=== PATIENT | male | born 1965 | race Caucasian/White ===

== ENCOUNTER → 2017-12-14 12:39 | Outpatient (CLI) | payer OTHER, SELFPAY ==
--- NOTE | 2017-12-14 12:43 | VDLE_ITS ---
Reason For Study: pain/swelling RIGHT LEFT CFV is compressible, spontaneous, phasic, CFV is compressible, spontaneous, phasic, competent and demonstrates normal competent, and demonstrates normal augmentation. augmentation. FV is compressible, spontaneous, phasic, FV is compressible, spontaneous, phasic, competent and demonstrates normal competent and demonstrates normal augmentation. augmentation. POP V is compressible, spontaneous, phasic, POP V is compressible, spontaneous, phasic, competent and demonstrates normal competent and demonstrates normal augmentation. augmentation. T/P Trunk is compressible. T/P Trunk is compressible. PTV is compressible. PTV is compressible. RT PerV is compressible. LT PerV is compressible. SFJ is competent. SFJ is incompetent. GSV above knee is competent. GSV above knee is competent. GSV below knee is incompetent > .5 seconds; GSV below knee is competent. measures 0.301 x 0.332 cm. SSV is competent. SSV is competent. Procedure Exam performed in department. The exam was diagnostic. Interpretation Summary 1. Bilateral no DVT or SVT. 2. Right below knee GSV reflux. Ordering Physician: Roberto Harley Referring Physician: Balbir Campos Performed By: Daija Griffith, LISA, RVT
== END ==
PROVIDERS: Family Provider Physician Assistant; PCP Physician Assistant; Visit Provider Surgery Vascular Surgery
DX: M79.89 Other specified soft tissue disorders (principal); M79.604 Pain in right leg; M79.605 Pain in left leg
CPT/HCPCS: 93970

== ENCOUNTER 2019-05-30 21:05 | Inpatient (IN) | payer OTHER, SELFPAY ==
[2019-05-30 21:07] VITALS: BP 82/56; PULSE 120; RESP 22; TEMP 36.6; O2SAT 98; BMI 37.2
--- NOTE | 2019-05-30 21:39 | ED.RN ---
2129 82/56,pt asymptomatic,iv started in lac,ns wide open.
[2019-05-30 21:40] VITALS: BP 81/53; PULSE 112; RESP 19; O2SAT 99
--- NOTE | 2019-05-30 21:46 | EKG12_ITS ---
Test Reason : HYPOTENSION Blood Pressure : / mmHG Vent. Rate : 121 BPM Atrial Rate : 121 BPM P-R Int : 128 ms QRS Dur : 144 ms QT Int : 342 ms P-R-T Axes : 022 -73 006 degrees QTc Int : 485 ms Sinus tachycardia Left axis deviation Right bundle branch block Inferior infarct , age undetermined , cannot be excluded Abnormal ECG Confirmed by KELLY OWENS, SAWYER ([id number]), editor producer MICHELLE BROWNING ([id number]) on 06/01/2019 10:50:28 AM Referred By: DR ROWELL Confirmed By:SAWYER MENDOZA MD
--- NOTE | 2019-05-30 21:49 | ED.VIS.GEN ---
History of Present Illness Chief Complaint: Hypotension Informant: Patient Onset: Days - 4 Context: Gradual Onset Timing: Continuous Narrative: Patient has had fatigue, malaise, chills, occasional shortness of breath, occasional near syncope since having redness, pain, swelling in his right lower extremity for the past 4 days or so. He initially was seen at an urgent care and received a prescription for doxycycline which he has been taking it consistently, because subsequently he had a day or so with nausea and vomiting and was unable to keep pills down, but he has been taking it consistently for the past 2.5 days with some mild improvement in the degree of erythema but no improvement in anything else. He states he can work for 5 or 10 minutes and he is extremely fatigued and feels like he is going to pass out when this happens. Blurry vision when he feels near syncopal. No chest pain or cough. He has not lost consciousness. Denies any focal neurologic symptoms. Is clearly not confused. Is a type II diabetic, compliant with his medication, and has had a nonhealing ulcer on the bottom of his right great toe for the last year or 2. He has had symptoms like this in his right lower extremity in the past, the last time it happened was 2.5 years ago, he thinks it is infectious but was told in the past that it was not. He had superficial thrombus phlebitis at one point there, but did not require any specific management of it other than compression stockings. No history of DVT or PE. - Past Medical History (1) Type 2 diabetes mellitus with diabetic neuropathy Status: Chronic Past Medical History - Allergies and Home Meds Allergies/Adverse Reactions: Allergies No Known Allergies Allergy (Verified 05/30/19 21:07) Smoking Status: Never smoker Alcohol: None Drugs: None - Family History Maternal Family History: Reports: No pertinent history Review of Systems General: Reports: Chills, Malaise, Sweats. Denies: Fever Eyes: Denies: Visual changes - bilaterally, Diplopia ENT: Denies: Rhinorrhea, Sore throat Cardiovascular: Denies: Chest pain, Palpitations Respiratory: Reports: Dyspnea. Denies: Cough, Sputum, Dyspnea on exertion Gastrointestinal: Reports: - - Early satiety for the past month or so; scheduled for gastric emptying study. Denies: Abdominal pain, Nausea, Vomiting, Diarrhea, Melena, Hematochezia Genitourinary: Denies: Dysuria, Hematuria, Frequency Musculoskeletal: Reports: Swelling - RLE, Extremity Pain - RLE. Denies: Neck pain, Back pain Skin: Reports: Rash - RLE, Wounds - chronic right great toe Neurological: Reports: Numbness - both feet, chronic, unchanged. Denies: Headache, Weakness Physical Exam Vital Signs/Narrative: Vital Signs Temp Pulse Resp BP Pulse Ox 05/30/19 21:40 112 H 19 H 81/53 L 99 05/30/19 21:07 97.8 F 120 H 22 H 82/56 L 98 Inital Vital Signs reviewed: Yes General: Well nourished, Well developed, Obese, No Acute Distress - well-appearing Head: Normocephalic, Atraumatic Eyes: Perrl, EOMI ENT: Moist mucous membranes, No rhinorrhea Neck: Supple, Nontender Cardiovascular: Regular rate, Regular rhythm, No murmurs, Tachycardia Respiratory: No distress, CTA bilaterally, Chest nontender Abdomen: Soft, Nontender, Nondistended, Normal bowel sounds Back: Nontender, Normal Inspection. Negative for: CVA tenderness Extremities: Tenderness - Right lower leg blanching erythema., Edema - Throughout right lower leg to the knee including the calf without any calf tenderness. Skin: Normal color, No Trauma, Rash - Blanching erythema from the right proximal foot all the way up to the proximal-mid thigh, where it feathers out and is less prominent. No palpable cords., - - Ulceration plantar aspect of right great toe, with no discharge or obvious sign of infection. Neurological: Alert, Oriented x3, Cranial nerves II-XII grossly intact, Normal Strength. Negative for: Normal Sensation - Decreased sensation both feet Psychological: Normal affect, Normal Mood Diagnostic/Tx/Re-eval Impressions Venous Duplex 05/30/19 21:56 IMPRESSION: There is no evidence of deep venous thrombosis of the visualized right lower extremity venous structures. Electronically Signed: Joce Ferguson MD at 23:10 EDT , Service support , Chest X-Ray 05/30/19 22:00 IMPRESSION: Degenerative changes, as described above. No demonstrated acute cardiopulmonary process. Electronically Signed: Joce Ferguson MD at 22:36 EDT , Service support , 05/30/19 22:00 Chest 1 View (Portable) [RAD] Stat Laboratory Results 05/30/19 05/30/19 05/30/19 21:30 21:30 21:30 WBC 17.8 H RBC 4.49 L Hgb 12.6 L Hct 38.5 L MCV 85.7 MCH 28.1 MCHC 32.7 RDW Std Deviation 46.1 H RDW Coeff of Yary 14.6 Plt Count 251 MPV 10.6 Immature Gran % (Auto) 1.600 H Neut % (Auto) 82.1 H Lymph % (Auto) 9.4 L [place] % (Auto) 6.2 Eos % (Auto) 0.4 Baso % (Auto) 0.3 Absolute Neuts (auto) 14.6 H Absolute Lymphs (auto) 1.68 Nucleated RBC % 0 PT 13.6 INR 1.1 APTT 34.4 Sodium 134 L Potassium 3.8 Chloride 99 Carbon Dioxide 20.0 L Anion Gap 15 BUN 49 H Creatinine 3.61 H Estim Creat Clear Calc 24.34 Est GFR (MDRD) Af Amer 23 L Est GFR (MDRD) Non-Af 19 L BUN/Creatinine Ratio 13.6 Glucose 184 H Lactic Acid Calcium 9.4 Total Bilirubin 0.50 AST 38 H ALT 34 Alkaline Phosphatase 109 Total Protein 8.2 Albumin 3.0 L Globulin 5.2 H Albumin/Globulin Ratio 0.6 L 05/30/19 21:30 WBC RBC Hgb Hct MCV MCH MCHC RDW Std Deviation RDW Coeff of Yary Plt Count MPV Immature Gran % (Auto) Neut % (Auto) Lymph % (Auto) [place] % (Auto) Eos % (Auto) Baso % (Auto) Absolute Neuts (auto) Absolute Lymphs (auto) Nucleated RBC % PT INR APTT Sodium Potassium Chloride Carbon Dioxide Anion Gap BUN Creatinine Estim Creat Clear Calc Est GFR (MDRD) Af Amer Est GFR (MDRD) Non-Af BUN/Creatinine Ratio Glucose Lactic Acid 3.1 H Calcium Total Bilirubin AST ALT Alkaline Phosphatase Total Protein Albumin Globulin Albumin/Globulin Ratio - Rhythm Strip Rhythm Strip: Sinus Tach Rate: 120 Ectopy: None - EKG Initial EKG Interpretation: No Acute Injury Pattern, Sinus Tachycardia, RBBB - Medical Decision Making Hypotension slowly improving with IV fluid bolusing, he meets criteria for severe sepsis and I suspect the source is his right lower extremity cellulitis which presumably came from the wound on his toe that is chronic and nonhealing although it does not appear to be grossly infected or abscessed. Venous eval negative for DVT. Vancomycin is going after blood cultures obtained, his chest x-ray is unremarkable and EKG is showing a right bundle branch block but otherwise no acute injury. Will admit to ICU. Systolic blood pressure 100 prior to transfer up to the unit. - Critical Care Time Critical care time (excluding procedures): 30-74 minutes, Including time spent:, Discussing w/Patient &/or Family/Canvas Cutter, Discussing w/Consultants, Arranging Admission or Transfer, Performing Direct Patient Care at Bedside ED Disposition - Plan for ED Patient: Disposition: Acute Care Hospital [facility] Diagnosis: Severe sepsis, Cellulitis of left lower extremity, Type 2 diabetes mellitus with diabetic neuropathy
[2019-05-30 21:53] VITALS: BP 91/54; PULSE 107; RESP 19; O2SAT 99
[2019-05-30] MEDS: 0.9% Normal Saline 1,000 ML 999 ML IV ×3 (21:55→23:14)
--- NOTE | 2019-05-30 21:56 | US_ITS ---
STUDY: VENOUS DOPPLER ULTRASOUND - RIGHT LOWER EXTREMITY REASON FOR EXAM: Male, 54 years old. Right leg swelling and redness x4 days TECHNIQUE: Ultrasound evaluation of the deep vein system to include christianson-scale imaging and compression was performed. Christianson-scale imaging and Doppler sonographic evaluation, including duplex spectral analysis and qualitative color flow sonography, was performed. COMPARISON: None. FINDINGS: Common Femoral Vein: Normal compression, spontaneity and augmentation. Normal color Doppler. Common Femoral Vein/Greater Saphenous Junction: Normal compression. No internal echoes. Deep Femoral Vein: Not imaged Femoral Proximal: Normal compression. No internal echoes. Femoral Middle: Normal compression, spontaneity and augmentation. Normal color Doppler. Femoral Distal: Normal compression. No internal echoes. Popliteal Vein: Normal compression, spontaneity and augmentation. Normal color Doppler. Posterior Tibial Vein: Normal compression. No internal echoes. Peroneal Vein: Normal compression. No internal echoes. US/Venous Duplex Imag/Limited/Uni IMPRESSION: There is no evidence of deep venous thrombosis of the visualized right lower extremity venous structures. Electronically Signed: Joce Ferguson MD at 23:10 EDT , Service support ,
--- NOTE | 2019-05-30 22:00 | RAD_ITS ---
STUDY: X-RAY CHEST REASON FOR EXAM: Male, 54 years old. Hypotensive, shortness of breath, dizziness, vision changes TECHNIQUE: Single AP portable view of the chest. COMPARISON: None. FINDINGS: infrastructure design engineer leads are present. The lungs are clear and expanded. There is no demonstrated pleural abnormality. Normal size heart. Normal mediastinum and gaurang. Normal visualized pulmonary arteries. Normal visualized aortic arch and descending thoracic aorta. There are diffuse degenerative changes of the visualized thoracic spine. Normal visualized ribs, clavicles, and shoulders. There is no demonstrated abnormality of the visualized soft tissue structures of the upper abdomen. RAD/Chest 1 View (Portable) IMPRESSION: Degenerative changes, as described above. No demonstrated acute cardiopulmonary process. Electronically Signed: Joce Ferguson MD at 22:36 EDT , Service support ,
--- NOTE | 2019-05-30 22:19 | ED.RN ---
pt unable tovoid at this time, inquired if the md wants to delay vancomycin for urine,he stated not to run atb.
[2019-05-30 22:20] LABS: Absolute Lymphocyte Count 1.68 X10^3/uL (0.83-4.51); Absolute Neutrophil Count 14.6 X10^3/uL (2.0-7.7); Basophil# 0.06 X10^3/uL; Basophil% 0.3 % (0-1); Eosinophil# 0.07 X10^3/uL; Eosinophils% 0.4 % (0-5); Hematocrit 38.5 % (40-54); Hemoglobin 12.6 g/dL (13.0-16.5); Lymphocyte # 1.68 X10^3/ul (4.0); Lymphocyte % 9.4 % (19-41); Mean Corp Hgb Conc 32.7 g/dL (32-36); Mean Corpuscular Hgb 28.1 pg (27.0-32.0); Mean Corpuscular Volume 85.7 fL (80-94); Mean Platelet Vol. 10.6 fl (6.2-12.0); Monocyte% 6.2 % (0-10); NRBC Flagged by Analyzer 0 % (0-5); Neutrophil # 14.62 X10^3/uL (2.7-7.7); Neutrophil % 82.1 % (47-70); Platelet Count 251 K/mm3 (150-450); RBC Distribution Width CV 14.6 % (11.6-14.6); RBC Distribution Width SD 46.1 fl (35.1-43.9); Red Blood Count 4.49 M/mm3 (4.6-6.2); White Blood Count 17.8 K/mm3 (4.4-11.0)
[2019-05-30 22:22] VITALS: TEMP 37.4
[2019-05-30 22:23] LABS: International Normalized Ratio 1.1; Prothrombin Time (Protime)PT. 13.6 SECONDS (11.7-14.9)
[2019-05-30 22:24] LABS: Partial Thromboplast Time 34.4 Seconds (24.1-36.2)
[2019-05-30 22:32] LABS: ALB/GLOB Ratio 0.6 RATIO (0.9-2.4); AST(SGOT) 38 U/L (15-37); Alanine Aminotransfer ALT/SGPT 34 U/L (16-61); Alkaline Phosphatase 109 U/L (45-117); Anion Gap 15 (5-15); BUN 49 mg/dL (7-18); BUN/Creat Ratio 13.6 RATIO (10-20); Calcium,Total 9.4 mg/dL (8.5-10.1); Chloride 99 mmol/L (98-107); Creatinine, Serum 3.61 mg/dL (0.70-1.30); EST Glomerular Filtration Rate 19 mL/min (>60); Est Glom Filt Rate - Afr Amer 23 mL/min (>60); Estimated Creatinine Clearance 24.34 ml/min; Globulin 5.2 g/dL (2.2-4.2); Glucose 184 mg/dL (74-106); Potassium 3.8 mmol/L (3.5-5.1); Protein, Total 8.2 g/dL (6.4-8.2); Sodium Level 134 mmol/L (136-145)
[2019-05-30 22:36] LABS: Lactic Acid 3.1 mmol/L (0.4-2.0)
[2019-05-30 23:10] VITALS: BP 101/57; PULSE 106; RESP 20; O2SAT 98
--- NOTE | 2019-05-30 23:11 | PCM.HP.STD ---
Problem List (1) Type 2 diabetes mellitus with diabetic neuropathy Status: Chronic (2) Severe sepsis Status: Acute (3) Cellulitis of left lower extremity Status: Acute History of Present Illness Date of Admission: 05/30/19 Chief Complaint: severe sepsis The patient is a 54 year old M [male patient with a significant past medical history of diabetes who has had chronic ulcer of the right foot over the past year nonhealing. Over the past several days the right leg has become more red and warm from the foot all the way to the groin. He sought medical attention at the urgent care who started him on doxycycline and subsequently the erythema has become more diffuse and less warm. This evening he found himself very tired and he presented to the emergency room with hypotension, tachycardic and a low-grade fever. CBC shows a white count of 17,000 with a left shift. Lactate is above 3. He has received 3 L of normal saline in the emergency room and states he is feeling better than when he arrived. The patient will be admitted to the medical intensive care unit for sepsis and sepsis protocol will be followed. The source of infection appears to be an open ulcer on the right plantar surface of the foot for which IV vancomycin has been started.] Past Medical History Past Medical History (Chronic Problems): Chronic Problems Type 2 diabetes mellitus with diabetic neuropathy (Chronic) Allergies No Known Allergies Allergy (Verified 05/30/19 21:07) Home Medications: Ambulatory Orders Medication Instructions Recorded Allopurinol 300 mg PO DAILY 05/30/19 Cyanocobalamin (Vitamin B-12) 1,000 mcg PO DAILY 05/30/19 [Vitamin B-12] Insulin Glargine/Lixisenatide 70 ml SQ DAILY 05/30/19 [Soliqua 100 Unit-33 Mcg/ml Pen] Insulin Lispro [Humalog Kwikpen] 28 unit SQ BID 05/30/19 Lisinopril [Prinivil] 10 mg PO DAILY 05/30/19 Metformin HCl 850 mg PO BID 05/30/19 Metoprolol Tartrate 25 mg PO DAILY 05/30/19 Omeprazole 40 mg PO DAILY 05/30/19 Pioglitazone [Actos] 30 mg PO DAILY 05/30/19 Pravastatin [Pravachol] 40 mg PO QHS 05/30/19 Smoking Status: Never smoker Alcohol: None Drugs: None - *Family History Maternal History Items: No pertinent history Review of Systems Constitutional: Reports: Fever, Weakness, Fatigue. Denies: Chills, Weight Change HEENT: Denies: Head Aches, Sinus Congestion, Sinus Drainage Cardiovascular: Denies: Chest Pain, Palpitations Respiratory: Denies: Cough, Shortness of breath at rest, Sputum production Gastrointestinal: Denies: Abdominal Pain, Nausea, Vomiting Genitourinary: Denies: Dysuria Musculoskeletal: Denies: Joint Pain, Joint Tenderness Skin: Reports: Skin Changes, Wounds. Denies: Rash Neurological: Denies: Numbness, Tingling, Focal weakness Psychiatric: Denies: Anxiety, Depression, Homicidal Ideations, Suicidal Ideations Hematologic/ Lymphatic: Denies: Easy Bruising, Easy Bleeding VTE Information - Inpt Only VTE Present on Admission: No VTE Mechan Device Prophylaxis: None VTE Pharm Prophylaxis ordered?: Yes Patient Problems: Active and Suspected Problems Severe sepsis (Acute) Cellulitis of left lower extremity (Acute) - Physical Exam General: Alert, Oriented x3, Cooperative HEENT: Atraumatic, Normocephalic Neck: Supple Lungs: Clear to auscultation, Normal air movement Cardiovascular: Regular rate, Normal S1, Normal S2, No murmurs, Tachycardic Abdomen: Bowel Sounds Present, Soft, Non Tender Extremities: Edema, Tenderness Skin: Ulcer/ Wound - right foot plantar surface, erythema in entire right lower extremity Musculoskeletal: No Tenderness to Palpation of Joints or Extremities Neurological: Neuro grossly intact Psych/Mental Status: Normal Affect, Appropriate Vital Signs Temp Pulse Resp BP Pulse Ox 99.4 F H 106 H 20 H 101/57 L 98 05/30/19 22:22 05/30/19 23:10 05/30/19 23:10 05/30/19 23:10 05/30/19 23:10 Oxygen Flow Rate (L/min) 2 Oxygen Delivery Method Nasal Cannula Weight: 266 lb 15.677 oz Body Mass Index (BMI) 37.2 Laboratory Tests Past 24 Hrs 05/30/19 05/30/19 05/30/19 21:30 21:30 21:30 WBC 17.8 H RBC 4.49 L Hgb 12.6 L Hct 38.5 L MCV 85.7 MCH 28.1 MCHC 32.7 RDW Std Deviation 46.1 H RDW Coeff of Yary 14.6 Plt Count 251 MPV 10.6 Immature Gran % (Auto) 1.600 H Neut % (Auto) 82.1 H Lymph % (Auto) 9.4 L [place] % (Auto) 6.2 Eos % (Auto) 0.4 Baso % (Auto) 0.3 Absolute Neuts (auto) 14.6 H Absolute Lymphs (auto) 1.68 Nucleated RBC % 0 PT 13.6 INR 1.1 APTT 34.4 Sodium 134 L Potassium 3.8 Chloride 99 Carbon Dioxide 20.0 L Anion Gap 15 BUN 49 H Creatinine 3.61 H Estim Creat Clear Calc 24.34 Est GFR (MDRD) Af Amer 23 L Est GFR (MDRD) Non-Af 19 L BUN/Creatinine Ratio 13.6 Glucose 184 H Lactic Acid Calcium 9.4 Total Bilirubin 0.50 AST 38 H ALT 34 Alkaline Phosphatase 109 Total Protein 8.2 Albumin 3.0 L Globulin 5.2 H Albumin/Globulin Ratio 0.6 L 05/30/19 21:30 WBC RBC Hgb Hct MCV MCH MCHC RDW Std Deviation RDW Coeff of Yary Plt Count MPV Immature Gran % (Auto) Neut % (Auto) Lymph % (Auto) [place] % (Auto) Eos % (Auto) Baso % (Auto) Absolute Neuts (auto) Absolute Lymphs (auto) Nucleated RBC % PT INR APTT Sodium Potassium Chloride Carbon Dioxide Anion Gap BUN Creatinine Estim Creat Clear Calc Est GFR (MDRD) Af Amer Est GFR (MDRD) Non-Af BUN/Creatinine Ratio Glucose Lactic Acid 3.1 H Calcium Total Bilirubin AST ALT Alkaline Phosphatase Total Protein Albumin Globulin Albumin/Globulin Ratio Assessment/Plan All Active Problems Severe sepsis (Acute) Cellulitis of left lower extremity (Acute) Chronic Problems Type 2 diabetes mellitus with diabetic neuropathy (Chronic) Plan 1. Severe sepsis?source foot ulcer with a right leg cellulitis?admit to ICU, continue sepsis protocol with hydration therapy, repeat lactate per protocol, repeat CBC BMP in the morning, vancomycin IV for infection, consult studio operations engineer in charge 2. Diabetes?continue routine diabetes control add sliding scale insulin 3. DVT prophylaxis?low molecular weight heparin Code Visit Inpatient E&M: 78442 Init Hosp L3
[2019-05-30 23:42] VITALS: BP 88/57; PULSE 101; RESP 24; TEMP 37.2; O2SAT 98
[2019-05-31] VITALS (24 sets, daily range): BP systolic 90–143; BP diastolic 48–91; PULSE 95–110; RESP 16–28; TEMP 36.6–37.6; O2SAT 93–100; BMI 37.3; BMI 37.4
[2019-05-31 00:41] LABS: Bedside Glucose 75 mg/dL (70-110)
[2019-05-31 02:15] LABS: Reflex Lactate? Y
[2019-05-31 02:19] LABS: Lactic Acid 1.5 mmol/L (0.4-2.0)
--- NOTE | 2019-05-31 02:27 | PCM.RX.CS ---
Consult Pharmacy has been consulted to manage selected antiobiotic: Vancomycin Type of Consult: New start Suspected Infection: Sepsis, Skin/Soft tissue Prior Doses of Antibiotics Received/Current Regimen: Medications Vancomycin HCl 1,250 mg/ (Sodium Chloride) 275 mls @ 167 mls/hr IV Q24H [place] Discontinued Medications Vancomycin HCl 1,750 mg/ (Sodium Chloride) 535 mls @ 250 mls/hr IV X1 ONE Stop: 05/31/19 00:03 Last Admin: 05/30/19: Dose: 250 mls/hr Labs: Sodium 134 mmol/L (136-145) L 05/30/19 21:30 Potassium 3.8 mmol/L (3.5-5.1) 05/30/19 21:30 Chloride 99 mmol/L (98-107) 05/30/19 21:30 Carbon Dioxide 20.0 mmol/L (21.0-32.0) L 05/30/19 21:30 15 (5-15) 05/30/19 21:30 BUN 49 mg/dL (7-18) H 05/30/19 21:30 3.61 mg/dL (0.70-1.30) H 05/30/19 21:30 Est GFR (MDRD) Af Amer 23 mL/min (>60) L 05/30/19 21:30 Est GFR (MDRD) Non-Af 19 mL/min (>60) L 05/30/19 21:30 13.6 RATIO (10-20) 05/30/19 21:30 Glucose 184 mg/dL (74-106) H 05/30/19 21:30 Weight used for dosin.5 kg Estimated Creatinine Clearance: 24.3 Goal Trough: 15-20 mcg/mL Pharmacy Plan for Drug Dosing: Pharmacy Service will continue to monitor and adjust dosing as required. Follow-Up Labs: Trough Vancomycin Labs to be done on [date and time ordered]: 06/01/19 @2200
[2019-05-31 04:10] LABS: Absolute Lymphocyte Count 1.94 X10^3/uL (0.83-4.51); Absolute Neutrophil Count 11.4 X10^3/uL (2.0-7.7); Basophil# 0.04 X10^3/uL; Basophil% 0.3 % (0-1); Eosinophil# 0.12 X10^3/uL; Eosinophils% 0.8 % (0-5); Hematocrit 31.9 % (40-54); Hemoglobin 10.5 g/dL (13.0-16.5); Lymphocyte # 1.94 X10^3/ul (4.0); Lymphocyte % 12.6 % (19-41); Mean Corp Hgb Conc 32.9 g/dL (32-36); Mean Corpuscular Hgb 28.5 pg (27.0-32.0); Mean Corpuscular Volume 86.7 fL (80-94); Mean Platelet Vol. 10.3 fl (6.2-12.0); Monocyte# 1.56 X10^3/uL; Monocyte% 10.2 % (0-10); NRBC Flagged by Analyzer 0 % (0-5); Neutrophil # 11.38 X10^3/uL (2.7-7.7); Neutrophil % 74.1 % (47-70); POSITIVE DIFFERENTIAL YES; Platelet Count 209 K/mm3 (150-450); RBC Distribution Width CV 14.6 % (11.6-14.6); RBC Distribution Width SD 46.4 fl (35.1-43.9); Red Blood Count 3.68 M/mm3 (4.6-6.2); White Blood Count 15.4 K/mm3 (4.4-11.0)
[2019-05-31 04:17] LABS: Differential Indicated SCAN CRITERIA MET
[2019-05-31 04:24] LABS: Anion Gap 11 (5-15); BUN 49 mg/dL (7-18); BUN/Creat Ratio 18.2 RATIO (10-20); Calcium,Total 8.3 mg/dL (8.5-10.1); Chloride 105 mmol/L (98-107); Creatinine, Serum 2.69 mg/dL (0.70-1.30); EST Glomerular Filtration Rate 26 mL/min (>60); Est Glom Filt Rate - Afr Amer 32 mL/min (>60); Estimated Creatinine Clearance 32.66 ml/min; Glucose 87 mg/dL (74-106); Potassium 3.8 mmol/L (3.5-5.1); Sodium Level 137 mmol/L (136-145)
[2019-05-31 05:32] LABS: Differential Comment SCANNED
[2019-05-31 07:05] LABS: Bedside Glucose 141 mg/dL (70-110)
--- NOTE | 2019-05-31 07:09 | PCM.CON.CC ---
Reason for Consult Date of Consultation: 05/31/19 Reason for Consultation: Severe sepsis History of Present Illness: The patient is a 54-year-old male, with a history as outlined below, who presented to the emergency department on May 30 with complaints of right lower extremity erythema. The patient reports that he is currently being followed by an outside anvil seating press operator and wound care due to a right great toe nonhealing ulcer. The patient previously underwent amputation of his left great toe due to underlying osteomyelitis. It is unknown what type of work-up has been completed previously by his outside anvil seating press operator. The patient did report decreased p.o. intake over the days leading up to his hospitalization. On presentation to the emergency department, the patient was noted to be afebrile with a blood pressure of 82/56 mmHg. The patient was maintaining appropriate oxygen saturations on room air. Laboratory evaluation revealed an elevated white blood cell count to 18,000. Chemistry profile was notable for acute kidney injury with a creatinine of 3.61. Lactate was mildly elevated to 3.1. Right lower extremity venous duplex revealed no evidence for DVT. Plain film chest x-ray revealed no acute cardiopulmonary process. The patient's blood pressures were noted to improve with IV fluid resuscitation. The patient was subsequently started on antibiotics and admitted to the medical intensive care unit for further management. Past Medical History Past Medical History (Chronic Problems): Chronic Problems Type 2 diabetes mellitus with diabetic neuropathy (Chronic) Allergies No Known Allergies Allergy (Verified 05/30/19 21:07) Home Medications: Ambulatory Orders Medication Instructions Recorded Allopurinol 300 mg PO DAILY 05/30/19 Cyanocobalamin (Vitamin B-12) 1,000 mcg PO DAILY 05/30/19 [Vitamin B-12] Insulin Glargine/Lixisenatide 70 units SQ DAILY 05/30/19 [Soliqua 100 Unit-33 Mcg/ml Pen] Insulin Lispro [Humalog Kwikpen] 28 unit SQ BID 05/30/19 Lisinopril [Prinivil] 10 mg PO DAILY 05/30/19 Metformin HCl 850 mg PO BID 05/30/19 Metoprolol Tartrate 25 mg PO DAILY 05/30/19 Omeprazole 40 mg PO DAILY 05/30/19 Pioglitazone [Actos] 30 mg PO DAILY 05/30/19 Pravastatin [Pravachol] 40 mg PO QHS 05/30/19 Smoking Status: Never smoker Alcohol: None Drugs: None - *Family History Maternal History Items: No pertinent history Review of Systems Constitutional: Denies: Chills, Fever Eyes: Denies: Blurred vision, Double vision HEENT: Denies: Head Aches, Sinus Congestion, Sinus Drainage Cardiovascular: Denies: Chest Pain, Palpitations Respiratory: Denies: Cough, Shortness of breath at rest, Sputum production Gastrointestinal: Denies: Abdominal Pain, Nausea, Vomiting Genitourinary: Denies: Dysuria Musculoskeletal: Denies: Joint Pain, Joint Tenderness Skin: Reports: Rash, Wounds Neurological: Denies: Numbness, Tingling, Focal weakness Psychiatric: Denies: Anxiety, Depression, Homicidal Ideations, Suicidal Ideations Hematologic/ Lymphatic: Denies: Easy Bruising, Easy Bleeding Patient Problems: Active and Suspected Problems Acute kidney injury (Acute) Severe sepsis (Acute) Cellulitis of left lower extremity (Acute) Objective: The patient's most recent lab work, culture data and imaging studies have all been personally reviewed. Blood cultures are currently pending. - Physical Exam General: Alert, Cooperative, No apparent distress, - - Sitting in bedside recliner. HEENT: Atraumatic, PERRLA, Normocephalic Oral: No Gingival or Mucosal Lesions/ Ulcerations Neck: Supple, No Nodes, Trachea Midline Lungs: Normal air movement, No rhonchi, No wheeze, No rales Cardiovascular: Regular rate, Regular Rhythm, Normal S1, Normal S2, No murmurs Abdomen: Bowel Sounds Present, Soft, Non Tender, Obese Extremities: No clubbing, No cyanosis Skin: - - Right lower extremity erythema and swelling. Right great toe ulceration with dressing in place. Musculoskeletal: No Tenderness to Palpation of Joints or Extremities Lymphatic: No Cervical, Supraclavicular, or Inguinal Adenopathy Neurological: Cranial nerves II-XII grossly intact, Neuro grossly intact Psych/Mental Status: Normal Affect, Appropriate Vital Signs Temp Pulse Resp BP Pulse Ox 98.3 F 101 H 28 H 97/48 L 96 05/31/19 04:00 05/31/19 07:00 05/31/19 07:00 05/31/19 07:00 05/31/19 07:00 Oxygen Flow Rate (L/min) 1 Oxygen Delivery Method Room Air Weight: 272 lb 14.916 oz Body Mass Index (BMI) 37.3 Intake and Output for Last 24 Hours 05/29/19 05/30/19 05/31/19 23:59 23:59 23:59 Intake Total 2973 / 2973 Output Total 0 / 0 Balance 2973 / 2973 Laboratory Tests Past 24 Hrs 05/30/19 05/30/19 05/30/19 21:30 21:30 21:30 WBC 17.8 H RBC 4.49 L Hgb 12.6 L Hct 38.5 L MCV 85.7 MCH 28.1 MCHC 32.7 RDW Std Deviation 46.1 H RDW Coeff of Yary 14.6 Plt Count 251 MPV 10.6 Immature Gran % (Auto) 1.600 H Neut % (Auto) 82.1 H Lymph % (Auto) 9.4 L [place] % (Auto) 6.2 Eos % (Auto) 0.4 Baso % (Auto) 0.3 Absolute Neuts (auto) 14.6 H Absolute Lymphs (auto) 1.68 Nucleated RBC % 0 Differential Comment Diff Path Review PT 13.6 INR 1.1 APTT 34.4 Sodium 134 L Potassium 3.8 Chloride 99 Carbon Dioxide 20.0 L Anion Gap 15 BUN 49 H Creatinine 3.61 H Estim Creat Clear Calc 24.34 Est GFR (MDRD) Af Amer 23 L Est GFR (MDRD) Non-Af 19 L BUN/Creatinine Ratio 13.6 Glucose 184 H Lactic Acid Calcium 9.4 Total Bilirubin 0.50 AST 38 H ALT 34 Alkaline Phosphatase 109 Total Protein 8.2 Albumin 3.0 L Globulin 5.2 H Albumin/Globulin Ratio 0.6 L 05/30/19 05/31/19 05/31/19 21:30 01:20 03:55 WBC 15.4 H RBC 3.68 L Hgb 10.5 L Hct 31.9 L MCV 86.7 MCH 28.5 MCHC 32.9 RDW Std Deviation 46.4 H RDW Coeff of Yary 14.6 Plt Count 209 MPV 10.3 Immature Gran % (Auto) 2.000 H Neut % (Auto) 74.1 H Lymph % (Auto) 12.6 L [place] % (Auto) 10.2 H Eos % (Auto) 0.8 Baso % (Auto) 0.3 Absolute Neuts (auto) 11.4 H Absolute Lymphs (auto) 1.94 Nucleated RBC % 0 Differential Comment SCANNED Diff Path Review May foll PT INR APTT Sodium Potassium Chloride Carbon Dioxide Anion Gap BUN Creatinine Estim Creat Clear Calc Est GFR (MDRD) Af Amer Est GFR (MDRD) Non-Af BUN/Creatinine Ratio Glucose Lactic Acid 3.1 H 1.5 Calcium Total Bilirubin AST ALT Alkaline Phosphatase Total Protein Albumin Globulin Albumin/Globulin Ratio 05/31/19 03:55 WBC RBC Hgb Hct MCV MCH MCHC RDW Std Deviation RDW Coeff of Yary Plt Count MPV Immature Gran % (Auto) Neut % (Auto) Lymph % (Auto) [place] % (Auto) Eos % (Auto) Baso % (Auto) Absolute Neuts (auto) Absolute Lymphs (auto) Nucleated RBC % Differential Comment Diff Path Review PT INR APTT Sodium 137 Potassium 3.8 Chloride 105 Carbon Dioxide 21.0 Anion Gap 11 BUN 49 H Creatinine 2.69 H Estim Creat Clear Calc 32.66 Est GFR (MDRD) Af Amer 32 L Est GFR (MDRD) Non-Af 26 L BUN/Creatinine Ratio 18.2 Glucose 87 Lactic Acid Calcium 8.3 L Total Bilirubin AST ALT Alkaline Phosphatase Total Protein Albumin Globulin Albumin/Globulin Ratio POC Glucose 05/31/19 05/31/19 06:59 00:37 POC Glucose 141 H 75 Clinical Impression(s) from Imaging Studies Venous Duplex 05/30/19 21:56 IMPRESSION: There is no evidence of deep venous thrombosis of the visualized right lower extremity venous structures. Electronically Signed: Joce Ferguson MD at 23:10 EDT , Service support , Chest X-Ray 05/30/19 22:00 IMPRESSION: Degenerative changes, as described above. No demonstrated acute cardiopulmonary process. Electronically Signed: Joce Ferguson MD at 22:36 EDT , Service support , Assessment/Plan Active and Suspected Problems Acute kidney injury (Acute) Severe sepsis (Acute) Cellulitis of left lower extremity (Acute) RECOMMENDATIONS: 1. Continue broad-spectrum antimicrobials for now. 2. Continue supplemental IV fluid hydration and encourage p.o. intake. 3. Continue to monitor urine output and renal function. 4. Continue to hold home antihypertensives. 5. Wound care consultation. 6. Attempt to obtain outside podiatry records. If the patient has not had imaging of his right lower extremity, consider MRI. IMPRESSIONS: 1. Severe sepsis Likely secondary to right lower extremity cellulitis. The patient is currently hemodynamically stable on broad-spectrum antibiotics. We will plan to continue local wound care. Wound care consultation is currently pending. Cultures can be obtained at that time. If imaging of the patient's right lower extremity has not been completed previously by his anvil seating press operator, can consider MR to evaluate for the presence of osteomyelitis. 2. Acute kidney injury Likely prerenal in etiology and related to #1. Unclear what the patient's baseline creatinine truly is. However, he does appear to be responding to IV fluid resuscitation. We will continue to monitor urine output accordingly. There is no indication for renal replacement therapy at this time. 3. Hypertension/hyperlipidemia/GERD/diabetes mellitus/obesity Complicates care, management, recovery and prognosis. Continue to hold home antihypertensives. Hold metformin as well due to renal insufficiency. This note was generated with [email or web address] dictation software. It may contain incorrect words, spelling, and punctuation that were not noted in checking the note before signing. Code Visit Inpatient E&M: 32109 Init Hosp L3
[2019-05-31] MEDS: 0.9% Normal Saline 1,000 ML 150 ML IV (08:49)
--- NOTE | 2019-05-31 08:59 | NURSING ---
wound photo: right great toe
[2019-05-31 09:01] LABS: Bacteria 0 SEEN /hpf (None Seen); Color, Urine Yellow (Yellow); Glucose, Dipstick Normal (Normal); Ketone-Dipstick Negative (Negative); Leukocyte Esterase-Dipstick Negative /ul (Negative); Mucous, Urine 0 SEEN /hpf (<or=2+); Nitrite-Dipstick Negative (Negative); Occult Blood-Urine Negative /ul (Negative); Protein-Dipstick 30 mg/dl (Negative); Red Blood Cells-Urine 0 SEEN /hpf (0-5); Squamous Epithelial Cells - UA 0 SEEN /hpf (0-5); Urine Bilirubin Dipstick Negative (Negative); Urine Clarity Clear (Clear); Urine Urobilinogen Normal (Normal); White Blood Cells 0 SEEN /hpf (0-5)
--- NOTE | 2019-05-31 09:07 | PN_ITS ---
Patient Problems: Active and Suspected Problems Acute kidney injury (Acute) Severe sepsis (Acute) Cellulitis of left lower extremity (Acute) Subjective: Chief complaint: Follow-up after admission for severe sepsis, acute right lower extremity cellulitis, acute kidney injury. Patient seen and examined. No acute events overnight. He still having mild pain in his right leg as well as swelling. He denied fever overnight. He denies dizziness or lightheadedness. He has been treated for right big toe chronic nonhealing ulcer with podiatry as outpatient for the last couple of years. He had amputation of his left big toe for left big toe osteomyelitis and that was done November,. He complains of epigastric fullness that has been going on for 4 weeks, was started on omeprazole around 1 week ago without significant improvement. He reported episodes when he is getting dizzy and lightheaded while working. This morning, is afebrile, heart rate has been around 100, blood pressure improved, pulse ox is maintained on room air. - Physical Exam General: Alert, Oriented x3, Cooperative, No apparent distress HEENT: Atraumatic, PERRLA, EOMI, Normocephalic Oral: Moist Mucosa, No Gingival or Mucosal Lesions/ Ulcerations Neck: Supple, No JVD, Negative Carotid Bruits, Trachea Midline, Thyroid Normal Size and Texture Lungs: Clear to auscultation, Normal air movement, No rhonchi, No wheeze, No rales Cardiovascular: Regular rate, Regular Rhythm, Normal S1, Normal S2, No murmurs, PMI Normal Abdomen: Bowel Sounds Present, Soft, Non Tender, Non-Distended, No Hepato- splenomegaly, Obese Extremities: No clubbing, No cyanosis, No edema, - - Right leg: Erythema and swelling extending from the just above right ankle up to the just below right knee. There is chronic ulcer on the plantar aspect of the right big toe about 2 x 2 cm, minimal drainage. Skin: No rashes, Ulcer/ Wound, - Lymphatic: No Cervical, Supraclavicular, or Inguinal Adenopathy Neurological: Cranial nerves II-XII grossly intact, Motor Exam 5/5 strength throughout Psych/Mental Status: Normal Affect, Appropriate, Alert and oriented to time, place, person, mood and affect Vital Signs Temp Pulse Resp BP Pulse Ox 98.3 F 100 18 114/74 97 05/31/19 04:00 05/31/19 08:00 05/31/19 08:00 05/31/19 08:00 05/31/19 08:00 Oxygen Flow Rate (L/min) 1 Oxygen Delivery Method Room Air Weight: 272 lb 14.916 oz Body Mass Index (BMI) 37.3 Intake and Output for Last 24 Hours 05/29/19 05/30/19 05/31/19 23:59 23:59 23:59 Intake Total 2973 / 2973 Output Total 0 / 0 Balance 2973 / 2973 Laboratory Tests Past 24 Hrs 05/30/19 05/30/19 05/30/19 21:30 21:30 21:30 WBC 17.8 H RBC 4.49 L Hgb 12.6 L Hct 38.5 L MCV 85.7 MCH 28.1 MCHC 32.7 RDW Std Deviation 46.1 H RDW Coeff of Yary 14.6 Plt Count 251 MPV 10.6 Immature Gran % (Auto) 1.600 H Neut % (Auto) 82.1 H Lymph % (Auto) 9.4 L [place] % (Auto) 6.2 Eos % (Auto) 0.4 Baso % (Auto) 0.3 Absolute Neuts (auto) 14.6 H Absolute Lymphs (auto) 1.68 Nucleated RBC % 0 Differential Comment Diff Path Review PT 13.6 INR 1.1 APTT 34.4 Sodium 134 L Potassium 3.8 Chloride 99 Carbon Dioxide 20.0 L Anion Gap 15 BUN 49 H Creatinine 3.61 H Estim Creat Clear Calc 24.34 Est GFR (MDRD) Af Amer 23 L Est GFR (MDRD) Non-Af 19 L BUN/Creatinine Ratio 13.6 Glucose 184 H Lactic Acid Calcium 9.4 Total Bilirubin 0.50 AST 38 H ALT 34 Alkaline Phosphatase 109 Total Protein 8.2 Albumin 3.0 L Globulin 5.2 H Albumin/Globulin Ratio 0.6 L Urine Color Urine Clarity Urine pH Ur Specific [place] U Specif Grav (Refrac) Urine Protein Urine Glucose (UA) Urine Ketones Urine Occult Blood Urine Nitrite Urine Bilirubin Urine Urobilinogen Ur Leukocyte Esterase Urine RBC Urine WBC Ur Squamous Epith Cells Ur Transition Epith Cell Ur Renal Epithelial Cell Calcium Oxalate Crystal Uric Acid Crystals Triple Phos Crystals Other Crystals Amorphous Sediment Urine Bacteria Hyaline Casts Fine Granular Casts Coarse Granular Casts Waxy Casts RBC Casts WBC Casts Urine Mucus Urine Trichomonas Urine Yeast S.aureus Protein A PCR MRSA (PCR) 05/30/19 05/31/19 05/31/19 21:30 01:20 03:55 WBC 15.4 H RBC 3.68 L Hgb 10.5 L Hct 31.9 L MCV 86.7 MCH 28.5 MCHC 32.9 RDW Std Deviation 46.4 H RDW Coeff of Yary 14.6 Plt Count 209 MPV 10.3 Immature Gran % (Auto) 2.000 H Neut % (Auto) 74.1 H Lymph % (Auto) 12.6 L [place] % (Auto) 10.2 H Eos % (Auto) 0.8 Baso % (Auto) 0.3 Absolute Neuts (auto) 11.4 H Absolute Lymphs (auto) 1.94 Nucleated RBC % 0 Differential Comment SCANNED Diff Path Review May foll PT INR APTT Sodium Potassium Chloride Carbon Dioxide Anion Gap BUN Creatinine Estim Creat Clear Calc Est GFR (MDRD) Af Amer Est GFR (MDRD) Non-Af BUN/Creatinine Ratio Glucose Lactic Acid 3.1 H 1.5 Calcium Total Bilirubin AST ALT Alkaline Phosphatase Total Protein Albumin Globulin Albumin/Globulin Ratio Urine Color Urine Clarity Urine pH Ur Specific [place] U Specif Grav (Refrac) Urine Protein Urine Glucose (UA) Urine Ketones Urine Occult Blood Urine Nitrite Urine Bilirubin Urine Urobilinogen Ur Leukocyte Esterase Urine RBC Urine WBC Ur Squamous Epith Cells Ur Transition Epith Cell Ur Renal Epithelial Cell Calcium Oxalate Crystal Uric Acid Crystals Triple Phos Crystals Other Crystals Amorphous Sediment Urine Bacteria Hyaline Casts Fine Granular Casts Coarse Granular Casts Waxy Casts RBC Casts WBC Casts Urine Mucus Urine Trichomonas Urine Yeast S.aureus Protein A PCR MRSA (PCR) 05/31/19 05/31/19 05/31/19 03:55 08:00 08:00 WBC RBC Hgb Hct MCV MCH MCHC RDW Std Deviation RDW Coeff of Yary Plt Count MPV Immature Gran % (Auto) Neut % (Auto) Lymph % (Auto) [place] % (Auto) Eos % (Auto) Baso % (Auto) Absolute Neuts (auto) Absolute Lymphs (auto) Nucleated RBC % Differential Comment Diff Path Review PT INR APTT Sodium 137 Potassium 3.8 Chloride 105 Carbon Dioxide 21.0 Anion Gap 11 BUN 49 H Creatinine 2.69 H Estim Creat Clear Calc 32.66 Est GFR (MDRD) Af Amer 32 L Est GFR (MDRD) Non-Af 26 L BUN/Creatinine Ratio 18.2 Glucose 87 Lactic Acid Calcium 8.3 L Total Bilirubin AST ALT Alkaline Phosphatase Total Protein Albumin Globulin Albumin/Globulin Ratio Urine Color Cancelled Yellow Urine Clarity Cancelled Clear Urine pH Cancelled 6.0 Ur Specific [place] Cancelled 1.010 U Specif Grav (Refrac) Cancelled Urine Protein Cancelled 30 H Urine Glucose (UA) Cancelled Normal Urine Ketones Cancelled Negative Urine Occult Blood Cancelled Negative Urine Nitrite Cancelled Negative Urine Bilirubin Cancelled Negative Urine Urobilinogen Cancelled Normal Ur Leukocyte Esterase Cancelled Negative Urine RBC Cancelled 0 SEEN Urine WBC Cancelled 0 SEEN Ur Squamous Epith Cells Cancelled 0 SEEN Ur Transition Epith Cell Cancelled Ur Renal Epithelial Cell Cancelled Calcium Oxalate Crystal Cancelled Uric Acid Crystals Cancelled Triple Phos Crystals Cancelled Other Crystals Cancelled Amorphous Sediment Cancelled Urine Bacteria Cancelled 0 SEEN Hyaline Casts Cancelled Fine Granular Casts Cancelled Coarse Granular Casts Cancelled Waxy Casts Cancelled RBC Casts Cancelled WBC Casts Cancelled Urine Mucus Cancelled 0 SEEN Urine Trichomonas Cancelled Urine Yeast Cancelled S.aureus Protein A PCR MRSA (PCR) 05/31/19 08:25 WBC RBC Hgb Hct MCV MCH MCHC RDW Std Deviation RDW Coeff of Yary Plt Count MPV Immature Gran % (Auto) Neut % (Auto) Lymph % (Auto) [place] % (Auto) Eos % (Auto) Baso % (Auto) Absolute Neuts (auto) Absolute Lymphs (auto) Nucleated RBC % Differential Comment Diff Path Review PT INR APTT Sodium Potassium Chloride Carbon Dioxide Anion Gap BUN Creatinine Estim Creat Clear Calc Est GFR (MDRD) Af Amer Est GFR (MDRD) Non-Af BUN/Creatinine Ratio Glucose Lactic Acid Calcium Total Bilirubin AST ALT Alkaline Phosphatase Total Protein Albumin Globulin Albumin/Globulin Ratio Urine Color Urine Clarity Urine pH Ur Specific [place] U Specif Grav (Refrac) Urine Protein Urine Glucose (UA) Urine Ketones Urine Occult Blood Urine Nitrite Urine Bilirubin Urine Urobilinogen Ur Leukocyte Esterase Urine RBC Urine WBC Ur Squamous Epith Cells Ur Transition Epith Cell Ur Renal Epithelial Cell Calcium Oxalate Crystal Uric Acid Crystals Triple Phos Crystals Other Crystals Amorphous Sediment Urine Bacteria Hyaline Casts Fine Granular Casts Coarse Granular Casts Waxy Casts RBC Casts WBC Casts Urine Mucus Urine Trichomonas Urine Yeast S.aureus Protein A PCR Pending MRSA (PCR) Pending POC Glucose 05/31/19 05/31/19 06:59 00:37 POC Glucose 141 H 75 Clinical Impression(s) from Imaging Studies Venous Duplex 05/30/19 21:56 IMPRESSION: There is no evidence of deep venous thrombosis of the visualized right lower extremity venous structures. Electronically Signed: Joce Ferguson MD at 23:10 EDT , Service support , Chest X-Ray 05/30/19 22:00 IMPRESSION: Degenerative changes, as described above. No demonstrated acute cardiopulmonary process. Electronically Signed: Joce Ferguson MD at 22:36 EDT , Service support , Medical Necessity - Tobacco Use Smoking Status: Never smoker Assessment/Plan All Active Problems Acute kidney injury (Acute) Severe sepsis (Acute) Cellulitis of left lower extremity (Acute) This is a 54 years old male patient presented to the emergency room because of chills, malaise, weakness, right leg pain and swelling and he was found to have severe sepsis secondary to acute right lower extremity cellulitis and he had chronic right big toe nonhealing diabetic ulcer that has been under treatment with podiatry as outpatient for the last couple of years and also has a history of amputation of the left big toe due to osteomyelitis according to the patient. #1 acute right lower extremity cellulitis/severe sepsis: He is on IV vancomycin. He has been afebrile, slightly tachycardic, blood pressure started to improve, pulse ox is maintained on room air. White blood cell count is trending down. Lactic acid is down to normal. Venous Doppler of the right leg revealed no evidence of acute DVT. Blood, wound and urine cultures are pending. MRSA wound screen sent. Plan: Continue same treatment, transfer to PCU. #2 acute kidney injury: Secondary to severe sepsis and poor oral intake. Patient mentioned that he did not eat for 4 days, poor appetite. According to the patient, he denies history of chronic kidney disease. He has been on IV fluids. Admission creatinine was 3.61, came down to 2.69 this morning. He has a good urine output. Plan to continue IV fluids, repeat BMP tomorrow morning. #3 chronic nonhealing diabetic ulcer of the right big toe: This is could be the entry site of the bacteria causing right leg cellulitis. He has been treated with podiatry for the last couple of years for this. He had a history of amputation of the left big toe on November,. Wound culture taken. There was no evidence that there is acute infection of this ulcer. Plan: ESR, CRP, continue IV antibiotics, get records from podiatry office. May need to do MRI to rule out osteomyelitis. #4 type 2 diabetes mellitus: He is only on sliding scale and Actos. Metformin and soliqua held. Blood sugar has been stable. Plan to do hemoglobin A1c, continue Accu-Cheks. #5 hypertension: Blood pressure is borderline slightly improved, lisinopril and metoprolol on hold. #6 hyperlipidemia: Continue statins. #7 suspected GERD: Continue PPI. #8 DVT prophylaxis: DC subcu Lovenox. Start subcu heparin. This note was generated with [employer] dictation software. It may contain incorrect words, spelling, and punctuation that were not noted in checking the note before signing. Code Visit Inpatient E&M: 19611 Subs Hosp L2
[2019-05-31 10:21] LABS: Erythrocyte Sedimentation Rate 82 mm/hr (0-20)
[2019-05-31] MEDS: Pantoprazole Sodium 40 MG Tablet PO (10:21)
[2019-05-31] MEDS: Pioglitazone Hydrochloride 30 MG Tablet PO (10:21)
[2019-05-31] MEDS: Cyanocobalamin 500 MCG Tablet 1000 MCG PO (10:22)
[2019-05-31] MEDS: Allopurinol 300 MG Tablet PO (10:22)
[2019-05-31] MEDS: Heparin Injection (Vial) 5,000 UNIT/ML VIAL 5000 UNIT SC ×2 (10:26→21:53)
--- NOTE | 2019-05-31 12:00 | RAD_ITS ---
STUDY: X-RAY - RIGHT FOOT CLINICAL: Sore on right great toe, rule out osteomyelitis. TECHNIQUE: 3 view(s) of the foot. COMPARISON: None. FINDINGS: Normal talus, calcaneus, and tarsal bones. There is an os trigonum. Normal visualized subtalar, talonavicular, calcaneocuboid, tarsal and tarsometatarsal articulations. Normal metatarsi. Normal metatarsophalangeal joint of the great toe. Normal tibial and fibular sesamoid bones. Normal interphalangeal joint of the great toe. Normal phalanges of the great toe. Normal second through fifth metatarsophalangeal joints. Normal interphalangeal joints and phalanges of the lesser toes. The soft tissue structures are unremarkable. RAD/Foot min 3 Views IMPRESSION: No demonstrated active bone destruction of the great toe. Electronically Signed: Yaya Stanford MD at 12:46 EDT Tel , Service support ,
[2019-05-31 12:09] LABS: M R Staph aureus DNA By PCR Negative (Negative); Staph aureus DNA By PCR NEGATIVE (Negative)
[2019-05-31 12:10] LABS: Probe Check PASS; Specimen Processing Control PASS
--- NOTE | 2019-05-31 12:46 | CASEMGMT ---
RN CM Assessment Presentation: Sepsis Intro role of CM and purpose of RN CM assessment to patient in room. Pt is awake, alert and able to participate in assessment. Demographics, no PCP and Pharmacy verified. Pt states he has been doing own dressing changes at home. PCP: No PCP. Discussed benefits of having PCP. List of [employer] PCP's for [facility] and [facility] given to pt. Explained procedure for calling for new pt appt, needing to complete paperwork and establishing with practice by going to first appointment. Pt understands and states he will do this on dc. Specialists: Endocrinology, Dr. Ledezma Preferred Pharmacy: [facility] Insurance: MMO Prescription Benefit: yes LNOK: Gt Mason, brother Living Arrangements: lives in mobile home with ramp. States he works, is independent in ADL and does not require assistance at this time. Transportation: drives DME: Blood glucose monitoring machine and supplies. Pt states uses regularly. HHC: no preference if needed, however pt states he has been doing own dressing changes at home and plans to continue. Pt does not have PCP. Patient DC goals: Home DC PLAN: Home on discharge. Marco BEATTY RN ACM
[2019-05-31] MEDS: Insulin Lispro 100 UNIT/ML INSULN.PEN SC ×3 (14:32→21:49)
[2019-05-31 14:36] LABS: Bedside Glucose 207 mg/dL (70-110)
[2019-05-31] MEDS: Ondansetron 4 MG/2 ML Vial IV (15:54)
[2019-05-31] MEDS: 0.9% NaCl Peripheral Flush Adult/Peds IV (15:55)
[2019-05-31] MEDS: 0.9% Normal Saline 1,000 ML 100 ML IV (15:55)
[2019-05-31] MEDS: Acetaminophen 325 MG Tablet 650 MG PO ×2 (16:48→23:45)
[2019-05-31 18:01] LABS: Bedside Glucose 237 mg/dL (70-110)
[2019-05-31] MEDS: Pravastatin 40 MG Tablet PO (21:49)
[2019-05-31 21:56] LABS: Bedside Glucose 231 mg/dL (70-110)
[2019-06-01] VITALS (10 sets, daily range): BP systolic 132–148; BP diastolic 71–90; PULSE 90–108; RESP 12–18; TEMP 36.4–37.4; O2SAT 96–99
[2019-06-01] MEDS: oxyCODONE 5 MG Tablet PO ×4 (01:36→22:48)
[2019-06-01] MEDS: 0.9% Normal Saline 1,000 ML 100 ML IV (04:08)
[2019-06-01 06:26] LABS: Hematocrit 31.9 % (40-54); Hemoglobin 10.5 g/dL (13.0-16.5); Mean Corp Hgb Conc 32.9 g/dL (32-36); Mean Corpuscular Hgb 28.5 pg (27.0-32.0); Mean Corpuscular Volume 86.4 fL (80-94); Mean Platelet Vol. 10.1 fl (6.2-12.0); POSITIVE COUNT YES; POSITIVE MORPHOLOGY YES; Platelet Count 269 K/mm3 (150-450); RBC Distribution Width CV 14.8 % (11.6-14.6); RBC Distribution Width SD 47.6 fl (35.1-43.9); Red Blood Count 3.69 M/mm3 (4.6-6.2); White Blood Count 13.2 K/mm3 (4.4-11.0)
[2019-06-01 06:29] LABS: Differential Indicated MANUAL DIFF
[2019-06-01 06:31] LABS: Bedside Glucose 182 mg/dL (70-110)
[2019-06-01] MEDS: Acetaminophen 325 MG Tablet 650 MG PO ×3 (06:33→20:53)
[2019-06-01] MEDS: Insulin Lispro 100 UNIT/ML INSULN.PEN SC ×3 (06:33→16:15)
[2019-06-01 07:01] LABS: Anion Gap 6 (5-15); BUN 26 mg/dL (7-18); BUN/Creat Ratio 19.8 RATIO (10-20); Calcium,Total 8.7 mg/dL (8.5-10.1); Chloride 107 mmol/L (98-107); Creatinine, Serum 1.31 mg/dL (0.70-1.30); EST Glomerular Filtration Rate 60 mL/min (>60); Est Glom Filt Rate - Afr Amer 73 mL/min (>60); Estimated Creatinine Clearance 67.06 ml/min; Glucose 188 mg/dL (74-106); Potassium 4.2 mmol/L (3.5-5.1); Sodium Level 136 mmol/L (136-145)
[2019-06-01 07:02] LABS: Anisocytosis 1+; Eosinophil 4 % (0-5); Hypochromasia 1+; Lymphocyte 11 % (19-41); Monocyte 7 % (0-10); Neutrophil-Segmented 78 % (47-70); Platelet Estimate ADEQUATE (ADEQ); Total Cells Counted 100 (MANUAL DIFF)
[2019-06-01 07:03] LABS: Microcytosis 1+
[2019-06-01 07:04] LABS: Absolute Lymphocyte Count 1.45 X10^3/uL (0.83-4.51); Absolute Neutrophil Count 10.3 X10^3/uL (2.0-7.7)
--- NOTE | 2019-06-01 08:51 | MRI_ITS ---
STUDY: MRI RIGHT FOREFOOT WITH AND WITHOUT CONTRAST REASON FOR EXAM: Male, 54 years old. Wound of the right great toe. TECHNIQUE: Standardized fat and water weighted pulse sequences were obtained in all 3 orthogonal planes, post contrast administration. 25 IV Dotarem was administered for the contrast portion of the examination. COMPARISON: X-ray May 31, 2019. FINDINGS: There is soft tissue swelling and focal irregularity of the plantar skin consistent with wound on the medial aspect of the great toe. There is diminished signal region with focal air versus calcification, series 7 image 03/01 There is degenerative arthrosis of the metatarsophalangeal joint of the hallux. Normal tibial and fibular sesamoids, with normal sesamoids-first metatarsal articulations. Normal interphalangeal joint of the hallux. Normal proximal and distal phalanges of the great toe. Normal medial and lateral heads of the flexor hallucis brevis tendons. Normal flexor and extensor hallucis longus tendons. Normal second through fifth metatarsophalangeal (MTP) joints. Fusion of the distal interphalangeal joints of the third through fifth toes. Normal flexor and extensor tendons of the second through fifth toes. Normal first through fourth intermetatarsal spaces. Normal visualized metatarsi. Normal intrinsic muscles of the forefoot. There is swelling of the dorsum of the foot. MRI/Lower Ext No Joint W/WO Cont IMPRESSION: Soft tissue swelling with focal wound. Diminished signal with focal air or calcification in the soft tissues. No MRI evidence of osteomyelitis. Electronically Signed: Naseem Romero MD at 17:50 EDT , Service support ,
--- NOTE | 2019-06-01 08:54 | PCM.PROGNOTE ---
Patient Problems: Active and Suspected Problems Acute kidney injury (Acute) Severe sepsis (Acute) Cellulitis of left lower extremity (Acute) Subjective: Chief complaint: Follow-up after admission for severe sepsis, acute right lower extremity cellulitis, acute kidney injury. Patient seen and examined. No acute events overnight. Right leg swelling and erythema minimally improved. He has been afebrile overnight. Still complaining of belching no nausea vomiting. Denies chest pain or shortness of breath. EKG showed no acute ischemic findings. Troponin was negative x1. His vital signs are stable. - Physical Exam General: Alert, Oriented x3, Cooperative, No apparent distress HEENT: Atraumatic, PERRLA, EOMI, Normocephalic Oral: Moist Mucosa, No Gingival or Mucosal Lesions/ Ulcerations Neck: Supple, No JVD, Negative Carotid Bruits, Trachea Midline, Thyroid Normal Size and Texture Lungs: Clear to auscultation, Normal air movement, No rhonchi, No wheeze, No rales Cardiovascular: Regular rate, Regular Rhythm, Normal S1, Normal S2, No murmurs, PMI Normal Abdomen: Bowel Sounds Present, Soft, Non Tender, Non-Distended, No Hepato-splenomegaly, Obese Extremities: No clubbing, No cyanosis, No edema, - - Right leg: Swelling and erythema involving the right leg and dorsal aspect of the right foot extending to just below right knee. There is nonhealing ulcer on the plantar aspect of the right big toe measuring about 2 x 2 cm, dry, no drainage. Skin: No rashes, Ulcer/ Wound Lymphatic: No Cervical, Supraclavicular, or Inguinal Adenopathy Neurological: Cranial nerves II-XII grossly intact, Neuro grossly intact Psych/Mental Status: Normal Affect, Appropriate, Alert and oriented to time, place, person, mood and affect Vital Signs Temp Pulse Resp BP Pulse Ox 98.3 F 108 H 14 132/71 H 99 06/01/19 04:10 06/01/19 07:15 06/01/19 04:10 06/01/19 04:10 06/01/19 04:10 Oxygen Flow Rate (L/min) 1 Oxygen Delivery Method Room Air Weight: 271 lb 6.224 oz Body Mass Index (BMI) 37.3 Intake and Output for Last 24 Hours 05/30/19 05/31/19 06/01/19 23:59 23:59 23:59 Intake Total 8783 / 8783 2004 Output Total 6775 / 6775 700 / 700 Balance 2007 1305 / 1305 Microbiology Past 72 Hours 05/31/19 08:25 Gram Stain - Final Wound - Toe Laboratory Tests Past 24 Hrs 05/31/19 05/31/19 05/31/19 03:55 03:55 03:55 WBC RBC Hgb Hct MCV MCH MCHC RDW Std Deviation RDW Coeff of Yary Plt Count MPV Neut % (Auto) Absolute Neuts (auto) Absolute Lymphs (auto) Total Counted Neutrophils % (Manual) Lymphocytes % (Manual) Monocytes % (Manual) Eosinophils % (Manual) Diff Path Review Platelet Estimate Hypochromasia Anisocytosis Microcytosis ESR 82 H Sodium Potassium Chloride Carbon Dioxide Anion Gap BUN Creatinine Estim Creat Clear Calc Est GFR (MDRD) Af Amer Est GFR (MDRD) Non-Af BUN/Creatinine Ratio Glucose Hemoglobin A1c Calcium Troponin I < 0.015 C-React Prot Ext Range 140.00 H Urine Color Urine Clarity Urine pH Ur Specific [place] U Specif Grav (Refrac) Urine Protein Urine Glucose (UA) Urine Ketones Urine Occult Blood Urine Nitrite Urine Bilirubin Urine Urobilinogen Ur Leukocyte Esterase Urine RBC Urine WBC Ur Squamous Epith Cells Ur Transition Epith Cell Ur Renal Epithelial Cell Calcium Oxalate Crystal Uric Acid Crystals Triple Phos Crystals Other Crystals Amorphous Sediment Urine Bacteria Hyaline Casts Fine Granular Casts Coarse Granular Casts Waxy Casts RBC Casts WBC Casts Urine Mucus Urine Trichomonas Urine Yeast S.aureus Protein A PCR MRSA (PCR) 05/31/19 05/31/19 05/31/19 03:55 08:00 08:00 WBC RBC Hgb Hct MCV MCH MCHC RDW Std Deviation RDW Coeff of Yary Plt Count MPV Neut % (Auto) Absolute Neuts (auto) Absolute Lymphs (auto) Total Counted Neutrophils % (Manual) Lymphocytes % (Manual) Monocytes % (Manual) Eosinophils % (Manual) Diff Path Review Platelet Estimate Hypochromasia Anisocytosis Microcytosis ESR Sodium Potassium Chloride Carbon Dioxide Anion Gap BUN Creatinine Estim Creat Clear Calc Est GFR (MDRD) Af Amer Est GFR (MDRD) Non-Af BUN/Creatinine Ratio Glucose Hemoglobin A1c 9.0 H Calcium Troponin I C-React Prot Ext Range Urine Color Cancelled Yellow Urine Clarity Cancelled Clear Urine pH Cancelled 6.0 Ur Specific [place] Cancelled 1.010 U Specif Grav (Refrac) Cancelled Urine Protein Cancelled 30 H Urine Glucose (UA) Cancelled Normal Urine Ketones Cancelled Negative Urine Occult Blood Cancelled Negative Urine Nitrite Cancelled Negative Urine Bilirubin Cancelled Negative Urine Urobilinogen Cancelled Normal Ur Leukocyte Esterase Cancelled Negative Urine RBC Cancelled 0 SEEN Urine WBC Cancelled 0 SEEN Ur Squamous Epith Cells Cancelled 0 SEEN Ur Transition Epith Cell Cancelled Ur Renal Epithelial Cell Cancelled Calcium Oxalate Crystal Cancelled Uric Acid Crystals Cancelled Triple Phos Crystals Cancelled Other Crystals Cancelled Amorphous Sediment Cancelled Urine Bacteria Cancelled 0 SEEN Hyaline Casts Cancelled Fine Granular Casts Cancelled Coarse Granular Casts Cancelled Waxy Casts Cancelled RBC Casts Cancelled WBC Casts Cancelled Urine Mucus Cancelled 0 SEEN Urine Trichomonas Cancelled Urine Yeast Cancelled S.aureus Protein A PCR MRSA (PCR) 05/31/19 06/01/19 06/01/19 08:25 06:05 06:05 WBC 13.2 H RBC 3.69 L Hgb 10.5 L Hct 31.9 L MCV 86.4 MCH 28.5 MCHC 32.9 RDW Std Deviation 47.6 H RDW Coeff of Yary 14.8 H Plt Count 269 MPV 10.1 Neut % (Auto) Not Reportable Absolute Neuts (auto) 10.3 H Absolute Lymphs (auto) 1.45 Total Counted 100 Neutrophils % (Manual) 78 H Lymphocytes % (Manual) 11 L Monocytes % (Manual) 7 Eosinophils % (Manual) 4 Diff Path Review May foll Platelet Estimate ADEQUATE Hypochromasia 1+ Anisocytosis 1+ Microcytosis 1+ ESR Sodium 136 Potassium 4.2 Chloride 107 Carbon Dioxide 23.0 Anion Gap 6 BUN 26 H Creatinine 1.31 H Estim Creat Clear Calc 67.06 Est GFR (MDRD) Af Amer 73 Est GFR (MDRD) Non-Af 60 BUN/Creatinine Ratio 19.8 Glucose 188 H Hemoglobin A1c Calcium 8.7 Troponin I C-React Prot Ext Range Urine Color Urine Clarity Urine pH Ur Specific [place] U Specif Grav (Refrac) Urine Protein Urine Glucose (UA) Urine Ketones Urine Occult Blood Urine Nitrite Urine Bilirubin Urine Urobilinogen Ur Leukocyte Esterase Urine RBC Urine WBC Ur Squamous Epith Cells Ur Transition Epith Cell Ur Renal Epithelial Cell Calcium Oxalate Crystal Uric Acid Crystals Triple Phos Crystals Other Crystals Amorphous Sediment Urine Bacteria Hyaline Casts Fine Granular Casts Coarse Granular Casts Waxy Casts RBC Casts WBC Casts Urine Mucus Urine Trichomonas Urine Yeast S.aureus Protein A PCR NEGATIVE MRSA (PCR) Negative POC Glucose 06/01/19 05/31/19 05/31/19 06:28 21:47 17:48 POC Glucose 182 H 231 H 237 H 05/31/19 14:27 POC Glucose 207 H Medical Necessity - Tobacco Use Smoking Status: Never smoker Assessment/Plan All Active Problems Acute kidney injury (Acute) Severe sepsis (Acute) Cellulitis of left lower extremity (Acute) This is a 54 years old male patient presented to the emergency room because of chills, malaise, weakness, right leg pain and swelling and he was found to have severe sepsis secondary to acute right lower extremity cellulitis and he had chronic right big toe nonhealing diabetic ulcer that has been under treatment with podiatry as outpatient for the last couple of years and also has a history of amputation of the left big toe due to osteomyelitis according to the patient. #1 acute right lower extremity cellulitis/severe sepsis: Remained on IV vancomycin. He has been afebrile, white blood cell count is trending down. Other vital signs are stable. Lactic acid is down to normal. Venous Doppler of the right leg revealed no evidence of acute DVT. Blood, wound and urine cultures are pending. MRSA wound screen was negative. Plan: Continue same treatment. #2 acute kidney injury: On IV fluids, kidney function is improving. Creatinine is down to 1.31, improving. It is secondary to severe sepsis and poor oral intake. Patient mentioned that he did not eat for 4 days, poor appetite. Plan to continue gentle IV fluids for hydration, repeat BMP tomorrow morning. #3 chronic nonhealing diabetic ulcer of the right big toe: This is could be the entry site of the bacteria causing right leg cellulitis. He has been treated with podiatry for the last couple of years for this. He had a history of amputation of the left big toe on November,. Wound culture taken. There was no evidence that there is acute infection of this ulcer. ESR and C-reactive protein was highly elevated. X-ray of the right foot showed no signs of osteomyelitis of the right big toe. Because ESR and CRP are very elevated, I will do MRI right foot to rule out osteomyelitis. #4 type 2 diabetes mellitus: Uncontrolled. He is only on sliding scale and Actos. Hemoglobin A1c is 9%. Metformin and soliqua held. Blood sugar has been stable. Continue same treatment. #5 hypertension: Blood pressure normalized, plan to resume metoprolol, keep holding lisinopril. #6 hyperlipidemia: Continue statins. #7 suspected GERD: Continue PPI, will start Mylanta as needed. #8 DVT prophylaxis: Subcu heparin. This note was generated with [employer] dictation software. It may contain incorrect words, spelling, and punctuation that were not noted in checking the note before signing. Code Visit Inpatient E&M: 01869 Subs Hosp L2
[2019-06-01] MEDS: Pioglitazone Hydrochloride 30 MG Tablet PO (10:04)
[2019-06-01] MEDS: Pantoprazole Sodium 40 MG Tablet PO (10:04)
[2019-06-01] MEDS: Allopurinol 300 MG Tablet PO (10:05)
[2019-06-01] MEDS: Cyanocobalamin 500 MCG Tablet 1000 MCG PO (10:05)
[2019-06-01] MEDS: Heparin Injection (Vial) 5,000 UNIT/ML VIAL 5000 UNIT SC ×2 (10:06→22:48)
[2019-06-01] MEDS: Senna Tablet 2 TABLET PO (10:11)
[2019-06-01] MEDS: Metoprolol Tartrate 25 MG Tablet PO (10:12)
[2019-06-01] MEDS: Mag Hydrox/Al Hydrox/Simeth 30 ML UDC PO ×2 (10:13→16:57)
--- NOTE | 2019-06-01 12:34 | PN_ITS ---
Patient Problems: Active and Suspected Problems Acute kidney injury (Acute) Severe sepsis (Acute) Cellulitis of left lower extremity (Acute) Subjective: The patient was seen and examined at the bedside this morning. Events from the last 24 hours have been reviewed. The patient is currently afebrile, hemodynamically stable and maintaining appropriate oxygen saturations on room air. The patient reports no shortness of breath. Objective: The patient's most recent lab work, culture data and imaging studies have all been personally reviewed. Blood and urine cultures are pending. Wound culture is also pending. Plain film right foot x-ray revealed no demonstrated active bone destruction. - Physical Exam General: Alert, Cooperative, No apparent distress HEENT: Atraumatic, PERRLA, Normocephalic Oral: Moist Mucosa, No Gingival or Mucosal Lesions/ Ulcerations Neck: Supple, No Nodes, Trachea Midline Lungs: Normal air movement, No rhonchi, No wheeze, No rales Cardiovascular: Regular rate, Regular Rhythm, Normal S1, Normal S2 Abdomen: Bowel Sounds Present, Soft, Non Tender, Obese Extremities: No clubbing, No cyanosis Skin: - - No significant change from previous. Musculoskeletal: No Muscle Wasting Lymphatic: No Cervical, Supraclavicular, or Inguinal Adenopathy Neurological: Cranial nerves II-XII grossly intact, Neuro grossly intact Psych/Mental Status: Normal Affect, Appropriate Vital Signs Temp Pulse Resp BP Pulse Ox 97.6 F L 95 16 135/75 H 98 06/01/19 10:00 06/01/19 10:12 06/01/19 10:00 06/01/19 10:12 06/01/19 10:00 Oxygen Flow Rate (L/min) 1 Oxygen Delivery Method Room Air Weight: 271 lb 6.224 oz Body Mass Index (BMI) 37.3 Intake and Output for Last 24 Hours 05/30/19 05/31/19 06/01/19 23:59 23:59 23:59 Intake Total 8783 / 8783 2004 Output Total 6775 / 6775 700 / 700 Balance 2007 1305 / 1305 Microbiology Past 72 Hours 05/31/19 08:25 Gram Stain - Final Wound - Toe Wound Culture - Preliminary Staphylococcus aureus Gram positive organism Gram positive organism#2 Laboratory Tests Past 24 Hrs 05/31/19 06/01/19 06/01/19 03:55 06:05 06:05 WBC 13.2 H RBC 3.69 L Hgb 10.5 L Hct 31.9 L MCV 86.4 MCH 28.5 MCHC 32.9 RDW Std Deviation 47.6 H RDW Coeff of Yary 14.8 H Plt Count 269 MPV 10.1 Neut % (Auto) Not Reportable Absolute Neuts (auto) 10.3 H Absolute Lymphs (auto) 1.45 Total Counted 100 Neutrophils % (Manual) 78 H Lymphocytes % (Manual) 11 L Monocytes % (Manual) 7 Eosinophils % (Manual) 4 Diff Path Review May foll Platelet Estimate ADEQUATE Hypochromasia 1+ Anisocytosis 1+ Microcytosis 1+ Sodium 136 Potassium 4.2 Chloride 107 Carbon Dioxide 23.0 Anion Gap 6 BUN 26 H Creatinine 1.31 H Estim Creat Clear Calc 67.06 Est GFR (MDRD) Af Amer 73 Est GFR (MDRD) Non-Af 60 BUN/Creatinine Ratio 19.8 Glucose 188 H Hemoglobin A1c 9.0 H Calcium 8.7 POC Glucose 06/01/19 05/31/19 05/31/19 06:28 21:47 17:48 POC Glucose 182 H 231 H 237 H 05/31/19 14:27 POC Glucose 207 H Clinical Impression(s) from Imaging Studies Venous Duplex 05/30/19 21:56 IMPRESSION: There is no evidence of deep venous thrombosis of the visualized right lower extremity venous structures. Electronically Signed: Joce Ferguson MD at 23:10 EDT , Service support , Chest X-Ray 05/30/19 22:00 IMPRESSION: Degenerative changes, as described above. No demonstrated acute cardiopulmonary process. Electronically Signed: Joce Ferguson MD at 22:36 EDT , Service support , Foot X-Ray 05/31/19 12:00 IMPRESSION: No demonstrated active bone destruction of the great toe. Electronically Signed: Yaya Stanford MD at 12:46 EDT Tel , Service support , Medical Necessity - Tobacco Use Smoking Status: Never smoker Assessment/Plan All Active Problems Acute kidney injury (Acute) Severe sepsis (Acute) Cellulitis of left lower extremity (Acute) RECOMMENDATIONS: 1. Continue broad-spectrum antimicrobials. 2. Continue supplemental IV fluid hydration and encourage p.o. intake. 3. Continue to monitor urine output and renal function. 4. Continue to hold home antihypertensives. 5. Wound care following. IMPRESSIONS: 1. Severe sepsis Improved. Likely secondary to right lower extremity cellulitis. The patient is currently hemodynamically stable on broad-spectrum antibiotics. We will plan to continue local wound care. Wound care is following. Cultures are pending. Given elevated acute phase reactants, consider obtaining MR to evaluate for the presence of osteomyelitis. 2. Acute kidney injury Improved. Likely prerenal in etiology and related to #1. Unclear what the patient's baseline creatinine truly is. However, he does appear to be responding to IV fluid resuscitation. We will continue to monitor urine output accordingly. There is no indication for renal replacement therapy at this time. 3. Hypertension/hyperlipidemia/GERD/diabetes mellitus/obesity Complicates care, management, recovery and prognosis. Continue to hold home antihypertensives. Hold metformin as well due to renal insufficiency. This note was generated with [employer] dictation software. It may contain incorrect words, spelling, and punctuation that were not noted in checking the note before signing. Code Visit Inpatient E&M: 06613 Subs Hosp L2
[2019-06-01 14:31] LABS: Bedside Glucose 270 mg/dL (70-110)
[2019-06-01 15:45] LABS: Pathologist Review Reviewed
[2019-06-01] MEDS: 0.9% Normal Saline 1,000 ML 75 ML IV (16:15)
[2019-06-01 16:25] LABS: Bedside Glucose 190 mg/dL (70-110)
[2019-06-01] MEDS: Ondansetron 4 MG/2 ML Vial IV (20:53)
[2019-06-01 21:46] LABS: Bedside Glucose 100 mg/dL (70-110)
[2019-06-01] MEDS: proMETHazine 25 MG/ML Syringe 12.5 MG IV (23:42)
[2019-06-01] MEDS: 0.9% NaCl Peripheral Flush Adult/Peds IV (23:43)
--- NOTE | 2019-06-01 23:52 | PCM.RX.CS ---
Consult Pharmacy has been consulted to manage selected antiobiotic: Vancomycin Type of Consult: Follow-up Suspected Infection: Sepsis Labs: Sodium 136 mmol/L (136-145) 06/01/19 06:05 Potassium 4.2 mmol/L (3.5-5.1) 06/01/19 06:05 Chloride 107 mmol/L (98-107) 06/01/19 06:05 Carbon Dioxide 23.0 mmol/L (21.0-32.0) 06/01/19 06:05 6 (5-15) 06/01/19 06:05 BUN 26 mg/dL (7-18) H 06/01/19 06:05 1.31 mg/dL (0.70-1.30) H 06/01/19 06:05 Est GFR (MDRD) Af Amer 73 mL/min (>60) 06/01/19 06:05 Est GFR (MDRD) Non-Af 60 mL/min (>60) 06/01/19 06:05 19.8 RATIO (10-20) 06/01/19 06:05 Glucose 188 mg/dL (74-106) H 06/01/19 06:05 Vancomycin Trough 5.0 ug/mL (5.0-15.0) 06/01/19 22:29 Microbiology: Microbiology 05/31/19 08:25 Wound - Toe Gram Stain - Final 05/31/19 08:25 Wound - Toe Wound Culture - Preliminary Staphylococcus aureus Gram positive organism Gram positive organism#2 Goal Trough: 15-20 mcg/mL Pharmacy Plan for Drug Dosing: Pharmacy Service will continue to monitor and adjust dosing as required. Medications Vancomycin HCl 1,500 mg/ (Sodium Chloride) 530 mls @ 250 mls/hr IV Q12H [place] TROUGH 5 SCr 1.31 NEW DOSE 1500MG Q12H NEXT TROUGH 06/03 @ 0 Follow-Up Labs: Trough Vancomycin Labs to be done on [date and time ordered]: 06/03 @ 1929
[2019-06-02] VITALS (12 sets, daily range): BP systolic 112–142; BP diastolic 57–77; PULSE 88–141; RESP 16–27; TEMP 37–37.7; O2SAT 91–97
[2019-06-02 06:03] LABS: Hemoglobin 10.1 g/dL (13.0-16.5); Mean Corp Hgb Conc 32.6 g/dL (32-36); Mean Corpuscular Hgb 27.8 pg (27.0-32.0); Mean Corpuscular Volume 85.4 fL (80-94); Mean Platelet Vol. 9.7 fl (6.2-12.0); POSITIVE COUNT YES; POSITIVE MORPHOLOGY YES; Platelet Count 321 K/mm3 (150-450); RBC Distribution Width SD 46.6 fl (35.1-43.9); Red Blood Count 3.63 M/mm3 (4.6-6.2); White Blood Count 14.5 K/mm3 (4.4-11.0)
[2019-06-02 06:26] LABS: Anion Gap 7 (5-15); BUN 14 mg/dL (7-18); BUN/Creat Ratio 14.8 RATIO (10-20); Calcium,Total 8.7 mg/dL (8.5-10.1); Chloride 108 mmol/L (98-107); Creatinine, Serum 0.95 mg/dL (0.70-1.30); Differential Indicated MANUAL DIFF; EST Glomerular Filtration Rate 87 mL/min (>60); Est Glom Filt Rate - Afr Amer 106 mL/min (>60); Estimated Creatinine Clearance 92.47 ml/min; Glucose 91 mg/dL (74-106); Potassium 4.2 mmol/L (3.5-5.1); Sodium Level 139 mmol/L (136-145)
[2019-06-02 07:02] LABS: Anisocytosis 1+; Eosinophil 3 % (0-5); Hypochromasia 1+; Lymphocyte 10 % (19-41); Metamyelocyte 2 % (0-1); Microcytosis 1+; Monocyte 5 % (0-10); Neutrophil-Band 2 % (0-5); Neutrophil-Segmented 78 % (47-70); Platelet Estimate ADEQUATE (ADEQ); Platelet Morphology LARGE; Polychromasia 1+; Total Cells Counted 100 (MANUAL DIFF)
[2019-06-02 07:03] LABS: Reactive Lymphocyte 1+
[2019-06-02 07:04] LABS: Absolute Lymphocyte Count 1.45 X10^3/uL (0.83-4.51); Absolute Neutrophil Count 11.6 X10^3/uL (2.0-7.7)
[2019-06-02 07:10] LABS: Bedside Glucose 94 mg/dL (70-110)
[2019-06-02] MEDS: Acetaminophen 325 MG Tablet 650 MG PO ×2 (08:32→19:15)
[2019-06-02] MEDS: proMETHazine 25 MG/ML Syringe 12.5 MG IV (08:34)
--- NOTE | 2019-06-02 09:02 | EKG12_ITS ---
Test Reason : PRE OP Blood Pressure : / mmHG Vent. Rate : 090 BPM Atrial Rate : 090 BPM P-R Int : 150 ms QRS Dur : 144 ms QT Int : 418 ms P-R-T Axes : 040 -41 003 degrees QTc Int : 511 ms Normal sinus rhythm Left axis deviation Right bundle branch block Abnormal ECG Confirmed by KELLY OWENS, SAWYER ([id number]), editor trade journal MICHELLE BROWNING ([id number]) on 06/08/2019 2:22:03 PM Referred By: GIOVANNI Confirmed By:SAWYER MENDOZA MD
[2019-06-02] MEDS: oxyCODONE 5 MG Tablet PO ×3 (09:43→19:15)
[2019-06-02] MEDS: Metoprolol Tartrate 25 MG Tablet PO (09:45)
[2019-06-02] MEDS: Cyanocobalamin 500 MCG Tablet 1000 MCG PO (09:45)
[2019-06-02] MEDS: Pioglitazone Hydrochloride 30 MG Tablet PO (09:46)
[2019-06-02] MEDS: Heparin Injection (Vial) 5,000 UNIT/ML VIAL 5000 UNIT SC ×2 (09:46→22:18)
[2019-06-02] MEDS: Allopurinol 300 MG Tablet PO (09:47)
[2019-06-02] MEDS: Pantoprazole Sodium 40 MG Tablet PO (09:47)
--- NOTE | 2019-06-02 10:30 | PCM.PN.HOSP ---
Patient Problems: Active and Suspected Problems Acute kidney injury (Acute) Severe sepsis (Acute) Cellulitis of left lower extremity (Acute) Subjective: Patient seen and examined. He was admitted with worsening redness, swelling and warmth of his right lower extremity. He failed outpatient therapy for cellulitis with doxycycline. Patient was subsequently admitted with hypotension and tachycardia as well as low-grade fever liquid cytosis as well as elevated lactic acid. He was admitted and managed for severe sepsis due to right lower extremity cellulitis and admitted to the ICU. He was started on IV vancomycin. He improved and was subsequently transferred to the progressive care unit. Patient complains of early satiety and feelings of bloating this morning. Patient has diabetes and says this has been going on for a bit and his sanitation lead wanted to schedule him for gastric emptying study to assess for gastroparesis. He does have persistent nausea. He denies any fever or chills, palpitations or dizziness, diarrhea or vomiting. Redness and swelling of right lower extremity has improved significantly. Labs and vitals reviewed. Vitals/I&O's: Vital Signs Temp Pulse Resp BP Pulse Ox 99.5 F H 109 H 18 142/70 H 93 06/02/19 07:00 06/02/19 09:45 06/02/19 07:00 06/02/19 07:00 06/02/19 07:00 Oxygen Flow Rate (L/min) 1 Oxygen Delivery Method Room Air Weight: 272 lb 0.807 oz Body Mass Index (BMI) 37.3 Intake and Output for Last 24 Hours 05/31/19 06/01/19 06/02/19 23:59 23:59 23:59 Intake Total 8783 / 8783 4829 / 4829 625 / 625 Output Total 6775 / 6775 2350 / 2350 Balance 2007 2479 / 2479 625 / 625 General: Alert, Oriented x3, Cooperative, No apparent distress HEENT: Atraumatic, PERRLA, EOMI, Normocephalic Oral: Moist Mucosa Neck: Supple, No JVD, Negative Carotid Bruits Lungs: Clear to auscultation, Normal air movement, No rhonchi, No wheeze, No rales Cardiovascular: Regular rate, Regular Rhythm, Normal S1, Normal S2, No murmurs Abdomen: Bowel Sounds Present, Soft, Non Tender, Non-Distended, No Hepato-splenomegaly, Obese Extremities: - - RLE in CHUY bandage. Minimal redness and swelling visualised. Skin: No rashes, No breakdown Musculoskeletal: No Tenderness to Palpation of Joints or Extremities Neurological: Cranial nerves II-XII grossly intact Psych/Mental Status: Normal Affect, Appropriate, Alert and oriented to time, place, person, mood and affect Microbiology Past 72 Hours 05/31/19 08:00 Urine, Clean Catch Urine Culture - Final GPC Poss Enterococcus sp Gram positive organism 05/31/19 08:25 Wound - Toe Gram Stain - Final 05/31/19 08:25 Wound - Toe Wound Culture - Preliminary Staphylococcus aureus Gram positive organism Gram positive organism#2 Laboratory Results 05/31/19 03:55: Diff Path Review Reviewed 06/01/19 13:56: POC Glucose 270 H 06/01/19 16:09: POC Glucose 190 H 06/01/19 20:57: POC Glucose 100 06/01/19 22:29: Vancomycin Trough 5.0 06/02/19 05:40: WBC 14.5 H, RBC 3.63 L, Hgb 10.1 L, Hct 31.0 L, MCV 85.4, MCH 27.8, MCHC 32.6, RDW Std Deviation 46.6 H, RDW Coeff of Yary 15.0 H, Plt Count 321, MPV 9.7, Neut % (Auto) Not Reportable, Absolute Neuts (auto) 11.6 H, Absolute Lymphs (auto) 1.45, Total Counted 100, Neutrophils % (Manual) 78 H, Band Neutrophils % 2, Lymphocytes % (Manual) 10 L, Monocytes % (Manual) 5, Eosinophils % (Manual) 3, Metamyelocytes % 2 H, Diff Path Review May foll, Reactive Lymphocytes 1+, Platelet Estimate ADEQUATE, Plt Morphology Comment LARGE, Polychromasia 1+, Hypochromasia 1+, Anisocytosis 1+, Microcytosis 1+ 06/02/19 05:40: Sodium 139, Potassium 4.2, Chloride 108 H, Carbon Dioxide 24.0, Anion Gap 7, BUN 14, Creatinine 0.95, Estim Creat Clear Calc 92.47, Est GFR (MDRD) Af Amer 106, Est GFR (MDRD) Non-Af 87, BUN/Creatinine Ratio 14.8, Glucose 91, Calcium 8.7 06/02/19 06:59: POC Glucose 94 Diagnostic Data Venous Duplex 05/30/19 21:56 IMPRESSION: There is no evidence of deep venous thrombosis of the visualized right lower extremity venous structures. Electronically Signed: Joce Ferguson MD at 23:10 EDT , Service support , Chest X-Ray 05/30/19 22:00 IMPRESSION: Degenerative changes, as described above. No demonstrated acute cardiopulmonary process. Electronically Signed: Joce Ferguson MD at 22:36 EDT , Service support , Foot X-Ray 05/31/19 12:00 IMPRESSION: No demonstrated active bone destruction of the great toe. Electronically Signed: Yaya Stanford MD at 12:46 EDT Tel , Service support , Lower Extremity MRI 06/01/19 08:51 IMPRESSION: Soft tissue swelling with focal wound. Diminished signal with focal air or calcification in the soft tissues. No MRI evidence of osteomyelitis. Electronically Signed: Naseem Romero MD at 17:50 EDT , Service support , Current Medications Acetaminophen (Tylenol) 650 mg PO Q6H PRN PRN PRN Reason: Fever, headache, pain. Last Admin: 06/02/19 08:32 Dose: 650 mg Documented by: Al Hydroxide/Mg Hydroxide (Mylanta Ii) 30 ml PO Q6H PRN PRN PRN Reason: Heartburn, indigestion. Last Admin: 06/01/19 16:57 Dose: 30 ml Documented by: Allopurinol (Zyloprim) 300 mg PO DAILY [facility] Last Admin: 06/02/19 09:47 Dose: 300 mg Documented by: Cyanocobalamin (Vitamin B12) 1,000 mcg PO DAILY [facility] Last Admin: 06/02/19 09:45 Dose: 1,000 mcg Documented by: Dextrose (D50w Syringe) 0 gm IV X1 PRN; Protocol PRN Reason: Hypoglycemia Glucagon () 1 mg IM .X1 PRN PRN Reason: Hypoglycemia Heparin Sodium (Porcine) (Heparin Na) 5,000 unit SC Q12 [facility] Last Admin: 06/02/19 09:46 Dose: 5,000 unit Documented by: Vancomycin IV Pharmacy to Dose (1 ea/ Sodium Chloride) 500 mls @ 250 mls/hr IV PRN PRN; Protocol PRN Reason: Rx to Dose Sodium Chloride () 250 mls @ 15 mls/hr IV .[id number] PRN PRN Reason: SALINE FLUSH Sodium Chloride () 1,000 mls @ 75 mls/hr IV .[id number] [facility] Last Admin: 06/01/19 16:15 Dose: 75 mls/hr Documented by: Vancomycin HCl 1,500 mg/ (Sodium Chloride) 530 mls @ 250 mls/hr IV Q12H [facility] Last Admin: 06/02/19 08:07 Dose: 250 mls/hr Documented by: Insulin Glargine (Lantus (Bkc)) 70 units SC DAILY [facility] Insulin Human Lispro (Humalog Kwikpen (Bkc)) 0 unit SC ACHS [facility]; Protocol Last Admin: 06/02/19 07:03 Dose: Not Given Documented by: Metoprolol Tartrate (Lopressor (Beta Екатерина)) 25 mg PO DAILY [facility] Last Admin: 06/02/19 09:45 Dose: 25 mg Documented by: Morphine Sulfate () 2 mg IV Q3H PRN PRN PRN Reason: SEVERE PAIN (6-10/10) Ondansetron HCl (Zofran) 4 mg IV Q8H PRN PRN PRN Reason: NAUSEA/VOMITING Last Admin: 06/01/19 20:53 Dose: 4 mg Documented by: Oxycodone HCl (Oxyir) 5 mg PO Q4H PRN PRN PRN Reason: SEVERE PAIN (6-10/10) Last Admin: 06/02/19 09:43 Dose: 5 mg Documented by: Pantoprazole Sodium (Protonix) 40 mg PO DAILY [facility] Last Admin: 06/02/19 09:47 Dose: 40 mg Documented by: Pioglitazone HCl (Actos) 30 mg PO DAILY [facility] Last Admin: 06/02/19 09:46 Dose: 30 mg Documented by: Pravastatin Sodium (Pravachol) 40 mg PO QHS [facility] Last Admin: 06/01/19 22:44 Dose: Not Given Documented by: Promethazine HCl (Phenergan) 12.5 mg IV Q6H PRN PRN PRN Reason: NAUSEA/VOMITING Last Admin: 06/02/19 08:34 Dose: 12.5 mg Documented by: Senna (Senokot) 2 tablet PO DAILY PRN PRN PRN Reason: CONSTIPATION Last Admin: 06/01/19 10:11 Dose: 2 tablet Documented by: Sodium Chloride () 10 - 40 ml IV UD PRN PRN Reason: SALINE FLUSH Last Admin: 06/01/19 23:43 Dose: 10 ml Documented by: Medical Necessity - Tobacco Use Smoking Status: Never smoker Assessment/Plan All Active Problems Acute kidney injury (Acute) Severe sepsis (Acute) Cellulitis of left lower extremity (Acute) 1. Severe sepsis due to RLE cellulitis still has an episodic low grade fever, with temperature of 99.5F this morning has a chronic right big toe nonhealing diabetic ulcer for years on IV vancomycin Duplex of RLE was negative wbc is 14.5 this morning. Still has SIRS 2/4 criteiria (leucocytosis and tachycardia) wound cultures Staph aureus and gram positive organisms. blood culture pending wound care and podiatry on board lower extremity MRI was negative for osteomyelitis 2. Type 2 diabetes mellitus: fairly controlled. A1C is 9. on Actos. ISS. Accuchecks ACHS. also on lantus 70IU daily complains of early satiety, likely due to gastroparesis. Says his sanitation lead had suggested gastric emptying study on outpatient basis. will esume metformin 48 hours after he received contrast. on Mylanta 3. YIMI: resolved. 4. Chronic nonhealing diabetic ulcer of the right big toe: ESR and CRP were significantly elevated. X-ray showed no evidence of osteomyelitis and MRI was also negative for osteomyelitis. To follow-up with podiatry and outpatient basis. 5. Hypertension: on metoprolol. Lisinopril on hold 6. Hyperlipidemia: on statin DVT prophylaxis:heparin Code Visit Inpatient E&M: [id number] [facility] Hosp L3
[2019-06-02] MEDS: Insulin Lispro 100 UNIT/ML INSULN.PEN SC ×3 (12:20→22:13)
[2019-06-02 12:41] LABS: Bedside Glucose 199 mg/dL (70-110)
--- NOTE | 2019-06-02 13:05 | PCM.PN.PUL ---
Patient Problems: Active and Suspected Problems Severe sepsis (Acute) Cellulitis of left lower extremity (Acute) Subjective: The patient was seen and examined at the bedside this morning. Events from the last 24 hours have been reviewed. The patient is currently afebrile, hemodynamically stable and maintaining appropriate oxygen saturations on room air. Objective: The patient's most recent lab work, culture data and imaging studies have all been personally reviewed. Blood and urine cultures are pending. Wound culture is also pending. Plain film right foot x-ray revealed no demonstrated active bone destruction. - Physical Exam General: Alert, Cooperative, No apparent distress HEENT: Atraumatic, Normocephalic Oral: Moist Mucosa Neck: Supple, No Nodes, Trachea Midline Lungs: No rhonchi, No wheeze, No rales Cardiovascular: Regular rate, Regular Rhythm, Normal S1, Normal S2, No murmurs Abdomen: Bowel Sounds Present, Soft, Non Tender, Obese Extremities: No clubbing, No cyanosis Skin: - - Improving lower extremity erythema Musculoskeletal: No Muscle Wasting Lymphatic: No Cervical, Supraclavicular, or Inguinal Adenopathy Neurological: Neuro grossly intact Psych/Mental Status: Normal Affect, Appropriate Vital Signs Temp Pulse Resp BP Pulse Ox 98.6 F 88 18 116/61 95 06/02/19 12:23 06/02/19 12:23 06/02/19 12:23 06/02/19 12:23 06/02/19 12:23 Oxygen Flow Rate (L/min) 1 Oxygen Delivery Method Room Air Weight: 272 lb 0.807 oz Body Mass Index (BMI) 37.3 Intake and Output for Last 24 Hours 05/31/19 06/01/19 06/02/19 23:59 23:59 23:59 Intake Total 8783 / 8783 4829 / 4829 1805 / 1805 Output Total 6775 / 6775 2350 / 2350 500 / 500 Balance 2007 2479 / 2479 1305 / 1305 Microbiology Past 72 Hours 05/31/19 08:25 Gram Stain - Final Wound - Toe Wound Culture - Preliminary Streptococcus group G GPC Poss Enterococcus sp Coag Negative Staph 05/31/19 08:00 Urine Culture - Final Urine, Clean Catch GPC Poss Enterococcus sp Gram positive organism Laboratory Tests Past 24 Hrs 05/31/19 06/01/19 06/02/19 03:55 22:29 05:40 WBC 14.5 H RBC 3.63 L Hgb 10.1 L Hct 31.0 L MCV 85.4 MCH 27.8 MCHC 32.6 RDW Std Deviation 46.6 H RDW Coeff of Yary 15.0 H Plt Count 321 MPV 9.7 Neut % (Auto) Not Reportable Absolute Neuts (auto) 11.6 H Absolute Lymphs (auto) 1.45 Total Counted 100 Neutrophils % (Manual) 78 H Band Neutrophils % 2 Lymphocytes % (Manual) 10 L Monocytes % (Manual) 5 Eosinophils % (Manual) 3 Metamyelocytes % 2 H Diff Path Review Reviewed May foll Reactive Lymphocytes 1+ Platelet Estimate ADEQUATE Plt Morphology Comment LARGE Polychromasia 1+ Hypochromasia 1+ Anisocytosis 1+ Microcytosis 1+ Sodium Potassium Chloride Carbon Dioxide Anion Gap BUN Creatinine Estim Creat Clear Calc Est GFR (MDRD) Af Amer Est GFR (MDRD) Non-Af BUN/Creatinine Ratio Glucose Calcium Vancomycin Trough 5.0 06/02/19 05:40 WBC RBC Hgb Hct MCV MCH MCHC RDW Std Deviation RDW Coeff of Yary Plt Count MPV Neut % (Auto) Absolute Neuts (auto) Absolute Lymphs (auto) Total Counted Neutrophils % (Manual) Band Neutrophils % Lymphocytes % (Manual) Monocytes % (Manual) Eosinophils % (Manual) Metamyelocytes % Diff Path Review Reactive Lymphocytes Platelet Estimate Plt Morphology Comment Polychromasia Hypochromasia Anisocytosis Microcytosis Sodium 139 Potassium 4.2 Chloride 108 H Carbon Dioxide 24.0 Anion Gap 7 BUN 14 Creatinine 0.95 Estim Creat Clear Calc 92.47 Est GFR (MDRD) Af Amer 106 Est GFR (MDRD) Non-Af 87 BUN/Creatinine Ratio 14.8 Glucose 91 Calcium 8.7 Vancomycin Trough POC Glucose 06/02/19 06/02/19 06/01/19 12:19 06:59 20:57 POC Glucose 199 H 94 100 06/01/19 06/01/19 16:09 13:56 POC Glucose 190 H 270 H Clinical Impression(s) from Imaging Studies Venous Duplex 05/30/19 21:56 IMPRESSION: There is no evidence of deep venous thrombosis of the visualized right lower extremity venous structures. Electronically Signed: Joce Ferguson MD at 23:10 EDT , Service support , Chest X-Ray 05/30/19 22:00 IMPRESSION: Degenerative changes, as described above. No demonstrated acute cardiopulmonary process. Electronically Signed: Joce Ferguson MD at 22:36 EDT , Service support , Foot X-Ray 05/31/19 12:00 IMPRESSION: No demonstrated active bone destruction of the great toe. Electronically Signed: Yaya Stanford MD at 12:46 EDT Tel , Service support , Lower Extremity MRI 06/01/19 08:51 IMPRESSION: Soft tissue swelling with focal wound. Diminished signal with focal air or calcification in the soft tissues. No MRI evidence of osteomyelitis. Electronically Signed: Naseem Romero MD at 17:50 EDT , Service support , Medical Necessity - Tobacco Use Smoking Status: Never smoker Assessment/Plan All Active Problems Acute kidney injury (Acute) Severe sepsis (Acute) Cellulitis of left lower extremity (Acute) RECOMMENDATIONS: 1. Continue broad-spectrum antimicrobials. 2. Continue supplemental IV fluid hydration and encourage p.o. intake. 3. Wound care following. IMPRESSIONS: 1. Severe sepsis Improved. Likely secondary to right lower extremity cellulitis. The patient is currently hemodynamically stable on broad-spectrum antibiotics. We will plan to continue local wound care. Cultures are pending. Given elevated acute phase reactants, MRI was completed which revealed no evidence for osteomyelitis of the patient's right great toe. 2. Acute kidney injury Improved. Likely prerenal in etiology and related to #1. Unclear what the patient's baseline creatinine truly is. However, the patient responded appropriately to IV fluid resuscitation. We will continue to monitor urine output accordingly. There is no indication for renal replacement therapy at this time. 3. Hypertension/hyperlipidemia/GERD/diabetes mellitus/obesity Complicates care, management, recovery and prognosis. Continue to hold home antihypertensives. This note was generated with Dragon dictation software. It may contain incorrect words, spelling, and punctuation that were not noted in checking the note before signing. DISPOSITION: Given the patient's lack of further ICU/pulmonary needs, will sign off. Please call with any additional questions. Code Visit Inpatient E&M: 60949 Subs Hosp L2
[2019-06-02 15:26] LABS: Pathologist Review Reviewed
[2019-06-02 17:40] LABS: Bedside Glucose 212 mg/dL (70-110)
[2019-06-02] MEDS: Pravastatin 40 MG Tablet PO (22:15)
[2019-06-02 22:41] LABS: Bedside Glucose 188 mg/dL (70-110)
[2019-06-03] VITALS (13 sets, daily range): BP systolic 117–145; BP diastolic 65–83; PULSE 85–113; RESP 16–26; TEMP 36.8–38.7; O2SAT 93–98
[2019-06-03] MEDS: 0.9% Normal Saline 1,000 ML 75 ML IV ×2 (00:55→17:54)
[2019-06-03] MEDS: Acetaminophen 325 MG Tablet 650 MG PO ×3 (04:07→21:25)
[2019-06-03 05:55] LABS: Hematocrit 29.8 % (40-54); Hemoglobin 9.6 g/dL (13.0-16.5); Mean Corp Hgb Conc 32.2 g/dL (32-36); Mean Corpuscular Hgb 28.2 pg (27.0-32.0); Mean Corpuscular Volume 87.6 fL (80-94); POSITIVE COUNT YES; POSITIVE MORPHOLOGY YES; Platelet Count 365 K/mm3 (150-450); RBC Distribution Width CV 14.8 % (11.6-14.6); White Blood Count 15.3 K/mm3 (4.4-11.0)
[2019-06-03 06:17] LABS: Anion Gap 8 (5-15); BUN 15 mg/dL (7-18); Calcium,Total 8.6 mg/dL (8.5-10.1); Chloride 110 mmol/L (98-107); Creatinine, Serum 1.15 mg/dL (0.70-1.30); EST Glomerular Filtration Rate 70 mL/min (>60); Est Glom Filt Rate - Afr Amer 85 mL/min (>60); Estimated Creatinine Clearance 76.39 ml/min; Glucose 94 mg/dL (74-106); Potassium 4.1 mmol/L (3.5-5.1); Sodium Level 141 mmol/L (136-145)
[2019-06-03 06:20] LABS: Differential Indicated MANUAL DIFF
[2019-06-03 07:00] LABS: Lymphocyte 10 % (19-41); Metamyelocyte 2 % (0-1); Monocyte 6 % (0-10); Neutrophil-Band 2 % (0-5); Neutrophil-Segmented 80 % (47-70); Total Cells Counted 100 (MANUAL DIFF)
[2019-06-03 07:01] LABS: Anisocytosis 1+; Hypochromasia 1+; Microcytosis 1+; Platelet Estimate ADEQUATE (ADEQ); Platelet Morphology LARGE; Polychromasia 1+
[2019-06-03 07:02] LABS: Reactive Lymphocyte 1+
[2019-06-03 07:03] LABS: Absolute Lymphocyte Count 1.53 X10^3/uL (0.83-4.51); Absolute Neutrophil Count 12.5 X10^3/uL (2.0-7.7)
[2019-06-03 08:06] LABS: Bedside Glucose 92 mg/dL (70-110)
[2019-06-03] MEDS: oxyCODONE 5 MG Tablet PO ×2 (08:53→18:48)
[2019-06-03] MEDS: Ondansetron 4 MG/2 ML Vial IV ×2 (09:01→18:48)
[2019-06-03] MEDS: 0.9% NaCl Peripheral Flush Adult/Peds IV ×3 (09:01→18:50)
[2019-06-03] MEDS: Senna Tablet 2 TABLET PO (09:06)
--- NOTE | 2019-06-03 09:40 | NURSING ---
Dr. Avila stated she notified ID of consult for this pt
[2019-06-03] MEDS: Heparin Injection (Vial) 5,000 UNIT/ML VIAL 5000 UNIT SC ×2 (10:03→21:22)
[2019-06-03] MEDS: Pioglitazone Hydrochloride 30 MG Tablet PO (10:03)
[2019-06-03] MEDS: Metoprolol Tartrate 25 MG Tablet PO (10:04)
[2019-06-03] MEDS: Pantoprazole Sodium 40 MG Tablet PO (10:05)
[2019-06-03] MEDS: Allopurinol 300 MG Tablet PO (10:05)
[2019-06-03] MEDS: Cyanocobalamin 500 MCG Tablet 1000 MCG PO (10:05)
--- NOTE | 2019-06-03 12:32 | PCM.PN.HOSP ---
Patient Problems: Active and Suspected Problems Severe sepsis (Acute) Cellulitis of left lower extremity (Acute) Subjective: Patient seen and examined. Still complains of some nausea. He denies any fever chills, chest pain, abdominal pain, diarrhea vomiting. Labs and vitals reviewed. Patient still has episodes of tachycardia and tachypnea. White cell count still is elevated at 15.3. Review of systems otherwise negative. Vitals/I&O's: Vital Signs Temp Pulse Resp BP Pulse Ox 98.3 F 101 H 23 H 133/74 H 94 06/03/19 06:46 06/03/19 10:04 06/03/19 06:46 06/03/19 06:46 06/03/19 06:46 Oxygen Flow Rate (L/min) 1 Oxygen Delivery Method Room Air Weight: 276 lb 14.409 oz Body Mass Index (BMI) 37.3 Intake and Output for Last 24 Hours 06/01/19 06/02/19 06/03/19 23:59 23:59 23:59 Intake Total 4829 / 4829 3700 / 3700 1273 / 1273 Output Total 2350 / 2350 1725 / 1725 1350 / 1350 Balance 2479 / 2479 1974 / 1974 - / -77 General: Alert, Oriented x3, Cooperative, No apparent distress HEENT: Atraumatic, PERRLA, EOMI, Normocephalic Oral: Moist Mucosa Neck: Supple, No JVD, Negative Carotid Bruits Lungs: Clear to auscultation, Normal air movement, No rhonchi, No wheeze, No rales Cardiovascular: Regular rate, Regular Rhythm, Normal S1, Normal S2, No murmurs Abdomen: Bowel Sounds Present, Soft, Non Tender, Non-Distended, No Hepato-splenomegaly, Obese Extremities: - - RLE in CHUY bandage. Minimal redness and swelling visualised. Skin: No rashes, No breakdown Musculoskeletal: No Tenderness to Palpation of Joints or Extremities Neurological: Cranial nerves II-XII grossly intact Psych/Mental Status: Normal Affect, Appropriate, Alert and oriented to time, place, person, mood and affect Microbiology Past 72 Hours 05/31/19 08:25 Wound - Toe Gram Stain - Final 05/31/19 08:25 Wound - Toe Wound Culture - Final Streptococcus group G Enterococcus faecalis Coag Negative Staph 05/30/19 22:10 Blood Culture (Wb) - Right Hand Blood Culture - Preliminary No growth in 48 hours. 05/30/19 21:30 Blood Culture (Wb) - Anticubital Left Blood Culture - Preliminary No growth in 48 hours. 05/31/19 08:00 Urine, Clean Catch Urine Culture - Final GPC Poss Enterococcus sp Gram positive organism Laboratory Results 06/01/19 06:05: Diff Path Review Reviewed 06/02/19 12:19: POC Glucose 199 H 06/02/19 17:25: POC Glucose 212 H 06/02/19 22:11: POC Glucose 188 H 06/03/19 05:20: WBC 15.3 H, RBC 3.40 L, Hgb 9.6 L, Hct 29.8 L, MCV 87.6, MCH 28.2, MCHC 32.2, RDW Std Deviation 48.0 H, RDW Coeff of Yary 14.8 H, Plt Count 365, MPV 10.0, Neut % (Auto) Not Reportable, Absolute Neuts (auto) 12.5 H, Absolute Lymphs (auto) 1.53, Total Counted 100, Neutrophils % (Manual) 80 H, Band Neutrophils % 2, Lymphocytes % (Manual) 10 L, Monocytes % (Manual) 6, Metamyelocytes % 2 H, Diff Path Review May foll, Reactive Lymphocytes 1+, Platelet Estimate ADEQUATE, Plt Morphology Comment LARGE, Polychromasia 1+, Hypochromasia 1+, Anisocytosis 1+, Microcytosis 1+ 06/03/19 05:20: Sodium 141, Potassium 4.1, Chloride 110 H, Carbon Dioxide 23.0, Anion Gap 8, BUN 15, Creatinine 1.15, Estim Creat Clear Calc 76.39, Est GFR (MDRD) Af Amer 85, Est GFR (MDRD) Non-Af 70, BUN/Creatinine Ratio 13.0, Glucose 94, Calcium 8.6 06/03/19 06:44: POC Glucose 92 Diagnostic Data Venous Duplex 05/30/19 21:56 IMPRESSION: There is no evidence of deep venous thrombosis of the visualized right lower extremity venous structures. Electronically Signed: Joce Ferguson MD at 23:10 EDT , Service support , Chest X-Ray 05/30/19 22:00 IMPRESSION: Degenerative changes, as described above. No demonstrated acute cardiopulmonary process. Electronically Signed: Joce Ferguson MD at 22:36 EDT , Service support , Foot X-Ray 05/31/19 12:00 IMPRESSION: No demonstrated active bone destruction of the great toe. Electronically Signed: Yaya Stanford MD at 12:46 EDT Tel , Service support , Lower Extremity MRI 06/01/19 08:51 IMPRESSION: Soft tissue swelling with focal wound. Diminished signal with focal air or calcification in the soft tissues. No MRI evidence of osteomyelitis. Electronically Signed: Naseem Romero MD at 17:50 EDT , Service support , Current Medications Acetaminophen (Tylenol) 650 mg PO Q6H PRN PRN PRN Reason: Fever, headache, pain. Last Admin: 06/03/19 04:07 Dose: 650 mg Documented by: Al Hydroxide/Mg Hydroxide (Mylanta Ii) 30 ml PO Q6H PRN PRN PRN Reason: Heartburn, indigestion. Last Admin: 06/01/19 16:57 Dose: 30 ml Documented by: Allopurinol (Zyloprim) 300 mg PO DAILY [facility] Last Admin: 06/03/19 10:05 Dose: 300 mg Documented by: Cyanocobalamin (Vitamin B12) 1,000 mcg PO DAILY [facility] Last Admin: 06/03/19 10:05 Dose: 1,000 mcg Documented by: Dextrose (D50w Syringe) 0 gm IV X1 PRN; Protocol PRN Reason: Hypoglycemia Glucagon () 1 mg IM .X1 PRN PRN Reason: Hypoglycemia Heparin Sodium (Porcine) (Heparin Na) 5,000 unit SC Q12 [facility] Last Admin: 06/03/19 10:03 Dose: 5,000 unit Documented by: Vancomycin IV Pharmacy to Dose (1 ea/ Sodium Chloride) 500 mls @ 250 mls/hr IV PRN PRN; Protocol PRN Reason: Rx to Dose Sodium Chloride () 250 mls @ 15 mls/hr IV .[id number] PRN PRN Reason: SALINE FLUSH Sodium Chloride () 1,000 mls @ 75 mls/hr IV .[id number] [facility] Last Admin: 06/03/19 00:57 Dose: Not Given Documented by: Vancomycin HCl 1,500 mg/ (Sodium Chloride) 530 mls @ 250 mls/hr IV Q12H [facility] Last Admin: 06/03/19 07:55 Dose: 250 mls/hr Documented by: Insulin Glargine (Lantus ([facility])) 70 units SC DAILY [facility] Last Admin: 06/03/19 10:03 Dose: 70 u Documented by: Insulin Human Lispro (Humalog Kwikpen ([facility])) 0 unit SC ACHS [facility]; Protocol Last Admin: 06/03/19 07:10 Dose: Not Given Documented by: Metoprolol Tartrate (Lopressor (Beta Екатерина)) 25 mg PO DAILY [facility] Last Admin: 06/03/19 10:04 Dose: 25 mg Documented by: Morphine Sulfate () 2 mg IV Q3H PRN PRN PRN Reason: SEVERE PAIN (6-10/10) Ondansetron HCl (Zofran) 4 mg IV Q8H PRN PRN PRN Reason: NAUSEA/VOMITING Last Admin: 06/03/19 09:01 Dose: 4 mg Documented by: Oxycodone HCl (Oxyir) 5 mg PO Q4H PRN PRN PRN Reason: SEVERE PAIN (6-10/10) Last Admin: 06/03/19 08:53 Dose: 5 mg Documented by: Pantoprazole Sodium (Protonix) 40 mg PO DAILY [facility] Last Admin: 06/03/19 10:05 Dose: 40 mg Documented by: Pioglitazone HCl (Actos) 30 mg PO DAILY [facility] Last Admin: 06/03/19 10:03 Dose: 30 mg Documented by: Pravastatin Sodium (Pravachol) 40 mg PO QHS [facility] Last Admin: 06/02/19 22:15 Dose: 40 mg Documented by: Promethazine HCl (Phenergan) 12.5 mg IV Q6H PRN PRN PRN Reason: NAUSEA/VOMITING Last Admin: 06/02/19 08:34 Dose: 12.5 mg Documented by: Senna (Senokot) 2 tablet PO DAILY PRN PRN PRN Reason: CONSTIPATION Last Admin: 06/03/19 09:06 Dose: 2 tablet Documented by: Sodium Chloride () 10 - 40 ml IV UD PRN PRN Reason: SALINE FLUSH Last Admin: 06/03/19 09:01 Dose: 10 ml Documented by: Medical Necessity - Tobacco Use Smoking Status: Never smoker Assessment/Plan All Active Problems Acute kidney injury (Acute) Severe sepsis (Acute) Cellulitis of left lower extremity (Acute) 1. Severe sepsis due to RLE cellulitis still has an episodic low grade fever, with temperature of 99.3F this morning has a chronic right big toe nonhealing diabetic ulcer for years on IV vancomycin Duplex of RLE was negative wbc is 15 this morning. Still tachypneic and occasionally tachycardic. wound cultures Staph aureus and Enteroccocus blood culture negative. lower extremity MRI was negative for osteomyelitis podiatry and ID consulted will add on IV zosyn for broader coverage, pending ID evaluation \ 2. 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 A1C is 9. on Actos. ISS. Accuchecks ACHS. also on lantus 70IU daily complains of early satiety, likely due to gastroparesis. 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 will resume metformin tomorrow will sgart on metoclorpromide on Mylanta 3. YIMI: resolved. 4. Chronic nonhealing diabetic ulcer of the right big toe: ESR and CRP were significantly elevated. X-ray showed no evidence of osteomyelitis and MRI was also negative for osteomyelitis. podiatry consulted 5. Hypertension: on metoprolol. Lisinopril on hold 6. Hyperlipidemia: on statin DVT prophylaxis:heparin Code Visit Inpatient E&M: [id number] Subs Hosp L3
[2019-06-03 13:21] LABS: Bedside Glucose 82 mg/dL (70-110)
[2019-06-03 13:52] LABS: Pathologist Review Reviewed
[2019-06-03 13:56] LABS: Pathologist Review Reviewed
--- NOTE | 2019-06-03 14:48 | PCM.HP.ID ---
Problem List (1) Severe sepsis Status: Acute Reason for Consult: sepsis Consulted by: Dr. Avila History of Present Illness: The patient is a 54 year old M with DM neuropathy and longstanding R 1st toe ulcer, follows with podiatry in [facility] [place], presented with several days of R foot/leg redness/pain/swelling, diffuse muscles aches, fever, chills, and n/v. No inciting events or contamination of his toe recently. Has had 4 episodes of RLE cellulitis in past 1-2 years. Went to urgent care, given doxy, sx worsened, came to ED, found to have severe sepsis and YIMI. Given vanc. Overall improving with resolution of fever, nausea, and leg is less red. Podiatry consulted and zosyn added today. Full ROS performed and neg except as noted above. - Medical History Past Medical History (Chronic Problems): Chronic Problems Type 2 diabetes mellitus with diabetic neuropathy (Chronic) Allergies/Adverse Reactions: Allergies No Known Allergies Allergy (Verified 05/30/19 21:07) Home Medications: Ambulatory Orders Medication Instructions Recorded Allopurinol 300 mg PO DAILY 05/30/19 Cyanocobalamin (Vitamin B-12) 1,000 mcg PO DAILY 05/30/19 [Vitamin B-12] Insulin Glargine/Lixisenatide 70 units SQ DAILY 05/30/19 [Soliqua 100 Unit-33 Mcg/ml Pen] Insulin Lispro [Humalog Kwikpen] 28 unit SQ BID 05/30/19 Lisinopril [Prinivil] 10 mg PO DAILY 05/30/19 Metformin HCl 850 mg PO BID 05/30/19 Metoprolol Tartrate 25 mg PO DAILY 05/30/19 Omeprazole 40 mg PO DAILY 05/30/19 Pioglitazone [Actos] 30 mg PO DAILY 05/30/19 Pravastatin [Pravachol] 40 mg PO QHS 05/30/19 - Social History SMOKING STATUS:: Never smoker Vital Signs Temp Pulse Resp BP Pulse Ox 100 F H 85 16 117/65 98 06/03/19 12:45 06/03/19 12:45 06/03/19 12:45 06/03/19 12:45 06/03/19 12:45 Oxygen Flow Rate (L/min) 1 Oxygen Delivery Method Room Air Weight: 125.6 kg Body Mass Index (BMI) 37.3 Microbiology Past 72 Hours 05/31/19 08:25 Gram Stain - Final Wound - Toe Wound Culture - Final Streptococcus group G Enterococcus faecalis Coag Negative Staph 05/30/19 22:10 Blood Culture - Preliminary Blood Culture (Wb) - Right Hand No growth in 48 hours. 05/30/19 21:30 Blood Culture - Preliminary Blood Culture (Wb) - Anticubital Left No growth in 48 hours. 05/31/19 08:00 Urine Culture - Final Urine, Clean Catch GPC Poss Enterococcus sp Gram positive organism Laboratory Tests Past 24 Hrs 06/01/19 06/02/19 06/03/19 06:05 05:40 05:20 WBC 15.3 H RBC 3.40 L Hgb 9.6 L Hct 29.8 L MCV 87.6 MCH 28.2 MCHC 32.2 RDW Std Deviation 48.0 H RDW Coeff of Yary 14.8 H Plt Count 365 MPV 10.0 Neut % (Auto) Not Reportable Absolute Neuts (auto) 12.5 H Absolute Lymphs (auto) 1.53 Total Counted 100 Neutrophils % (Manual) 80 H Band Neutrophils % 2 Lymphocytes % (Manual) 10 L Monocytes % (Manual) 6 Metamyelocytes % 2 H Diff Path Review Reviewed Reviewed Reviewed Reactive Lymphocytes 1+ Platelet Estimate ADEQUATE Plt Morphology Comment LARGE Polychromasia 1+ Hypochromasia 1+ Anisocytosis 1+ Microcytosis 1+ Sodium Potassium Chloride Carbon Dioxide Anion Gap BUN Creatinine Estim Creat Clear Calc Est GFR (MDRD) Af Amer Est GFR (MDRD) Non-Af BUN/Creatinine Ratio Glucose Calcium 06/03/19 05:20 WBC RBC Hgb Hct MCV MCH MCHC RDW Std Deviation RDW Coeff of Yary Plt Count MPV Neut % (Auto) Absolute Neuts (auto) Absolute Lymphs (auto) Total Counted Neutrophils % (Manual) Band Neutrophils % Lymphocytes % (Manual) Monocytes % (Manual) Metamyelocytes % Diff Path Review Reactive Lymphocytes Platelet Estimate Plt Morphology Comment Polychromasia Hypochromasia Anisocytosis Microcytosis Sodium 141 Potassium 4.1 Chloride 110 H Carbon Dioxide 23.0 Anion Gap 8 BUN 15 Creatinine 1.15 Estim Creat Clear Calc 76.39 Est GFR (MDRD) Af Amer 85 Est GFR (MDRD) Non-Af 70 BUN/Creatinine Ratio 13.0 Glucose 94 Calcium 8.6 - Other Studies Radiology: [] reviewed Other Studies: [] Route of nutrition/ use of supplements: [] Nutritional Intake: [] IV Site: [] Lugo Catheter: [] - Physical Exam General: Alert, Oriented x3, Cooperative, No apparent distress HEENT: Atraumatic, PERRLA, EOMI Neck: Supple, No Nodes Lungs: Clear to auscultation, Normal air movement Cardiovascular: No murmurs, Irregular Rate Abdomen: Soft, Non Tender, Non-Distended Extremities: Edema Skin: Ulcer/ Wound - R 1st toe, relatively dry. Improving surrounding redness IV Site: Peripheral, without redness Musculoskeletal: No Tenderness to Palpation of Joints or Extremities Neurological: Cranial nerves II-XII grossly intact - Assessment/Plan Antibiotics: [] Assessment/Plan: [] Active and Suspected Problems Severe sepsis (Acute) Cellulitis of left lower extremity (Acute) severe sepsis due to infected R toe DM ulcer - wound cx with strep, a faecalis, CoNS. Has been on vanc, will change zosyn to unasyn. Podiatry to see. MRI showed no osteo. Overall does seem improving, but I think adding a PCN will help. Will follow, thank you.
[2019-06-03 17:25] LABS: Bedside Glucose 113 mg/dL (70-110)
--- NOTE | 2019-06-03 20:48 | PCM.RX.CS ---
Consult Pharmacy has been consulted to manage selected antiobiotic: Vancomycin Type of Consult: Follow-up Suspected Infection: Sepsis, Skin/Soft tissue Prior Doses of Antibiotics Received/Current Regimen: Currently on 1500mg IV q12h Labs: Sodium 141 mmol/L (136-145) 06/03/19 05:20 Potassium 4.1 mmol/L (3.5-5.1) 06/03/19 05:20 Chloride 110 mmol/L (98-107) H 06/03/19 05:20 Carbon Dioxide 23.0 mmol/L (21.0-32.0) 06/03/19 05:20 8 (5-15) 06/03/19 05:20 BUN 15 mg/dL (7-18) 06/03/19 05:20 1.15 mg/dL (0.70-1.30) 06/03/19 05:20 Est GFR (MDRD) Af Amer 85 mL/min (>60) 06/03/19 05:20 Est GFR (MDRD) Non-Af 70 mL/min (>60) 06/03/19 05:20 13.0 RATIO (10-20) 06/03/19 05:20 Glucose 94 mg/dL (74-106) 06/03/19 05:20 Vancomycin Trough 14.0 ug/mL (5.0-15.0) 06/03/19 19:35 Microbiology: Microbiology 05/31/19 08:25 Wound - Toe Gram Stain - Final 05/31/19 08:25 Wound - Toe Wound Culture - Final Streptococcus group G Enterococcus faecalis Coag Negative Staph 05/30/19 22:10 Blood Culture (Wb) - Right Hand Blood Culture - Preliminary No growth in 48 hours. 05/30/19 21:30 Blood Culture (Wb) - Anticubital Left Blood Culture - Preliminary No growth in 48 hours. 05/31/19 08:00 Urine, Clean Catch Urine Culture - Final GPC Poss Enterococcus sp Gram positive organism Weight used for dosin.6 kg Goal Trough: 15-20 mcg/mL Pharmacy Plan for Drug Dosing: Trough drawn before tonight's dose came back as 14.0 mg/L (drawn about 11.5 hours after the previous dose). While this is slightly below the goal range of 15-20, it is recommended to keep the dosing the same for now as the trough level jumped up greatly from the previous time it was drawn due to the last dose increase. Another trough will be ordered to be drawn in a couple more days again so that we can be sure it gets into the goal range but does not go too high. We will also monitor the patient's renal function as the SCr went up a little again to 1.15 today from 0.95 yesterday. Pharmacy Service will continue to monitor and adjust dosing as required. Follow-Up Labs: Trough Vancomycin Labs to be done on [date and time ordered]: 06/05/19 07:30
[2019-06-03] MEDS: Pravastatin 40 MG Tablet PO (21:22)
--- NOTE | 2019-06-03 22:22 | CON.PCM_ITS ---
Problem List (1) Cellulitis of right lower extremity Status: Acute (2) Ulcer of right foot with fat layer exposed Status: Chronic (3) Malnutrition Status: Suspected (4) Hallux limitus of right foot Status: Chronic (5) Infection Status: Acute (6) Edema of right lower extremity Status: Chronic (7) Type 2 diabetes mellitus with diabetic neuropathy Status: Chronic Reason for Consult Date of Consultation: 06/03/19 Reason for Consultation: Infection right lower extremity. Right toe ulcer right History of Present Illness: The patient is a 54 year old M with multiple comorbidities was seen bedside this evening for persistent leukocytosis and ulcer of the right foot. He is Grady had x-rays and MRI which were negative for osteomyelitis. He has continued redness and tenderness to the right leg ankle and foot. His ulcer is been present for about 2 years. He noticed an infection on the right lower extremity this past which she presented to the hospital and was admitted to the intensive care unit. Since he has been transition out of the intensive care unit he reports less systemic illness. He still has moderate to severe pain to the right ankle and lower leg region. He denies a trauma that he is aware of. He denies claudication symptoms during ambulation. He does have resting paresthesias consistent with neuropathy. He is previously treated by Dr. Weiss with a wound care program. However, he admits he was unable to keep weight off the ulcer site as advised and continues to work at his [employer] job. 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 Past Medical History Past Medical History (Chronic Problems): Chronic Problems Ulcer of right foot with fat layer exposed (Chronic) Hallux limitus of right foot (Chronic) Edema of right lower extremity (Chronic) Type 2 diabetes mellitus with diabetic neuropathy (Chronic) Allergies No Known Allergies Allergy (Verified 05/30/19 21:07) Home Medications: Ambulatory Orders Medication Instructions Recorded Allopurinol 300 mg PO DAILY 05/30/19 Cyanocobalamin (Vitamin B-12) 1,000 mcg PO DAILY 05/30/19 [Vitamin B-12] Insulin Glargine/Lixisenatide 70 units SQ DAILY 05/30/19 [Soliqua 100 Unit-33 Mcg/ml Pen] Insulin Lispro [Humalog Kwikpen] 28 unit SQ BID 05/30/19 Lisinopril [Prinivil] 10 mg PO DAILY 05/30/19 Metformin HCl 850 mg PO BID 05/30/19 Metoprolol Tartrate 25 mg PO DAILY 05/30/19 Omeprazole 40 mg PO DAILY 05/30/19 Pioglitazone [Actos] 30 mg PO DAILY 05/30/19 Pravastatin [Pravachol] 40 mg PO QHS 05/30/19 Smoking Status: Never smoker Alcohol: None Drugs: None - *Family History Maternal History Items: No pertinent history Review of Systems Constitutional: Denies: Chills, Fever Cardiovascular: Denies: Chest Pain, Claudication Respiratory: Denies: Shortness of Breath Gastrointestinal: Denies: Nausea, Vomiting Musculoskeletal: Reports: Foot Pain, Leg Pain Skin: Reports: Skin Changes, Wounds Neurological: Reports: Numbness, Tingling Patient Problems: Active and Suspected Problems Cellulitis of right lower extremity (Acute) Malnutrition (Suspected) Infection (Acute) Severe sepsis (Acute) Cellulitis of left lower extremity (Acute) - Physical Exam General: Alert, Oriented x3, Cooperative HEENT: Atraumatic Extremities: No cyanosis, Capillary Refill Less than 3 Seconds - All digits right foot, No Calf Tenderness - Negative Vlad and Davalos sign left. Discomfort on palpation to the entire right lower extremity calf. Compartments are soft to palpate along the compartments of the right lower extremity. No distinct fluctuance or bogginess or palpable abscess in the right lower extremity however the skin and soft tissues very taut ranging from the hindfoot to the proximal one third of the leg. There is no skin tenting., Diminished Peripheral Pulses - Nonpalpable PT and DP pulse right lower extremity, Edema - Bilateral lower extremities more notable on the right, - - Healed left hallux amputation. There is no pain with passive manipulation of the digits metatarsophalangeal joints, midfoot, subtalar joint, ankle or knee of the right lower extremity. Skin: Ulcer/ Wound - Plantar hallux ulcer with granular base without adjacent erythema on the toe. This does not have purulence odor distinct streaking coming from the site. No interdigital maceration. No other ulcers are noted. The skin is very atrophic and hairless to bilateral lower extremities., - - The erythema is decreased subjectively in intensity and also objectively to more distal standpoint compared to his initial markings on his thigh. The erythema is now at the most proximal level to the proximal aspect of the leg and does not any longer extend beyond the knee Neurological: - - Lack of normal epicritic sensation consistent neuropathy Psych/Mental Status: Normal Affect, Appropriate Vital Signs Temp Pulse Resp BP Pulse Ox 101.7 F H 105 H 18 144/72 H 94 06/03/19 21:15 06/03/19 21:15 06/03/19 21:15 06/03/19 21:15 06/03/19 21:15 Oxygen Flow Rate (L/min) 1 Oxygen Delivery Method Room Air Weight: 125.6 kg Body Mass Index (BMI) 37.3 Intake and Output for Last 24 Hours 06/01/19 06/02/19 06/03/19 23:59 23:59 23:59 Intake Total 4829 / 4829 3700 / 3700 3769 / 3769 Output Total 2350 / 2350 1725 / 1725 1350 / 1350 Balance 2479 / 2479 1974 / 1974 2419 / 2419 Microbiology Past 72 Hours 05/31/19 08:25 Gram Stain - Final Wound - Toe Wound Culture - Final Streptococcus group G Enterococcus faecalis Coag Negative Staph 05/30/19 22:10 Blood Culture - Preliminary Blood Culture (Wb) - Right Hand No growth in 48 hours. 05/30/19 21:30 Blood Culture - Preliminary Blood Culture (Wb) - Anticubital Left No growth in 48 hours. 05/31/19 08:00 Urine Culture - Final Urine, Clean Catch GPC Poss Enterococcus sp Gram positive organism Laboratory Tests Past 24 Hrs 06/02/19 06/03/19 06/03/19 05:40 05:20 05:20 WBC 15.3 H RBC 3.40 L Hgb 9.6 L Hct 29.8 L MCV 87.6 MCH 28.2 MCHC 32.2 RDW Std Deviation 48.0 H RDW Coeff of Yary 14.8 H Plt Count 365 MPV 10.0 Neut % (Auto) Not Reportable Absolute Neuts (auto) 12.5 H Absolute Lymphs (auto) 1.53 Total Counted 100 Neutrophils % (Manual) 80 H Band Neutrophils % 2 Lymphocytes % (Manual) 10 L Monocytes % (Manual) 6 Metamyelocytes % 2 H Diff Path Review Reviewed Reviewed Reactive Lymphocytes 1+ Platelet Estimate ADEQUATE Plt Morphology Comment LARGE Polychromasia 1+ Hypochromasia 1+ Anisocytosis 1+ Microcytosis 1+ Sodium 141 Potassium 4.1 Chloride 110 H Carbon Dioxide 23.0 Anion Gap 8 BUN 15 Creatinine 1.15 Estim Creat Clear Calc 76.39 Est GFR (MDRD) Af Amer 85 Est GFR (MDRD) Non-Af 70 BUN/Creatinine Ratio 13.0 Glucose 94 Calcium 8.6 Vancomycin Trough 06/03/19 19:35 WBC RBC Hgb Hct MCV MCH MCHC RDW Std Deviation RDW Coeff of Yary Plt Count MPV Neut % (Auto) Absolute Neuts (auto) Absolute Lymphs (auto) Total Counted Neutrophils % (Manual) Band Neutrophils % Lymphocytes % (Manual) Monocytes % (Manual) Metamyelocytes % Diff Path Review Reactive Lymphocytes Platelet Estimate Plt Morphology Comment Polychromasia Hypochromasia Anisocytosis Microcytosis Sodium Potassium Chloride Carbon Dioxide Anion Gap BUN Creatinine Estim Creat Clear Calc Est GFR (MDRD) Af Amer Est GFR (MDRD) Non-Af BUN/Creatinine Ratio Glucose Calcium Vancomycin Trough 14.0 POC Glucose 06/03/19 06/03/19 06/03/19 17:23 12:35 06:44 POC Glucose 113 H 82 92 06/02/19 22:11 POC Glucose 188 H Assessment/Plan All Active Problems Cellulitis of right lower extremity (Acute) Infection (Acute) Acute kidney injury (Acute) Severe sepsis (Acute) Cellulitis of left lower extremity (Acute) Right lower extremity cellulitis Chronic right hallux ulcer Hallux limitus right Diabetes with neuropathy Recurrent ulcers and infections Resolved sepsis and acute kidney injury Malnutrition suspected I reviewed and discussed his case. His low-grade fever this evening is noted. He is tachycardic. He is alert and oriented. His elevated white blood cell c ount over 15 is noted. I reviewed his foot x-ray and MRI which were negative for osteomyelitis, soft tissue emphysema, or other acute injuries or foreign bodies. I do recommend obtaining x-rays of the ankle and the leg and these were ordered this evening. His cultures were reviewed with multi organism growth. Infectious disease recommendations were also reviewed. I do recommend proceeding with broad-spectrum antibiotic coverage with vancomycin and Zosyn. Pending continued improvement with broader spectrum antibiotics and additional x-ray imaging, MRI of the ankle or leg will be considered. His Renato wraps were reapplied after his dressing was reapplied. He was advised to elevate the right lower extremity above the level of his heart. To walk with pressure on his heel with the surgical shoe. To better control his diabetes and take nutrition supplementation optimize healing. As noted his hemoglobin A1c was 9%. Nutrition supplementation, Robin, was ordered. It also appears he had a previous vein work-up and was found to have some insufficiency in which intervention was not performed. His recent venous Doppler study was negative for deep venous thrombosis on 05/30/2019. I do recommend arterial evaluation with a noninvasive TANNER, segmental pressure, and systolic toe pressures. This will be ordered for next week if he is still in the inpatient setting versus outpatient setting if he is discharged. He is reassured it does not appear that he has a critical limb ischemia and there is no necrosis noted of the foot. Medical management DVT prophylaxis per primary team is appreciated. Thank you for the consultation. Please not hesitate to call if you have any questions. Vicki Lind DPM, [facility] [phone]
[2019-06-03 22:55] LABS: Bedside Glucose 145 mg/dL (70-110)
--- NOTE | 2019-06-03 23:10 | RAD_ITS ---
STUDY: X-RAY - RIGHT ANKLE REASON FOR EXAM: Male, 54 years old. Right ankle infection, redness and swelling TECHNIQUE: 3 view(s) of the ankle. COMPARISON: None. FINDINGS: Normal visualized distal tibia and fibula. Normal medial and lateral malleoli. Normal tibiotalar articulation and ankle mortise. There is a tiny enthesophyte in the region of the Achilles tendon insertion on the posterior calcaneal tuberosity. A tiny plantar aspect calcaneal spur is also noted. The visualized subtalar, talonavicular, calcaneocuboid and tarsal articulations are normal. The soft tissue structures are unremarkable. RAD/Ankle min 3 Views IMPRESSION: Calcaneal spurs. There is no evidence of fracture, dislocation, significant degenerative disease, or lytic or blastic osseous process. The soft tissues are unremarkable. Electronically Signed: Joce Ferguson MD at 23:34 EDT , Service support ,
--- NOTE | 2019-06-03 23:10 | RAD_ITS ---
STUDY: X-RAY - RIGHT TIBIA AND FIBULA REASON FOR EXAM: Male, 54 years old. Redness swelling right lower extremity infection. TECHNIQUE: 3 view(s) of the tibia and fibula were obtained. COMPARISON: None. FINDINGS: Normal visualized tibia. There is an age-indeterminate cortical irregularity within the proximal fibula suggesting age-indeterminate injury. There is mild soft tissues edema about the right lower extremity. This partially visualized degenerative changes in the medial compartment. There is soft tissue edema about the ankle. RAD/Tibia & Fibula 2 Views IMPRESSION: Question age indeterminant fracture injury of the fibular head. Recommend correlation with trauma history.. Could Consider dedicated knee x-ray if appropriate. Soft tissue edema about the ankle no visualized fracture. Electronically Signed: Niecy Shaw MD at 10:51 EDT Tel , Service support ,
[2019-06-04] VITALS (13 sets, daily range): BP systolic 124–146; BP diastolic 73–84; PULSE 86–114; RESP 16–18; TEMP 37.1–38.2; O2SAT 94–98
--- NOTE | 2019-06-04 00:01 | MRI_ITS ---
STUDY: MRI LEFT ANKLE WITH AND WITHOUT CONTRAST REASON FOR EXAM: Male, 54 years old. Diabetic abscess of the toe. TECHNIQUE: Standarized fat and water weighted pulse sequences were obtained in all 3 orthogonal plane pre and post intravenous administration of 25 IV Dotarem. COMPARISON: X-ray June 03, 2019. FINDINGS: There is skin thickening and diffuse subcutaneous edema of the lower leg and ankle and dorsum of the hindfoot. Normal posterior tibialis tendon. Normal flexor digitorum longus tendon. Normal flexor hallucis longus tendon. Normal peroneus longus and brevis tendons. There is tendinosis with tenosynovitis of the tibialis anterior tendon. Normal extensor hallucis longus tendon. Normal extensor digitorum longus tendons. Normal Achilles tendon and teno-osseous insertion. Normal plantar fascia. Normal plantar calcaneal tubercles. Normal intrinsic muscles of the rearfoot. Normal distal tibiofibular syndesmotic ligamentous complex. There is thickening of the anterior tibiotalar ligament with spurring and chronic sprain versus impingement. There is marrow edema and enhancement of the lateral talus, series 4 and 8 image 08/25. Normal subtalar ligaments and sinus tarsi. Normal deltoid ligamentous complexes. Normal plantar calcaneonavicular (spring) ligament. Normal tibiotalar articulation. Normal talar dome. Normal subtalar articulations. Normal talonavicular articulation. Normal calcaneocuboid articulation. Normal navicular-cuneiform articulations. MRI/Lower Ext Joint Only W/WO Cont IMPRESSION: Soft tissue swelling. No abscess. Tenosynovitis of the tibialis anterior. Chronic lateral sprain or impingement. Bone bruise or stress injury of the talus. Electronically Signed: Naseem Romero MD at 11:48 EDT , Service support ,
[2019-06-04 07:06] LABS: Bedside Glucose 90 mg/dL (70-110)
[2019-06-04] MEDS: 0.9% Normal Saline 1,000 ML 75 ML IV (08:00)
[2019-06-04 08:07] LABS: Hematocrit 29.5 % (40-54); Hemoglobin 9.3 g/dL (13.0-16.5); Mean Corp Hgb Conc 31.5 g/dL (32-36); Mean Corpuscular Hgb 27.5 pg (27.0-32.0); Mean Corpuscular Volume 87.3 fL (80-94); Mean Platelet Vol. 9.8 fl (6.2-12.0); POSITIVE COUNT YES; POSITIVE MORPHOLOGY YES; Platelet Count 458 K/mm3 (150-450); RBC Distribution Width SD 47.9 fl (35.1-43.9); Red Blood Count 3.38 M/mm3 (4.6-6.2); White Blood Count 17.9 K/mm3 (4.4-11.0)
[2019-06-04 08:23] LABS: Differential Indicated MANUAL DIFF
[2019-06-04] MEDS: Pioglitazone Hydrochloride 30 MG Tablet PO (08:26)
[2019-06-04] MEDS: Senna Tablet 2 TABLET PO (08:27)
[2019-06-04] MEDS: Cyanocobalamin 500 MCG Tablet 1000 MCG PO (08:27)
[2019-06-04] MEDS: oxyCODONE 5 MG Tablet PO ×4 (08:27→23:09)
[2019-06-04 08:28] LABS: Anion Gap 8 (5-15); BUN 12 mg/dL (7-18); BUN/Creat Ratio 10.6 RATIO (10-20); Calcium,Total 8.8 mg/dL (8.5-10.1); Chloride 110 mmol/L (98-107); Creatinine, Serum 1.13 mg/dL (0.70-1.30); EST Glomerular Filtration Rate 71 mL/min (>60); Est Glom Filt Rate - Afr Amer 86 mL/min (>60); Estimated Creatinine Clearance 77.74 ml/min; Glucose 97 mg/dL (74-106); Potassium 4.4 mmol/L (3.5-5.1); Sodium Level 141 mmol/L (136-145)
[2019-06-04] MEDS: Metoprolol Tartrate 25 MG Tablet PO (08:28)
[2019-06-04] MEDS: Pantoprazole Sodium 40 MG Tablet PO (08:28)
[2019-06-04] MEDS: Heparin Injection (Vial) 5,000 UNIT/ML VIAL 5000 UNIT SC ×2 (08:28→23:08)
[2019-06-04] MEDS: Allopurinol 300 MG Tablet PO (08:29)
[2019-06-04 08:59] LABS: Eosinophil 2 % (0-5); Hypochromasia 1+; Lymphocyte 8 % (19-41); Metamyelocyte 1 % (0-1); Monocyte 4 % (0-10); Neutrophil-Segmented 85 % (47-70); Platelet Estimate ADEQUATE (ADEQ); Polychromasia RARE; Red Cell Morphology N CYTIC NORMAL (NORM C&C); Total Cells Counted 100 (MANUAL DIFF)
[2019-06-04 09:00] LABS: Absolute Neutrophil Count 15.2 X10^3/uL (2.0-7.7)
[2019-06-04 09:01] LABS: Absolute Lymphocyte Count 1.43 X10^3/uL (0.83-4.51)
--- NOTE | 2019-06-04 09:19 | PCM.PROGNOTE ---
Patient Problems: Active and Suspected Problems Cellulitis of right lower extremity (Acute) Malnutrition (Suspected) Infection (Acute) Severe sepsis (Acute) Cellulitis of left lower extremity (Acute) Subjective: This 54-year-old male was seen bedside for right lower extremity cellulitis and hallux ulceration. She relates continued discomfort. He has been trying to elevate more overnight. He has been able to tolerate walking with a surgical shoe in place a little bit better. He denies current fever, chill, nausea, vomiting this morning. He is eating breakfast. - Physical Exam General: Alert, Oriented x3, Cooperative Extremities: No cyanosis, Capillary Refill Less than 3 Seconds, Diminished Peripheral Pulses, Edema - Continued right lower extremity, Tenderness - Pain on palpation to right ankle in a diffuse manner and also the lower right leg. The compartments are soft. There is no skin tenting. There is no distinct palpable bogginess, fluctuance, or abscess superficially. His pain on palpation has resided from the midfoot area and there is no toe pain on palpation. Skin: Ulcer/ Wound - Stable plantar hallux ulcer with granulation tissue. There is no purulence odor or deep probing. The erythema to his ankle and lower right leg have receded in location to more distal location and the intensity has also decreased compared to yesterday evening. However, it is still pretty intense to the ankle and hindfoot level and his skin is hairless and atrophic. Musculoskeletal: No Tenderness to Palpation of Joints or Extremities, Muscle Wasting Neurological: - - Lack of normal epicritic sensation light touch is consistent with neuropathy status Psych/Mental Status: Normal Affect, Appropriate Vital Signs Temp Pulse Resp BP Pulse Ox 98.7 F 95 16 140/80 H 94 06/04/19 03:15 06/04/19 08:28 06/04/19 03:15 06/04/19 08:28 06/04/19 03:15 Oxygen Flow Rate (L/min) 1 Oxygen Delivery Method Room Air Weight: 125.9 kg Body Mass Index (BMI) 37.3 Intake and Output for Last 24 Hours 06/02/19 06/03/19 06/04/19 23:59 23:59 23:59 Intake Total 3700 / 3700 5519 / 5519 820 / 820 Output Total 1725 / 1725 3025 / 3025 1375 / 1375 Balance 1974 / 1974 2494 / 2494 -555 / -555 Microbiology Past 72 Hours 05/31/19 08:25 Gram Stain - Final Wound - Toe Wound Culture - Final Streptococcus group G Enterococcus faecalis Coag Negative Staph 05/30/19 22:10 Blood Culture - Preliminary Blood Culture (Wb) - Right Hand No growth in 48 hours. 05/30/19 21:30 Blood Culture - Preliminary Blood Culture (Wb) - Anticubital Left No growth in 48 hours. 05/31/19 08:00 Urine Culture - Final Urine, Clean Catch GPC Poss Enterococcus sp Gram positive organism Laboratory Tests Past 24 Hrs 06/02/19 06/03/19 06/03/19 05:40 05:20 19:35 WBC RBC Hgb Hct MCV MCH MCHC RDW Std Deviation RDW Coeff of Yary Plt Count MPV Neut % (Auto) Absolute Neuts (auto) Absolute Lymphs (auto) Total Counted Neutrophils % (Manual) Lymphocytes % (Manual) Monocytes % (Manual) Eosinophils % (Manual) Metamyelocytes % Diff Path Review Reviewed Reviewed Platelet Estimate RBC Morphology Polychromasia Hypochromasia Sodium Potassium Chloride Carbon Dioxide Anion Gap BUN Creatinine Estim Creat Clear Calc Est GFR (MDRD) Af Amer Est GFR (MDRD) Non-Af BUN/Creatinine Ratio Glucose Calcium Vancomycin Trough 14.0 06/04/19 06/04/19 07:30 07:30 WBC 17.9 H RBC 3.38 L Hgb 9.3 L Hct 29.5 L MCV 87.3 MCH 27.5 MCHC 31.5 L RDW Std Deviation 47.9 H RDW Coeff of Yary 15.0 H Plt Count 458 H MPV 9.8 Neut % (Auto) Not Reportable Absolute Neuts (auto) 15.2 H Absolute Lymphs (auto) 1.43 Total Counted 100 Neutrophils % (Manual) 85 H Lymphocytes % (Manual) 8 L Monocytes % (Manual) 4 Eosinophils % (Manual) 2 Metamyelocytes % 1 Diff Path Review May foll Platelet Estimate ADEQUATE RBC Morphology N CYTIC Polychromasia RARE Hypochromasia 1+ Sodium 141 Potassium 4.4 Chloride 110 H Carbon Dioxide 23.0 Anion Gap 8 BUN 12 Creatinine 1.13 Estim Creat Clear Calc 77.74 Est GFR (MDRD) Af Amer 86 Est GFR (MDRD) Non-Af 71 BUN/Creatinine Ratio 10.6 Glucose 97 Calcium 8.8 Vancomycin Trough POC Glucose 06/04/19 06/03/19 06/03/19 06:26 21:18 17:23 POC Glucose 90 145 H 113 H 06/03/19 12:35 POC Glucose 82 Medical Necessity - Tobacco Use Smoking Status: Never smoker Assessment/Plan All Active Problems Cellulitis of right lower extremity (Acute) Infection (Acute) Acute kidney injury (Acute) Severe sepsis (Acute) Cellulitis of left lower extremity (Acute) Right lower extremity cellulitis Chronic right hallux ulcer Hallux limitus right Diabetes with neuropathy Recurrent ulcers and infections Resolved sepsis and acute kidney injury Malnutrition suspected I reviewed and discussed his case. He is afebrile overnight and his tachycardia is resolved. His vital signs otherwise were also stable. His elevated white blood cell count is elevated at 17.9. I recommend he continues with broad-spectrum antibiotic coverage with vancomycin and Zosyn. The x-rays of the ankle and leg were unremarkable. There is no fracture, dislocation, soft tissue emphysema, foreign body noted. I recommend MRI of the ankle level and this is pending. There is some clinical improvement noted with decreased erythema intensity and location however persistent localized pain is a concern. His Renato wraps were reapplied after his dressing was reapplied; [employer] Ag. He was advised to elevate the right lower extremity above the level of his heart. To walk with pressure on his heel with the surgical shoe. This is in place this morning. To better control his diabetes and take nutrition supplementation optimize healing. Noninvasive vascular studies were also ordered and these results are pending as well. Medical management DVT prophylaxis per primary team is appreciated. I will continue to follow close while in house. To follow up at the wound healing center at time of discharge if he is not able to follow up with his current engineer first assistant. Please not hesitate to call if you have any questions. Vicki Lind DPM, [facility] [phone]
--- NOTE | 2019-06-04 11:31 | PCM.PN.HOSP ---
Patient Problems: Active and Suspected Problems Cellulitis of right lower extremity (Acute) Malnutrition (Suspected) Infection (Acute) Severe sepsis (Acute) Cellulitis of left lower extremity (Acute) Subjective: Patient seen and examined. He has no complaints and feels well. Review of systems is otherwise negative. Labs and vitals reviewed. Vitals/I&O's: Vital Signs Temp Pulse Resp BP Pulse Ox 100.1 F H 95 18 140/84 H 95 06/04/19 09:15 06/04/19 10:00 06/04/19 09:15 06/04/19 09:15 06/04/19 09:15 Oxygen Flow Rate (L/min) 1 Oxygen Delivery Method Room Air Weight: 277 lb 8.992 oz Body Mass Index (BMI) 37.3 Intake and Output for Last 24 Hours 06/02/19 06/03/19 06/04/19 23:59 23:59 23:59 Intake Total 3700 / 3700 5519 / 5519 820 / 820 Output Total 1725 / 1725 3025 / 3025 1375 / 1375 Balance 1974 / 1974 2494 / 2494 -555 / -555 General: Alert, Oriented x3, Cooperative, No apparent distress HEENT: Atraumatic, PERRLA, EOMI, Normocephalic Oral: Moist Mucosa Neck: Supple, No JVD, Negative Carotid Bruits Lungs: Clear to auscultation, Normal air movement, No rhonchi, No wheeze, No rales Cardiovascular: Regular rate, Regular Rhythm, Normal S1, Normal S2, No murmurs Abdomen: Bowel Sounds Present, Soft, Non Tender, Non-Distended, No Hepato-splenomegaly, Obese Extremities: - - RLE in CHUY bandage. Minimal redness and swelling Skin: No rashes, No breakdown Musculoskeletal: No Tenderness to Palpation of Joints or Extremities Neurological: Cranial nerves II-XII grossly intact Psych/Mental Status: Normal Affect, Appropriate, Alert and oriented to time, place, person, mood and affect Microbiology Past 72 Hours 05/31/19 08:25 Wound - Toe Gram Stain - Final 05/31/19 08:25 Wound - Toe Wound Culture - Final Streptococcus group G Enterococcus faecalis Coag Negative Staph 05/30/19 22:10 Blood Culture (Wb) - Right Hand Blood Culture - Preliminary No growth in 48 hours. 05/30/19 21:30 Blood Culture (Wb) - Anticubital Left Blood Culture - Preliminary No growth in 48 hours. 05/31/19 08:00 Urine, Clean Catch Urine Culture - Final GPC Poss Enterococcus sp Gram positive organism Laboratory Results 06/02/19 05:40: Diff Path Review Reviewed 06/03/19 05:20: Diff Path Review Reviewed 06/03/19 12:35: POC Glucose 82 06/03/19 17:23: POC Glucose 113 H 06/03/19 19:35: Vancomycin Trough 14.0 06/03/19 21:18: POC Glucose 145 H 06/04/19 06:26: POC Glucose 90 06/04/19 07:30: WBC 17.9 H, RBC 3.38 L, Hgb 9.3 L, Hct 29.5 L, MCV 87.3, MCH 27.5, MCHC 31.5 L, RDW Std Deviation 47.9 H, RDW Coeff of Yary 15.0 H, Plt Count 458 H, MPV 9.8, Neut % (Auto) Not Reportable, Absolute Neuts (auto) 15.2 H, Absolute Lymphs (auto) 1.43, Total Counted 100, Neutrophils % (Manual) 85 H, Lymphocytes % (Manual) 8 L, Monocytes % (Manual) 4, Eosinophils % (Manual) 2, Metamyelocytes % 1, Diff Path Review May foll, Platelet Estimate ADEQUATE, RBC Morphology N CYTIC, Polychromasia RARE, Hypochromasia 1+ 06/04/19 07:30: Sodium 141, Potassium 4.4, Chloride 110 H, Carbon Dioxide 23.0, Anion Gap 8, BUN 12, Creatinine 1.13, Estim Creat Clear Calc 77.74, Est GFR (MDRD) Af Amer 86, Est GFR (MDRD) Non-Af 71, BUN/Creatinine Ratio 10.6, Glucose 97, Calcium 8.8 Diagnostic Data Venous Duplex 05/30/19 21:56 IMPRESSION: There is no evidence of deep venous thrombosis of the visualized right lower extremity venous structures. Electronically Signed: Joce Ferguson MD at 23:10 EDT , Service support , Chest X-Ray 05/30/19 22:00 IMPRESSION: Degenerative changes, as described above. No demonstrated acute cardiopulmonary process. Electronically Signed: Joce Ferguson MD at 22:36 EDT , Service support , Foot X-Ray 05/31/19 12:00 IMPRESSION: No demonstrated active bone destruction of the great toe. Electronically Signed: Yaya Stanford MD at 12:46 EDT Tel , Service support , Ankle X-Ray 06/03/19 23:10 IMPRESSION: Calcaneal spurs. There is no evidence of fracture, dislocation, significant degenerative disease, or lytic or blastic osseous process. The soft tissues are unremarkable. Electronically Signed: Joce Ferguson MD at 23:34 EDT , Service support , Tibia/Fibula X-Ray 06/03/19 23:10 IMPRESSION: Question age indeterminant fracture injury of the fibular head. Recommend correlation with trauma history.. Could Consider dedicated knee x-ray if appropriate. Soft tissue edema about the ankle no visualized fracture. Electronically Signed: Niecy Shaw MD at 10:51 EDT Tel , Service support , Current Medications Acetaminophen (Tylenol) 650 mg PO Q6H PRN PRN PRN Reason: Fever, headache, pain. Last Admin: 06/03/19 21:25 Dose: 650 mg Documented by: Al Hydroxide/Mg Hydroxide (Mylanta Ii) 30 ml PO Q6H PRN PRN PRN Reason: Heartburn, indigestion. Last Admin: 06/01/19 16:57 Dose: 30 ml Documented by: Allopurinol (Zyloprim) 300 mg PO DAILY [facility] Last Admin: 06/04/19 08:29 Dose: 300 mg Documented by: Cyanocobalamin (Vitamin B12) 1,000 mcg PO DAILY [facility] Last Admin: 06/04/19 08:27 Dose: 1,000 mcg Documented by: Dextrose (D50w Syringe) 0 gm IV X1 PRN; Protocol PRN Reason: Hypoglycemia Glucagon () 1 mg IM .X1 PRN PRN Reason: Hypoglycemia Heparin Sodium (Porcine) (Heparin Na) 5,000 unit SC Q12 [facility] Last Admin: 06/04/19 08:28 Dose: 5,000 unit Documented by: Vancomycin IV Pharmacy to Dose (1 ea/ Sodium Chloride) 500 mls @ 250 mls/hr IV PRN PRN; Protocol PRN Reason: Rx to Dose Sodium Chloride () 250 mls @ 15 mls/hr IV .[id number] PRN PRN Reason: SALINE FLUSH Sodium Chloride () 1,000 mls @ 75 mls/hr IV .[id number] [facility] Last Admin: 06/04/19 08:00 Dose: 75 mls/hr Documented by: Vancomycin HCl 1,500 mg/ (Sodium Chloride) 530 mls @ 250 mls/hr IV Q12H [facility] Last Admin: 06/04/19 07:50 Dose: 250 mls/hr Documented by: Ampicillin Sodium/Sulbactam (Sodium 3 gm/ Sodium Chloride) 112 mls @ 150 mls/hr IV Q8 [facility] Last Admin: 06/04/19 06:22 Dose: 150 mls/hr Documented by: Insulin Glargine (Lantus (Bkc)) 70 units SC DAILY [facility] Last Admin: 06/04/19 08:29 Dose: 70 u Documented by: Insulin Human Lispro (Humalog Kwikpen (Bkc)) 0 unit SC ACHS [facility]; Protocol Last Admin: 06/04/19 06:26 Dose: Not Given Documented by: Metoprolol Tartrate (Lopressor (Beta Екатерина)) 25 mg PO DAILY [facility] Last Admin: 06/04/19 08:28 Dose: 25 mg Documented by: Morphine Sulfate () 2 mg IV Q3H PRN PRN PRN Reason: SEVERE PAIN (6-10/10) Nutritional Formula (Robin - [place] Flavor) 1 packet PO BIDCM [facility] Last Admin: 06/04/19 08:26 Dose: 1 packet Documented by: Ondansetron HCl (Zofran) 4 mg IV Q8H PRN PRN PRN Reason: NAUSEA/VOMITING Last Admin: 06/03/19 18:48 Dose: 4 mg Documented by: Oxycodone HCl (Oxyir) 5 mg PO Q4H PRN PRN PRN Reason: SEVERE PAIN (6-10/10) Last Admin: 06/04/19 08:27 Dose: 5 mg Documented by: Pantoprazole Sodium (Protonix) 40 mg PO DAILY [facility] Last Admin: 06/04/19 08:28 Dose: 40 mg Documented by: Pioglitazone HCl (Actos) 30 mg PO DAILY [facility] Last Admin: 06/04/19 08:26 Dose: 30 mg Documented by: Pravastatin Sodium (Pravachol) 40 mg PO QHS [facility] Last Admin: 06/03/19 21:22 Dose: 40 mg Documented by: Promethazine HCl (Phenergan) 12.5 mg IV Q6H PRN PRN PRN Reason: NAUSEA/VOMITING Last Admin: 06/02/19 08:34 Dose: 12.5 mg Documented by: Senna (Senokot) 2 tablet PO DAILY PRN PRN PRN Reason: CONSTIPATION Last Admin: 06/04/19 08:27 Dose: 2 tablet Documented by: Sodium Chloride () 10 - 40 ml IV UD PRN PRN Reason: SALINE FLUSH Last Admin: 06/03/19 18:50 Dose: 10 ml Documented by: Medical Necessity - Tobacco Use Smoking Status: Never smoker Assessment/Plan All Active Problems Cellulitis of right lower extremity (Acute) Infection (Acute) Acute kidney injury (Acute) Severe sepsis (Acute) Cellulitis of left lower extremity (Acute) 1. Severe sepsis due to RLE cellulitis still has an episodic low grade fever, with temperature of 100.1F this morning has a chronic right big toe nonhealing diabetic ulcer for years on IV vancomycin and IV unasyn Duplex of RLE was negative wbc is 15 this morning. Still tachypneic and occasionally tachycardic. wound cultures Staph aureus and Enteroccocus blood culture negative. foot MRI negative for osteomyelitis. Getting an ankle MRI today, per podiatry podiatry and ID consulted 2. 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 A1C is 9. on Actos. ISS. Accuchecks ACHS. 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 will resume metformin today will start on metoclopromide for suspected gastroparesis on Mylanta 3. YIMI: resolved. 4. Chronic nonhealing diabetic ulcer of the right big toe: ESR and CRP were significantly elevated. X-ray showed no evidence of osteomyelitis and MRI of foot was also negative for osteomyelitis. podiatry consulted xray of tibia and fibula showed indeterminate fracture injury of fibular head and soft tissue edema around ankle MRI of right ankle pending 5. Hypertension: on metoprolol. will resume lisinopril. Lisinopril on hold 6. Hyperlipidemia: on statin DVT prophylaxis:heparin Code Visit Inpatient E&M: 18784 Subs Hosp L3
[2019-06-04 11:51] LABS: Bedside Glucose 209 mg/dL (70-110)
[2019-06-04] MEDS: Insulin Lispro 100 UNIT/ML INSULN.PEN SC ×3 (12:34→23:08)
[2019-06-04 17:16] LABS: Bedside Glucose 169 mg/dL (70-110)
[2019-06-04] MEDS: metFORMIN HCl 850 MG Tablet PO (17:24)
[2019-06-04] MEDS: Acetaminophen 325 MG Tablet 650 MG PO (20:59)
[2019-06-04] MEDS: Pravastatin 40 MG Tablet PO (23:08)
[2019-06-04 23:21] LABS: Bedside Glucose 208 mg/dL (70-110)
[2019-06-05] VITALS (11 sets, daily range): BP systolic 126–165; BP diastolic 81–91; PULSE 82–105; RESP 18; TEMP 37.2–37.6; O2SAT 93–95
[2019-06-05] MEDS: Acetaminophen 325 MG Tablet 650 MG PO ×3 (04:56→21:57)
[2019-06-05] MEDS: Insulin Lispro 100 UNIT/ML INSULN.PEN SC (06:39)
[2019-06-05 06:50] LABS: Bedside Glucose 164 mg/dL (70-110)
--- NOTE | 2019-06-05 07:03 | NURSING ---
This RN asked patient multiple times to not silence or press ok on IV pump, to call out and we would be right back to fix it. This RN locked the pump numerous times.
[2019-06-05 07:55] LABS: Absolute Lymphocyte Count 2.05 X10^3/uL (0.83-4.51); Absolute Neutrophil Count 10.7 X10^3/uL (2.0-7.7); Basophil# 0.04 X10^3/uL; Basophil% 0.3 % (0-1); Eosinophil# 0.31 X10^3/uL; Eosinophils% 2.1 % (0-5); Hematocrit 28.9 % (40-54); Hemoglobin 9.3 g/dL (13.0-16.5); Lymphocyte # 2.05 X10^3/ul (4.0); Lymphocyte % 13.7 % (19-41); Mean Corp Hgb Conc 32.2 g/dL (32-36); Mean Corpuscular Hgb 28.4 pg (27.0-32.0); Mean Corpuscular Volume 88.1 fL (80-94); Mean Platelet Vol. 9.8 fl (6.2-12.0); Monocyte# 1.12 X10^3/uL; Monocyte% 7.5 % (0-10); NRBC Flagged by Analyzer 0 % (0-5); Neutrophil # 10.74 X10^3/uL (2.7-7.7); Platelet Count 466 K/mm3 (150-450); RBC Distribution Width CV 14.7 % (11.6-14.6); RBC Distribution Width SD 47.8 fl (35.1-43.9); Red Blood Count 3.28 M/mm3 (4.6-6.2); White Blood Count 14.9 K/mm3 (4.4-11.0)
[2019-06-05 08:11] LABS: Vancomycin, Trough Level 16.3 ug/mL (5.0-15.0)
[2019-06-05 08:12] LABS: Anion Gap 8 (5-15); BUN 19 mg/dL (7-18); BUN/Creat Ratio 16.1 RATIO (10-20); Calcium,Total 8.3 mg/dL (8.5-10.1); Chloride 108 mmol/L (98-107); Creatinine, Serum 1.18 mg/dL (0.70-1.30); EST Glomerular Filtration Rate 68 mL/min (>60); Est Glom Filt Rate - Afr Amer 82 mL/min (>60); Estimated Creatinine Clearance 74.45 ml/min; Glucose 171 mg/dL (74-106); Potassium 4.3 mmol/L (3.5-5.1); Sodium Level 139 mmol/L (136-145)
[2019-06-05] MEDS: metFORMIN HCl 850 MG Tablet PO ×2 (08:29→16:50)
[2019-06-05] MEDS: Pioglitazone Hydrochloride 30 MG Tablet PO (08:29)
[2019-06-05] MEDS: Heparin Injection (Vial) 5,000 UNIT/ML VIAL 5000 UNIT SC ×2 (08:29→22:36)
[2019-06-05] MEDS: Metoprolol Tartrate 25 MG Tablet PO (08:30)
[2019-06-05] MEDS: Lisinopril 10 MG Tablet PO (08:31)
[2019-06-05] MEDS: Allopurinol 300 MG Tablet PO (08:31)
[2019-06-05] MEDS: Cyanocobalamin 500 MCG Tablet 1000 MCG PO (08:31)
[2019-06-05] MEDS: Pantoprazole Sodium 40 MG Tablet PO (08:31)
--- NOTE | 2019-06-05 09:23 | PN_ITS ---
Patient Problems: Active and Suspected Problems Cellulitis of right lower extremity (Acute) Malnutrition (Suspected) Infection (Acute) Severe sepsis (Acute) Cellulitis of left lower extremity (Acute) Subjective: This 54-year-old male was seen bedside for right lower extremity cellulitis and hallux ulceration. He has decreased discomfort and rates his pain as a 1 out of 10 while resting in bed. His pain does increase upon initial weightbearing activities and does improve after several minutes. He denies current fever, chill, nausea, vomiting this morning. He has a surgical shoe in place and is elevating. - Physical Exam General: Alert, Oriented x3, Cooperative Extremities: No cyanosis, Capillary Refill Less than 3 Seconds, No Calf Tenderness - Negative Vlad and Davalos sign bilateral, Diminished Peripheral Pulses, Edema - Decreased, Tenderness - Decreased tenderness on palpation of the right lower extremity his pain is still persistent around the ankle however this is decreased. The compartments of the right lower extremity are soft to palpate and there is no palpable abscess, fluctuance or bogginess Skin: Ulcer/ Wound - Plantar hallux ulcer is granular without deep probing and is stable there is no erythema on the toe or forefoot at this time. His skin is atrophic Musculoskeletal: No Tenderness to Palpation of Joints or Extremities, Muscle Wasting, - - Decreased letter first metatarsophalangeal joint range of motion Neurological: - - Lack of normal epicritic sensation light touch consistent with neuropathy Psych/Mental Status: Normal Affect, Appropriate Vital Signs Temp Pulse Resp BP Pulse Ox 99.5 F H 92 18 165/91 H 95 06/05/19 04:53 06/05/19 08:30 06/05/19 04:53 06/05/19 04:53 06/05/19 04:53 Oxygen Flow Rate (L/min) 1 Oxygen Delivery Method Room Air Weight: 129.7 kg Body Mass Index (BMI) 37.3 Intake and Output for Last 24 Hours 06/03/19 06/04/19 06/05/19 23:59 23:59 23:59 Intake Total 5519 / 5519 2982 / 2982 616 / 616 Output Total 3025 / 3025 6750 / 6750 850 / 850 Balance 2494 / 2494 -3768 / -3768 -234 / -234 Microbiology Past 72 Hours 05/30/19 22:10 Blood Culture - Final Blood Culture (Wb) - Right Hand No growth in 5 days. 07/29/19 21:30 Blood Culture - Final Blood Culture (Wb) - Anticubital Left No growth in 5 days. 05/31/19 08:25 Gram Stain - Final Wound - Toe Wound Culture - Final Streptococcus group G Enterococcus faecalis Coag Negative Staph 05/31/19 08:00 Urine Culture - Final Urine, Clean Catch GPC Poss Enterococcus sp Gram positive organism Laboratory Tests Past 24 Hrs 06/05/19 06/05/19 06/05/19 07:28 07:28 07:28 WBC 14.9 H RBC 3.28 L Hgb 9.3 L Hct 28.9 L MCV 88.1 MCH 28.4 MCHC 32.2 RDW Std Deviation 47.8 H RDW Coeff of Yary 14.7 H Plt Count 466 H MPV 9.8 Immature Gran % (Auto) 4.400 H Neut % (Auto) 72.0 H Lymph % (Auto) 13.7 L [place] % (Auto) 7.5 Eos % (Auto) 2.1 Baso % (Auto) 0.3 Absolute Neuts (auto) 10.7 H Absolute Lymphs (auto) 2.05 Nucleated RBC % 0 Sodium 139 Potassium 4.3 Chloride 108 H Carbon Dioxide 23.0 Anion Gap 8 BUN 19 H Creatinine 1.18 Estim Creat Clear Calc 74.45 Est GFR (MDRD) Af Amer 82 Est GFR (MDRD) Non-Af 68 BUN/Creatinine Ratio 16.1 Glucose 171 H Calcium 8.3 L Vancomycin Trough 16.3 H POC Glucose 06/05/19 06/04/19 06/04/19 06:37 23:00 17:06 POC Glucose 164 H 208 H 169 H 06/04/19 11:41 POC Glucose 209 H Medical Necessity - Tobacco Use Smoking Status: Never smoker Assessment/Plan All Active Problems Cellulitis of right lower extremity (Acute) Infection (Acute) Acute kidney injury (Acute) Severe sepsis (Acute) Cellulitis of left lower extremity (Acute) Right lower extremity cellulitis improving Chronic right hallux ulcer Hallux limitus right Diabetes with neuropathy Recurrent ulcers and infections Resolved sepsis and acute kidney injury Malnutrition suspected I reviewed and discussed his case. His low-grade fever overnight is noted. His elevated white blood cell count is decreased to 14.9. I recommend he continues with broad-spectrum antibiotic coverage with vancomycin and Zosyn. The x-rays of the ankle and leg were unremarkable. There is no fracture, dislocation, soft tissue emphysema, foreign body noted. I recommended MRI of the ankle level and the report and images were reviewed. There is continued clinical improvement noted with decreased erythema intensity and location. The MRI did not demonstrate a distinct abscess. There is edema in the soft tissue. There is some tenosynovitis around the tibialis anterior and evidence of other chronic muscular skeletal injury such as lateral ankle impingement and edema in the talus. Again, he is clinically improving the past 2 days and I recommend continued antibiotics and this will be monitored closely. Another option if lack of progress is noted is to do an aspiration or small incision around the tibialis anterior area to see if this is an infectious tenosynovitis. This option was discussed with him today and will be reserved if lack of progress is no longer noted. His Renato wraps were reapplied after his dressing was reapplied; Zuvvuel Ag. He was advised to elevate the right lower extremity above the level of his heart. To walk with pressure on his heel with the surgical shoe. This is in place this morning. To better control his diabetes and take nutrition supplementation optimize healing. Noninvasive vascular studies were also ordered and these results are pending as well. Medical management DVT prophylaxis per primary team is appreciated. I will continue to follow close while in house. To follow up at the wound healing center at time of discharge if he is not able to follow up with his current bleach boiler filler. Please not hesitate to call if you have any questions. Vicki Lind DPM, [facility] [phone]
--- NOTE | 2019-06-05 11:23 | PCM.PN.HOSP ---
Patient Problems: Active and Suspected Problems Cellulitis of right lower extremity (Acute) Malnutrition (Suspected) Infection (Acute) Severe sepsis (Acute) Cellulitis of left lower extremity (Acute) Subjective: Patient seen and examined. He has no complaints this morning. Review of systems otherwise negative. Patient still noted to have a low-grade fever with temperature of 99.5 Fahrenheit this morning and up to 100.7 Fahrenheit overnight. Vitals/I&O's: Vital Signs Temp Pulse Resp BP Pulse Ox 98.9 F 82 18 126/81 H 93 06/05/19 10:28 06/05/19 10:28 06/05/19 10:28 06/05/19 10:28 06/05/19 10:28 Oxygen Flow Rate (L/min) 1 Oxygen Delivery Method Room Air Weight: 285 lb 15.033 oz Body Mass Index (BMI) 37.3 Intake and Output for Last 24 Hours 06/03/19 06/04/19 06/05/19 23:59 23:59 23:59 Intake Total 5519 / 5519 2982 / 2982 616 / 616 Output Total 3025 / 3025 6750 / 6750 850 / 850 Balance 2494 / 2494 -3768 / -3768 -234 / -234 General: Alert, Oriented x3, Cooperative, No apparent distress HEENT: Atraumatic, PERRLA, EOMI, Normocephalic Oral: Moist Mucosa Neck: Supple, No JVD, Negative Carotid Bruits Lungs: Clear to auscultation, Normal air movement, No rhonchi, No wheeze, No rales Cardiovascular: Regular rate, Regular Rhythm, Normal S1, Normal S2, No murmurs Abdomen: Bowel Sounds Present, Soft, Non Tender, Non-Distended, No Hepato-splenomegaly, Obese Extremities: - - RLE in CHUY bandage. redness and swelling Skin: No rashes, No breakdown Musculoskeletal: No Tenderness to Palpation of Joints or Extremities Neurological: Cranial nerves II-XII grossly intact Psych/Mental Status: Normal Affect, Appropriate, Alert and oriented to time, place, person, mood and affect Microbiology Past 72 Hours 05/30/19 22:10 Blood Culture (Wb) - Right Hand Blood Culture - Final No growth in 5 days. 05/30/19 21:30 Blood Culture (Wb) - Anticubital Left Blood Culture - Final No growth in 5 days. 05/31/19 08:25 Wound - Toe Gram Stain - Final 05/31/19 08:25 Wound - Toe Wound Culture - Final Streptococcus group G Enterococcus faecalis Coag Negative Staph 05/31/19 08:00 Urine, Clean Catch Urine Culture - Final GPC Poss Enterococcus sp Gram positive organism Laboratory Results 06/04/19 11:41: POC Glucose 209 H 06/04/19 17:06: POC Glucose 169 H 06/04/19 23:00: POC Glucose 208 H 06/05/19 06:37: POC Glucose 164 H 06/05/19 07:28: Vancomycin Trough 16.3 H 06/05/19 07:28: WBC 14.9 H, RBC 3.28 L, Hgb 9.3 L, Hct 28.9 L, MCV 88.1, MCH 28.4, MCHC 32.2, RDW Std Deviation 47.8 H, RDW Coeff of Yary 14.7 H, Plt Count 466 H, MPV 9.8, Immature Gran % (Auto) 4.400 H, Neut % (Auto) 72.0 H, Lymph % (Auto) 13.7 L, [place] % (Auto) 7.5, Eos % (Auto) 2.1, Baso % (Auto) 0.3, Absolute Neuts (auto) 10.7 H, Absolute Lymphs (auto) 2.05, Nucleated RBC % 0 06/05/19 07:28: Sodium 139, Potassium 4.3, Chloride 108 H, Carbon Dioxide 23.0, Anion Gap 8, BUN 19 H, Creatinine 1.18, Estim Creat Clear Calc 74.45, Est GFR (MDRD) Af Amer 82, Est GFR (MDRD) Non-Af 68, BUN/Creatinine Ratio 16.1, Glucose 171 H, Calcium 8.3 L Diagnostic Data Venous Duplex 05/30/19 21:56 IMPRESSION: There is no evidence of deep venous thrombosis of the visualized right lower extremity venous structures. Electronically Signed: Joce Ferguson MD at 23:10 EDT , Service support , Chest X-Ray 05/30/19 22:00 IMPRESSION: Degenerative changes, as described above. No demonstrated acute cardiopulmonary process. Electronically Signed: Joce Ferguson MD at 22:36 EDT , Service support , Foot X-Ray 05/31/19 12:00 IMPRESSION: No demonstrated active bone destruction of the great toe. Electronically Signed: Yaya Stanford MD at 12:46 EDT Tel , Service support , Ankle X-Ray 06/03/19 23:10 IMPRESSION: Calcaneal spurs. There is no evidence of fracture, dislocation, significant degenerative disease, or lytic or blastic osseous process. The soft tissues are unremarkable. Electronically Signed: Joce Ferguson MD at 23:34 EDT , Service support , Tibia/Fibula X-Ray 06/03/19 23:10 IMPRESSION: Question age indeterminant fracture injury of the fibular head. Recommend correlation with trauma history.. Could Consider dedicated knee x-ray if appropriate. Soft tissue edema about the ankle no visualized fracture. Electronically Signed: Niecy Shaw MD at 10:51 EDT Tel , Service support , Lower Extremity MRI 06/04/19 00:01 IMPRESSION: Soft tissue swelling. No abscess. Tenosynovitis of the tibialis anterior. Chronic lateral sprain or impingement. Bone bruise or stress injury of the talus. Electronically Signed: Naseem Romero MD at 11:48 EDT , Service support , Current Medications Acetaminophen (Tylenol) 650 mg PO Q6H PRN PRN PRN Reason: Fever, headache, pain. Last Admin: 06/05/19 04:56 Dose: 650 mg Documented by: Al Hydroxide/Mg Hydroxide (Mylanta Ii) 30 ml PO Q6H PRN PRN PRN Reason: Heartburn, indigestion. Last Admin: 06/01/19 16:57 Dose: 30 ml Documented by: Allopurinol (Zyloprim) 300 mg PO DAILY [facility] Last Admin: 06/05/19 08:31 Dose: 300 mg Documented by: Cyanocobalamin (Vitamin B12) 1,000 mcg PO DAILY [facility] Last Admin: 06/05/19 08:31 Dose: 1,000 mcg Documented by: Dextrose (D50w Syringe) 0 gm IV X1 PRN; Protocol PRN Reason: Hypoglycemia Glucagon () 1 mg IM .X1 PRN PRN Reason: Hypoglycemia Heparin Sodium (Porcine) (Heparin Na) 5,000 unit SC Q12 [facility] Last Admin: 06/05/19 08:29 Dose: 5,000 unit Documented by: Vancomycin IV Pharmacy to Dose (1 ea/ Sodium Chloride) 500 mls @ 250 mls/hr IV PRN PRN; Protocol PRN Reason: Rx to Dose Sodium Chloride () 250 mls @ 15 mls/hr IV .[id number] PRN PRN Reason: SALINE FLUSH Vancomycin HCl 1,500 mg/ (Sodium Chloride) 530 mls @ 250 mls/hr IV Q12H [facility] Last Admin: 06/05/19 08:35 Dose: 250 mls/hr Documented by: Ampicillin Sodium/Sulbactam (Sodium 3 gm/ Sodium Chloride) 112 mls @ 150 mls/hr IV Q8 [facility] Last Admin: 06/05/19 06:40 Dose: 150 mls/hr Documented by: Insulin Glargine (Lantus (Bkc)) 70 units SC DAILY [facility] Last Admin: 06/05/19 08:36 Dose: 70 u Documented by: Insulin Human Lispro (Humalog Kwikpen (Bkc)) 0 unit SC ACHS [facility]; Protocol Last Admin: 06/05/19 06:39 Dose: 1 u Documented by: Lisinopril (Zestril) 10 mg PO DAILY [facility] Last Admin: 06/05/19 08:31 Dose: 10 mg Documented by: Metformin HCl (Glucophage) 850 mg PO BIDCM [facility] Last Admin: 06/05/19 08:29 Dose: 850 mg Documented by: Metoprolol Tartrate (Lopressor (Beta Екатерина)) 25 mg PO DAILY [facility] Last Admin: 06/05/19 08:30 Dose: 25 mg Documented by: Morphine Sulfate () 2 mg IV Q3H PRN PRN PRN Reason: SEVERE PAIN (6-10/10) Nutritional Formula (Robin - [place] Flavor) [facility] Last Admin: 06/05/19 08:29 Dose: 1 packet Documented by: Ondansetron HCl (Zofran) 4 mg IV Q8H PRN PRN PRN Reason: NAUSEA/VOMITING Last Admin: 06/03/19 18:48 Dose: 4 mg Documented by: Oxycodone HCl (Oxyir) 5 mg PO Q4H PRN PRN PRN Reason: SEVERE PAIN (6-10/10) Last Admin: 06/04/19 23:09 Dose: 5 mg Documented by: Pantoprazole Sodium (Protonix) 40 mg PO DAILY [facility] Last Admin: 06/05/19 08:31 Dose: 40 mg Documented by: Pioglitazone HCl (Actos) 30 mg PO DAILY [facility] Last Admin: 06/05/19 08:29 Dose: 30 mg Documented by: Pravastatin Sodium (Pravachol) 40 mg PO QHS [facility] Last Admin: 06/04/19 23:08 Dose: 40 mg Documented by: Promethazine HCl (Phenergan) 12.5 mg IV Q6H PRN PRN PRN Reason: NAUSEA/VOMITING Last Admin: 06/02/19 08:34 Dose: 12.5 mg Documented by: Senna (Senokot) 2 tablet PO DAILY PRN PRN PRN Reason: CONSTIPATION Last Admin: 06/04/19 08:27 Dose: 2 tablet Documented by: Sodium Chloride () 10 - 40 ml IV UD PRN PRN Reason: SALINE FLUSH Last Admin: 06/03/19 18:50 Dose: 10 ml Documented by: Medical Necessity - Tobacco Use Smoking Status: Never smoker Assessment/Plan All Active Problems Cellulitis of right lower extremity (Acute) Infection (Acute) Acute kidney injury (Acute) Severe sepsis (Acute) Cellulitis of left lower extremity (Acute) 1. Severe sepsis due to RLE cellulitis still having low grade fevers. on IV vancomycin and IV unasyn Duplex of RLE was negative wbc is 14.9 this morning. tachycardia and tachypnea have resolved. wound cultures Staph aureus and Enteroccocus blood culture negative. foot MRI negative for osteomyelitis. MRI of the left ankle showed only soft tissue swelling and no abscess, and tenosynovitis of the tibialis anterior podiatry and ID on board in light of patient;s persistent low grade fever and elevated wbc, per podiatry note, to consider aspiration or small incision around tibialis anterior area to see if it is an infectious tenosynovitis or otherwise. to discuss with ID tomorrow if patient needs terminologist IV antibiotics or otherwise 2. 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 A1C is 9. on Actos. ISS. Accuchecks ACHS. also on lantus 70IU daily Says his survey operations director had suggested gastric emptying study on outpatient basis. on metformin. started on metoclopromide for suspected gastroparesis. 3. YIMI: resolved. 4. Chronic nonhealing diabetic ulcer of the right big toe: X-ray showed no evidence of osteomyelitis and MRI of foot was also negative for osteomyelitis. podiatry on board xray of tibia and fibula showed indeterminate fracture injury of fibular head and soft tissue edema around ankle MRI of ankle and foot as under 1. 5. Hypertension: on metoprolol and lisinopril. 6. Hyperlipidemia: on statin DVT prophylaxis:heparin Code Visit Inpatient E&M: 05778 Subs Hosp L2
[2019-06-05] MEDS: oxyCODONE 5 MG Tablet PO (11:52)
[2019-06-05 12:06] LABS: Bedside Glucose 141 mg/dL (70-110)
[2019-06-05] MEDS: Ondansetron 4 MG/2 ML Vial IV (15:29)
[2019-06-05] MEDS: 0.9% NaCl Peripheral Flush Adult/Peds IV ×2 (15:32→19:49)
[2019-06-05] MEDS: Metoclopramide 5 MG TABLET PO (16:50)
[2019-06-05 17:16] LABS: Bedside Glucose 104 mg/dL (70-110)
--- NOTE | 2019-06-05 17:39 | PCM.RX.CS ---
Consult Pharmacy has been consulted to manage selected antiobiotic: Vancomycin Type of Consult: Follow-up Suspected Infection: Sepsis Prior Doses of Antibiotics Received/Current Regimen: Vancomycin 1500mg q12h x6 doses Labs: Sodium 139 mmol/L (136-145) 06/05/19 07:28 Potassium 4.3 mmol/L (3.5-5.1) 06/05/19 07:28 Chloride 108 mmol/L (98-107) H 06/05/19 07:28 Carbon Dioxide 23.0 mmol/L (21.0-32.0) 06/05/19 07:28 8 (5-15) 06/05/19 07:28 BUN 19 mg/dL (7-18) H 06/05/19 07:28 1.18 mg/dL (0.70-1.30) 06/05/19 07:28 Est GFR (MDRD) Af Amer 82 mL/min (>60) 06/05/19 07:28 Est GFR (MDRD) Non-Af 68 mL/min (>60) 06/05/19 07:28 16.1 RATIO (10-20) 06/05/19 07:28 Glucose 171 mg/dL (74-106) H 06/05/19 07:28 Vancomycin Trough 16.3 ug/mL (5.0-15.0) H 06/05/19 07:28 Microbiology: Microbiology 05/30/19 22:10 Blood Culture (Wb) - Right Hand Blood Culture - Final No growth in 5 days. 05/30/19 21:30 Blood Culture (Wb) - Anticubital Left Blood Culture - Final No growth in 5 days. 05/31/19 08:25 Wound - Toe Gram Stain - Final 05/31/19 08:25 Wound - Toe Wound Culture - Final Streptococcus group G Enterococcus faecalis Coag Negative Staph 05/31/19 08:00 Urine, Clean Catch Urine Culture - Final GPC Poss Enterococcus sp Gram positive organism Weight used for dosin kg Goal Trough: 15-20 mcg/mL Pharmacy Plan for Drug Dosing: Pt is currently on Vancomycin 1500mg IV q12h. Her goal trough is ordered to be 15-20. Her trough level results on 06/05/19 at 0730 were 16.3. Recommend continuing the current dose of Vancomycin 1500mg IV q12h and checking another trough in 4 days. Pt appears to be stable on current dose. Pharmacy will continue to monitor SrCr and CrCl on a daily basis and adjust dose accordingly. Pharmacy Service will continue to monitor and adjust dosing as required. Follow-Up Labs: Trough Vancomycin - 06/09/19 @ 0743
--- NOTE | 2019-06-05 21:57 | NURSING ---
This RN gave patient Tylenol for headache and then requested oxyir for pain. This RN explained to patient that we need to let the tylenol get into his system to see how it works for both his headache and foot pain. Patient verbalized understanding to rotating pain medications and the importance of it. Also to notify nurse if pain continues to increased after 30-40 minutes of taking tylenol.
[2019-06-05] MEDS: Pravastatin 40 MG Tablet PO (22:36)
[2019-06-05 23:01] LABS: Bedside Glucose 90 mg/dL (70-110)
[2019-06-06] VITALS (14 sets, daily range): BP systolic 90–168; BP diastolic 58–89; PULSE 79–100; RESP 16–18; TEMP 36.1–37.3; O2SAT 92–97
[2019-06-06 07:01] LABS: Anion Gap 7 (5-15); BUN 19 mg/dL (7-18); BUN/Creat Ratio 14.8 RATIO (10-20); Calcium,Total 8.9 mg/dL (8.5-10.1); Chloride 109 mmol/L (98-107); Creatinine, Serum 1.28 mg/dL (0.70-1.30); EST Glomerular Filtration Rate 62 mL/min (>60); Est Glom Filt Rate - Afr Amer 75 mL/min (>60); Estimated Creatinine Clearance 68.63 ml/min; Glucose 130 mg/dL (74-106); Potassium 4.1 mmol/L (3.5-5.1); Sodium Level 142 mmol/L (136-145)
[2019-06-06 07:11] LABS: Absolute Lymphocyte Count 1.63 X10^3/uL (0.83-4.51); Absolute Neutrophil Count 11.2 X10^3/uL (2.0-7.7); Basophil# 0.04 X10^3/uL; Basophil% 0.3 % (0-1); Eosinophil# 0.29 X10^3/uL; Hematocrit 30.5 % (40-54); Hemoglobin 9.6 g/dL (13.0-16.5); Lymphocyte # 1.63 X10^3/ul (4.0); Lymphocyte % 11.2 % (19-41); Mean Corp Hgb Conc 31.5 g/dL (32-36); Mean Corpuscular Hgb 27.7 pg (27.0-32.0); Mean Corpuscular Volume 88.2 fL (80-94); Mean Platelet Vol. 9.7 fl (6.2-12.0); Monocyte# 0.93 X10^3/uL; Monocyte% 6.4 % (0-10); NRBC Flagged by Analyzer 0 % (0-5); Neutrophil % 77.1 % (47-70); Platelet Count 515 K/mm3 (150-450); RBC Distribution Width CV 14.7 % (11.6-14.6); RBC Distribution Width SD 47.4 fl (35.1-43.9); Red Blood Count 3.46 M/mm3 (4.6-6.2); White Blood Count 14.5 K/mm3 (4.4-11.0)
[2019-06-06 07:11] LABS: Bedside Glucose 131 mg/dL (70-110)
--- NOTE | 2019-06-06 07:43 | PN_ITS ---
Patient Problems: Active and Suspected Problems Cellulitis of right lower extremity (Acute) Malnutrition (Suspected) Infection (Acute) Severe sepsis (Acute) Cellulitis of left lower extremity (Acute) Subjective: This 54-year-old male was seen bedside for right lower extremity cellulitis and hallux ulceration. He has decreased discomfort rest discomfort rated as a 3 out of 10. His pain is worse with movement and standing rated as a 5/10 and worse with direct touch. He denies current fever, chill, nausea, vomiting this morni ng. His leg is still swollen. - Physical Exam General: Alert, Oriented x3, Cooperative Extremities: No cyanosis, Capillary Refill Less than 3 Seconds, No Calf Tenderness - negative escobedo signs bilateral, Diminished Peripheral Pulses, Edema Skin: Ulcer/ Wound - erythema continued with tenderness around right ankle. no bulla, bogginess or fluctuance. pain to anterior and posterior ankle. no pain with ulcer manipulation of hallux which has a clean dressing intact. the streaking has resided from the thigh. Musculoskeletal: No Tenderness to Palpation of Joints or Extremities, Muscle Wasting Neurological: - - lack of normal epicritic sensation via light touch consistent with neuropathy Psych/Mental Status: Normal Affect, Appropriate Vital Signs Temp Pulse Resp BP Pulse Ox 98.7 F 100 18 168/89 H 93 06/06/19 05:10 06/06/19 05:10 06/06/19 05:10 06/06/19 05:10 06/06/19 05:10 Oxygen Flow Rate (L/min) 1 Oxygen Delivery Method Room Air Weight: 125.6 kg Body Mass Index (BMI) 37.3 Intake and Output for Last 24 Hours 06/04/19 06/05/19 06/06/19 23:59 23:59 23:59 Intake Total 2982 / 2982 4544 / 5276 1262 / 1262 Output Total 6750 / 6750 4450 / 4850 400 / 400 Balance -3768 / -3768 94 / 426 862 / 862 Microbiology Past 72 Hours 05/30/19 22:10 Blood Culture - Final Blood Culture (Wb) - Right Hand No growth in 5 days. 05/30/19 21:30 Blood Culture - Final Blood Culture (Wb) - Anticubital Left No growth in 5 days. 05/31/19 08:25 Gram Stain - Final Wound - Toe Wound Culture - Final Streptococcus group G Enterococcus faecalis Coag Negative Staph Laboratory Tests Past 24 Hrs 06/05/19 06/05/19 06/05/19 07:28 07:28 07:28 WBC 14.9 H RBC 3.28 L Hgb 9.3 L Hct 28.9 L MCV 88.1 MCH 28.4 MCHC 32.2 RDW Std Deviation 47.8 H RDW Coeff of Yary 14.7 H Plt Count 466 H MPV 9.8 Immature Gran % (Auto) 4.400 H Neut % (Auto) 72.0 H Lymph % (Auto) 13.7 L [place] % (Auto) 7.5 Eos % (Auto) 2.1 Baso % (Auto) 0.3 Absolute Neuts (auto) 10.7 H Absolute Lymphs (auto) 2.05 Nucleated RBC % 0 Sodium 139 Potassium 4.3 Chloride 108 H Carbon Dioxide 23.0 Anion Gap 8 BUN 19 H Creatinine 1.18 Estim Creat Clear Calc 74.45 Est GFR (MDRD) Af Amer 82 Est GFR (MDRD) Non-Af 68 BUN/Creatinine Ratio 16.1 Glucose 171 H Calcium 8.3 L Vancomycin Trough 16.3 H 06/06/19 06/06/19 06:30 06:30 WBC 14.5 H RBC 3.46 L Hgb 9.6 L Hct 30.5 L MCV 88.2 MCH 27.7 MCHC 31.5 L RDW Std Deviation 47.4 H RDW Coeff of Yary 14.7 H Plt Count 515 H MPV 9.7 Immature Gran % (Auto) 3.000 H Neut % (Auto) 77.1 H Lymph % (Auto) 11.2 L [place] % (Auto) 6.4 Eos % (Auto) 2.0 Baso % (Auto) 0.3 Absolute Neuts (auto) 11.2 H Absolute Lymphs (auto) 1.63 Nucleated RBC % 0 Sodium 142 Potassium 4.1 Chloride 109 H Carbon Dioxide 26.0 Anion Gap 7 BUN 19 H Creatinine 1.28 Estim Creat Clear Calc 68.63 Est GFR (MDRD) Af Amer 75 Est GFR (MDRD) Non-Af 62 BUN/Creatinine Ratio 14.8 Glucose 130 H Calcium 8.9 Vancomycin Trough POC Glucose 06/06/19 06/05/19 06/05/19 06:59 22:35 17:10 POC Glucose 131 H 90 104 06/05/19 11:43 POC Glucose 141 H Medical Necessity - Tobacco Use Smoking Status: Never smoker Assessment/Plan All Active Problems Cellulitis of right lower extremity (Acute) Infection (Acute) Acute kidney injury (Acute) Severe sepsis (Acute) Cellulitis of left lower extremity (Acute) Right lower extremity cellulitis Chronic right hallux ulcer Hallux limitus right Diabetes with neuropathy Recurrent ulcers and infections Resolved sepsis and acute kidney injury Malnutrition suspected I reviewed and discussed his case. His low-grade fever overnight is noted. His elevated white blood cell count remains around 14. I recommend he continues with broad-spectrum antibiotic coverage with vancomycin and Zosyn. His ankle light x-rays and ankle MRI were reviewed. Although he has demonstrated some clinical improvement to the right lower extremity over the weekend with the addition of Zosyn, he has persistent concern of localized ankle infection. I do recommend incision and drainage at this time to further look at the tibialis anterior and ankle area for infectious tenosynovitis. This will be scheduled for today in operating room is available around [address] Pfeiffer will perform the procedure. A surgical consent will be obtained. The preoperative indication, planned procedure, possible benefits, risks, complications, anticipated healing time management were discussed in detail with the patient. He understands he is at risk for limb loss however this is not planned for this afternoon. He also understands this may be a staged procedure. I answered his questions. He is n.p.o. at this time and his heparin is held. Noninvasive vascular studies were also ordered and these results are pending as well. Medical management DVT prophylaxis per primary team is appreciated. I will continue to follow close while in house. Please not hesitate to call if you have any questions. Vicki Lind DPM, [facility] [phone]
--- NOTE | 2019-06-06 07:51 | EKG12_ITS ---
Test Reason : RHYTHM Blood Pressure : / mmHG Vent. 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
[2019-06-06] MEDS: Metoprolol Tartrate 25 MG Tablet PO (08:24)
[2019-06-06] MEDS: Metoclopramide 5 MG TABLET PO ×2 (08:24→17:21)
[2019-06-06] MEDS: oxyCODONE 5 MG Tablet PO ×2 (08:24→18:17)
[2019-06-06] MEDS: Cyanocobalamin 500 MCG Tablet 1000 MCG PO (08:25)
[2019-06-06] MEDS: Lisinopril 10 MG Tablet PO (08:25)
[2019-06-06] MEDS: Allopurinol 300 MG Tablet PO (08:25)
[2019-06-06] MEDS: metFORMIN HCl 850 MG Tablet PO (08:25)
[2019-06-06] MEDS: Pioglitazone Hydrochloride 30 MG Tablet PO (08:26)
[2019-06-06] MEDS: Pantoprazole Sodium 40 MG Tablet PO (09:36)
--- NOTE | 2019-06-06 09:53 | NURSING ---
Talked with Dr Lind this am. States patient is scheduled for surgery later today and dressing can be left in place to the right great toe.
[2019-06-06 11:09] LABS: Pathologist Review Reviewed
--- NOTE | 2019-06-06 11:30 | PCM.PN.HOSP ---
Patient Problems: Active and Suspected Problems Cellulitis of right lower extremity (Acute) Malnutrition (Suspected) Infection (Acute) Severe sepsis (Acute) Cellulitis of left lower extremity (Acute) Subjective: Feels much better than when he came in and has had no issues overnight. Vitals/I&O's: Vital Signs Temp Pulse Resp BP Pulse Ox 98.9 F 88 16 140/84 H 94 06/06/19 10:48 06/06/19 10:48 06/06/19 10:48 06/06/19 10:48 06/06/19 10:48 Oxygen Flow Rate (L/min) 1 Oxygen Delivery Method Room Air Weight: 276 lb 14.409 oz Body Mass Index (BMI) 37.3 Intake and Output for Last 24 Hours 06/04/19 06/05/19 06/06/19 23:59 23:59 23:59 Intake Total 2982 / 2982 4544 / 5276 1262 / 1262 Output Total 6750 / 6750 4450 / 4850 400 / 400 Balance -3768 / -3768 94 / 426 862 / 862 General: Alert, Oriented x3, Cooperative, No apparent distress HEENT: Atraumatic, PERRLA, EOMI, Normocephalic Oral: Moist Mucosa Neck: Supple, No JVD Lungs: Clear to auscultation, Normal air movement, No rhonchi, No wheeze, No rales, Diminished Cardiovascular: Regular rate, Regular Rhythm, Normal S1, Normal S2, No murmurs Abdomen: Soft, Non Tender, Non-Distended, No Hepato-splenomegaly, Obese Extremities: No edema, Capillary Refill Less than 3 Seconds Skin: No rashes, No breakdown, Ulcer/ Wound - Right lower extremity dressing in place Neurological: Neuro grossly intact, Sensory exam intact to light touch and pain Psych/Mental Status: Normal Affect, Appropriate Microbiology Past 72 Hours 05/30/19 22:10 Blood Culture (Wb) - Right Hand Blood Culture - Final No growth in 5 days. 05/30/19 21:30 Blood Culture (Wb) - Anticubital Left Blood Culture - Final No growth in 5 days. 05/31/19 08:25 Wound - Toe Gram Stain - Final 05/31/19 08:25 Wound - Toe Wound Culture - Final Streptococcus group G Enterococcus faecalis Coag Negative Staph Laboratory Results 06/04/19 07:30: Diff Path Review Reviewed 06/05/19 11:43: POC Glucose 141 H 06/05/19 17:10: POC Glucose 104 06/05/19 22:35: POC Glucose 90 06/06/19 06:30: WBC 14.5 H, RBC 3.46 L, Hgb 9.6 L, Hct 30.5 L, MCV 88.2, MCH 27.7, MCHC 31.5 L, RDW Std Deviation 47.4 H, RDW Coeff of Yary 14.7 H, Plt Count 515 H, MPV 9.7, Immature Gran % (Auto) 3.000 H, Neut % (Auto) 77.1 H, Lymph % (Auto) 11.2 L, [place] % (Auto) 6.4, Eos % (Auto) 2.0, Baso % (Auto) 0.3, Absolute Neuts (auto) 11.2 H, Absolute Lymphs (auto) 1.63, Nucleated RBC % 0 06/06/19 06:30: Sodium 142, Potassium 4.1, Chloride 109 H, Carbon Dioxide 26.0, Anion Gap 7, BUN 19 H, Creatinine 1.28, Estim Creat Clear Calc 68.63, Est GFR (MDRD) Af Amer 75, Est GFR (MDRD) Non-Af 62, BUN/Creatinine Ratio 14.8, Glucose 130 H, Calcium 8.9 06/06/19 06:59: POC Glucose 131 H Current Medications Acetaminophen (Tylenol) 650 mg PO Q6H PRN PRN PRN Reason: Fever, headache, pain. Last Admin: 06/05/19 21:57 Dose: 650 mg Documented by: Al Hydroxide/Mg Hydroxide (Mylanta Ii) 30 ml PO Q6H PRN PRN PRN Reason: Heartburn, indigestion. Last Admin: 06/01/19 16:57 Dose: 30 ml Documented by: Allopurinol (Zyloprim) 300 mg PO DAILY [facility] Last Admin: 06/06/19 08:25 Dose: 300 mg Documented by: Cyanocobalamin (Vitamin B12) 1,000 mcg PO DAILY [facility] Last Admin: 06/06/19 08:25 Dose: 1,000 mcg Documented by: Dextrose (D50w Syringe) 0 gm IV X1 PRN; Protocol PRN Reason: Hypoglycemia Glucagon () 1 mg IM .X1 PRN PRN Reason: Hypoglycemia Vancomycin IV Pharmacy to Dose (1 ea/ Sodium Chloride) 500 mls @ 250 mls/hr IV PRN PRN; Protocol PRN Reason: Rx to Dose Sodium Chloride () 250 mls @ 15 mls/hr IV .[id number] PRN PRN Reason: SALINE FLUSH Vancomycin HCl 1,500 mg/ (Sodium Chloride) 530 mls @ 250 mls/hr IV Q12H [facility] Last Admin: 06/06/19 08:23 Dose: 250 mls/hr Documented by: Ampicillin Sodium/Sulbactam (Sodium 3 gm/ Sodium Chloride) 112 mls @ 150 mls/hr IV Q8 [facility] Last Admin: 06/06/19 05:20 Dose: 150 mls/hr Documented by: Insulin Glargine (Lantus ([facility])) 70 units SC DAILY [facility] Last Admin: 06/06/19 09:37 Dose: 70 u Documented by: Insulin Human Lispro (Humalog Kwikpen ([facility])) 0 unit SC ACHS [facility]; Protocol Last Admin: 06/06/19 07:42 Dose: Not Given Documented by: Lisinopril (Zestril) 10 mg PO DAILY [facility] Last Admin: 06/06/19 08:25 Dose: 10 mg Documented by: Metformin HCl (Glucophage) 850 mg PO BIDCM [facility] Last Admin: 06/06/19 08:25 Dose: 850 mg Documented by: Metoclopramide HCl (Metoclopramide Hcl) 5 mg PO BIDAC [facility] Last Admin: 06/06/19 08:24 Dose: 5 mg Documented by: Metoprolol Tartrate (Lopressor (Beta Екатерина)) 25 mg PO DAILY [facility] Last Admin: 06/06/19 08:24 Dose: 25 mg Documented by: Morphine Sulfate () 2 mg IV Q3H PRN PRN PRN Reason: SEVERE PAIN (6-10/10) Nutritional Formula (Robin - [place] Flavor) 1 packet PO BIDCM [facility] Last Admin: 06/06/19 08:25 Dose: 1 packet Documented by: Ondansetron HCl (Zofran) 4 mg IV Q8H PRN PRN PRN Reason: NAUSEA/VOMITING Last Admin: 06/05/19 15:29 Dose: 4 mg Documented by: Oxycodone HCl (Oxyir) 5 mg PO Q4H PRN PRN PRN Reason: SEVERE PAIN (6-10/10) Last Admin: 06/06/19 08:24 Dose: 5 mg Documented by: Pantoprazole Sodium (Protonix) 40 mg PO DAILY [facility] Last Admin: 06/06/19 09:36 Dose: 40 mg Documented by: Pioglitazone HCl (Actos) 30 mg PO DAILY [facility] Last Admin: 06/06/19 08:26 Dose: 30 mg Documented by: Pravastatin Sodium (Pravachol) 40 mg PO QHS [facility] Last Admin: 06/05/19 22:36 Dose: 40 mg Documented by: Promethazine HCl (Phenergan) 12.5 mg IV Q6H PRN PRN PRN Reason: NAUSEA/VOMITING Last Admin: 06/02/19 08:34 Dose: 12.5 mg Documented by: Senna (Senokot) 2 tablet PO DAILY PRN PRN PRN Reason: CONSTIPATION Last Admin: 06/04/19 08:27 Dose: 2 tablet Documented by: Sodium Chloride () 10 - 40 ml IV UD PRN PRN Reason: SALINE FLUSH Last Admin: 06/05/19 19:49 Dose: 10 ml Documented by: Medical Necessity - Tobacco Use Smoking Status: Never smoker Assessment/Plan All Active Problems Cellulitis of right lower extremity (Acute) Infection (Acute) Acute kidney injury (Acute) Severe sepsis (Acute) Cellulitis of left lower extremity (Acute) 1. Severe sepsis secondary to right lower extremity cellulitis/chronic nonhealing diabetic ulcer of the right big toe -Venous Doppler and lower extremity MRI were negative for DVT and osteomyelitis respectively. -Podiatry was consulted to assist with management as well as infectious disease -He is currently on vancomycin and was transitioned to Unasyn from Zosyn because of the streptococcal G infection and the estrella sensitivity of the enterococcus. -His temperature overnight was 99.6 at its highest, however podiatry plans on taking the patient to the OR for drainage and possible incision to evaluate for possible tenosynovitis of the anterior tibialis -Blood cultures remain negative, and urine culture is nondiagnostic 2. DM 2 with neuropathy/YIMI which is resolved -A1c is 9, continue with Actos, Lantus 70 units daily, sliding scale insulin -Monitor with Accu-Cheks before meals at bedtime -Hold metformin 3. HTN/HLD -Blood pressure is stable -Continue with home metoprolol and pravastatin 4. GERD -Stable -Continue with PPI DVT: Heparin Code Visit Inpatient E&M: 46960 Subs Hosp L2
[2019-06-06 11:36] LABS: Bedside Glucose 139 mg/dL (70-110)
--- NOTE | 2019-06-06 15:05 | PCM.PN.ID ---
Patient Problems: Active and Suspected Problems Cellulitis of right lower extremity (Acute) Malnutrition (Suspected) Infection (Acute) Severe sepsis (Acute) Cellulitis of left lower extremity (Acute) Subjective: Feeling better, OR today, no fever, no n/v/d. - Physical Exam General: Alert, Cooperative, No apparent distress Lungs: Clear to auscultation, Normal air movement Cardiovascular: Regular rate, Regular Rhythm Abdomen: Soft, Non Tender, Non-Distended Skin: No rashes, Ulcer/ Wound - foot wrapped Vital Signs Temp Pulse Resp BP Pulse Ox 98.9 F 88 16 140/84 H 94 06/06/19 10:48 06/06/19 10:48 06/06/19 10:48 06/06/19 10:48 06/06/19 10:48 Oxygen Flow Rate (L/min) 1 Oxygen Delivery Method Room Air Weight: 125.6 kg Body Mass Index (BMI) 37.3 Intake and Output for Last 24 Hours 06/04/19 06/05/19 06/06/19 23:59 23:59 23:59 Intake Total 2982 / 2982 4544 / 5276 2517 / 2517 Output Total 6750 / 6750 4450 / 4850 1550 / 1550 Balance -3768 / -3768 94 / 426 967 / 967 Microbiology Past 72 Hours 05/30/19 22:10 Blood Culture - Final Blood Culture (Wb) - Right Hand No growth in 5 days. 05/30/19 21:30 Blood Culture - Final Blood Culture (Wb) - Anticubital Left No growth in 5 days. Laboratory Tests Past 24 Hrs 06/04/19 06/06/19 06/06/19 07:30 06:30 06:30 WBC 14.5 H RBC 3.46 L Hgb 9.6 L Hct 30.5 L MCV 88.2 MCH 27.7 MCHC 31.5 L RDW Std Deviation 47.4 H RDW Coeff of Yary 14.7 H Plt Count 515 H MPV 9.7 Immature Gran % (Auto) 3.000 H Neut % (Auto) 77.1 H Lymph % (Auto) 11.2 L [place] % (Auto) 6.4 Eos % (Auto) 2.0 Baso % (Auto) 0.3 Absolute Neuts (auto) 11.2 H Absolute Lymphs (auto) 1.63 Nucleated RBC % 0 Diff Path Review Reviewed Sodium 142 Potassium 4.1 Chloride 109 H Carbon Dioxide 26.0 Anion Gap 7 BUN 19 H Creatinine 1.28 Estim Creat Clear Calc 68.63 Est GFR (MDRD) Af Amer 75 Est GFR (MDRD) Non-Af 62 BUN/Creatinine Ratio 14.8 Glucose 130 H Calcium 8.9 POC Glucose 06/06/19 06/06/19 06/05/19 11:27 06:59 22:35 POC Glucose 139 H 131 H 90 06/05/19 17:10 POC Glucose 104 Medical Necessity - Tobacco Use Smoking Status: Never smoker Route of nutrition/ use of supplements: [] Nutritional Intake: [] IV Site: [] Lugo Catheter: [] - Assessment/Plan Antibiotics: [] Assessment/Plan: [] Active and Suspected Problems Severe sepsis (Acute) Cellulitis of left lower extremity (Acute) severe sepsis due to infected R toe DM ulcer - wound cx with strep, a faecalis, CoNS. Cont vanc/unasyn. MRI with no osteo. Going to OR today for I&D. Will follow
[2019-06-06] MEDS: Bupivacaine Mpf 0.5% 30 ML VIAL (16:10)
--- NOTE | 2019-06-06 16:18 | PCM.OPRPT ---
Report of Operation Date of Procedure: 06/06/19 Pre-Operative Diagnosis: Diabetic foot ulcer plantar right 1st toe down to flexor tendon, abscess right foot/ankle Post-Operative Diagnosis: Same Surgery/Procedure Performed:: Incision, drainage and debridement right foot/ankle down to tendon jai alai player: None Type of Anesthesia:: General Specimen's removed: Deep culture right foot/ankle sent to microbiology for further evaluation Estimated Blood Loss (mL): 5mL Description of Procedure: Indications: This is a 54 year old gentleman with diabetes, peripheral neuropathy and other medical co-morbidities who presented to [facility] with significant right lower extremity infection. Patient was found to have sepsis, he has been on antibiotics and is being followed by Infectious Disease. The right hallux ulceration was cultured strep group G, entercoccus faecalis, and coag neg staph. Patient has significant cellulitis extending from foot up to ankle, leg and thigh. The cellulitis overall has receded and now absent from the thigh and proximal calf, but the cellulitis persists to the ankle and dorsal foot, patient's WBC remains elevated consistent with continued infection. Patient has pain to the dorsal foot and also the ankle - mainly the anterior aspect over the extensor tendons and tibialis anterior tendon. MRI showed no obvious abscess collection per radiology read but there is noted fluid collection in the extensor tendons as well as anterior tibial tendon. There was no evidence of osteomyelitis to the 1st toe or the rest of the foot or ankle. Patient does have a diabetic foot ulceration sub 1st hallux without any purulence or surrounding cellulitis to the tissue margins - there is no cellulitis to the plantar hallux or plantar foot. Due to the persistent findings of infection to the dorsal foot and also to the ankle with persistent leukocytosis we discussed debridement, incision and drainage right foot/ankle. This was discussed with him in great detail, reviewed the rationale of this, as well as the benefits vs risks, goals, and expectations. Advised the patient the risks include but are not limited to pain, swelling, numbness, complex regional pain syndrome, persistent or even worsening infection, blood clots, need for further surgery/procedures, bleeding, chronic pain and disability, deformity, loss of function, loss of strength; and patient was also told he may ultimately loss his leg or even life from this. This was discussed with patient in great detail. Patient expressed understanding and agreement, all of his questions were answered. All alternative options were discussed, along with the possible benefits vs risks. The patient elects to proceed with debridement, incision, drainage of the right foot/ankle. The consent form was reviewed with him and he freely signed it. Operative Procedure: The patient was brought back into the operating room and was placed on the operating room table in the supine position. The patient was carefully secured to the operating room stable with a safety belt around his waist. The patient received LMA anesthesia per the anesthesia team. A well padded pneumatic tourniquet was applied around the right lower extremity. The patient was already on IV antibiotics per Infectious Disease. A timeout was performed, the patient was properly identified and the surgical plan was confirmed. The right foot, ankle and leg were scrubbed, prepped and draped in the usual aseptic fashion. Further attention was directed to the right foot/ankle/leg as there was ulceration plantar hallux, there was significant erythema and edema to the dorsal right foot and ankle. It was very taut to the dorsal foot and ankle with some fluctuance overlying the long flexor tendons of the foot and ankle as well as the anterior tibial tendon. The right foot was elevated for 3 minutes and the right thigh pneumatic tourniquet was inflated to 350mmHg. Using a 15 blade a skin incision was made over extensor tendons and another incision over the tibialis anterior tendon. There was immediate expression of yellow drainage. Careful dissection was completed down to the extensor tendons and anterior tibial tendon, the tendon sheaths were incised and there was immediate and large amount of yellow purulent drainage from the site, this was cultured and sent to microbiology. The drainage was within this compartment layer. There was some dark yellow fibrotic subcutaneous tissue which was nonviable and was debrided using a 15 blade down to viable tendon. The tissues were milked of all infectious material/drainage. The tissue planes were otherwise noted to be intact, there did not appear to be any extension into the joints or bone. The site was flushed out with copious amounts of normal saline solution. The remaining tissues are this time were noted to be healthy and viable at this time. Attention was directed to the ulceration plantar hallux, it was noted there was no drainage, but there was some nonviable tissue present to the wound site, to the margins and base. The ulcer was down to the flexor tendon and subcutaneous tissue. This was debrided in excisional fashion down to the flexor tendon. Post debridement it measured 1cm x 1.1cm and down to flexor tendon (prior to debridement it measured 0.8cm x 0.7cm down to subcutaneous tissue and flexor tendon). The site was flushed out with copious amounts of normal saline solution. The remaining tissues are this time were noted to be healthy and viable at this time. The pneumatic tourniquet was deflated (total tourniquet time was 21 minutes), there was immediate return of perfusion to the foot and ankle. The sites were packed with 1/2 inch iodoform packing. 18 mL of 0.5% Bupivacaine plain was given as a local nerve block around the ankle for post op pain control. A dressing was applied which consisted of 4x4 gauze, Kerlix, abd pads, and valentine bandages. The patient tolerated the above procedure well and anesthesia well with no complication. Post op orders were placed. No weightbearing right foot, keep foot elevated at all times. Patient will be transferred back to the floor and followed as inpatient. Grafts/Implants Used: None - Complications None
--- NOTE | 2019-06-06 16:45 | NURSING ---
apple juice 120ml given.
[2019-06-06 17:30] LABS: Bedside Glucose 90 mg/dL (70-110)
[2019-06-06 20:46] LABS: Bedside Glucose 93 mg/dL (70-110)
[2019-06-06] MEDS: 0.9% NaCl Peripheral Flush Adult/Peds IV (21:01)
[2019-06-06] MEDS: Pravastatin 40 MG Tablet PO (21:07)
[2019-06-06 22:45] LABS: Bedside Glucose 110 mg/dL (70-110)
[2019-06-06] MEDS: Acetaminophen 325 MG Tablet 650 MG PO (23:57)
[2019-06-07] VITALS (10 sets, daily range): BP systolic 115–147; BP diastolic 62–82; PULSE 85–94; RESP 18; TEMP 36.8–37.1; O2SAT 92–99
[2019-06-07] MEDS: 0.9% NaCl Peripheral Flush Adult/Peds IV ×4 (05:22→20:45)
[2019-06-07] MEDS: Ondansetron 4 MG/2 ML Vial IV (05:22)
[2019-06-07 05:30] LABS: Absolute Lymphocyte Count 1.82 X10^3/uL (0.83-4.51); Absolute Neutrophil Count 10.3 X10^3/uL (2.0-7.7); Basophil# 0.03 X10^3/uL; Basophil% 0.2 % (0-1); Eosinophil# 0.28 X10^3/uL; Eosinophils% 2.1 % (0-5); Hemoglobin 9.3 g/dL (13.0-16.5); Lymphocyte # 1.82 X10^3/ul (4.0); Lymphocyte % 13.5 % (19-41); Mean Corp Hgb Conc 32.1 g/dL (32-36); Mean Corpuscular Hgb 28.4 pg (27.0-32.0); Mean Corpuscular Volume 88.7 fL (80-94); Mean Platelet Vol. 9.5 fl (6.2-12.0); Monocyte# 0.86 X10^3/uL; Monocyte% 6.4 % (0-10); NRBC Flagged by Analyzer 0 % (0-5); Neutrophil # 10.27 X10^3/uL (2.7-7.7); Platelet Count 531 K/mm3 (150-450); RBC Distribution Width CV 14.6 % (11.6-14.6); RBC Distribution Width SD 47.7 fl (35.1-43.9); Red Blood Count 3.27 M/mm3 (4.6-6.2); White Blood Count 13.5 K/mm3 (4.4-11.0)
[2019-06-07 06:07] LABS: Anion Gap 8 (5-15); BUN 19 mg/dL (7-18); BUN/Creat Ratio 12.7 RATIO (10-20); Calcium,Total 8.5 mg/dL (8.5-10.1); Chloride 108 mmol/L (98-107); EST Glomerular Filtration Rate 51 mL/min (>60); Est Glom Filt Rate - Afr Amer 62 mL/min (>60); Estimated Creatinine Clearance 58.57 ml/min; Glucose 84 mg/dL (74-106); Potassium 3.7 mmol/L (3.5-5.1); Sodium Level 143 mmol/L (136-145)
[2019-06-07] MEDS: Metoclopramide 5 MG TABLET PO ×2 (07:01→16:32)
[2019-06-07 07:21] LABS: Bedside Glucose 98 mg/dL (70-110)
[2019-06-07] MEDS: proMETHazine 25 MG/ML Syringe 12.5 MG IV (08:13)
[2019-06-07] MEDS: oxyCODONE 5 MG Tablet PO ×2 (08:21→20:24)
[2019-06-07] MEDS: Pioglitazone Hydrochloride 30 MG Tablet PO (09:18)
[2019-06-07] MEDS: Metoprolol Tartrate 25 MG Tablet PO (09:19)
[2019-06-07] MEDS: Lisinopril 10 MG Tablet PO (09:20)
[2019-06-07] MEDS: Allopurinol 300 MG Tablet PO (09:20)
[2019-06-07] MEDS: Cyanocobalamin 500 MCG Tablet 1000 MCG PO (09:20)
[2019-06-07] MEDS: Pantoprazole Sodium 40 MG Tablet PO (09:20)
--- NOTE | 2019-06-07 10:54 | PN_ITS ---
Patient Problems: Active and Suspected Problems Cellulitis of right lower extremity (Acute) Malnutrition (Suspected) Infection (Acute) Severe sepsis (Acute) Cellulitis of left lower extremity (Acute) Subjective: Doing well no issues overnight, has a little bit of pain in his foot after surgery Vitals/I&O's: Vital Signs Temp Pulse Resp BP Pulse Ox 98.5 F 91 18 147/82 H 99 06/07/19 08:49 06/07/19 09:19 06/07/19 08:49 06/07/19 08:49 06/07/19 08:49 Oxygen Flow Rate (L/min) 4 Oxygen Delivery Method Room Air Weight: 273 lb 13.026 oz Body Mass Index (BMI) 37.3 Intake and Output for Last 24 Hours 06/05/19 06/06/19 06/07/19 23:59 23:59 23:59 Intake Total 4544 / 5276 4167 / 5316 1738 / 1738 Output Total 4450 / 4850 3050 / 4700 2850 / 2850 Balance 94 / 426 1117 / 616 -1112 / -1112 General: Alert, Oriented x3, Cooperative, No apparent distress HEENT: Atraumatic, PERRLA, EOMI, Normocephalic Oral: Moist Mucosa Neck: Supple, No JVD Lungs: Clear to auscultation, Normal air movement, No rhonchi, No wheeze, No rales, Diminished Cardiovascular: Regular rate, Regular Rhythm, Normal S1, Normal S2, No murmurs Abdomen: Soft, Non Tender, Non-Distended, No Hepato-splenomegaly, Obese Extremities: No edema, Capillary Refill Less than 3 Seconds Skin: No rashes, No breakdown, Ulcer/ Wound - Right lower extremity dressing in place Neurological: Neuro grossly intact, Sensory exam intact to light touch and pain Psych/Mental Status: Normal Affect, Appropriate Microbiology Past 72 Hours 06/06/19 15:57 Incision/Surgical Site Gram Stain - Final 06/06/19 15:57 Incision/Surgical Site Wound Culture - Preliminary No growth-Final to follow 05/30/19 22:10 Blood Culture (Wb) - Right Hand Blood Culture - Final No growth in 5 days. 05/30/19 21:30 Blood Culture (Wb) - Anticubital Left Blood Culture - Final No growth in 5 days. Laboratory Results 06/04/19 07:30: Diff Path Review Reviewed 06/06/19 11:27: POC Glucose 139 H 06/06/19 16:29: POC Glucose 93 06/06/19 17:20: POC Glucose 90 06/06/19 21:06: POC Glucose 110 06/07/19 05:02: WBC 13.5 H, RBC 3.27 L, Hgb 9.3 L, Hct 29.0 L, MCV 88.7, MCH 28.4, MCHC 32.1, RDW Std Deviation 47.7 H, RDW Coeff of Yary 14.6, Plt Count 531 H, MPV 9.5, Immature Gran % (Auto) 1.800 H, Neut % (Auto) 76.0 H, Lymph % (Auto) 13.5 L, [place] % (Auto) 6.4, Eos % (Auto) 2.1, Baso % (Auto) 0.2, Absolute Neuts (auto) 10.3 H, Absolute Lymphs (auto) 1.82, Nucleated RBC % 0 06/07/19 05:02: Sodium 143, Potassium 3.7, Chloride 108 H, Carbon Dioxide 27.0, Anion Gap 8, BUN 19 H, Creatinine 1.50 H, Estim Creat Clear Calc 58.57, Est GFR (MDRD) Af Amer 62, Est GFR (MDRD) Non-Af 51 L, BUN/Creatinine Ratio 12.7, Glucose 84, Calcium 8.5 06/07/19 06:59: POC Glucose 98 Current Medications Acetaminophen (Tylenol) 650 mg PO Q6H PRN PRN PRN Reason: Fever, headache, pain. Last Admin: 06/06/19 23:57 Dose: 650 mg Documented by: Al Hydroxide/Mg Hydroxide (Mylanta Ii) 30 ml PO Q6H PRN PRN PRN Reason: Heartburn, indigestion. Last Admin: 06/01/19 16:57 Dose: 30 ml Documented by: Allopurinol (Zyloprim) 300 mg PO DAILY [facility] Last Admin: 06/07/19 09:20 Dose: 300 mg Documented by: Cyanocobalamin (Vitamin B12) 1,000 mcg PO DAILY [facility] Last Admin: 06/07/19 09:20 Dose: 1,000 mcg Documented by: Dextrose (D50w Syringe) 0 gm IV X1 PRN; Protocol PRN Reason: Hypoglycemia Glucagon () 1 mg IM .X1 PRN PRN Reason: Hypoglycemia Vancomycin IV Pharmacy to Dose (1 ea/ Sodium Chloride) 500 mls @ 250 mls/hr IV PRN PRN; Protocol PRN Reason: Rx to Dose Sodium Chloride () 250 mls @ 15 mls/hr IV .[id number] PRN PRN Reason: SALINE FLUSH Vancomycin HCl 1,500 mg/ (Sodium Chloride) 530 mls @ 250 mls/hr IV Q12H [facility] Last Admin: 06/07/19 08:15 Dose: 250 mls/hr Documented by: Ampicillin Sodium/Sulbactam (Sodium 3 gm/ Sodium Chloride) 112 mls @ 150 mls/hr IV Q8 [facility] Last Admin: 06/07/19 05:22 Dose: 150 mls/hr Documented by: Insulin Glargine (Lantus ([facility])) 70 units SC DAILY [facility] Last Admin: 06/07/19 09:19 Dose: 70 u Documented by: Insulin Human Lispro (Humalog Kwikpen ([facility])) 0 unit SC ACHS [facility]; Protocol Last Admin: 06/07/19 07:00 Dose: Not Given Documented by: Lisinopril (Zestril) 10 mg PO DAILY [facility] Last Admin: 06/07/19 09:20 Dose: 10 mg Documented by: Metoclopramide HCl (Metoclopramide Hcl) 5 mg PO BIDAC [facility] Last Admin: 06/07/19 07:01 Dose: 5 mg Documented by: Metoprolol Tartrate (Lopressor (Beta Екатерина)) 25 mg PO DAILY [facility] Last Admin: 06/07/19 09:19 Dose: 25 mg Documented by: Morphine Sulfate () 2 mg IV Q3H PRN PRN PRN Reason: SEVERE PAIN (6-10/10) Nutritional Formula (Robin - [place] Flavor) 1 packet PO BIDCM [facility] Last Admin: 06/07/19 08:22 Dose: Not Given Documented by: Ondansetron HCl (Zofran) 4 mg IV Q8H PRN PRN PRN Reason: NAUSEA/VOMITING Last Admin: 06/07/19 05:22 Dose: 4 mg Documented by: Oxycodone HCl (Oxyir) 5 mg PO Q4H PRN PRN PRN Reason: SEVERE PAIN (6-10/10) Last Admin: 06/07/19 08:21 Dose: 5 mg Documented by: Pantoprazole Sodium (Protonix) 40 mg PO DAILY [facility] Last Admin: 06/07/19 09:20 Dose: 40 mg Documented by: Pioglitazone HCl (Actos) 30 mg PO DAILY [facility] Last Admin: 06/07/19 09:18 Dose: 30 mg Documented by: Pravastatin Sodium (Pravachol) 40 mg PO QHS [facility] Last Admin: 06/06/19 21:07 Dose: 40 mg Documented by: Promethazine HCl (Phenergan) 12.5 mg IV Q6H PRN PRN PRN Reason: NAUSEA/VOMITING Last Admin: 06/07/19 08:13 Dose: 12.5 mg Documented by: Senna (Senokot) 2 tablet PO DAILY PRN PRN PRN Reason: CONSTIPATION Last Admin: 06/04/19 08:27 Dose: 2 tablet Documented by: Sodium Chloride () 10 - 40 ml IV UD PRN PRN Reason: SALINE FLUSH Last Admin: 06/07/19 08:21 Dose: 10 ml Documented by: Medical Necessity - Tobacco Use Smoking Status: Never smoker Assessment/Plan All Active Problems Cellulitis of right lower extremity (Acute) Infection (Acute) Acute kidney injury (Acute) Severe sepsis (Acute) Cellulitis of left lower extremity (Acute) 1. Severe sepsis secondary to right lower extremity cellulitis/chronic nonhealing diabetic ulcer of the right big toe -Venous Doppler and lower extremity MRI were negative for DVT and osteomyelitis respectively. -Podiatry was consulted to assist with management as well as infectious disease -He is currently on vancomycin and was transitioned to Unasyn because of the streptococcal G infection and the estrella sensitivity of the enterococcus. -Temperature 99.1 at its highest in the last 24 hours -Blood cultures remain negative, and urine culture is nondiagnostic 2. DM 2 with neuropathy/YIMI which is resolved -A1c is 9, continue with Actos, Lantus 70 units daily, sliding scale insulin -Monitor with Accu-Cheks before meals at bedtime -Hold metformin 3. HTN/HLD -Blood pressure is stable -Continue with home metoprolol and pravastatin 4. GERD -Stable -Continue with PPI DVT: Heparin Code Visit Inpatient E&M: 89978 Subs Hosp L2
[2019-06-07 11:40] LABS: Bedside Glucose 110 mg/dL (70-110)
--- NOTE | 2019-06-07 11:44 | NURSING ---
In to check on patient. pt states that Dr Pfeiffer called him last PM and states he would be in to assess foot again today. Did not remove the CHUY wrap or dressing at this time. will try to see patient with Dr Pfeiffer if possible.
--- NOTE | 2019-06-07 15:01 | PN.ID_ITS ---
Patient Problems: Active and Suspected Problems Cellulitis of right lower extremity (Acute) Malnutrition (Suspected) Infection (Acute) Severe sepsis (Acute) Cellulitis of left lower extremity (Acute) Subjective: N/v this AM, but now feeling much better. No fever. - Physical Exam General: Alert, Cooperative, No apparent distress Lungs: Clear to auscultation, Normal air movement Cardiovascular: Regular rate, Regular Rhythm Abdomen: Soft, Non Tender, Non-Distended Skin: No rashes Vital Signs Temp Pulse Resp BP Pulse Ox 98.6 F 93 18 117/68 96 06/07/19 14:45 06/07/19 14:45 06/07/19 14:45 06/07/19 14:45 06/07/19 14:45 Oxygen Flow Rate (L/min) 4 Oxygen Delivery Method Room Air Weight: 124.2 kg Body Mass Index (BMI) 37.3 Intake and Output for Last 24 Hours 06/05/19 06/06/19 06/07/19 23:59 23:59 23:59 Intake Total 4544 / 5276 4167 / 5316 3320 / 3320 Output Total 4450 / 4850 3050 / 4700 4450 / 4450 Balance 94 / 426 1117 / 616 -1130 / -1130 Microbiology Past 72 Hours 06/06/19 15:57 Gram Stain - Final Incision/Surgical Site Wound Culture - Preliminary No growth-Final to follow 05/30/19 22:10 Blood Culture - Final Blood Culture (Wb) - Right Hand No growth in 5 days. 05/30/19 21:30 Blood Culture - Final Blood Culture (Wb) - Anticubital Left No growth in 5 days. Laboratory Tests Past 24 Hrs 06/07/19 06/07/19 05:02 05:02 WBC 13.5 H RBC 3.27 L Hgb 9.3 L Hct 29.0 L MCV 88.7 MCH 28.4 MCHC 32.1 RDW Std Deviation 47.7 H RDW Coeff of Yary 14.6 Plt Count 531 H MPV 9.5 Immature Gran % (Auto) 1.800 H Neut % (Auto) 76.0 H Lymph % (Auto) 13.5 L [place] % (Auto) 6.4 Eos % (Auto) 2.1 Baso % (Auto) 0.2 Absolute Neuts (auto) 10.3 H Absolute Lymphs (auto) 1.82 Nucleated RBC % 0 Sodium 143 Potassium 3.7 Chloride 108 H Carbon Dioxide 27.0 Anion Gap 8 BUN 19 H Creatinine 1.50 H Estim Creat Clear Calc 58.57 Est GFR (MDRD) Af Amer 62 Est GFR (MDRD) Non-Af 51 L BUN/Creatinine Ratio 12.7 Glucose 84 Calcium 8.5 POC Glucose 06/07/19 06/07/19 06/06/19 11:35 06:59 21:06 POC Glucose 110 98 110 06/06/19 06/06/19 17:20 16:29 POC Glucose 90 93 Medical Necessity - Tobacco Use Smoking Status: Never smoker Route of nutrition/ use of supplements: [] Nutritional Intake: [] IV Site: [] Lugo Catheter: [] - Assessment/Plan Antibiotics: [] Assessment/Plan: [] Active and Suspected Problems Severe sepsis (Acute) Cellulitis of left lower extremity (Acute) severe sepsis due to infected R toe DM ulcer - wound cx with strep, a faecalis, CoNS. Cont vanc/unasyn. MRI with no osteo. OR 06/[address] Pfeiffer for I&D of infected tendons and abscess. Plan for home will be 2-3 weeks of po doxy and augmentin. Will follow
[2019-06-07] MEDS: Insulin Lispro 100 UNIT/ML INSULN.PEN SC (16:32)
[2019-06-07 16:40] LABS: Bedside Glucose 186 mg/dL (70-110)
--- NOTE | 2019-06-07 18:25 | PCM.PROGNOTE ---
Patient Problems: Active and Suspected Problems Cellulitis of right lower extremity (Acute) Malnutrition (Suspected) Infection (Acute) Severe sepsis (Acute) Cellulitis of left lower extremity (Acute) Subjective: Patient was seen today for follow up on right foot/ankle - he relates he is feeling much better this afternoon, currently afebrile, no complaints of fever, chills, nausea or vomiting. He was resting in chair watching TV. - Physical Exam General: Alert, Oriented x3, Cooperative, No apparent distress Extremities: Capillary Refill Less than 3 Seconds, - - s/p debridement/I+D right foot/ankle, two incision sites dorsal anterior foot/ankle down to long extensor tendons and tibialis anterior tendon, there has been significant improvement with less erythema, less edema, there is no maloder, no necrosis, no fluctuance, no purulence noted today. Open ulceration to the plantar right hallux measursing 1cm x 1.1cm down to flexor tendon, granular tissue, viable margins and no surrounding cellulitis or evidence of infection. Vascular status intact to right foot/ankle. Vital Signs Temp Pulse Resp BP Pulse Ox 98.7 F 86 18 120/71 92 06/07/19 17:37 06/07/19 17:37 06/07/19 17:37 06/07/19 17:37 06/07/19 17:37 Oxygen Flow Rate (L/min) 4 Oxygen Delivery Method Room Air Weight: 124.2 kg Body Mass Index (BMI) 37.3 Intake and Output for Last 24 Hours 06/05/19 06/06/19 06/07/19 23:59 23:59 23:59 Intake Total 4544 / 5276 4167 / 5316 4420 / 4420 Output Total 4450 / 4850 3050 / 4700 5950 / 5950 Balance 94 / 426 1117 / 616 -1530 / -1530 Microbiology Past 72 Hours 06/06/19 15:57 Gram Stain - Final Incision/Surgical Site Wound Culture - Preliminary No growth-Final to follow 05/30/19 22:10 Blood Culture - Final Blood Culture (Wb) - Right Hand No growth in 5 days. 05/30/19 21:30 Blood Culture - Final Blood Culture (Wb) - Anticubital Left No growth in 5 days. Laboratory Tests Past 24 Hrs 06/07/19 06/07/19 05:02 05:02 WBC 13.5 H RBC 3.27 L Hgb 9.3 L Hct 29.0 L MCV 88.7 MCH 28.4 MCHC 32.1 RDW Std Deviation 47.7 H RDW Coeff of Yary 14.6 Plt Count 531 H MPV 9.5 Immature Gran % (Auto) 1.800 H Neut % (Auto) 76.0 H Lymph % (Auto) 13.5 L [place] % (Auto) 6.4 Eos % (Auto) 2.1 Baso % (Auto) 0.2 Absolute Neuts (auto) 10.3 H Absolute Lymphs (auto) 1.82 Nucleated RBC % 0 Sodium 143 Potassium 3.7 Chloride 108 H Carbon Dioxide 27.0 Anion Gap 8 BUN 19 H Creatinine 1.50 H Estim Creat Clear Calc 58.57 Est GFR (MDRD) Af Amer 62 Est GFR (MDRD) Non-Af 51 L BUN/Creatinine Ratio 12.7 Glucose 84 Calcium 8.5 POC Glucose 06/07/19 06/07/19 06/07/19 16:28 11:35 06:59 POC Glucose 186 H 110 98 06/06/19 06/06/19 21:06 16:29 POC Glucose 110 93 Medical Necessity - Tobacco Use Smoking Status: Never smoker Assessment/Plan All Active Problems Cellulitis of right lower extremity (Acute) Infection (Acute) Acute kidney injury (Acute) Severe sepsis (Acute) Cellulitis of left lower extremity (Acute) Reviewed diagnostic data. s/p debridement, incision, drainage right foot/ankle, changed dressing today, there has been significant clinical improvement noted. Patient afebrile, WBC trending down. Site cleansed with normal saline solution, packed with wet to dry gauze (with normal saline solution) and applied gauze, kerlix and valentine. Wound Vac ordered. No weightbearing right foot, keep right foot elevated using pillows at all times. Patient on antibiotics per ID service. Medical management per medicine team. Podiatry will continue to follow. Patient to follow up in office within 1 week after discharge. Patient will need home health. Discussed with Dr. Albright.
--- NOTE | 2019-06-07 18:39 | DCINST_ITS ---
Keep extremity elevated above heart level: Right Leg - Keep right foot elevated with pillows at all times Call your doctor if your incision/area has: Continuous Slow Oozing, Sudden Increased Bleeding, Increased Pain/ Swelling, Increased Redness, Foul Smelling Discharge Call your doctor if you observe: Fever of 101 or Higher, Shortness of breath, Chest pain, Calf discomfort, Uncontrolled pain Cleanse incision/area with: - - Wound care right foot: Wound vac, nursing to come out 3 times per week for wound vac changes. Allergies/Adverse Reactions: Allergies No Known Allergies Allergy (Verified 05/30/19 21:07) Medications to take at Discharge Allopurinol 300 mg PO DAILY 05/30/19 Cyanocobalamin (Vitamin B-12) [Vitamin B-12] 1,000 mcg PO DAILY 05/30/19 Insulin Glargine/Lixisenatide [Soliqua 100 Unit-33 Mcg/ml Pen] 70 units SQ DAILY 05/30/19 Insulin Lispro [Humalog Kwikpen] 28 unit SQ BID 05/30/19 Lisinopril [Prinivil] 10 mg PO DAILY 05/30/19 Metoprolol Tartrate 25 mg PO DAILY 05/30/19 Omeprazole 40 mg PO DAILY 05/30/19 Pioglitazone [Actos] 30 mg PO DAILY 05/30/19 Pravastatin [Pravachol] 40 mg PO QHS 05/30/19 Amoxicillin/Potassium Clav [Augmentin 875-125 Tablet] 1 ea PO BID #28 tab 06/08/19 Doxycycline 100 mg PO BID #28 cap 06/08/19 Metformin HCl 850 mg PO BID #0 06/08/19 The following prescriptions were given: Amoxicillin/Potassium Clav [Augmentin 875-125 Tablet] 1 ea PO BID #28 tab Transmission Status: Received by [facility] Doxycycline 100 mg PO BID #28 cap Transmission Status: Received by [facility] Primary Care Physician: Care Physician,No Primary [NON-STAFF] - Test Results: Test results from this visit will be discussed in further detail at your follow- up appointment, if applicable. Please Follow Up With: Bob Pfeiffer DPM - [facility], [address], [address], [place], [place] When: within 1 week, sooner if needed. Call office at [phone] for appt.
[2019-06-07 20:16] LABS: Vancomycin, Trough Level 20.4 ug/mL (5.0-15.0)
--- NOTE | 2019-06-07 21:29 | PHA.PHARE_ITS ---
Consult Pharmacy has been consulted to manage selected antiobiotic: Vancomycin Type of Consult: Follow-up Suspected Infection: Sepsis Prior Doses of Antibiotics Received/Current Regimen: Medications Vancomycin HCl 1,250 mg/ (Sodium Chloride) 275 mls @ 167 mls/hr IV Q12H [facility] begin 06/08/19 0800 Discontinued Medications Vancomycin HCl 1,500 mg/ (Sodium Chloride) 530 mls @ 250 mls/hr IV Q12H [facility] Last Admin: 06/07/19 20:45 Dose: 250 mls/hr Documented by: Labs: Sodium 143 mmol/L (136-145) 06/07/19 05:02 Potassium 3.7 mmol/L (3.5-5.1) 06/07/19 05:02 Chloride 108 mmol/L (98-107) H 06/07/19 05:02 Carbon Dioxide 27.0 mmol/L (21.0-32.0) 06/07/19 05:02 8 (5-15) 06/07/19 05:02 BUN 19 mg/dL (7-18) H 06/07/19 05:02 1.50 mg/dL (0.70-1.30) H 06/07/19 05:02 Est GFR (MDRD) Af Amer 62 mL/min (>60) 06/07/19 05:02 Est GFR (MDRD) Non-Af 51 mL/min (>60) L 06/07/19 05:02 12.7 RATIO (10-20) 06/07/19 05:02 Glucose 84 mg/dL (74-106) 06/07/19 05:02 Vancomycin Trough 20.4 ug/mL (5.0-15.0) H 06/07/19 19:25 Microbiology: Microbiology 06/06/19 15:57 Incision/Surgical Site Gram Stain - Final 06/06/19 15:57 Incision/Surgical Site Wound Culture - Preliminary No growth-Final to follow 05/30/19 22:10 Blood Culture (Wb) - Right Hand Blood Culture - Final No growth in 5 days. 05/30/19 21:30 Blood Culture (Wb) - Anticubital Left Blood Culture - Final No growth in 5 days. 05/31/19 08:25 Wound - Toe Gram Stain - Final 05/31/19 08:25 Wound - Toe Wound Culture - Final Streptococcus group G Enterococcus faecalis Coag Negative Staph 05/31/19 08:00 Urine, Clean Catch Urine Culture - Final GPC Poss Enterococcus sp Gram positive organism Weight used for dosin.5 kg Estimated Creatinine Clearance: 58.57 Goal Trough: 15-20 mcg/mL Pharmacy Plan for Drug Dosing: Vancomycin trough level returned at 20.4 mg/L which is above goal (15-20 mg/L). The dose will be reduced to 1250mg IV q12h to start 06/08/19 0800. Pharmacy Service will continue to monitor and adjust dosing as required. Follow-Up Labs: Trough Vancomycin - draw 30 minutes before dose due Labs to be done on [date and time ordered]: 06/09/19 0730 before 4th dose
[2019-06-07] MEDS: Pravastatin 40 MG Tablet PO (22:50)
[2019-06-07 23:20] LABS: Bedside Glucose 131 mg/dL (70-110)
[2019-06-08 03:00] VITALS: PULSE 83
[2019-06-08 04:25] VITALS: BP 131/70; PULSE 86; RESP 18; TEMP 37; O2SAT 92
[2019-06-08 06:49] LABS: Anion Gap 6 (5-15); BUN 16 mg/dL (7-18); BUN/Creat Ratio 11.3 RATIO (10-20); Calcium,Total 8.5 mg/dL (8.5-10.1); Chloride 109 mmol/L (98-107); Creatinine, Serum 1.41 mg/dL (0.70-1.30); EST Glomerular Filtration Rate 55 mL/min (>60); Est Glom Filt Rate - Afr Amer 67 mL/min (>60); Glucose 95 mg/dL (74-106); Potassium 3.6 mmol/L (3.5-5.1); Sodium Level 142 mmol/L (136-145)
[2019-06-08] MEDS: Ondansetron 4 MG/2 ML Vial IV (06:54)
[2019-06-08] MEDS: 0.9% NaCl Peripheral Flush Adult/Peds IV (07:00)
[2019-06-08] MEDS: Metoclopramide 5 MG TABLET PO (07:03)
[2019-06-08 07:22] VITALS: PULSE 83
[2019-06-08 07:57] VITALS: PULSE 88
[2019-06-08] MEDS: Pioglitazone Hydrochloride 30 MG Tablet PO (07:57)
[2019-06-08] MEDS: Pantoprazole Sodium 40 MG Tablet PO (07:57)
[2019-06-08] MEDS: Allopurinol 300 MG Tablet PO (07:57)
[2019-06-08] MEDS: Cyanocobalamin 500 MCG Tablet 1000 MCG PO (07:57)
[2019-06-08] MEDS: Metoprolol Tartrate 25 MG Tablet PO (07:57)
[2019-06-08] MEDS: Lisinopril 10 MG Tablet PO (07:57)
[2019-06-08 09:00] VITALS: BP 146/73; PULSE 85; RESP 16; TEMP 36.6; O2SAT 95
--- NOTE | 2019-06-08 09:09 | CASEMGMT ---
Addendum entered by Miryam Collazo 06/08/19 15:08: Per pt, Dr. Madsen, endocrinology, prescribes his meds and he would just prefer to keep seeing her. This RN CM placed her as pt PCP at this time. Rosemary at [facility] updated on all at this time, voices understanding, and she states they will take pt. Per Chrystal, material disposition inspector, approval was received for wound vac at this time and she already placed on pt. Pt voices no further questions/concerns/needs at this time. Pt to be discharged today with [facility] for wound care/vac. Harshil DANIELS CM Addendum entered by Miryam Collazo 06/08/19 10:32: Call back from Rosemary at [facility] and she states they should be able to take pt at this time but would like pt to be set up with PCP to follow. Advised her that Dr. Pfeiffer should follow initially but she would like PCP set up for further med management. This RN CM will f/u with pt to see if he has picked a PCP from the lists provided by Marco DANIELS CM several days ago and see if appt can be set up for pt at this time. Harshil DANIELS CM Addendum entered by Miryam Collazo 06/08/19 09:29: Message left with Rosemary at [facility] in regards to referral at this time as well as to call this RN CM back in regards to same. Per Dr. Schafer's note, pt will be sent home on po antibx. Harshil DANIELS CM Original Note: This RN CM to room to discuss discharge plan with pt at this time and pt is aware of the wound vac and need for HHC for wound care/vac at discharge. Pt states no preference for HHC and is agreeable to [facility] at this time. Steve, material disposition inspector, is aware of wound vac and states that insurance approval process was already started this am. Pt is aware that he will need to f/u with [facility] next week. Pt states that he will be doing the dressing changes on any days that HHC cannot be there and wound may need changed. Pt voices no further questions/concerns/needs at this time. Harshil DANIELS CM
[2019-06-08] MEDS: Insulin Lispro 100 UNIT/ML INSULN.PEN SC (11:28)
--- NOTE | 2019-06-08 11:34 | CASEMGMT ---
SW spoke with patient and asked if he has picked a PCP yet as someone will need to follow for his medications. He said they just gave him the list the other day and he has not picked anyone. PIERCE told him that [facility] can make an appt for him if he lets us know which doctor. Ewa RICHARDSON
[2019-06-08 11:40] LABS: Bedside Glucose 152 mg/dL (70-110)
--- NOTE | 2019-06-08 12:09 | PN_ITS ---
Patient Problems: Active and Suspected Problems Cellulitis of right lower extremity (Acute) Malnutrition (Suspected) Infection (Acute) Severe sepsis (Acute) Cellulitis of left lower extremity (Acute) Subjective: Doing well, no issues overnight Vitals/I&O's: Vital Signs Temp Pulse Resp BP Pulse Ox 97.8 F 85 16 146/73 H 95 06/08/19 09:00 06/08/19 09:00 06/08/19 09:00 06/08/19 09:00 06/08/19 09:00 Oxygen Flow Rate (L/min) 4 Oxygen Delivery Method Room Air Weight: 274 lb 0.553 oz Body Mass Index (BMI) 37.3 Intake and Output for Last 24 Hours 06/06/19 06/07/19 06/08/19 23:59 23:59 23:59 Intake Total 4167 / 5316 6129 / 6129 925 / 925 Output Total 3050 / 4700 8350 / 8350 2100 / 2100 Balance 1117 / 616 -2221 / -2221 -1175 / -1175 General: Alert, Oriented x3, Cooperative, No apparent distress HEENT: Atraumatic, PERRLA, EOMI, Normocephalic Oral: Moist Mucosa Neck: Supple, No JVD Lungs: Clear to auscultation, Normal air movement, No rhonchi, No wheeze, No rales, Diminished Cardiovascular: Regular rate, Regular Rhythm, Normal S1, Normal S2, No murmurs Abdomen: Soft, Non Tender, Non-Distended, No Hepato-splenomegaly, Obese Extremities: No edema, Capillary Refill Less than 3 Seconds Skin: No rashes, No breakdown, Ulcer/ Wound - Right lower extremity dressing in place Neurological: Neuro grossly intact, Sensory exam intact to light touch and pain Psych/Mental Status: Normal Affect, Appropriate Microbiology Past 72 Hours 06/06/19 15:57 Incision/Surgical Site Gram Stain - Final 06/06/19 15:57 Incision/Surgical Site Wound Culture - Preliminary No growth-Final to follow Laboratory Results 06/07/19 16:28: POC Glucose 186 H 06/07/19 19:25: Vancomycin Trough 20.4 H 06/07/19 22:49: POC Glucose 131 H 06/08/19 06:10: Sodium 142, Potassium 3.6, Chloride 109 H, Carbon Dioxide 27.0, Anion Gap 6, BUN 16, Creatinine 1.41 H, Estim Creat Clear Calc 62.30, Est GFR (MDRD) Af Amer 67, Est GFR (MDRD) Non-Af 55 L, BUN/Creatinine Ratio 11.3, Glucose 95, Calcium 8.5 06/08/19 11:27: POC Glucose 152 H Current Medications Acetaminophen (Tylenol) 650 mg PO Q6H PRN PRN PRN Reason: Fever, headache, pain. Last Admin: 06/06/19 23:57 Dose: 650 mg Documented by: Al Hydroxide/Mg Hydroxide (Mylanta Ii) 30 ml PO Q6H PRN PRN PRN Reason: Heartburn, indigestion. Last Admin: 06/01/19 16:57 Dose: 30 ml Documented by: Allopurinol (Zyloprim) 300 mg PO DAILY [facility] Last Admin: 06/08/19 07:57 Dose: 300 mg Documented by: Cyanocobalamin (Vitamin B12) 1,000 mcg PO DAILY [facility] Last Admin: 06/08/19 07:57 Dose: 1,000 mcg Documented by: Dextrose (D50w Syringe) 0 gm IV X1 PRN; Protocol PRN Reason: Hypoglycemia Glucagon () 1 mg IM .X1 PRN PRN Reason: Hypoglycemia Vancomycin IV Pharmacy to Dose (1 ea/ Sodium Chloride) 500 mls @ 250 mls/hr IV PRN PRN; Protocol PRN Reason: Rx to Dose Sodium Chloride () 250 mls @ 15 mls/hr IV .[id number] PRN PRN Reason: SALINE FLUSH Ampicillin Sodium/Sulbactam (Sodium 3 gm/ Sodium Chloride) 112 mls @ 150 mls/hr IV Q8 [facility] Last Admin: 06/08/19 05:13 Dose: 150 mls/hr Documented by: Vancomycin HCl 1,250 mg/ (Sodium Chloride) 275 mls @ 167 mls/hr IV Q12H [facility] Last Admin: 06/08/19 07:55 Dose: 167 mls/hr Documented by: Insulin Glargine (Lantus (Bkc)) 70 units SC DAILY [facility] Last Admin: 06/08/19 07:58 Dose: 70 u Documented by: Insulin Human Lispro (Humalog Kwikpen (Bkc)) 0 unit SC ACHS [facility]; Protocol Last Admin: 06/08/19 11:28 Dose: 1 u Documented by: Lisinopril (Zestril) 10 mg PO DAILY [facility] Last Admin: 06/08/19 07:57 Dose: 10 mg Documented by: Metoclopramide HCl (Metoclopramide Hcl) 5 mg PO BIDAC [facility] Last Admin: 06/08/19 07:03 Dose: 5 mg Documented by: Metoprolol Tartrate (Lopressor (Beta Екатерина)) 25 mg PO DAILY [facility] Last Admin: 06/08/19 07:57 Dose: 25 mg Documented by: Morphine Sulfate () 2 mg IV Q3H PRN PRN PRN Reason: SEVERE PAIN (6-10/10) Nutritional Formula (Robin - [place] Flavor) 1 packet PO BIDCM [facility] Last Admin: 06/08/19 07:56 Dose: 1 packet Documented by: Ondansetron HCl (Zofran) 4 mg IV Q8H PRN PRN PRN Reason: NAUSEA/VOMITING Last Admin: 06/08/19 06:54 Dose: 4 mg Documented by: Oxycodone HCl (Oxyir) 5 mg PO Q4H PRN PRN PRN Reason: SEVERE PAIN (6-10/10) Last Admin: 06/07/19 20:24 Dose: 5 mg Documented by: Pantoprazole Sodium (Protonix) 40 mg PO DAILY [facility] Last Admin: 06/08/19 07:57 Dose: 40 mg Documented by: Pioglitazone HCl (Actos) 30 mg PO DAILY [facility] Last Admin: 06/08/19 07:57 Dose: 30 mg Documented by: Pravastatin Sodium (Pravachol) 40 mg PO QHS [facility] Last Admin: 06/07/19 22:50 Dose: 40 mg Documented by: Promethazine HCl (Phenergan) 12.5 mg IV Q6H PRN PRN PRN Reason: NAUSEA/VOMITING Last Admin: 06/07/19 08:13 Dose: 12.5 mg Documented by: Senna (Senokot) 2 tablet PO DAILY PRN PRN PRN Reason: CONSTIPATION Last Admin: 06/04/19 08:27 Dose: 2 tablet Documented by: Sodium Chloride () 10 - 40 ml IV UD PRN PRN Reason: SALINE FLUSH Last Admin: 06/08/19 07:00 Dose: 20 ml Documented by: Medical Necessity - Tobacco Use Smoking Status: Never smoker Assessment/Plan All Active Problems Cellulitis of right lower extremity (Acute) Infection (Acute) Acute kidney injury (Acute) Severe sepsis (Acute) Cellulitis of left lower extremity (Acute) 1. Severe sepsis secondary to right lower extremity cellulitis/chronic nonhealing diabetic ulcer of the right big toe -Venous Doppler and lower extremity MRI were negative for DVT and osteomyelitis respectively. -Podiatry was consulted to assist with management as well as infectious disease -He is currently on vancomycin and was transitioned to Unasyn because of the streptococcal G infection and the estrella sensitivity of the enterococcus. -Plan to discharge on p.o. doxycycline and Augmentin -He has been afebrile and over 48 hours -Blood cultures remain negative, and urine culture is nondiagnostic -Currently awaiting approval for a wound VAC prior to discharge home with home health 2. DM 2 with neuropathy/YIMI which is resolved -A1c is 9, continue with Actos, Lantus 70 units daily, sliding scale insulin -Monitor with Accu-Cheks before meals at bedtime -Hold metformin 3. HTN/HLD -Blood pressure is stable -Continue with home metoprolol and pravastatin 4. GERD -Stable -Continue with PPI DVT: Heparin Code Visit Inpatient E&M: 46708 Subs Hosp L2
--- NOTE | 2019-06-08 14:13 | NURSING ---
wound photo: right great toe
--- NOTE | 2019-06-08 14:13 | NURSING ---
wound photo: right dorsal foot
--- NOTE | 2019-06-08 15:01 | DCINST_ITS ---
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 Weight Bearing Status: No weight bearing - Right lower extremity Keep extremity elevated above heart level: Right Leg - Keep right foot elevated with pillows at all times Call your doctor if your incision/area has: Continuous Slow Oozing, Sudden Increased Bleeding, Increased Pain/ Swelling, Increased Redness, Foul Smelling Discharge Call your doctor if you observe: Fever of 101 or Higher, Shortness of breath, Chest pain, Calf discomfort, Uncontrolled pain Cleanse incision/area with: - - Wound care right foot: Wound vac, nursing to come out 3 times per week for wound vac changes. Additional Instructions: F/u with your PCP in 3-5 days for a repeat BMP to evaluate renal function prior to restarting metformin. Allergies/Adverse Reactions: Allergies No Known Allergies Allergy (Verified 05/30/19 21:07) Medications to take at Discharge Allopurinol 300 mg PO DAILY 05/30/19 Cyanocobalamin (Vitamin B-12) [Vitamin B-12] 1,000 mcg PO DAILY 05/30/19 Insulin Glargine/Lixisenatide [Soliqua 100 Unit-33 Mcg/ml Pen] 70 units SQ DAILY 05/30/19 Insulin Lispro [Humalog Kwikpen] 28 unit SQ BID 05/30/19 Lisinopril [Prinivil] 10 mg PO DAILY 05/30/19 Metoprolol Tartrate 25 mg PO DAILY 05/30/19 Omeprazole 40 mg PO DAILY 05/30/19 Pioglitazone [Actos] 30 mg PO DAILY 05/30/19 Pravastatin [Pravachol] 40 mg PO QHS 05/30/19 Amoxicillin/Potassium Clav [Augmentin 875-125 Tablet] 1 ea PO BID #28 tab 06/08/19 Doxycycline 100 mg PO BID #28 cap 06/08/19 Metformin HCl 850 mg PO BID #0 06/08/19 Oxycodone [Oxyir] 5 mg PO Q4H PRN PRN 3 Days #10 tab 06/08/19 The following prescriptions were given: Amoxicillin/Potassium Clav [Augmentin 875-125 Tablet] 1 ea PO BID #28 tab Transmission Status: Pending to [facility] Doxycycline 100 mg PO BID #28 cap Transmission Status: Pending to [facility] Oxycodone [Oxyir] 5 mg PO Q4H PRN PRN 3 Days #10 tab PRN Reason: Severe Pain (-08/11) Prescription Printed Primary Care Physician: Care Physician,No Primary [Primary Care Provider] - Please follow up with your Primary Care Physician in: 3-5 days Test Results: Test results from this visit will be discussed in further detail at your follow- up appointment, if applicable. Please Follow Up With: Bob Pfeiffer DPM - [facility], [address], [address], [place], [place] When: within 1 week, sooner if needed. Call office at [phone] for appt.
[2019-06-08 15:03] VITALS: PULSE 89
--- NOTE | 2019-06-08 15:20 | PCM.PN.ID ---
Patient Problems: Active and Suspected Problems Cellulitis of right lower extremity (Acute) Malnutrition (Suspected) Infection (Acute) Severe sepsis (Acute) Cellulitis of left lower extremity (Acute) Subjective: Feeling ok, nausea improved, no fever - Physical Exam General: Alert, Cooperative, No apparent distress Lungs: Clear to auscultation, Normal air movement Cardiovascular: Regular rate, Regular Rhythm Abdomen: Soft, Non Tender, Non-Distended Skin: Ulcer/ Wound - reviewed photo Vital Signs Temp Pulse Resp BP Pulse Ox 97.8 F 89 16 146/73 H 95 06/08/19 09:00 06/08/19 15:03 06/08/19 09:00 06/08/19 09:00 06/08/19 09:00 Oxygen Flow Rate (L/min) 4 Oxygen Delivery Method Room Air Weight: 124.3 kg Body Mass Index (BMI) 37.3 Intake and Output for Last 24 Hours 06/06/19 06/07/19 06/08/19 23:59 23:59 23:59 Intake Total 4167 / 5316 6129 / 6129 925 / 925 Output Total 3050 / 4700 8350 / 8350 2100 / 2100 Balance 1117 / 616 -2221 / -2221 -1175 / -1175 Microbiology Past 72 Hours 06/06/19 15:57 Gram Stain - Final Incision/Surgical Site Wound Culture - Preliminary No growth-Final to follow Laboratory Tests Past 24 Hrs 06/07/19 06/08/19 19:25 06:10 Sodium 142 Potassium 3.6 Chloride 109 H Carbon Dioxide 27.0 Anion Gap 6 BUN 16 Creatinine 1.41 H Estim Creat Clear Calc 62.30 Est GFR (MDRD) Af Amer 67 Est GFR (MDRD) Non-Af 55 L BUN/Creatinine Ratio 11.3 Glucose 95 Calcium 8.5 Vancomycin Trough 20.4 H POC Glucose 06/08/19 06/07/19 06/07/19 11:27 22:49 16:28 POC Glucose 152 H 131 H 186 H Medical Necessity - Tobacco Use Smoking Status: Never smoker Route of nutrition/ use of supplements: [] Nutritional Intake: [] IV Site: [] Lugo Catheter: [] - Assessment/Plan Antibiotics: [] Assessment/Plan: [] Active and Suspected Problems Severe sepsis (Acute) Cellulitis of left lower extremity (Acute) severe sepsis due to infected R toe DM ulcer - wound cx with strep, a faecalis, CoNS. On vanc/unasyn. MRI with no osteo. OR 06/[address] Pfeiffer for I&D of infected tendons and abscess. Plan for home will be 2 weeks of po doxy and augmentin with podiatry followup. Will follow as needed, d/w Dr. Albright
--- NOTE | 2019-06-08 15:40 | DS.PCM_ITS ---
Discharge Date and Diagnosis - Problem List Patient Problems: Active and Suspected Problems Cellulitis of right lower extremity (Acute) Malnutrition (Suspected) Infection (Acute) Severe sepsis (Acute) Cellulitis of left lower extremity (Acute) Date of Admission: 05/30/19 Date of Discharge: 06/08/19 - Primary Discharge Diagnosis Active and Suspected Problems Cellulitis of right lower extremity (Acute) Malnutrition (Suspected) Infection (Acute) Severe sepsis (Acute) Cellulitis of left lower extremity (Acute) - Secondary Discharge Diagnosis Chronic Problems Ulcer of right foot with fat layer exposed (Chronic) Hallux limitus of right foot (Chronic) Edema of right lower extremity (Chronic) Type 2 diabetes mellitus with diabetic neuropathy (Chronic) Hospital Course and Treatment Imaging Results: Venous Duplex: IMPRESSION: There is no evidence of deep venous thrombosis of the visualized right lower extremity venous structures. CXR: IMPRESSION: Degenerative changes, as described above. No demonstrated acute cardiopulmonary process. R foot XR: IMPRESSION: No demonstrated active bone destruction of the great toe. RLE MRI (06/01): IMPRESSION: Soft tissue swelling with focal wound. Diminished signal with focal air or calcification in the soft tissues. No MRI evidence of osteomyelitis. RLE MRI (06/06): IMPRESSION: Soft tissue swelling. No abscess. Tenosynovitis of the tibialis anterior. Chronic lateral sprain or impingement. Bone bruise or stress injury of the talus. Consultations 05/31/19 07:05 Consult: Onc/Wound/lieutenant fire fighter Routine Comment: Reason for Consult:: Diabetic foot ulcer ID Podiatry Health Care Consultant Operations: - - Date of Procedure: 06/06/19 Pre-Operative Diagnosis: Diabetic foot ulcer plantar right 1st toe down to flexor tendon, abscess right foot/ankle Post-Operative Diagnosis: Same Surgery/Procedure Performed:: Incision, drainage and debridement right foot/ankle down to tendon hydraulic spinner: None Type of Anesthesia:: General Specimen's removed: Deep culture right foot/ankle sent to microbiology for further evaluation Procedures: None Summary of Care Provided: Per HPI: The patient is a 54 year old M [male patient with a significant past medical history of diabetes who has had chronic ulcer of the right foot over the past year nonhealing. Over the past several days the right leg has become more red and warm from the foot all the way to the groin. He sought medical attention at the urgent care who started him on doxycycline and subsequently the erythema has become more diffuse and less warm. This evening he found himself very tired and he presented to the emergency room with hypotension, tachycardic and a low-grade fever. CBC shows a white count of 17,000 with a left shift. Lactate is above 3. He has received 3 L of normal saline in the emergency room and states he is feeling better than when he arrived. The patient will be admitted to the medical intensive care unit for sepsis and sepsis protocol will be followed. The source of infection appears to be an open ulcer on the right plantar surface of the foot for which IV vancomycin has been started. Hospital Course: 1. Severe sepsis secondary to RLE cellulitis d/t strep G, enterococcus and coag negative staph/chronic nonhealing diabetic ulcer of the right big toe- 54-year-old male who presented with severe sepsis from right lower extremity cellulitis. He was initially admitted to the ICU and was started on broad- spectrum antibiotics. He had a foot x-ray which did not show any bone destruction he had a initial MRI that was negative for any osteomyelitis. He also has initial blood cultures have remained negative and his urine culture was nondiagnostic. He had wound cultures from the toe come back with group G strep as well as enterococcus and coag negative staph that are treated with doxycycline and Augmentin. On June 07 he had to go to surgery for sustained fevers and had a washout of his right anterior tibialis and a wound VAC was placed on the day of discharge, those wound cultures are still pending. Since he had a washout he has had much better source control with decreased erythema and resolution of his fevers. He will be discharged with home health care as well as the wound VAC and 14 days of p.o. doxycycline and Bactrim. Follow-up with his primary care doctor as well as podiatry in the wound clinic in 1 week. 2. DM 2 with neuropathy/YIMI-he did have an YIMI on admission with his initial creatinine up to 3.61, he was discharged today with a creatinine of 1.41 and I recommended that before he restart his metformin he follow-up with his primary care doctor to have a repeat BMP to monitor his renal function. He can restart all of his other home diabetic medications. His A1c was 9 and he states that he was not really back compliant with his medications or his diet. 3. His other medical diagnoses were evaluated and his home medications were continued where appropriate Patient Problems: Active and Suspected Problems Cellulitis of right lower extremity (Acute) Malnutrition (Suspected) Infection (Acute) Severe sepsis (Acute) Cellulitis of left lower extremity (Acute) Objective: General: Alert, Oriented x3, Cooperative, No apparent distress HEENT: Atraumatic, PERRLA, EOMI, Normocephalic Oral: Moist Mucosa Neck: Supple, No JVD Lungs: Clear to auscultation, Normal air movement, No rhonchi, No wheeze, No rales, Diminished Cardiovascular: Regular rate, Regular Rhythm, Normal S1, Normal S2, No murmurs Abdomen: Soft, Non Tender, Non-Distended, No Hepato-splenomegaly, Obese Extremities: No edema, Capillary Refill Less than 3 Seconds Skin: No rashes, No breakdown, Ulcer/ Wound - Right lower extremity dressing in place Neurological: Neuro grossly intact, Sensory exam intact to light touch and pain Psych/Mental Status: Normal Affect, Appropriate - Physical Exam Vital Signs Temp Pulse Resp BP Pulse Ox 97.8 F 89 16 146/73 H 95 06/08/19 09:00 06/08/19 15:03 06/08/19 09:00 06/08/19 09:00 06/08/19 09:00 Oxygen Flow Rate (L/min) 4 Oxygen Delivery Method Room Air Weight: 274 lb 0.553 oz Body Mass Index (BMI) 37.3 Intake and Output for Last 24 Hours 06/06/19 06/07/19 06/08/19 23:59 23:59 23:59 Intake Total 4167 / 5316 6129 / 6129 925 / 925 Output Total 3050 / 4700 8350 / 8350 2100 / 2100 Balance 1117 / 616 -2221 / -2221 -1175 / -1175 Microbiology Past 72 Hours 06/06/19 15:57 Gram Stain - Final Incision/Surgical Site Wound Culture - Preliminary No growth-Final to follow Laboratory Tests Past 24 Hrs 06/07/19 06/08/19 19:25 06:10 Sodium 142 Potassium 3.6 Chloride 109 H Carbon Dioxide 27.0 Anion Gap 6 BUN 16 Creatinine 1.41 H Estim Creat Clear Calc 62.30 Est GFR (MDRD) Af Amer 67 Est GFR (MDRD) Non-Af 55 L BUN/Creatinine Ratio 11.3 Glucose 95 Calcium 8.5 Vancomycin Trough 20.4 H POC Glucose 06/08/19 06/07/19 06/07/19 11:27 22:49 16:28 POC Glucose 152 H 131 H 186 H Discharge Activity: May not drive while taking narcotic pain medications. Weight Bearing Status: No weight bearing - Right lower extremity Keep extremity elevated above heart level: Right Leg - Keep right foot elevated with pillows at all times Call your doctor if your incision/area has: Continuous Slow Oozing, Sudden Increased Bleeding, Increased Pain/ Swelling, Increased Redness, Foul Smelling Discharge Call your doctor if you observe: Fever of 101 or Higher, Shortness of breath, Chest pain, Calf discomfort, Uncontrolled pain Cleanse incision/area with: - - Wound care right foot: Wound vac, nursing to come out 3 times per week for wound vac changes. Home Medications: Medications to take at Discharge Allopurinol 300 mg PO DAILY 05/30/19 Cyanocobalamin (Vitamin B-12) [Vitamin B-12] 1,000 mcg PO DAILY 05/30/19 Insulin Glargine/Lixisenatide [Soliqua 100 Unit-33 Mcg/ml Pen] 70 units SQ DAILY 05/30/19 Insulin Lispro [Humalog Kwikpen] 28 unit SQ BID 05/30/19 Lisinopril [Prinivil] 10 mg PO DAILY 05/30/19 Metoprolol Tartrate 25 mg PO DAILY 05/30/19 Omeprazole 40 mg PO DAILY 05/30/19 Pioglitazone [Actos] 30 mg PO DAILY 05/30/19 Pravastatin [Pravachol] 40 mg PO QHS 05/30/19 Amoxicillin/Potassium Clav [Augmentin 875-125 Tablet] 1 ea PO BID #28 tab 06/08/19 Doxycycline 100 mg PO BID #28 cap 06/08/19 Metformin HCl 850 mg PO BID #0 06/08/19 Oxycodone [Oxyir] 5 mg PO Q4H PRN PRN 3 Days #10 tab 06/08/19 Following Prescrptions Were Given to Patient: Amoxicillin/Potassium Clav [Augmentin 875-125 Tablet] 1 ea PO BID #28 tab Transmission Status: Received by [facility] Doxycycline 100 mg PO BID #28 cap Transmission Status: Received by [facility] Oxycodone [Oxyir] 5 mg PO Q4H PRN PRN 3 Days #10 tab PRN Reason: Severe Pain (6-08/11) Prescription Printed Primary Care Physician: Care Physician,No Primary [NON-STAFF] - Please follow up with your Primary Care Physician in: 3-5 days Please Follow Up With: Bob Pfeiffer DPM When: within 1 week, sooner if needed. Call office at [phone] for appt. Please Follow Up With: Rowan Ledezma MD When: 3-5 days Disposition: Home with Home Health Minutes spent on discharge:: 35 Patient Condition:: Stable Medical Necessity - Tobacco Use Smoking Status: Never smoker Meaningful Use Info Meaningful Use Diagnoses (Choose all that apply): None applicable Code Visit Inpatient E&M: 55702 Disch Hosp
--- NOTE | 2019-06-08 17:43 | PCM.PROGNOTE ---
Patient Problems: Active and Suspected Problems Cellulitis of right lower extremity (Acute) Malnutrition (Suspected) Infection (Acute) Severe sepsis (Acute) Cellulitis of left lower extremity (Acute) Subjective: Patient was seen today for follow up right foot. He is doing well, ready to go home today. He has no complaints of fever, chills, nausea or vomiting. No new complaints. Wound vac intact. - Physical Exam General: Alert, Oriented x3, Cooperative, No apparent distress Extremities: Capillary Refill Less than 3 Seconds, No Calf Tenderness, - - Wound vac intact and working to the right foot/ankle wounds. Psych/Mental Status: Alert and oriented to time, place, person, mood and affect Vital Signs Temp Pulse Resp BP Pulse Ox 97.8 F 89 16 146/73 H 95 06/08/19 09:00 06/08/19 15:03 06/08/19 09:00 06/08/19 09:00 06/08/19 09:00 Oxygen Flow Rate (L/min) 4 Oxygen Delivery Method Room Air Weight: 124.3 kg Body Mass Index (BMI) 37.3 Intake and Output for Last 24 Hours 06/06/19 06/07/19 06/08/19 23:59 23:59 23:59 Intake Total 4167 / 5316 6129 / 6129 925 / 925 Output Total 3050 / 4700 8350 / 8350 2100 / 2100 Balance 1117 / 616 -2221 / -2221 -1175 / -1175 Microbiology Past 72 Hours 06/06/19 15:57 Gram Stain - Final Incision/Surgical Site Wound Culture - Preliminary No growth-Final to follow Laboratory Tests Past 24 Hrs 06/07/19 06/08/19 19:25 06:10 Sodium 142 Potassium 3.6 Chloride 109 H Carbon Dioxide 27.0 Anion Gap 6 BUN 16 Creatinine 1.41 H Estim Creat Clear Calc 62.30 Est GFR (MDRD) Af Amer 67 Est GFR (MDRD) Non-Af 55 L BUN/Creatinine Ratio 11.3 Glucose 95 Calcium 8.5 Vancomycin Trough 20.4 H POC Glucose 06/08/19 06/07/19 11:27 22:49 POC Glucose 152 H 131 H Medical Necessity - Tobacco Use Smoking Status: Never smoker Assessment/Plan All Active Problems Cellulitis of right lower extremity (Acute) Infection (Acute) Acute kidney injury (Acute) Severe sepsis (Acute) Cellulitis of left lower extremity (Acute) Reviewed diagnostic data. s/p debridement, incision, drainage right foot/ankle, changed dressing today, there has been significant clinical improvement noted. Wound vac has been applied, he will receive home nursing for vac changes. No weightbearing right foot, keep right foot elevated using pillows at all times. Patient on antibiotics per ID service. Medical management per medicine team. Patient is scheduled to follow up with me next Thursday, he is to follow up sooner if needed.
[2019-06-08 21:56] LABS: Bedside Glucose 81 mg/dL (70-110)
--- NOTE | 2019-06-09 10:42 | CASEMGMT ---
JEREMIAH KELLEY Discharge Follow-Up Phone Call. Linda: Brianna Strata: 3 Discharge Date: 06/08/19 Adm Dx: Severe Sepsis Call to pt to inquire about how he has been doing since being discharged from the hospital. Pt states, I'm not doing too bad. Pt states he has no questions about the discharge instructions, medications, or appts. He states he has not had heard from [facility] [place] yet. Pt made aware they should be contacting him today to set up time for start of care visit and Wound Vac dsg change. Pt provided with phone number for [facility] in case he would need to reach them. Pt voiced appreciation. He states Wound Vac/dressing without complications at this time. JEREMIAH KELLEY thanked pt for choosing [facility]. Melchor BEATTY RN, CM
== END 2019-06-08 18:00 | disposition home or self-care (01) | DRG 854 ==
LOC: ED 23:01 → ICU 05-31 05:32 → PCU 05-31 17:55
PROVIDERS: Hospitalist; Internal Medicine Infectious Disease; Podiatrist; Student in an Organized Health Care Education/Training Program; Admitting Provider Family Medicine; Emergency Provider Emergency Medicine; Family Provider Internal Medicine Endocrinology, Diabetes & Metabolism; PCP Internal Medicine Endocrinology, Diabetes & Metabolism; Visit Provider Family Medicine
PROC: 0JBQ0ZZ Excision of Right Foot Subcutaneous Tissue and Fascia, Open Approach (ICD-10-PCS; principal; 2019-06-06 14:50)
DX: A41.9 Sepsis, unspecified organism (principal); N17.9 Acute kidney failure, unspecified; L03.115 Cellulitis of right lower limb; L02.611 Cutaneous abscess of right foot; E46 Unspecified protein-calorie malnutrition; R65.20 Severe sepsis without septic shock; E11.42 Type 2 diabetes mellitus with diabetic polyneuropathy; E66.9 Obesity, unspecified; E11.621 Type 2 diabetes mellitus with foot ulcer; E78.5 Hyperlipidemia, unspecified; I10 Essential (primary) hypertension; L97.512 Non-pressure chronic ulcer of other part of right foot with fat layer exposed; B95.4 Other streptococcus as the cause of diseases classified elsewhere; B95.2 Enterococcus as the cause of diseases classified elsewhere; B95.7 Other staphylococcus as the cause of diseases classified elsewhere; Z68.37 Body mass index [BMI] 37.0-37.9, adult; Z79.4 Long term (current) use of insulin; Z89.412 Acquired absence of left great toe
CPT/HCPCS: 36415; 71045; 73590; 73610; 73630; 73720; 73723; 80048; 80053; 80202; 81001; 82962; 83036; 83605; 84484; 85025; 85610; 85652; 85730; 86140; 87040; 87070; 87075; 87077; 87086; 87088; 87186; 87205; 87640; 93005; 93923; 93971; 97802; 99285; A9575; J7030; J7040; J7050; A4216; J0295; J2405

== ENCOUNTER 2019-06-13 13:38 | Outpatient (RCR) | payer OTHER, SELFPAY ==
[2019-05-31 00:15] VITALS: BMI 37.3
[2019-06-13 14:26] LABS: Anion Gap 5 (5-15); BUN 13 mg/dL (7-18); BUN/Creat Ratio 10.7 RATIO (10-20); Calcium,Total 8.6 mg/dL (8.5-10.1); Chloride 108 mmol/L (98-107); Creatinine, Serum 1.21 mg/dL (0.70-1.30); EST Glomerular Filtration Rate 66 mL/min (>60); Est Glom Filt Rate - Afr Amer 80 mL/min (>60); Glucose 113 mg/dL (74-106); Potassium 4.1 mmol/L (3.5-5.1); Sodium Level 140 mmol/L (136-145)
== END 2019-07-02 23:59 ==
LOC: HHLAB 13:38
PROVIDERS: Family Provider Internal Medicine Endocrinology, Diabetes & Metabolism; PCP Internal Medicine Endocrinology, Diabetes & Metabolism; Referring Provider Podiatrist; Visit Provider Podiatrist
DX: N17.9 Acute kidney failure, unspecified (principal)
CPT/HCPCS: 80048

== ENCOUNTER 2019-06-29 09:17 | Outpatient (RCR) | payer OTHER, SELFPAY ==
[2019-05-31 00:15] VITALS: BMI 37.3
[2019-06-29 09:49] VITALS: BP 122/75; PULSE 100; RESP 18; TEMP 36.7; BMI 37.6
--- NOTE | 2019-06-29 10:47 | PN.PCM_ITS ---
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 Current Visit: Yes Code(s): L97.913 - Non-pressure chronic ulcer of unspecified part of right lower leg with necrosis of muscle (2) Ulcer of right foot with fat layer exposed Status: Resolved Current Visit: Yes Code(s): L97.512 - Non-pressure chronic ulcer of other part of right foot with fat layer exposed (3) Edema of right lower extremity Status: Chronic Current Visit: Yes Code(s): R60.0 - Localized edema (4) Hallux limitus of right foot Status: Chronic Current Visit: Yes Code(s): M20.5X1 - Other deformities of toe(s) (acquired), right foot (5) Type 2 diabetes mellitus with diabetic neuropathy Status: Chronic Current Visit: Yes Code(s): E11.40 - Type 2 diabetes mellitus with diabetic neuropathy, unspecified (6) Malnutrition Status: Suspected Current Visit: Yes Code(s): E46 - Unspecified protein- calorie malnutrition (7) Cellulitis of right lower extremity Status: Resolved Current Visit: Yes Code(s): L03.115 - Cellulitis of right lower limb (8) Corns and callosities Status: Chronic Current Visit: Yes Code(s): L84 - Corns and callosities Type of Wound Date of Service: 06/29/19 Chief Complaint: Right ankle ulcers. Right great toe ulcer History of Wound: This 54-year-old male with uncontrolled diabetes presents today for comprehensive wound healing plan for the right lower extremity. He had a chronic right great toe ulcer over 2 years in which she was treated Brian by a different provider. He is also following up for right ankle wounds. He had sepsis and right lower extremity infection requiring surgical incision and drainage by Dr. Pfeiffer on June 06, 2019 at [facility]. He has since been treated with a wound VAC and offloading with the surgical shoe with offloading pocket. He has been previously treated by infectious disease worse on antibiotics. He already had noninvasive vascular studies for the arteries and veins completed. He is not currently taking nutritional supplementation. He also previously had MRI and x-ray imaging studies performed in the right lower extremity during his last hospital admission. He denies current fever, chill, nausea, vomiting, loss of appetite. He has rest pain consistent with neuropathy and relates he no longer takes gabapentin. He denies new injuries. Progress of Wound: Improving. Healed right hallux ulcer - Physical Exam Vital Signs Temp Pulse Resp BP 98.0 F 100 18 122/75 H 06/29/19 09:49 06/29/19 09:49 06/29/19 09:49 06/29/19 09:49 General: Alert, Oriented x3, Cooperative, No apparent distress HEENT: Atraumatic Extremities: No cyanosis, Capillary Refill Less than 3 Seconds, No Calf Tenderness - Negative Vlad and Davalos signs bilateral, Diminished Peripheral Pulses, Edema - Mild bilateral lower extremities Skin: Ulcer/ Wound - No purulence, erythema, streaking, odor, infection. The peripheral skin is hairless and atrophic at the ulcer site. There is full epithelialization noted to the plantar medial right hallux after callus debridement was performed; this is healed today. There is an anterior medial lateral ankle ulcer at the previous surgical site with exposed healthy extensor tendons and peripheral granulation tissue noted. No necrosis or probe to joint or bone Wound Measurements and Assessment WC - Nurse 1 - General Ulcer Measurement Start: 06/29/19 09:48 Freq: Status: Active Protocol: Activity Type Activity Date Activity User E-Sign Co-Sign Detail Recorded Client Recorded Date Recorded By Document 06/29/19 09:49 [email or web address] [id number] 06/29/19 10:11 SENIA 06/29/19 09:49 Wound Center Nurse 1 [Ulcer Assessment] 2-right lateral dorsal foot -Combined with other wound No -Current Size (cm) - Length 9 -Current Size (cm) - Width 2.3 -Current Size (cm) - Depth 0.3 -Total Square Cm 20.7 -Photo Taken Yes -Epithelialization Medium 34-66% -Tunneling No -Undermining/Tunneling No -Circular Undermining No -Exudate Amt Medium -Exudate Type Serosanguineous -Wound Margin Flat & Intact -Granulation Amt Large (67-100%) -Granulation Quality Red -Slough/Fibrin Yes -Necrosis Amt Small (1-33%) -Necrotic Tissue Type Adherent Slough -Structure Exposed Tendon,N/A -Texture (Araceli-wound Skin Appearance) Assessed, Localized Edema -Moisture (Araceli-wound Skin Appearance Assessed,Dry/ ) Scaly -Color (Araceli-wound Skin Appearance) Assessed -Temperature (Araceli-wound Skin No Abnormality Appearance) (Pt Warm) -Tenderness on Palpation (Araceli-wound No Skin Appearance) -Ulcer Cleansing Wound Cleanser -Foul Odor after Cleansing No -Anesthetic Used 4% Lidocaine Solution 1-right medial dorsal foot -Combined with other wound No -Current Size (cm) - Length 5.5 -Current Size (cm) - Width 2.2 -Current Size (cm) - Depth 0.2 -Total Square Cm 12.10 -Photo Taken Yes -Epithelialization Small 1-33% -Tunneling No -Undermining/Tunneling No -Circular Undermining No -Exudate Amt Small -Exudate Type Serosanguineous -Wound Margin Flat & Intact -Granulation Amt Large (67-100%) -Granulation Quality Red -Slough/Fibrin Yes -Necrosis Amt Small (1-33%) -Necrotic Tissue Type Adherent Slough -Structure Exposed Tendon -Texture (Araceli-wound Skin Appearance) Assessed, Localized Edema -Moisture (Araceli-wound Skin Appearance Assessed,Dry/ ) Scaly -Color (Araceli-wound Skin Appearance) Assessed -Temperature (Araceli-wound Skin No Abnormality Appearance) (Pt Warm) -Tenderness on Palpation (Araceli-wound No Skin Appearance) -Ulcer Cleansing Wound Cleanser -Foul Odor after Cleansing No -Anesthetic Used 4% Lidocaine Solution [Edema Assessment] -Lower Limb Edema Present Yes -Right Calf (cm) 41.6 -Right Ankle (cm) 24.6 WC - Nurse 2 - General Ulcer CM Notes Start: 06/29/19 09:48 Freq: Status: Active Protocol: Activity Type Activity Date Activity User E-Sign Co-Sign Detail Recorded Client Recorded Date Recorded By Document 06/29/19 10:31 AN [id number] 06/29/19 10:38 AN 06/29/19 10:31 Wound Center Nurse 2 [Procedure/Treatment] 2-right lateral dorsal foot -Time 10:36 -Correct Patient Yes -Correct Side, Site, Position Yes -Correct Procedure Yes -Procedure Performed Yes -Type of Procedure Debridement -Clinical Debridement Subcutaneous -Post Debridement Size (cm) - Length 9.1 -Post Debridement Size (cm) - Width 2.4 -Post Debridement Size (cm) - Depth 0.3 -Total Square Cm 21.84 -Wound/Ulcer Outcome Not Healed -Ulcer Cleansing Rinsed/ Irrigated with Saline -Foul Odor after Cleansing No -Bioengineered Tissue No -Bleeding Controlled with Pressure -Offloading Yes -Type of Offloading Surgical Shoe -Treatment Response Procedure Tolerated Well 1-right medial dorsal foot -Time 10:37 -Correct Patient Yes -Correct Side, Site, Position Yes -Correct Procedure Yes -Procedure Performed Yes -Type of Procedure Debridement -Clinical Debridement Subcutaneous -Post Debridement Size (cm) - Length 5.6 -Post Debridement Size (cm) - Width 2.3 -Post Debridement Size (cm) - Depth 0.2 -Total Square Cm 12.88 -Wound/Ulcer Outcome Not Healed -Ulcer Cleansing Rinsed/ Irrigated with Saline -Foul Odor after Cleansing No -Bioengineered Tissue No -Bleeding Controlled with Pressure -Offloading Yes -Type of Offloading Surgical Shoe -Treatment Response Procedure Tolerated Well [See Physician Procedure note for Specifics] Pain Scale: 0-10 Numeric [Pain] -Is Patient Pain Free? Yes Musculoskeletal: No Tenderness to Palpation of Joints or Extremities, Muscle Wasting, - - Active range of motion ankle digits noted. Compartments are soft to palpate without pain right lower extremity. Decreased loaded first metatarsophalangeal joint range of motion consistent with hallux limitus Neurological: - - Lack of normal epicritic sensation light touch consistent with neuropathy Psych/Mental Status: Normal Affect - Palpable PT and DP pulse right, Appropriate Debridement Note Post-Debridement Measurements/Treatment WC - Nurse 2 - General Ulcer CM Notes Start: 06/29/19 09:48 Freq: Status: Active Protocol: Activity Type Activity Date Activity User E-Sign Co-Sign Detail Recorded Client Recorded Date Recorded By Document 06/29/19 10:31 AN [id number] 06/29/19 10:38 AN 06/29/19 10:31 Wound Center Nurse 2 2-right lateral dorsal foot -Time 10:36 -Correct Patient Yes -Correct Side, Site, Position Yes -Correct Procedure Yes -Procedure Performed Yes -Type of Procedure Debridement -Clinical Debridement Subcutaneous -Post Debridement Size (cm) - Length 9.1 -Post Debridement Size (cm) - Width 2.4 -Post Debridement Size (cm) - Depth 0.3 -Total Square Cm 21.84 -Wound/Ulcer Outcome Not Healed -Ulcer Cleansing Rinsed/ Irrigated with Saline -Foul Odor after Cleansing No -Bioengineered Tissue No -Bleeding Controlled with Pressure -Offloading Yes -Type of Offloading Surgical Shoe -Treatment Response Procedure Tolerated Well 1-right medial dorsal foot -Time 10:37 -Correct Patient Yes -Correct Side, Site, Position Yes -Correct Procedure Yes -Procedure Performed Yes -Type of Procedure Debridement -Clinical Debridement Subcutaneous -Post Debridement Size (cm) - Length 5.6 -Post Debridement Size (cm) - Width 2.3 -Post Debridement Size (cm) - Depth 0.2 -Total Square Cm 12.88 -Wound/Ulcer Outcome Not Healed -Ulcer Cleansing Rinsed/ Irrigated with Saline -Foul Odor after Cleansing No -Bioengineered Tissue No -Bleeding Controlled with Pressure -Offloading Yes -Type of Offloading Surgical Shoe -Treatment Response Procedure Tolerated Well Pain Scale: 0-10 Numeric Is Patient Pain Free? Yes Wound debrided: anterior medial ankle Laterality: Right Wound Grade/Stage: grade 3 Type of Debridement: Excisional debridement Anesthesia Used: 5% Lidocaine Gel Depth: in the subcutaneous layer Percentage of wound debrided: 100 Instrument Used: #15 blade Tissue Removed: fibrous, devitalized subcutaneous tissue, biofilm, slough Severity: Fat Layer Exposed Amount of bleeding with debridement: Mild Bleeding Controlled with: Pressure Patient tolerated procedure well - Additional Wound Wound debrided: anterior lateral Laterality: Right Wound Grade/Stage: grade 3 Type of Debridement: Excisional debridement Anesthesia Used: 5% Lidocaine Gel Depth: in the subcutaneous layer Percentage of wound debrided: 100 Instrument Used: #15 blade Tissue Removed: fibrous, devitalized subcutaneous tissue, biofilm, slough Severity: Fat Layer Exposed Amount of bleeding with debridement: Mild Bleeding Controlled with: Pressure Patient tolerated procedure: Patient tolerated procedure well Assessment/Plan Active Problems Hallux limitus of right foot (Chronic) Edema of right lower extremity (Chronic) 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 Uncontrolled diabetes with neuropathy. Delayed healing. Malnutrition. Healed right hallux ulcer. Callus right hallux. Hallux limitus right Plan: I reviewed and discussed his case. I reviewed his diagnostic data. He does not appear to have arterial disease and no intervention plan at this time. His venous Doppler results are reviewed and he does not have DVT. Additional work-up with reflux exam will be considered in the future pending continued improvement. Excisional subcutaneous debridement was performed as noted in the clinical panel. To continue Aquacel extra with wound VAC change every 3 days with [facility]. He is reassured no signs of infection are noted in his prior work-up and intervention is noted. I recommend further immobilization with a Cam walker boot to prevent tendon gliding and tension to the anterior ankle ulcer sites. A prescription was provided and he will obtain this at the foot and ankle center. I also recommend nutritional supplementation including Robin. A prescription was provided today. I recommend advanced wound healing product application to optimize healing including epi cord. This is medically necessary for limb salvage. He has adequate perfusion expected to allow healing and he does not smoke. His edema is also controlled with compression sleeve and periodic elevation throughout the day. Prior authorization will be completed. The indications, benefits, and anticipated healing time and management were discussed. He is amendable to proceed. To continue work with his primary care physician for glucose management; his elevated hemoglobin A1c is noted. We also discussed etiology and treatment options for gabapentin and met next use for neuropathy management. A prescription for metanx was provided today. He was advised to follow-up with his primary care physician to consider reinitiation of gabapentin or similar prescription. To return to the wound healing center 1 week or call sooner if he has any questions or concerns. I answered all his questions.
== END 2019-07-02 23:59 ==
LOC: WC 09:17
PROVIDERS: Family Provider Internal Medicine Endocrinology, Diabetes & Metabolism; PCP Internal Medicine Endocrinology, Diabetes & Metabolism; Visit Provider Podiatrist
DX: E11.621 Type 2 diabetes mellitus with foot ulcer (principal); E11.40 Type 2 diabetes mellitus with diabetic neuropathy, unspecified; M20.5X1 Other deformities of toe(s) (acquired), right foot; R60.0 Localized edema; L84 Corns and callosities; L97.312 Non-pressure chronic ulcer of right ankle with fat layer exposed
CPT/HCPCS: 11042; 11045; 99212; G0463

== ENCOUNTER 2019-07-29 12:00 | Outpatient (RCR) | payer OTHER, SELFPAY ==
[2019-07-03 01:16] VITALS: BP 122/75; PULSE 100; RESP 18; TEMP 36.7
[2019-07-06 09:52] VITALS: BP 133/76; PULSE 90; RESP 18; TEMP 36.3; BMI 37.6
--- NOTE | 2019-07-06 10:33 | PCM.WC.PN ---
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 Current Visit: Yes Code(s): L97.913 - Non-pressure chronic ulcer of unspecified part of right lower leg with necrosis of muscle (2) Type 2 diabetes mellitus with foot ulcer Status: Chronic Current Visit: Yes Code(s): E11.621 - Type 2 diabetes mellitus with foot ulcer; L97.509 - Non-pressure chronic ulcer of other part of unspecified foot with unspecified severity (3) Malnutrition Status: Suspected Current Visit: No Code(s): E46 - Unspecified protein-calorie malnutrition (4) Edema of right lower extremity Status: Chronic Current Visit: No Code(s): R60.0 - Localized edema (5) Type 2 diabetes mellitus with diabetic neuropathy Status: Chronic Current Visit: Yes Code(s): E11.40 - Type 2 diabetes mellitus with diabetic neuropathy, unspecified Type of Wound Date of Service: 07/06/19 Chief Complaint: Right ankle/foot ulcers. Right great toe ulcer healed History of Wound: This 54-year-old male with uncontrolled diabetes presents today for comprehensive wound healing plan for the right lower extremity. He denies current fever, chill, nausea, vomiting, loss of appetite. He has 2 main ulcers to his anterior foot and ankle that has exposed tendon. He has been wearing the cam walker boot to immobilize this to prevent tendon gliding. Progress of Wound: Improving - Physical Exam Vital Signs Temp Pulse Resp BP 97.3 F L 90 18 133/76 H 07/06/19 09:52 07/06/19 09:52 07/06/19 09:52 07/06/19 09:52 General: Alert, Oriented x3, Cooperative Extremities: No cyanosis, Capillary Refill Less than 3 Seconds, No Calf Tenderness, Diminished Peripheral Pulses, Edema Skin: Ulcer/ Wound - No purulence, erythema, string, odor, infection. Healthy tendon is exposed including the extensor tendons with peripheral granulation tissue.. The peripheral skin is atrophic and hairless Wound Measurements and Assessment WC - Nurse 1 - General Ulcer Measurement Start: 07/06/19 09:52 Freq: Status: Active Protocol: Activity Type Activity Date Activity User E-Sign Co-Sign Detail Recorded Client Recorded Date Recorded By Document 07/06/19 09:52 RB [id number] 07/06/19 10:01 RB 07/06/19 09:52 Wound Center Nurse 1 [Ulcer Assessment] 2-right lateral dorsal foot -Combined with other wound No -Current Size (cm) - Length 9.8 -Current Size (cm) - Width 2 -Current Size (cm) - Depth 0.2 -Total Square Cm 19.6 -Tunneling No -Undermining/Tunneling No -Circular Undermining No -Exudate Amt Medium -Exudate Type Serosanguineous -Wound Margin Flat & Intact -Granulation Amt Large (67-100%) -Granulation Quality Carmichaels,Red -Slough/Fibrin Yes -Necrosis Amt Small (1-33%) -Necrotic Tissue Type Adherent Slough -Structure Exposed Tendon -Texture (Araceli-wound Skin Appearance) Assessed -Moisture (Araceli-wound Skin Appearance Assessed ) -Color (Araceli-wound Skin Appearance) Assessed -Temperature (Araceli-wound Skin No Abnormality Appearance) (Pt Warm) -Tenderness on Palpation (Araceli-wound No Skin Appearance) -Ulcer Cleansing Wound Cleanser -Foul Odor after Cleansing No -Anesthetic Used 5% Lidocaine Gel 1-right medial dorsal foot -Combined with other wound No -Current Size (cm) - Length 5.5 -Current Size (cm) - Width 2.6 -Current Size (cm) - Depth 0.2 -Total Square Cm 14.30 -Tunneling No -Undermining/Tunneling No -Circular Undermining No -Exudate Amt Medium -Exudate Type Serosanguineous -Wound Margin Flat & Intact -Granulation Amt Large (67-100%) -Granulation Quality Carmichaels,Red -Slough/Fibrin Yes -Necrosis Amt Small (1-33%) -Necrotic Tissue Type Adherent Slough -Structure Exposed Tendon -Texture (Araceli-wound Skin Appearance) Assessed -Moisture (Araceli-wound Skin Appearance Assessed ) -Color (Araceli-wound Skin Appearance) Assessed -Temperature (Araceli-wound Skin No Abnormality Appearance) (Pt Warm) -Tenderness on Palpation (Araceli-wound No Skin Appearance) -Ulcer Cleansing Wound Cleanser -Foul Odor after Cleansing No -Anesthetic Used 5% Lidocaine Gel [Edema Assessment] -Lower Limb Edema Present Yes -Right Calf (cm) 43 -Right Ankle (cm) 21.5 WC - Nurse 2 - General Ulcer CM Notes Start: 07/06/19 09:52 Freq: Status: Active Protocol: Activity Type Activity Date Activity User E-Sign Co-Sign Detail Recorded Client Recorded Date Recorded By Document 07/06/19 10:10 AN [id number] 07/06/19 10:17 AN 07/06/19 10:10 Wound Center Nurse 2 [Procedure/Treatment] 2-right lateral dorsal foot -Time 10:10 -Correct Patient Yes -Correct Side, Site, Position Yes -Correct Procedure Yes -Procedure Performed Yes -Type of Procedure Debridement -Clinical Debridement Subcutaneous -Post Debridement Size (cm) - Length 10 -Post Debridement Size (cm) - Width 2.1 -Post Debridement Size (cm) - Depth 0.2 -Total Square Cm 21.0 -Wound/Ulcer Outcome Not Healed -Ulcer Cleansing Rinsed/ Irrigated with Saline -Foul Odor after Cleansing No -Bioengineered Tissue No -Bleeding Controlled with Pressure -Offloading Yes -Treatment Response Procedure Tolerated Well 1-right medial dorsal foot -Time 10:12 -Correct Patient Yes -Correct Side, Site, Position Yes -Correct Procedure Yes -Procedure Performed Yes -Type of Procedure Debridement -Clinical Debridement Subcutaneous -Post Debridement Size (cm) - Length 5.6 -Post Debridement Size (cm) - Width 2.7 -Post Debridement Size (cm) - Depth 0.2 -Total Square Cm 15.12 -Wound/Ulcer Outcome Not Healed -Ulcer Cleansing Rinsed/ Irrigated with Saline -Foul Odor after Cleansing No -Bioengineered Tissue No -Bleeding Controlled with Pressure -Offloading Yes -Treatment Response Procedure Tolerated Well [See Physician Procedure note for Specifics] Pain Scale: 0-10 Numeric [Pain] -Is Patient Pain Free? Yes Musculoskeletal: No Tenderness to Palpation of Joints or Extremities, Muscle Wasting Neurological: - - Lack of normal epicritic sensation light touch consistent with neuropathy Psych/Mental Status: Normal Affect, Appropriate Debridement Note Post-Debridement Measurements/Treatment WC - Nurse 2 - General Ulcer CM Notes Start: 07/06/19 09:52 Freq: Status: Active Protocol: Activity Type Activity Date Activity User E-Sign Co-Sign Detail Recorded Client Recorded Date Recorded By Document 07/06/19 10:10 AN [id number] 07/06/19 10:17 AN 07/06/19 10:10 Wound Center Nurse 2 2-right lateral dorsal foot -Time 10:10 -Correct Patient Yes -Correct Side, Site, Position Yes -Correct Procedure Yes -Procedure Performed Yes -Type of Procedure Debridement -Clinical Debridement Subcutaneous -Post Debridement Size (cm) - Length 10 -Post Debridement Size (cm) - Width 2.1 -Post Debridement Size (cm) - Depth 0.2 -Total Square Cm 21.0 -Wound/Ulcer Outcome Not Healed -Ulcer Cleansing Rinsed/ Irrigated with Saline -Foul Odor after Cleansing No -Bioengineered Tissue No -Bleeding Controlled with Pressure -Offloading Yes -Treatment Response Procedure Tolerated Well 1-right medial dorsal foot -Time 10:12 -Correct Patient Yes -Correct Side, Site, Position Yes -Correct Procedure Yes -Procedure Performed Yes -Type of Procedure Debridement -Clinical Debridement Subcutaneous -Post Debridement Size (cm) - Length 5.6 -Post Debridement Size (cm) - Width 2.7 -Post Debridement Size (cm) - Depth 0.2 -Total Square Cm 15.12 -Wound/Ulcer Outcome Not Healed -Ulcer Cleansing Rinsed/ Irrigated with Saline -Foul Odor after Cleansing No -Bioengineered Tissue No -Bleeding Controlled with Pressure -Offloading Yes -Treatment Response Procedure Tolerated Well Pain Scale: 0-10 Numeric Is Patient Pain Free? Yes Wound debrided: anterior medial Laterality: Right Wound Grade/Stage: grade 3 Type of Debridement: Excisional debridement Anesthesia Used: 5% Lidocaine Gel Depth: in the subcutaneous layer Percentage of wound debrided: 100 Instrument Used: #15 blade Tissue Removed: fibrous, devitalized subcutaneous, biofilm, slough Severity: Fat Layer Exposed Amount of bleeding with debridement: Mild Bleeding Controlled with: Pressure Patient tolerated procedure well - Additional Wound Wound debrided: anterior lateral Laterality: Right Wound Grade/Stage: grade 3 Type of Debridement: Excisional debridement Anesthesia Used: 5% Lidocaine Gel Depth: in the subcutaneous layer Percentage of wound debrided: 100 Instrument Used: #15 blade Tissue Removed: fibrous, devitalized subcutaneous, biofilm, slough Severity: Fat Layer Exposed Amount of bleeding with debridement: Mild Bleeding Controlled with: Pressure Patient tolerated procedure: Patient tolerated procedure well Assessment/Plan Active Problems Type 2 diabetes mellitus with foot ulcer (Chronic) 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 Uncontrolled diabetes with neuropathy. Delayed healing. Malnutrition. Healed right hallux ulcer. Callus right hallux. Hallux limitus right Plan: I reviewed and discussed his case. I reviewed his diagnostic data. He does not appear to have arterial disease and no intervention plan at this time. His venous Doppler results are reviewed and he does not have DVT. Additional work-up with reflux exam will be considered in the future pending continued improvement. Excisional subcutaneous debridement was performed as noted in the clinical panel. To continue Aquacel extra with wound VAC change every [address] [facility]. I also recommend transitioning into a jaziel wound VAC and prior authorization will be initiated. He is reassured no signs of infection are noted in his prior work-up and intervention is noted. I recommend further immobilization with a Cam walker boot to prevent tendon gliding and tension to the anterior ankle ulcer sites. He was fitted for this recently and is doing well. He was reminded he is not permitted to drive with his boot in place. I also recommend nutritional supplementation including Robin. He is not able to cover the cost due to lack of insurance coverage and I recommended Glucerna as an alternative. I also recommend a nutrition referral to optimize healing and for better diabetic control. He is amendable to attend. I recommend advanced wound healing product application to optimize healing including epi cord. This is medically necessary for limb salvage. He has adequate perfusion expected to allow healing and he does not smoke. His edema is also controlled with compression sleeve and periodic elevation throughout the day. Prior authorization will be completed. The indications, benefits, and anticipated healing time and management were discussed. He is amendable to proceed. To continue work with his primary care physician for glucose management; his elevated hemoglobin A1c is noted. We also discussed etiology and treatment options for gabapentin and met next use for neuropathy management. A prescription for metanx was provided previously and he was advised on proper use. He was advised to follow-up with his primary care physician to consider reinitiation of gabapentin or similar prescription. To return to the wound healing center 1 week or call sooner if he has any questions or concerns. I answered all his questions.
[2019-07-13 10:21] VITALS: BP 135/82; PULSE 101; RESP 20; TEMP 36.4; BMI 37.6
--- NOTE | 2019-07-13 10:56 | PN.PCM_ITS ---
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 Current Visit: Yes Code(s): L97.913 - Non-pressure chronic ulcer of unspecified part of right lower leg with necrosis of muscle (2) Type 2 diabetes mellitus with foot ulcer Status: Chronic Current Visit: Yes Code(s): E11.621 - Type 2 diabetes mellitus with foot ulcer; L97.509 - Non-pressure chronic ulcer of other part of unspecified foot with unspecified severity (3) Malnutrition Status: Suspected Current Visit: Yes Code(s): E46 - Unspecified protein- calorie malnutrition (4) Edema of right lower extremity Status: Chronic Current Visit: Yes Code(s): R60.0 - Localized edema (5) Type 2 diabetes mellitus with diabetic neuropathy Status: Chronic Current Visit: Yes Code(s): E11.40 - Type 2 diabetes mellitus with diabetic neuropathy, unspecified Type of Wound Date of Service: 07/13/19 Chief Complaint: Right ankle/foot ulcers History of Wound: This 54-year-old male with uncontrolled diabetes presents today for comprehensive wound healing plan for the right lower extremity. He denies current fever, chill, nausea, vomiting, loss of appetite. He has 2 main ulcers to his anterior foot and ankle that has exposed tendon. He has been we aring the cam walker boot to immobilize this to prevent tendon gliding. Progress of Wound: Improving - Physical Exam Vital Signs Temp Pulse Resp BP 97.6 F L 101 H 20 H 135/82 H 07/13/19 10:21 07/13/19 10:21 07/13/19 10:21 07/13/19 10:21 General: Alert, Oriented x3, Cooperative, No apparent distress Extremities: No cyanosis, Capillary Refill Less than 3 Seconds, No Calf Tenderness - Negative Vlad and Davalos sign right, Diminished Peripheral Pulses, Edema, - - Exposed tendon anterior ankle and dorsal foot Skin: Ulcer/ Wound - No purulence, erythema, streaking, odor, infection. The ulcer bed is granular with exposed healthy white tendons of the extensors. Peripheral skin is atrophic Wound Measurements and Assessment WC - Nurse 1 - General Ulcer Measurement Start: 07/06/19 09:52 Freq: Status: Active Protocol: Activity Type Activity Date Activity User E-Sign Co-Sign Detail Recorded Client Recorded Date Recorded By Document 07/13/19 10:21 DL [id number] 07/13/19 10:27 DL 07/13/19 10:21 Wound Center Nurse 1 [Ulcer Assessment] 2-right lateral dorsal foot -Current Size (cm) - Length 8 -Current Size (cm) - Width 2 -Current Size (cm) - Depth 0.1 -Total Square Cm 16 -Photo Taken No -Exudate Amt Small -Exudate Type Serosanguineous -Wound Margin Distinct, Outline Attached -Granulation Amt Large (67-100%) -Granulation Quality Hyper- granulation,Red -Necrosis Amt None Present (0 %) -Structure Exposed N/A -Texture (Araceli-wound Skin Appearance) Scarring -Moisture (Araceli-wound Skin Appearance No Abnormality ) -Color (Araceli-wound Skin Appearance) No Abnormality -Temperature (Araceli-wound Skin No Abnormality Appearance) (Pt Warm) -Tenderness on Palpation (Araceli-wound Yes Skin Appearance) -Ulcer Cleansing Wound Cleanser -Foul Odor after Cleansing No -Anesthetic Used 5% Lidocaine Gel 1-right medial dorsal foot -Current Size (cm) - Length 5.4 -Current Size (cm) - Width 2.6 -Current Size (cm) - Depth 0.1 -Total Square Cm 14.04 -Photo Taken No -Exudate Amt Small -Exudate Type Serosanguineous -Wound Margin Distinct, Outline Attached -Granulation Amt Large (67-100%) -Granulation Quality Hyper- granulation,Red -Necrosis Amt None Present (0 %) -Structure Exposed Tendon,Fascia -Texture (Araceli-wound Skin Appearance) Scarring -Moisture (Araceli-wound Skin Appearance No Abnormality ) -Color (Araceli-wound Skin Appearance) No Abnormality -Temperature (Araceli-wound Skin No Abnormality Appearance) (Pt Warm) -Tenderness on Palpation (Araceli-wound No Skin Appearance) -Ulcer Cleansing Wound Cleanser -Foul Odor after Cleansing No -Anesthetic Used 5% Lidocaine Gel WC - Nurse 2 - General Ulcer CM Notes Start: 07/06/19 09:52 Freq: Status: Active Protocol: Activity Type Activity Date Activity User E-Sign Co-Sign Detail Recorded Client Recorded Date Recorded By Document 07/13/19 10:37 AN [id number] 07/13/19 10:41 AN 07/13/19 10:37 Wound Center Nurse 2 [Procedure/Treatment] 2-right lateral dorsal foot -Time 10:39 -Correct Patient Yes -Correct Side, Site, Position Yes -Correct Procedure Yes -Procedure Performed Yes -Type of Procedure Debridement -Clinical Debridement Subcutaneous -Post Debridement Size (cm) - Length 8.1 -Post Debridement Size (cm) - Width 2.1 -Post Debridement Size (cm) - Depth 0.1 -Total Square Cm 17.01 -Wound/Ulcer Outcome Not Healed -Ulcer Cleansing Rinsed/ Irrigated with Saline -Foul Odor after Cleansing No -Bioengineered Tissue No -Type of bioengineered Tissue EPIFIX -Expiration Date 12/03/23 -Product Lot Number [id number] -Percent Used 50 1-right medial dorsal foot -Time 10:39 -Correct Patient Yes -Correct Side, Site, Position Yes -Correct Procedure Yes -Procedure Performed Yes -Type of Procedure Debridement -Clinical Debridement Subcutaneous -Post Debridement Size (cm) - Length 5.5 -Post Debridement Size (cm) - Width 2.7 -Post Debridement Size (cm) - Depth 0.1 -Total Square Cm 14.85 -Wound/Ulcer Outcome Not Healed -Ulcer Cleansing Not Cleansed -Foul Odor after Cleansing No -Bioengineered Tissue Yes -Type of bioengineered Tissue EPIFIX -Expiration Date 12/03/23 -Product Lot Number [id number] -Percent Used 50 [See Physician Procedure note for Specifics] Musculoskeletal: No Tenderness to Palpation of Joints or Extremities, Muscle Wasting Neurological: - - Lack of normal epicritic sensation light touch noted consistent with neuropathy Psych/Mental Status: Normal Affect, Appropriate Debridement Note Post-Debridement Measurements/Treatment WC - Nurse 2 - General Ulcer CM Notes Start: 07/06/19 09:52 Freq: Status: Active Protocol: Activity Type Activity Date Activity User E-Sign Co-Sign Detail Recorded Client Recorded Date Recorded By Document 07/06/19 10:10 AN [id number] 07/06/19 10:17 AN Document 07/13/19 10:37 AN [id number] 07/13/19 10:41 AN 07/06/19 07/13/19 10:10 10:37 Wound Center Nurse 2 2-right lateral dorsal foot -Time 10:10 10:39 -Correct Patient Yes Yes -Correct Side, Site, Position Yes Yes -Correct Procedure Yes Yes -Procedure Performed Yes Yes -Type of Procedure Debridement Debridement -Clinical Debridement Subcutaneous Subcutaneous -Post Debridement Size (cm) - Length 10 8.1 -Post Debridement Size (cm) - Width 2.1 2.1 -Post Debridement Size (cm) - Depth 0.2 0.1 -Total Square Cm 21.0 17.01 -Wound/Ulcer Outcome Not Healed Not Healed -Ulcer Cleansing Rinsed/ Rinsed/ Irrigated with Irrigated with Saline Saline -Foul Odor after Cleansing No No -Bioengineered Tissue No No -Type of bioengineered Tissue EPIFIX -Expiration Date 12/03/23 -Product Lot Number [id number] -Percent Used 50 -Bleeding Controlled with Pressure -Offloading Yes -Treatment Response Procedure Tolerated Well 1-right medial dorsal foot -Time 10:12 10:39 -Correct Patient Yes Yes -Correct Side, Site, Position Yes Yes -Correct Procedure Yes Yes -Procedure Performed Yes Yes -Type of Procedure Debridement Debridement -Clinical Debridement Subcutaneous Subcutaneous -Post Debridement Size (cm) - Length 5.6 5.5 -Post Debridement Size (cm) - Width 2.7 2.7 -Post Debridement Size (cm) - Depth 0.2 0.1 -Total Square Cm 15.12 14.85 -Wound/Ulcer Outcome Not Healed Not Healed -Ulcer Cleansing Rinsed/ Not Cleansed Irrigated with Saline -Foul Odor after Cleansing No No -Bioengineered Tissue No Yes -Type of bioengineered Tissue EPIFIX -Expiration Date 12/03/23 -Product Lot Number [id number] -Percent Used 50 -Bleeding Controlled with Pressure -Offloading Yes -Treatment Response Procedure Tolerated Well Pain Scale: 0-10 Numeric Is Patient Pain Free? Yes Wound debrided: anterior ankle medial Laterality: Right Wound Grade/Stage: grade 3 Type of Debridement: Excisional debridement Anesthesia Used: 5% Lidocaine Gel Depth: in the subcutaneous layer Percentage of wound debrided: 100 Instrument Used: #15 blade Tissue Removed: fibrous, devitalized subcutaneous, biofilm, slough Severity: Fat Layer Exposed Amount of bleeding with debridement: Mild Bleeding Controlled with: Pressure Patient tolerated procedure well - Additional Wound Wound debrided: anterior ankle lateral Laterality: Right Wound Grade/Stage: grade 1 Type of Debridement: Excisional debridement Anesthesia Used: 5% Lidocaine Gel Depth: in the subcutaneous layer Percentage of wound debrided: 100 Instrument Used: #15 blade Tissue Removed: fibrous, devitalized subcutaneous, biofilm, slough Severity: Fat Layer Exposed Amount of bleeding with debridement: Mild Bleeding Controlled with: Pressure Patient tolerated procedure: Patient tolerated procedure well Assessment/Plan Active Problems Type 2 diabetes mellitus with foot ulcer (Chronic) Edema of right lower extremity (Chronic) 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 Uncontrolled diabetes with neuropathy. Delayed healing. Malnutrition. Healed right hallux ulcer. Callus right hallux. Hallux limitus right Plan: I reviewed and discussed his case. I reviewed his diagnostic data. He does not appear to have arterial disease and no intervention plan at this time. His venous Doppler results are reviewed and he does not have DVT. Additional work-up with reflux exam will be considered in the future pending continued improvement. Excisional subcutaneous debridement was performed as noted in the clinical panel. He is reassured no signs of infection are noted in his prior work-up and intervention is noted. Pressure was applied to maintain hemostasis. Verbal consent was obtained for application of advanced wound healing product, epi-fix. This applied according standard protocol was further secured in place with a wound veil and Steri-Strips. He tolerated this well. A secondary dressing including a jaziel wound VAC was applied. This is medically necessary for limb salvage. He has adequate perfusion expected to allow healing and he does not smoke. The indications, benefits, and anticipated healing time and management were discussed. He was amendable to proceed. He was advised to keep his clean and intact until follow-up in the next week. To continue CAM Walker use. He was fitted for this recently and is doing well. He was reminded he is not permitted to drive with his boot in place. I also recommend nutritional supplementation including Robin. He is not able to cover the cost due to lack of insurance coverage and I recommended Glucerna as an alternative. I also recommend a nutrition referral to optimize healing and for better diabetic control. He is amendable to attend. His edema is also controlled with compression sleeve and periodic elevation throughout the day. To continue work with his primary care physician for glucose management; his elevated hemoglobin A1c is noted. We also discussed etiology and treatment options for gabapentin and met next use for neuropathy management. A prescription for metanx was provided previously and he was advised on proper use. He was advised to follow- up with his primary care physician to consider reinitiation of gabapentin or similar prescription. To return to the wound healing center 1 week or call sooner if he has any questions or concerns. I answered all his questions.
[2019-07-20 10:46] VITALS: BP 139/88; PULSE 92; RESP 20; TEMP 36.2; BMI 37.6
--- NOTE | 2019-07-20 14:08 | PN.PCM_ITS ---
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 Current Visit: Yes Code(s): L97.913 - Non-pressure chronic ulcer of unspecified part of right lower leg with necrosis of muscle (2) Type 2 diabetes mellitus with foot ulcer Status: Chronic Current Visit: Yes Code(s): E11.621 - Type 2 diabetes mellitus with foot ulcer; L97.509 - Non-pressure chronic ulcer of other part of unspecified foot with unspecified severity (3) Malnutrition Status: Suspected Current Visit: Yes Code(s): E46 - Unspecified protein- calorie malnutrition (4) Edema of right lower extremity Status: Chronic Current Visit: Yes Code(s): R60.0 - Localized edema (5) Type 2 diabetes mellitus with diabetic neuropathy Status: Chronic Current Visit: Yes Code(s): E11.40 - Type 2 diabetes mellitus with diabetic neuropathy, unspecified (6) Hypergranulation Status: Acute Current Visit: Yes Code(s): L92.9 - Granulomatous disorder of the skin and subcutaneous tissue, unspecified Type of Wound Date of Service: 07/20/19 Chief Complaint: Right ankle/foot ulcers History of Wound: This 54-year-old male with uncontrolled diabetes presents today for comprehensive wound healing plan for the right lower extremity. He denies current fever, chill, nausea, vomiting, loss of appetite. He has 2 main ulcers to his anterior foot and ankle that has exposed tendon. He has been wearing the cam walker boot to immobilize this to prevent tendon gliding. Kept his wound VAC placed this past week and had to reset it due to a leak alert. He denies odor or redness. Progress of Wound: Improving - Physical Exam Vital Signs Temp Pulse Resp BP 97.2 F L 92 20 H 139/88 H 07/20/19 10:46 07/20/19 10:46 07/20/19 10:46 07/20/19 10:46 General: Alert, Oriented x3, Cooperative, No apparent distress Extremities: No cyanosis, Capillary Refill Less than 3 Seconds, No Calf Tenderness, Diminished Peripheral Pulses, Edema Skin: Ulcer/ Wound - No purulence, erythema, streaking, odor, infection. There is some hyper granulation tissue noted. There is no longer tendon exposed to the lateral anterior dorsal foot and ankle ulcer site. There is decreased tendon exposed to the medial site. Wound Measurements and Assessment WC - Nurse 1 - General Ulcer Measurement Start: 07/06/19 09:52 Freq: Status: Active Protocol: Activity Type Activity Date Activity User E-Sign Co-Sign Detail Recorded Client Recorded Date Recorded By Document 07/20/19 10:46 LEIGHTON [id number] 07/20/19 10:57 DL 07/20/19 10:46 Wound Center Nurse 1 [Ulcer Assessment] 2-right lateral dorsal foot -Current Size (cm) - Length 8.2 -Current Size (cm) - Width 2.1 -Current Size (cm) - Depth 0.1 -Total Square Cm 17.22 -Photo Taken No -Exudate Amt Small -Exudate Type Serosanguineous -Wound Margin Distinct, Outline Attached -Granulation Amt Large (67-100%) -Granulation Quality Hyper- granulation,Red -Necrosis Amt Small (1-33%) -Necrotic Tissue Type Adherent Slough -Structure Exposed N/A -Texture (Araceli-wound Skin Appearance) Scarring -Moisture (Araceli-wound Skin Appearance Maceration ) -Color (Araceli-wound Skin Appearance) No Abnormality -Temperature (Araceli-wound Skin No Abnormality Appearance) (Pt Warm) -Tenderness on Palpation (Araceli-wound No Skin Appearance) -Ulcer Cleansing Wound Cleanser -Foul Odor after Cleansing No -Anesthetic Used 4% Lidocaine Solution 1-right medial dorsal foot -Current Size (cm) - Length 5.3 -Current Size (cm) - Width 2.7 -Current Size (cm) - Depth 0.1 -Total Square Cm 14.31 -Photo Taken No -Exudate Amt Medium -Exudate Type Serosanguineous -Wound Margin Distinct, Outline Attached -Granulation Amt Large (67-100%) -Granulation Quality Red -Necrosis Amt Small (1-33%) -Necrotic Tissue Type Adherent Slough -Structure Exposed Fascia -Texture (Araceli-wound Skin Appearance) Scarring -Moisture (Araceli-wound Skin Appearance Maceration ) -Color (Araceli-wound Skin Appearance) No Abnormality -Temperature (Araceli-wound Skin No Abnormality Appearance) (Pt Warm) -Tenderness on Palpation (Araceli-wound No Skin Appearance) -Ulcer Cleansing Wound Cleanser -Foul Odor after Cleansing No -Anesthetic Used 4% Lidocaine Solution [Edema Assessment] -Right Calf (cm) 44 -Right Ankle (cm) 24.4 WC - Nurse 2 - General Ulcer CM Notes Start: 07/06/19 09:52 Freq: Status: Active Protocol: Activity Type Activity Date Activity User E-Sign Co-Sign Detail Recorded Client Recorded Date Recorded By Document 07/20/19 11:48 AN [id number] 07/20/19 12:02 AN 07/20/19 11:48 Wound Center Nurse 2 [Procedure/Treatment] 2-right lateral dorsal foot -Time 11:51 -Correct Patient Yes -Correct Side, Site, Position Yes -Correct Procedure Yes -Procedure Performed Yes -Type of Procedure Debridement -Clinical Debridement Subcutaneous -Post Debridement Size (cm) - Length 8.3 -Post Debridement Size (cm) - Width 2.2 -Post Debridement Size (cm) - Depth 0.1 -Total Square Cm 18.26 -Wound/Ulcer Outcome Not Healed -Ulcer Cleansing Rinsed/ Irrigated with Saline -Foul Odor after Cleansing No -Bioengineered Tissue Yes -Type of bioengineered Tissue EPIFIX -Bleeding Controlled with Pressure -Offloading No -Treatment Response Procedure Tolerated Well 1-right medial dorsal foot -Time 11:52 -Correct Patient Yes -Correct Side, Site, Position Yes -Correct Procedure Yes -Procedure Performed Yes -Type of Procedure Debridement -Clinical Debridement Subcutaneous -Post Debridement Size (cm) - Length 5.4 -Post Debridement Size (cm) - Width 2.8 -Post Debridement Size (cm) - Depth 0.1 -Total Square Cm 15.12 -Wound/Ulcer Outcome Not Healed -Ulcer Cleansing Rinsed/ Irrigated with Saline -Foul Odor after Cleansing No -Bioengineered Tissue Yes -Type of bioengineered Tissue EPIFIX -Bleeding Controlled with Pressure -Offloading No -Treatment Response Procedure Not Tolerated Well [See Physician Procedure note for Specifics] Pain Scale: 0-10 Numeric [Pain] -Is Patient Pain Free? Yes Musculoskeletal: No Tenderness to Palpation of Joints or Extremities, Muscle Wasting Neurological: - - Lack of normal epicritic sensation light touch is consistent with neuropathy Psych/Mental Status: Normal Affect, Appropriate Debridement Note Post-Debridement Measurements/Treatment WC - Nurse 2 - General Ulcer CM Notes Start: 07/06/19 09:52 Freq: Status: Active Protocol: Activity Type Activity Date Activity User E-Sign Co-Sign Detail Recorded Client Recorded Date Recorded By Document 07/06/19 10:10 AN [id number] 07/06/19 10:17 AN Document 07/13/19 10:37 AN [id number] 07/13/19 10:41 AN Document 07/20/19 11:48 AN [id number] 07/20/19 12:02 AN 07/06/19 07/13/19 07/20/19 10:10 10:37 11:48 Wound Center Nurse 2 2-right lateral dorsal foot -Time 10:10 10:39 11:51 -Correct Patient Yes Yes Yes -Correct Side, Site, Position Yes Yes Yes -Correct Procedure Yes Yes Yes -Procedure Performed Yes Yes Yes -Type of Procedure Debridement Debridement Debridement -Clinical Debridement Subcutaneous Subcutaneous Subcutaneous -Post Debridement Size (cm) - Length 10 8.1 8.3 -Post Debridement Size (cm) - Width 2.1 2.1 2.2 -Post Debridement Size (cm) - Depth 0.2 0.1 0.1 -Total Square Cm 21.0 17.01 18.26 -Wound/Ulcer Outcome Not Healed Not Healed Not Healed -Ulcer Cleansing Rinsed/ Rinsed/ Rinsed/ Irrigated with Irrigated with Irrigated with Saline Saline Saline -Foul Odor after Cleansing No No No -Bioengineered Tissue No No Yes -Type of bioengineered Tissue EPIFIX EPIFIX -Expiration Date 12/03/23 -Product Lot Number [id number] -Percent Used 50 -Bleeding Controlled with Pressure Pressure -Offloading Yes No -Treatment Response Procedure Procedure Tolerated Well Tolerated Well 1-right medial dorsal foot -Time 10:12 10:39 11:52 -Correct Patient Yes Yes Yes -Correct Side, Site, Position Yes Yes Yes -Correct Procedure Yes Yes Yes -Procedure Performed Yes Yes Yes -Type of Procedure Debridement Debridement Debridement -Clinical Debridement Subcutaneous Subcutaneous Subcutaneous -Post Debridement Size (cm) - Length 5.6 5.5 5.4 -Post Debridement Size (cm) - Width 2.7 2.7 2.8 -Post Debridement Size (cm) - Depth 0.2 0.1 0.1 -Total Square Cm 15.12 14.85 15.12 -Wound/Ulcer Outcome Not Healed Not Healed Not Healed -Ulcer Cleansing Rinsed/ Not Cleansed Rinsed/ Irrigated with Irrigated with Saline Saline -Foul Odor after Cleansing No No No -Bioengineered Tissue No Yes Yes -Type of bioengineered Tissue EPIFIX EPIFIX -Expiration Date 12/03/23 -Product Lot Number [id number] -Percent Used 50 -Bleeding Controlled with Pressure Pressure -Offloading Yes No -Treatment Response Procedure Procedure Not Tolerated Well Tolerated Well Pain Scale: 0-10 Numeric Is Patient Pain Free? Yes Yes Wound debrided: medial ankle/dorsal foot Laterality: Right Wound Grade/Stage: grade 3 Type of Debridement: Excisional debridement Anesthesia Used: 5% Lidocaine Gel Depth: in the subcutaneous layer Percentage of wound debrided: 100 Instrument Used: #15 blade Tissue Removed: fibrous, devitalized subcutaneous, biofilm, slough, hypergranulation tissue Severity: Fat Layer Exposed Amount of bleeding with debridement: Mild Bleeding Controlled with: Pressure Patient tolerated procedure well - Additional Wound Wound debrided: lateral ankle/dorsal foot Laterality: Right Wound Grade/Stage: grade 3 Type of Debridement: Excisional debridement Anesthesia Used: 5% Lidocaine Gel Depth: in the subcutaneous layer Percentage of wound debrided: 100 Instrument Used: #15 blade Tissue Removed: fibrous, devitalized subcutaneous, biofilm, slough, hypergranulation Severity: Fat Layer Exposed Amount of bleeding with debridement: Mild Bleeding Controlled with: Pressure Patient tolerated procedure: Patient tolerated procedure well Assessment/Plan Active Problems Type 2 diabetes mellitus with foot ulcer (Chronic) Hypergranulation (Acute) Edema of right lower extremity (Chronic) 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 Uncontrolled diabetes with neuropathy. Delayed healing. Malnutrition. Healed right hallux ulcer. Callus right hallux. Hallux limitus right Plan: I reviewed and discussed his case. I reviewed his diagnostic data. He does not appear to have arterial disease and no intervention plan at this time. His venous Doppler results are reviewed and he does not have DVT. Additional work-up with reflux exam will be considered in the future pending continued improvement. Excisional subcutaneous debridement was performed as noted in the clinical panel. Additional silver nitrate was applied to the hyper granular tissue site he tolerated this well. Saline irrigation was performed. He is r eassured no signs of infection are noted in his prior work-up and intervention is noted. Pressure was applied to maintain hemostasis. Verbal consent was obtained for application of advanced wound healing product, epi-fix. This applied according standard protocol was further secured in place with a wound veil and Steri-Strips. He tolerated this well. A secondary dressing including a jaziel wound VAC was applied. This is medically necessary for limb salvage. He has adequate perfusion expected to allow healing and he does not smoke. The indications, benefits, and anticipated healing time and management were discussed. He was amendable to proceed. He was advised to keep his clean and intact until follow-up in the next week. To continue CAM Walker use. He was fitted for this recently and is doing well. He was reminded he is not permitted to drive with his boot in place. I also recommend nutritional supplementation including Rboin. He is not able to cover the cost due to lack of insurance coverage and I recommended Glucerna as an alternative. I also recommend a nutrition referral to optimize healing and for better diabetic control. He is amendable to attend. His edema is also controlled with compression sleeve and periodic elevation throughout the day. To continue work with his primary care physician for glucose management; his elevated hemoglobin A1c is noted. We also discussed etiology and treatment options for gabapentin and met next use for neuropathy management. A prescription for metanx was provided previously and he was advised on proper use. He was advised to follow-up with his primary care physician to consider reinitiation of gabapentin or similar prescription. To return to the wound healing center 1 week or call sooner if he has any questions or concerns. I answered all his questions.
[2019-07-27 09:46] VITALS: BP 134/92; PULSE 110; RESP 18; TEMP 36.9; BMI 37.6
--- NOTE | 2019-07-27 18:45 | PCM.WC.PN ---
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 Current Visit: Yes Code(s): L97.913 - Non-pressure chronic ulcer of unspecified part of right lower leg with necrosis of muscle (2) Type 2 diabetes mellitus with foot ulcer Status: Chronic Current Visit: Yes Code(s): E11.621 - Type 2 diabetes mellitus with foot ulcer; L97.509 - Non-pressure chronic ulcer of other part of unspecified foot with unspecified severity (3) Malnutrition Status: Suspected Current Visit: Yes Code(s): E46 - Unspecified protein-calorie malnutrition (4) Edema of right lower extremity Status: Chronic Current Visit: Yes Code(s): R60.0 - Localized edema (5) Type 2 diabetes mellitus with diabetic neuropathy Status: Chronic Current Visit: Yes Code(s): E11.40 - Type 2 diabetes mellitus with diabetic neuropathy, unspecified (6) Hypergranulation Status: Acute Current Visit: Yes Code(s): L92.9 - Granulomatous disorder of the skin and subcutaneous tissue, unspecified Type of Wound Date of Service: 07/27/19 Chief Complaint: Right ankle/foot ulcers History of Wound: This 54-year-old male with uncontrolled diabetes presents today for comprehensive wound healing plan for the right lower extremity. He denies current fever, chill, nausea, vomiting, loss of appetite. He has 2 main ulcers to his anterior foot and ankle that has exposed tendon. He has been wearing the cam walker boot to immobilize this to prevent tendon gliding. Kept his wound VAC placed this past week without any leaking encounters. He denies odor or redness. Progress of Wound: Improving - Physical Exam Vital Signs Temp Pulse Resp BP 98.4 F 110 H 18 134/92 H 07/27/19 09:46 07/27/19 09:46 07/27/19 09:46 07/27/19 09:46 General: Alert, Oriented x3, Cooperative, No apparent distress HEENT: Atraumatic Extremities: No cyanosis, Capillary Refill Less than 3 Seconds, Diminished Peripheral Pulses, Edema Skin: Ulcer/ Wound - No purulence, erythema, streaking, odor, infection. There is no longer any tendon exposed to the medial ulcer site and there is reduced tendon exposed to lateral ulcer site. There is some hyper granulation tissue to the lateral margin of the lateral ulcer site. The peripheral skin is atrophic. Peripheral epithelialization is noted and the wound size is progressively getting smaller and the quality is also improving Wound Measurements and Assessment WC - Nurse 1 - General Ulcer Measurement Start: 07/06/19 09:52 Freq: Status: Active Protocol: Activity Type Activity Date Activity User E-Sign Co-Sign Detail Recorded Client Recorded Date Recorded By Document 07/27/19 09:46 [facility] [id number] 07/27/19 09:56 [facility] 07/27/19 09:46 Wound Center Nurse 1 [Ulcer Assessment] 2-right lateral dorsal foot -Combined with other wound No -Current Size (cm) - Length 8.1 -Current Size (cm) - Width 2 -Current Size (cm) - Depth 0.1 -Total Square Cm 16.2 -Photo Taken No -Epithelialization Small 1-33% -Tunneling No -Undermining/Tunneling No -Circular Undermining No -Exudate Amt Medium -Exudate Type Serosanguineous -Wound Margin Distinct, Outline Attached -Granulation Amt Large (67-100%) -Granulation Quality Red -Slough/Fibrin No -Necrosis Amt None Present (0 %) -Texture (Araceli-wound Skin Appearance) Not Assessed, Scarring -Moisture (Araceli-wound Skin Appearance Assessed ) -Color (Araceli-wound Skin Appearance) Assessed -Temperature (Araceli-wound Skin No Abnormality Appearance) (Pt Warm) -Tenderness on Palpation (Araceli-wound No Skin Appearance) -Ulcer Cleansing soap and water -Foul Odor after Cleansing No -Anesthetic Used 5% Lidocaine Gel 1-right medial dorsal foot -Combined with other wound No -Current Size (cm) - Length 4.8 -Current Size (cm) - Width 3.1 -Current Size (cm) - Depth 0.1 -Total Square Cm 14.88 -Photo Taken No -Epithelialization Small 1-33% -Tunneling No -Undermining/Tunneling No -Circular Undermining No -Exudate Amt Medium -Exudate Type Serosanguineous -Wound Margin Distinct, Outline Attached -Granulation Amt Large (67-100%) -Granulation Quality Red -Slough/Fibrin No -Necrosis Amt None Present (0 %) -Structure Exposed Tendon -Texture (Araceli-wound Skin Appearance) Assessed, Scarring -Moisture (Araceli-wound Skin Appearance Assessed ) -Color (Araceli-wound Skin Appearance) Assessed -Temperature (Araceli-wound Skin No Abnormality Appearance) (Pt Warm) -Tenderness on Palpation (Araceli-wound No Skin Appearance) -Ulcer Cleansing soap and water -Foul Odor after Cleansing No -Anesthetic Used 5% Lidocaine Gel WC - Nurse 2 - General Ulcer CM Notes Start: 07/06/19 09:52 Freq: Status: Active Protocol: Activity Type Activity Date Activity User E-Sign Co-Sign Detail Recorded Client Recorded Date Recorded By Document 07/27/19 10:29 AN [id number] 07/27/19 10:37 AN 07/27/19 10:29 Wound Center Nurse 2 [Procedure/Treatment] 2-right lateral dorsal foot -Time 10:33 -Correct Patient Yes -Correct Side, Site, Position Yes -Correct Procedure Yes -Procedure Performed Yes -Type of Procedure Debridement -Clinical Debridement Subcutaneous -Post Debridement Size (cm) - Length 8.3 -Post Debridement Size (cm) - Width 2.2 -Post Debridement Size (cm) - Depth 0.1 -Total Square Cm 18.26 -Wound/Ulcer Outcome Not Healed -Type of bioengineered Tissue EPIFIX 1-right medial dorsal foot -Time 10:36 -Correct Patient Yes -Correct Side, Site, Position Yes -Correct Procedure Yes -Procedure Performed Yes -Type of Procedure Debridement -Clinical Debridement Subcutaneous -Post Debridement Size (cm) - Length 5.4 -Post Debridement Size (cm) - Width 2.8 -Post Debridement Size (cm) - Depth 0.1 -Total Square Cm 15.12 -Wound/Ulcer Outcome Not Healed -Type of bioengineered Tissue EPIFIX -Bleeding Controlled with Pressure -Offloading Yes -Treatment Response Procedure Tolerated Well [See Physician Procedure note for Specifics] Pain Scale: 0-10 Numeric [Pain] -Is Patient Pain Free? Yes Musculoskeletal: No Tenderness to Palpation of Joints or Extremities, Muscle Wasting Neurological: - - Lack of normal epicritic sensation light touch consistent with neuropathy left lower extremity Psych/Mental Status: Normal Affect, Appropriate Debridement Note Post-Debridement Measurements/Treatment WC - Nurse 2 - General Ulcer CM Notes Start: 07/06/19 09:52 Freq: Status: Active Protocol: Activity Type Activity Date Activity User E-Sign Co-Sign Detail Recorded Client Recorded Date Recorded By Document 07/06/19 10:10 AN [id number] 07/06/19 10:17 AN Document 07/13/19 10:37 AN [id number] 07/13/19 10:41 AN Document 07/20/19 11:48 AN [id number] 07/20/19 12:02 AN Document 07/27/19 10:29 AN [id number] 07/27/19 10:37 AN 07/06/19 07/13/19 07/20/19 10:10 10:37 11:48 Wound Center Nurse 2 2-right lateral dorsal foot -Time 10:10 10:39 11:51 -Correct Patient Yes Yes Yes -Correct Side, Site, Position Yes Yes Yes -Correct Procedure Yes Yes Yes -Procedure Performed Yes Yes Yes -Type of Procedure Debridement Debridement Debridement -Clinical Debridement Subcutaneous Subcutaneous Subcutaneous -Post Debridement Size (cm) - Length 10 8.1 8.3 -Post Debridement Size (cm) - Width 2.1 2.1 2.2 -Post Debridement Size (cm) - Depth 0.2 0.1 0.1 -Total Square Cm 21.0 17.01 18.26 -Wound/Ulcer Outcome Not Healed Not Healed Not Healed -Ulcer Cleansing Rinsed/ Rinsed/ Rinsed/ Irrigated with Irrigated with Irrigated with Saline Saline Saline -Foul Odor after Cleansing No No No -Bioengineered Tissue No No Yes -Type of bioengineered Tissue EPIFIX EPIFIX -Expiration Date 12/03/23 -Product Lot Number [id number] -Percent Used 50 -Bleeding Controlled with Pressure Pressure -Offloading Yes No -Treatment Response Procedure Procedure Tolerated Well Tolerated Well 1-right medial dorsal foot -Time 10:12 10:39 11:52 -Correct Patient Yes Yes Yes -Correct Side, Site, Position Yes Yes Yes -Correct Procedure Yes Yes Yes -Procedure Performed Yes Yes Yes -Type of Procedure Debridement Debridement Debridement -Clinical Debridement Subcutaneous Subcutaneous Subcutaneous -Post Debridement Size (cm) - Length 5.6 5.5 5.4 -Post Debridement Size (cm) - Width 2.7 2.7 2.8 -Post Debridement Size (cm) - Depth 0.2 0.1 0.1 -Total Square Cm 15.12 14.85 15.12 -Wound/Ulcer Outcome Not Healed Not Healed Not Healed -Ulcer Cleansing Rinsed/ Not Cleansed Rinsed/ Irrigated with Irrigated with Saline Saline -Foul Odor after Cleansing No No No -Bioengineered Tissue No Yes Yes -Type of bioengineered Tissue EPIFIX EPIFIX -Expiration Date 12/03/23 -Product Lot Number [id number] -Percent Used 50 -Bleeding Controlled with Pressure Pressure -Offloading Yes No -Treatment Response Procedure Procedure Not Tolerated Well Tolerated Well Pain Scale: 0-10 Numeric Is Patient Pain Free? Yes Yes 07/27/19 10:29 Wound Center Nurse 2 2-right lateral dorsal foot -Time 10:33 -Correct Patient Yes -Correct Side, Site, Position Yes -Correct Procedure Yes -Procedure Performed Yes -Type of Procedure Debridement -Clinical Debridement Subcutaneous -Post Debridement Size (cm) - Length 8.3 -Post Debridement Size (cm) - Width 2.2 -Post Debridement Size (cm) - Depth 0.1 -Total Square Cm 18.26 -Wound/Ulcer Outcome Not Healed -Ulcer Cleansing -Foul Odor after Cleansing -Bioengineered Tissue -Type of bioengineered Tissue EPIFIX -Expiration Date -Product Lot Number -Percent Used -Bleeding Controlled with -Offloading -Treatment Response 1-right medial dorsal foot -Time 10:36 -Correct Patient Yes -Correct Side, Site, Position Yes -Correct Procedure Yes -Procedure Performed Yes -Type of Procedure Debridement -Clinical Debridement Subcutaneous -Post Debridement Size (cm) - Length 5.4 -Post Debridement Size (cm) - Width 2.8 -Post Debridement Size (cm) - Depth 0.1 -Total Square Cm 15.12 -Wound/Ulcer Outcome Not Healed -Ulcer Cleansing -Foul Odor after Cleansing -Bioengineered Tissue -Type of bioengineered Tissue EPIFIX -Expiration Date -Product Lot Number -Percent Used -Bleeding Controlled with Pressure -Offloading Yes -Treatment Response Procedure Tolerated Well Pain Scale: 0-10 Numeric Is Patient Pain Free? Yes Wound debrided: dorsal foot / ankle (medial aspect) Laterality: Left Wound Grade/Stage: grade 3 Type of Debridement: Excisional debridement Anesthesia Used: 5% Lidocaine Gel Depth: in the subcutaneous layer Percentage of wound debrided: 100 Instrument Used: #15 blade Tissue Removed: fibrous, devitalized subcutaneous, biofilm, slough Severity: Fat Layer Exposed Amount of bleeding with debridement: Mild Bleeding Controlled with: Pressure Patient tolerated procedure well - Additional Wound Wound debrided: dorsal foot / ankle (lateral aspect) Laterality: Left Wound Grade/Stage: grade 3 Type of Debridement: Excisional debridement Anesthesia Used: 5% Lidocaine Gel Depth: in the subcutaneous layer - Silver nitrate was applied to the lateral hyper granulation tissue site and this was irrigated with normal saline prior to advanced wound healing product application Percentage of wound debrided: 100 Instrument Used: #15 blade Tissue Removed: fibrous, devitalized subcutaneous, biofilm, slough, hypergranulation tissue Severity: Fat Layer Exposed Amount of bleeding with debridement: Mild Bleeding Controlled with: Pressure Patient tolerated procedure: Patient tolerated procedure well Assessment/Plan Active Problems Type 2 diabetes mellitus with foot ulcer (Chronic) Hypergranulation (Acute) Edema of right lower extremity (Chronic) 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 Uncontrolled diabetes with neuropathy. Delayed healing. Malnutrition Plan: I reviewed and discussed his case. I reviewed his diagnostic data. He does not appear to have arterial disease and no intervention plan at this time. His venous Doppler results are reviewed and he does not have DVT. Additional work-up with reflux exam will be considered in the future pending continued improvement. Excisional subcutaneous debridement was performed as noted in the clinical panel. Additional silver nitrate was applied to the hyper granular tissue site and he tolerated this well. Saline irrigation was performed. He is reassured no signs of infection are noted in his prior work-up and intervention is noted. Pressure was applied to maintain hemostasis. Verbal consent was obtained for application of advanced wound healing product, epi-fix. This was applied according standard protocol was further secured in place with a wound veil and Steri-Strips. He tolerated this well. A secondary dressing including a jaziel wound VAC was applied. This is medically necessary for limb salvage. He has adequate perfusion expected to allow healing and he does not smoke. The indications, benefits, and anticipated healing time and management were discussed. He was amendable to proceed. He was advised to keep this clean and intact until follow-up in the next week. To continue CAM Walker use. He was fitted for this recently and is doing well. He was reminded he is not permitted to drive with his boot in place. I also recommend nutritional supplementation including Robin. He is not able to cover the cost due to lack of insurance coverage and I recommended Glucerna as an alternative. I also recommend a nutrition referral to optimize healing and for better diabetic control. He is amendable to attend. His edema is also controlled with compression sleeve and periodic elevation throughout the day. To continue work with his primary care physician for glucose management; his elevated hemoglobin A1c is noted. We also discussed etiology and treatment options for gabapentin and met next use for neuropathy management. A prescription for metanx was provided previously and he was advised on proper use. He started this medication. He was advised to follow-up with his primary care physician to consider reinitiation of gabapentin or similar prescription. To return to the wound healing center 1 week or call sooner if he has any questions or concerns. I answered all his questions.
[2019-07-29 12:03] VITALS: BP 145/88; PULSE 98; RESP 16; TEMP 36.9; BMI 37.6
== END 2019-08-01 23:59 ==
LOC: WC 12:00
PROVIDERS: Family Provider Internal Medicine Endocrinology, Diabetes & Metabolism; PCP Internal Medicine Endocrinology, Diabetes & Metabolism; Visit Provider Podiatrist
DX: E11.622 Type 2 diabetes mellitus with other skin ulcer (principal); E11.40 Type 2 diabetes mellitus with diabetic neuropathy, unspecified; E11.65 Type 2 diabetes mellitus with hyperglycemia; M20.5X1 Other deformities of toe(s) (acquired), right foot; L84 Corns and callosities; R60.0 Localized edema; L97.312 Non-pressure chronic ulcer of right ankle with fat layer exposed
CPT/HCPCS: 11042; 11045; 15275; 97607; 99213; Q4186; G0463

== ENCOUNTER → 2019-08-05 | Outpatient (CLI) | payer OTHER, SELFPAY ==
[2019-07-20 10:46] VITALS: BMI 37.6
[2019-08-03 14:26] VITALS: BMI 37.6
--- NOTE | 2019-08-05 10:37 | NM_ITS ---
CLINICAL: 54-year-old diabetic male with reported history of abdominal bloating. SEMI-SOLID PHASE 99m Tc SULFUR COLLOID GASTRIC EMPTYING STUDY COMPARISON: None available FINDINGS: The patient was administered 1.0 mCi of 99m Tc sulfur colloid mixed with oatmeal and consumed per os. Image acquisitions in the anterior-posterior projections for a total of 60 minutes. There is prompt visualization of the stomach. There is no gastroesophageal reflux identified. No definitive visualized emptying of the gastric contents is noted during 60 minutes of sequential image acquisition. Accordingly, the T1/2 linear fit was not calculable. NM/Gastric Emptying Study IMPRESSION: 1. MARKEDLY ABNORMAL 99m Tc sulfur colloid semi-solid phase (oatmeal) gastric emptying imaging examination. A. There is significant delayed semi-solid phase gastric emptying compared to normal controls. (Joni et al, J Nucl Med Tech 38: 186, 2010). Electronically Signed: Luis Angel Bingham DO at 9:19 EDT Tel , Service support ,
== END | disposition home or self-care (01) ==
LOC: NM 10:35
PROVIDERS: Family Provider Internal Medicine Endocrinology, Diabetes & Metabolism; PCP Internal Medicine Endocrinology, Diabetes & Metabolism; Referring Provider Internal Medicine Endocrinology, Diabetes & Metabolism; Visit Provider Internal Medicine Endocrinology, Diabetes & Metabolism
DX: E11.9 Type 2 diabetes mellitus without complications (principal)
CPT/HCPCS: 78264; A9541

== ENCOUNTER 2019-08-31 09:45 | Outpatient (RCR) | payer OTHER, SELFPAY ==
[2019-08-02 01:07] VITALS: BP 145/88; PULSE 98; RESP 16; TEMP 36.9
[2019-08-03 14:26] VITALS: BP 144/83; PULSE 84; RESP 18; TEMP 36.3; BMI 37.6
--- NOTE | 2019-08-03 16:08 | PCM.WC.PN ---
(1) Type 2 diabetes mellitus with foot ulcer Status: Chronic Current Visit: Yes Code(s): E11.621 - Type 2 diabetes mellitus with foot ulcer; L97.509 - Non-pressure chronic ulcer of other part of unspecified foot with unspecified severity (2) Malnutrition Status: Suspected Current Visit: Yes Code(s): E46 - Unspecified protein-calorie malnutrition (3) Ulcer of right foot with fat layer exposed Status: Chronic Current Visit: Yes Code(s): L97.512 - Non-pressure chronic ulcer of other part of right foot with fat layer exposed Type of Wound Date of Service: 08/03/19 Chief Complaint: Right ankle/foot ulcers History of Wound: This 54-year-old male with uncontrolled diabetes presents today for comprehensive wound healing plan for the right lower extremity. He denies current fever, chill, nausea, vomiting, loss of appetite. He has 2 main ulcers to his anterior foot and ankle that has exposed tendon. He has been wearing the cam walker boot to immobilize this to prevent tendon gliding. Kept his wound VAC placed this past week without any leaking encounters. He denies odor or redness. Progress of Wound: Improving - Physical Exam Vital Signs Temp Pulse Resp BP 97.3 F L 84 18 144/83 H 08/03/19 14:26 08/03/19 14:26 08/03/19 14:26 08/03/19 14:26 General: Alert, Oriented x3, Cooperative, No apparent distress Extremities: No cyanosis, Capillary Refill Less than 3 Seconds, No Calf Tenderness, Diminished Peripheral Pulses, Edema Skin: Ulcer/ Wound - Peripheral epithelialization is noted without purulence, erythema, string, odor, infection. Scant tendon is exposed to the medial ulcer site no longer visualized on the lateral ulcer site. His peripheral skin is atrophic, - - There is no ulcer noted to the hallux Wound Measurements and Assessment WC - Nurse 1 - General Ulcer Measurement Start: 08/03/19 14:26 Freq: Status: Active Protocol: Activity Type Activity Date Activity User E-Sign Co-Sign Detail Recorded Client Recorded Date Recorded By Document 08/03/19 14:26 RB [id number] 08/03/19 14:41 RB 08/03/19 14:26 Wound Center Nurse 1 [Ulcer Assessment] 2-right lateral dorsal foot -Combined with other wound No -Current Size (cm) - Length 7 -Current Size (cm) - Width 1.4 -Current Size (cm) - Depth 0.1 -Total Square Cm 9.8 -Tunneling No -Undermining/Tunneling No -Circular Undermining No -Exudate Amt Medium -Exudate Type Serosanguineous -Wound Margin Flat & Intact -Granulation Amt Medium (34-66%) -Granulation Quality Red -Slough/Fibrin Yes -Necrosis Amt Small (1-33%) -Necrotic Tissue Type Adherent Slough -Structure Exposed N/A -Texture (Araceli-wound Skin Appearance) Assessed -Moisture (Araceli-wound Skin Appearance Maceration ) -Color (Araceli-wound Skin Appearance) Assessed -Temperature (Araceli-wound Skin No Abnormality Appearance) (Pt Warm) -Tenderness on Palpation (Araceli-wound No Skin Appearance) -Ulcer Cleansing Wound Cleanser -Foul Odor after Cleansing No -Anesthetic Used 4% Lidocaine Solution 1-right medial dorsal foot -Combined with other wound No -Current Size (cm) - Length 4.5 -Current Size (cm) - Width 2.3 -Current Size (cm) - Depth 0.1 -Total Square Cm 10.35 -Tunneling No -Undermining/Tunneling No -Circular Undermining No -Exudate Amt Medium -Exudate Type Serosanguineous -Wound Margin Flat & Intact -Granulation Amt Medium (34-66%) -Granulation Quality [place] -Slough/Fibrin Yes -Necrosis Amt Small (1-33%) -Necrotic Tissue Type Adherent Slough -Structure Exposed N/A -Texture (Araceli-wound Skin Appearance) Assessed -Moisture (Araceli-wound Skin Appearance Maceration ) -Color (Araceli-wound Skin Appearance) Assessed -Temperature (Araceli-wound Skin No Abnormality Appearance) (Pt Warm) -Tenderness on Palpation (Araceli-wound No Skin Appearance) -Ulcer Cleansing Wound Cleanser -Foul Odor after Cleansing No -Anesthetic Used 4% Lidocaine Solution [Edema Assessment] -Lower Limb Edema Present Yes -Right Calf (cm) 43 -Right Ankle (cm) 26 WC - Nurse 2 - General Ulcer CM Notes Start: 08/03/19 14:26 Freq: Status: Active Protocol: Activity Type Activity Date Activity User E-Sign Co-Sign Detail Recorded Client Recorded Date Recorded By Document 08/03/19 14:55 AN [id number] 08/03/19 15:01 AN 08/03/19 14:55 Wound Center Nurse 2 [Procedure/Treatment] 2-right lateral dorsal foot -Time 14:56 -Correct Patient Yes -Correct Side, Site, Position Yes -Correct Procedure Yes -Procedure Performed Yes -Type of Procedure Debridement -Clinical Debridement Subcutaneous -Post Debridement Size (cm) - Length 7.1 -Post Debridement Size (cm) - Width 1.5 -Post Debridement Size (cm) - Depth 0.1 -Total Square Cm 10.65 -Wound/Ulcer Outcome Not Healed -Ulcer Cleansing Rinsed/ Irrigated with Saline -Bioengineered Tissue Yes -Type of bioengineered Tissue EPIFIX -Bleeding Controlled with Pressure -Offloading Yes -Type of Offloading Camwalker -Treatment Response Procedure Tolerated Well 1-right medial dorsal foot -Time 14:59 -Correct Patient Yes -Correct Side, Site, Position Yes -Correct Procedure Yes -Procedure Performed Yes -Type of Procedure Debridement -Clinical Debridement Subcutaneous -Post Debridement Size (cm) - Length 4.6 -Post Debridement Size (cm) - Width 2.4 -Post Debridement Size (cm) - Depth 0.1 -Total Square Cm 11.04 -Wound/Ulcer Outcome Not Healed -Ulcer Cleansing Rinsed/ Irrigated with Saline -Foul Odor after Cleansing No -Bioengineered Tissue No -Type of bioengineered Tissue EPIFIX -Bleeding Controlled with Pressure -Offloading Yes -Type of Offloading Camwalker -Treatment Response Procedure Tolerated Well [See Physician Procedure note for Specifics] Pain Scale: 0-10 Numeric [Pain] -Is Patient Pain Free? Yes Musculoskeletal: No Tenderness to Palpation of Joints or Extremities, Muscle Wasting Neurological: - - Lack of normal sensation light touch is consistent with neuropathy Psych/Mental Status: Normal Affect, Appropriate Debridement Note Post-Debridement Measurements/Treatment WC - Nurse 2 - General Ulcer CM Notes Start: 08/03/19 14:26 Freq: Status: Active Protocol: Activity Type Activity Date Activity User E-Sign Co-Sign Detail Recorded Client Recorded Date Recorded By Document 08/03/19 14:55 AN [id number] 08/03/19 15:01 AN 08/03/19 14:55 Wound Center Nurse 2 2-right lateral dorsal foot -Time 14:56 -Correct Patient Yes -Correct Side, Site, Position Yes -Correct Procedure Yes -Procedure Performed Yes -Type of Procedure Debridement -Clinical Debridement Subcutaneous -Post Debridement Size (cm) - Length 7.1 -Post Debridement Size (cm) - Width 1.5 -Post Debridement Size (cm) - Depth 0.1 -Total Square Cm 10.65 -Wound/Ulcer Outcome Not Healed -Ulcer Cleansing Rinsed/ Irrigated with Saline -Bioengineered Tissue Yes -Type of bioengineered Tissue EPIFIX -Bleeding Controlled with Pressure -Offloading Yes -Type of Offloading Camwalker -Treatment Response Procedure Tolerated Well 1-right medial dorsal foot -Time 14:59 -Correct Patient Yes -Correct Side, Site, Position Yes -Correct Procedure Yes -Procedure Performed Yes -Type of Procedure Debridement -Clinical Debridement Subcutaneous -Post Debridement Size (cm) - Length 4.6 -Post Debridement Size (cm) - Width 2.4 -Post Debridement Size (cm) - Depth 0.1 -Total Square Cm 11.04 -Wound/Ulcer Outcome Not Healed -Ulcer Cleansing Rinsed/ Irrigated with Saline -Foul Odor after Cleansing No -Bioengineered Tissue No -Type of bioengineered Tissue EPIFIX -Bleeding Controlled with Pressure -Offloading Yes -Type of Offloading Camwalker -Treatment Response Procedure Tolerated Well Pain Scale: 0-10 Numeric Is Patient Pain Free? Yes Wound debrided: dorsal foot/anteriora ankle (medial) Laterality: Right Wound Grade/Stage: grade 3 Type of Debridement: Excisional debridement Anesthesia Used: 5% Lidocaine Gel Depth: in the subcutaneous layer Percentage of wound debrided: 100 Instrument Used: #15 blade Tissue Removed: fibrous, devitalized subcutaneous, biofilm, slough Severity: Fat Layer Exposed Amount of bleeding with debridement: Mild Bleeding Controlled with: Pressure Patient tolerated procedure well - Additional Wound Wound debrided: dorsal foot / anterior ankle (lateral) Laterality: Right Wound Grade/Stage: grade 3 Type of Debridement: Excisional debridement Anesthesia Used: 5% Lidocaine Gel Depth: in the subcutaneous layer Percentage of wound debrided: 100 Instrument Used: #15 blade Tissue Removed: fibrous, devitalized subcutaneous, biofilm, slough Severity: Fat Layer Exposed Amount of bleeding with debridement: Mild Bleeding Controlled with: Pressure Patient tolerated procedure: Patient tolerated procedure well Assessment/Plan Active Problems Type 2 diabetes mellitus with foot ulcer (Chronic) Type 2 diabetes mellitus with foot ulcer (Acute) Ulcer of right foot with fat layer exposed (Chronic) Assessment: Ulcer anterior medial and lateral right ankle/foot with resolved infection and continued exposed extensor tendons. Uncontrolled diabetes with neuropathy. Delayed healing. Malnutrition Plan: I reviewed and discussed his case. I reviewed his diagnostic data. He does not appear to have arterial disease and no intervention plan at this time. His venous Doppler results are reviewed and he does not have DVT. Additional work-up with reflux exam will be considered in the future pending continued improvement. Excisional subcutaneous debridement was performed as noted in the clinical panel. He is reassured no signs of infection are noted in his prior work-up and intervention is noted. Pressure was applied to maintain hemostasis. Verbal consent was obtained for application of advanced wound healing product, epi-fix. This was applied according standard protocol was further secured in place with a wound veil and Steri-Strips. He tolerated this well. A secondary dressing including a jaziel wound VAC was applied. This is medically necessary for limb salvage. He has adequate perfusion expected to allow healing and he does not smoke. The indications, benefits, and anticipated healing time and management were discussed. He was amendable to proceed. He was advised to keep this clean and intact until follow-up in the next week. To continue CAM Walker use. He was fitted for this recently and is doing well. He was reminded he is not permitted to drive with his boot in place. I also recommend nutritional supplementation including Robin. He is not able to cover the cost due to lack of insurance coverage and I recommended Glucerna as an alternative. I also recommend a nutrition referral to optimize healing and for better diabetic control. He is amendable to attend. His edema is also controlled with compression sleeve and periodic elevation throughout the day. To continue work with his primary care physician for glucose management; his elevated hemoglobin A1c is noted. We also discussed etiology and treatment options for gabapentin and met next use for neuropathy management. A prescription for metanx was provided previously and he was advised on proper use. He started this medication. He was advised to follow-up with his primary care physician to consider reinitiation of gabapentin or similar prescription. To return to the wound healing center 1 week or call sooner if he has any questions or concerns. I answered all his questions.
[2019-08-10 10:12] VITALS: BP 153/85; PULSE 94; RESP 16; TEMP 36.4; BMI 37.6
--- NOTE | 2019-08-10 10:46 | PCM.WC.PN ---
(1) Type 2 diabetes mellitus with foot ulcer Status: Chronic Current Visit: Yes Code(s): E11.621 - Type 2 diabetes mellitus with foot ulcer; L97.509 - Non-pressure chronic ulcer of other part of unspecified foot with unspecified severity (2) Malnutrition Status: Suspected Current Visit: Yes Code(s): E46 - Unspecified protein-calorie malnutrition (3) Ulcer of right foot with fat layer exposed Status: Chronic Current Visit: Yes Code(s): L97.512 - Non-pressure chronic ulcer of other part of right foot with fat layer exposed Type of Wound Date of Service: 08/10/19 Chief Complaint: Right ankle/foot ulcers History of Wound: This 54-year-old male with uncontrolled diabetes presents today for comprehensive wound healing plan for the right lower extremity. He denies current fever, chill, nausea, vomiting, loss of appetite. He has 2 main ulcers to his anterior foot and ankle that has exposed tendon. He has been wearing the cam walker boot to immobilize this to prevent tendon gliding. Kept his wound VAC placed this past week without any leaking encounters. He denies odor or redness. Progress of Wound: Improving - Physical Exam Vital Signs Temp Pulse Resp BP 97.5 F L 94 16 153/85 H 08/10/19 10:12 08/10/19 10:12 08/10/19 10:12 08/10/19 10:12 General: Alert, Oriented x3, Cooperative, No apparent distress Extremities: No cyanosis, Capillary Refill Less than 3 Seconds, No Calf Tenderness, Diminished Peripheral Pulses, Edema Skin: Ulcer/ Wound - No purulence, erythema, string, odor, infection. Peripheral epithelialization is noted. Improved granulation tissue is noted and this is not hyper granular. Peripheral skin is hairless and atrophic. Wound Measurements and Assessment WC - Nurse 1 - General Ulcer Measurement Start: 08/03/19 14:26 Freq: Status: Active Protocol: Activity Type Activity Date Activity User E-Sign Co-Sign Detail Recorded Client Recorded Date Recorded By Document 08/10/19 10:12 [id number] 08/10/19 10:15 08/10/19 10:12 Wound Center Nurse 1 [Ulcer Assessment] 2-right lateral dorsal foot -Combined with other wound No -Current Size (cm) - Length 6.5 -Current Size (cm) - Width 1.2 -Current Size (cm) - Depth 0.1 -Total Square Cm 7.80 -Photo Taken No -Epithelialization Small 1-33% -Tunneling No -Undermining/Tunneling No -Circular Undermining No -Exudate Amt Medium -Exudate Type Serosanguineous -Wound Margin Distinct, Outline Attached -Granulation Amt Large (67-100%) -Granulation Quality [place],Red -Necrosis Amt None Present (0 %) -Necrotic Tissue Type Adherent Slough -Structure Exposed N/A -Texture (Araceli-wound Skin Appearance) No Abnormality, Assessed -Moisture (Araceli-wound Skin Appearance Maceration ) -Color (Araceli-wound Skin Appearance) Erythema -Temperature (Araceli-wound Skin No Abnormality Appearance) (Pt Warm) -Tenderness on Palpation (Araceli-wound No Skin Appearance) -Ulcer Cleansing Rinsed/ Irrigated with Saline -Foul Odor after Cleansing No -Anesthetic Used 4% Lidocaine Solution 1-right medial dorsal foot -Combined with other wound No -Current Size (cm) - Length 4.4 -Current Size (cm) - Width 2.2 -Current Size (cm) - Depth 0.1 -Total Square Cm 9.68 -Photo Taken No -Epithelialization Small 1-33% -Tunneling No -Undermining/Tunneling No -Circular Undermining No -Exudate Amt Medium -Exudate Type Serosanguineous -Wound Margin Distinct, Outline Attached -Granulation Amt Large (67-100%) -Granulation Quality [place],Red -Slough/Fibrin Yes -Necrosis Amt None Present (0 %) -Necrotic Tissue Type Adherent Slough -Structure Exposed N/A -Texture (Araceli-wound Skin Appearance) No Abnormality, Assessed -Moisture (Araceli-wound Skin Appearance Maceration ) -Color (Araceli-wound Skin Appearance) Assessed, Erythema -Temperature (Araceli-wound Skin No Abnormality Appearance) (Pt Warm) -Tenderness on Palpation (Araceli-wound No Skin Appearance) -Ulcer Cleansing Rinsed/ Irrigated with Saline -Foul Odor after Cleansing No -Anesthetic Used 4% Lidocaine Solution [Edema Assessment] -Lower Limb Edema Present NA WC - Nurse 2 - General Ulcer CM Notes Start: 08/03/19 14:26 Freq: Status: Active Protocol: Activity Type Activity Date Activity User E-Sign Co-Sign Detail Recorded Client Recorded Date Recorded By Document 08/10/19 10:40 AN [id number] 08/10/19 10:45 AN 08/10/19 10:40 Wound Center Nurse 2 [Procedure/Treatment] 2-right lateral dorsal foot -Time 10:44 -Correct Patient Yes -Correct Side, Site, Position Yes -Correct Procedure Yes -Procedure Performed Yes -Type of Procedure Debridement -Clinical Debridement Subcutaneous -Post Debridement Size (cm) - Length 6.6 -Post Debridement Size (cm) - Width 1.3 -Post Debridement Size (cm) - Depth 0.1 -Total Square Cm 8.58 -Wound/Ulcer Outcome Not Healed -Ulcer Cleansing Rinsed/ Irrigated with Saline -Foul Odor after Cleansing No -Bioengineered Tissue No -Type of bioengineered Tissue EPIFIX -Treatment Response Procedure Tolerated Well 1-right medial dorsal foot -Time 10:44 -Correct Patient Yes -Correct Side, Site, Position Yes -Correct Procedure Yes -Procedure Performed Yes -Type of Procedure Debridement -Clinical Debridement Subcutaneous -Post Debridement Size (cm) - Length 4.5 -Post Debridement Size (cm) - Width 2.3 -Post Debridement Size (cm) - Depth 0.1 -Total Square Cm 10.35 -Wound/Ulcer Outcome Not Healed -Bioengineered Tissue Yes -Type of bioengineered Tissue EPIFIX -Treatment Response Procedure Tolerated Well [See Physician Procedure note for Specifics] Pain Scale: 0-10 Numeric [Pain] -Is Patient Pain Free? Yes Musculoskeletal: No Tenderness to Palpation of Joints or Extremities, Muscle Wasting Neurological: - - Lack of normal epicritic sensation light touch Psych/Mental Status: Normal Affect, Appropriate Debridement Note Post-Debridement Measurements/Treatment WC - Nurse 2 - General Ulcer CM Notes Start: 08/03/19 14:26 Freq: Status: Active Protocol: Activity Type Activity Date Activity User E-Sign Co-Sign Detail Recorded Client Recorded Date Recorded By Document 08/03/19 14:55 AN [id number] 08/03/19 15:01 AN Document 08/10/19 10:40 AN [id number] 08/10/19 10:45 AN 08/03/19 08/10/19 14:55 10:40 Wound Center Nurse 2 2-right lateral dorsal foot -Time 14:56 10:44 -Correct Patient Yes Yes -Correct Side, Site, Position Yes Yes -Correct Procedure Yes Yes -Procedure Performed Yes Yes -Type of Procedure Debridement Debridement -Clinical Debridement Subcutaneous Subcutaneous -Post Debridement Size (cm) - Length 7.1 6.6 -Post Debridement Size (cm) - Width 1.5 1.3 -Post Debridement Size (cm) - Depth 0.1 0.1 -Total Square Cm 10.65 8.58 -Wound/Ulcer Outcome Not Healed Not Healed -Ulcer Cleansing Rinsed/ Rinsed/ Irrigated with Irrigated with Saline Saline -Foul Odor after Cleansing No -Bioengineered Tissue Yes No -Type of bioengineered Tissue EPIFIX EPIFIX -Bleeding Controlled with Pressure -Offloading Yes -Type of Offloading Camwalker -Treatment Response Procedure Procedure Tolerated Well Tolerated Well 1-right medial dorsal foot -Time 14:59 10:44 -Correct Patient Yes Yes -Correct Side, Site, Position Yes Yes -Correct Procedure Yes Yes -Procedure Performed Yes Yes -Type of Procedure Debridement Debridement -Clinical Debridement Subcutaneous Subcutaneous -Post Debridement Size (cm) - Length 4.6 4.5 -Post Debridement Size (cm) - Width 2.4 2.3 -Post Debridement Size (cm) - Depth 0.1 0.1 -Total Square Cm 11.04 10.35 -Wound/Ulcer Outcome Not Healed Not Healed -Ulcer Cleansing Rinsed/ Irrigated with Saline -Foul Odor after Cleansing No -Bioengineered Tissue No Yes -Type of bioengineered Tissue EPIFIX EPIFIX -Bleeding Controlled with Pressure -Offloading Yes -Type of Offloading Camwalker -Treatment Response Procedure Procedure Tolerated Well Tolerated Well Pain Scale: 0-10 Numeric Is Patient Pain Free? Yes Yes Wound debrided: dorsal foot medial Laterality: Right Wound Grade/Stage: grade 3 Type of Debridement: Excisional debridement Anesthesia Used: 5% Lidocaine Gel Depth: in the subcutaneous layer Percentage of wound debrided: 100 Instrument Used: #15 blade Tissue Removed: fibrous, devitalized subcutaneous, biofiom, slough Severity: Fat Layer Exposed Amount of bleeding with debridement: Mild Bleeding Controlled with: Pressure Patient tolerated procedure well - Additional Wound Wound debrided: dorsal foot lateral Laterality: Right Wound Grade/Stage: grade 3 Type of Debridement: Excisional debridement Anesthesia Used: 5% Lidocaine Gel Depth: in the subcutaneous layer Percentage of wound debrided: 100 Instrument Used: #15 blade Tissue Removed: fibrous, devitalized subcutaneous, biofiom, slough Severity: Fat Layer Exposed Amount of bleeding with debridement: Mild Bleeding Controlled with: Pressure Patient tolerated procedure: Patient tolerated procedure well Assessment/Plan Active Problems Type 2 diabetes mellitus with foot ulcer (Chronic) Type 2 diabetes mellitus with foot ulcer (Acute) Ulcer of right foot with fat layer exposed (Chronic) Assessment: Ulcer anterior medial and lateral right ankle/foot with resolved infection and continued exposed extensor tendons. Uncontrolled diabetes with neuropathy. Delayed healing. Malnutrition Plan: I reviewed and discussed his case. I reviewed his diagnostic data. He does not appear to have arterial disease and no intervention plan at this time. His venous Doppler results are reviewed and he does not have DVT. Additional work-up with reflux exam will be considered in the future pending continued improvement. Excisional subcutaneous debridement was performed as noted in the clinical panel. He is reassured no signs of infection are noted in his prior work-up and intervention is noted. Pressure was applied to maintain hemostasis. Verbal consent was obtained for application of advanced wound healing product, epi-fix. This was applied according standard protocol was further secured in place with a wound veil and Steri-Strips. He tolerated this well. A secondary dressing including a jaziel wound VAC was applied. This is medically necessary for limb salvage. He has adequate perfusion expected to allow healing and he does not smoke. The indications, benefits, and anticipated healing time and management were discussed. He was amendable to proceed. He was advised to keep this clean and intact until follow-up in the next week. To continue CAM Walker use. He was fitted for this recently and is doing well. He was reminded he is not permitted to drive with his boot in place. I also recommend nutritional supplementation including Robin. He is not able to cover the cost due to lack of insurance coverage and I recommended Glucerna as an alternative. I also recommend a nutrition referral to optimize healing and for better diabetic control. He is amendable to attend. His edema is also controlled with compression sleeve and periodic elevation throughout the day. To continue work with his primary care physician for glucose management; his elevated hemoglobin A1c is noted. We also discussed etiology and treatment options for gabapentin and met next use for neuropathy management. A prescription for metanx was provided previously and he was advised on proper use. He started this medication. He was advised to follow-up with his primary care physician to consider reinitiation of gabapentin or similar prescription. To return to the wound healing center 1 week or call sooner if he has any questions or concerns. I answered all his questions.
[2019-08-17 09:07] VITALS: BP 134/91; PULSE 103; RESP 20; TEMP 36.5; BMI 37.6
--- NOTE | 2019-08-17 10:12 | PCM.WC.PN ---
(1) Ulcer of right foot with fat layer exposed Status: Chronic Current Visit: Yes Code(s): L97.512 - Non-pressure chronic ulcer of other part of right foot with fat layer exposed (2) Type 2 diabetes mellitus with foot ulcer Status: Chronic Current Visit: Yes Code(s): E11.621 - Type 2 diabetes mellitus with foot ulcer; L97.509 - Non-pressure chronic ulcer of other part of unspecified foot with unspecified severity (3) Malnutrition Status: Suspected Current Visit: Yes Code(s): E46 - Unspecified protein-calorie malnutrition Type of Wound Date of Service: 08/17/19 Chief Complaint: Right ankle/foot ulcers History of Wound: This 54-year-old male with uncontrolled diabetes presents today for comprehensive wound healing plan for the right lower extremity. He denies current fever, chill, nausea, vomiting, loss of appetite. He has 2 main ulcers to his anterior foot and ankle that has exposed tendon. He has been wearing the cam walker boot to immobilize this to prevent tendon gliding. Kept his wound VAC placed this past week without any leaking encounters. He denies odor or redness. Progress of Wound: Improving - Physical Exam Vital Signs Temp Pulse Resp BP 97.7 F L 103 H 20 H 134/91 H 08/17/19 09:07 08/17/19 09:07 08/17/19 09:07 08/17/19 09:07 General: Alert, Oriented x3, Cooperative, No apparent distress Extremities: No cyanosis, Capillary Refill Less than 3 Seconds, No Calf Tenderness, Diminished Peripheral Pulses, Edema - Mild Skin: Ulcer/ Wound - No purulence, erythema, string, odor, infection. peripheral epithelialization is noted in a significant manner to the lateral aspect. no tendon is exposed. peripheral skin is atrophic Wound Measurements and Assessment WC - Nurse 1 - General Ulcer Measurement Start: 08/03/19 14:26 Freq: Status: Active Protocol: Activity Type Activity Date Activity User E-Sign Co-Sign Detail Recorded Client Recorded Date Recorded By Document 08/17/19 09:07 DL [id number] 08/17/19 09:13 DL 08/17/19 09:07 Wound Center Nurse 1 [Ulcer Assessment] 2-right lateral dorsal foot -Current Size (cm) - Length 5 -Current Size (cm) - Width 0.4 -Current Size (cm) - Depth 0.1 -Total Square Cm 2.0 -Photo Taken No -Exudate Amt Small -Exudate Type Sanguineous -Wound Margin Distinct, Outline Attached -Granulation Amt Large (67-100%) -Granulation Quality Red -Necrosis Amt None Present (0 %) -Structure Exposed N/A -Texture (Araceli-wound Skin Appearance) Scarring -Moisture (Araceli-wound Skin Appearance No Abnormality ) -Color (Araceli-wound Skin Appearance) No Abnormality, Rubor -Temperature (Araceli-wound Skin No Abnormality Appearance) (Pt Warm) -Tenderness on Palpation (Araceli-wound No Skin Appearance) -Ulcer Cleansing Wound Cleanser -Foul Odor after Cleansing No -Anesthetic Used 4% Lidocaine Solution 1-right medial dorsal foot -Current Size (cm) - Length 3.8 -Current Size (cm) - Width 2 -Current Size (cm) - Depth 0.1 -Total Square Cm 7.6 -Photo Taken No -Exudate Amt Small -Exudate Type Serosanguineous -Wound Margin Distinct, Outline Attached -Granulation Amt Large (67-100%) -Granulation Quality Hyper- granulation, [place] -Necrosis Amt Small (1-33%) -Necrotic Tissue Type Adherent Slough -Structure Exposed N/A -Texture (Araceli-wound Skin Appearance) No Abnormality, Scarring -Moisture (Araceli-wound Skin Appearance No Abnormality ) -Color (Araceli-wound Skin Appearance) No Abnormality, Rubor -Temperature (Araceli-wound Skin No Abnormality Appearance) (Pt Warm) -Tenderness on Palpation (Araceli-wound No Skin Appearance) -Ulcer Cleansing Wound Cleanser -Foul Odor after Cleansing No -Anesthetic Used 4% Lidocaine Solution WC - Nurse 2 - General Ulcer CM Notes Start: 08/03/19 14:26 Freq: Status: Active Protocol: Activity Type Activity Date Activity User E-Sign Co-Sign Detail Recorded Client Recorded Date Recorded By Document 08/17/19 09:35 AN [email or web address] 08/17/19 09:41 AN 08/17/19 09:35 Wound Center Nurse 2 [Procedure/Treatment] 2-right lateral dorsal foot -Time 09:38 -Correct Patient Yes -Correct Side, Site, Position Yes -Correct Procedure Yes -Procedure Performed Yes -Type of Procedure Debridement -Clinical Debridement Subcutaneous -Post Debridement Size (cm) - Length 5.1 -Post Debridement Size (cm) - Width 0.5 -Post Debridement Size (cm) - Depth 0.1 -Total Square Cm 2.55 -Wound/Ulcer Outcome Not Healed -Ulcer Cleansing Not Cleansed -Foul Odor after Cleansing No -Bioengineered Tissue Yes -Type of bioengineered Tissue EPIFIX -Bleeding Controlled with Pressure -Offloading Yes -Treatment Response Procedure Tolerated Well 1-right medial dorsal foot -Time 09:38 -Correct Patient Yes -Correct Side, Site, Position Yes -Correct Procedure Yes -Procedure Performed Yes -Type of Procedure Debridement -Clinical Debridement Subcutaneous -Post Debridement Size (cm) - Length 3.9 -Post Debridement Size (cm) - Width 2.1 -Post Debridement Size (cm) - Depth 0.1 -Total Square Cm 8.19 -Wound/Ulcer Outcome Not Healed -Ulcer Cleansing Not Cleansed -Foul Odor after Cleansing No -Bioengineered Tissue Yes -Type of bioengineered Tissue EPIFIX -Bleeding Controlled with Pressure -Offloading Yes -Treatment Response Procedure Tolerated Well [See Physician Procedure note for Specifics] Pain Scale: 0-10 Numeric [Pain] -Is Patient Pain Free? Yes Musculoskeletal: No Tenderness to Palpation of Joints or Extremities, Muscle Wasting Neurological: - - Lack of epicritic sensation is noted the light touch consistent with neuropathy status Psych/Mental Status: Normal Affect, Appropriate Debridement Note Post-Debridement Measurements/Treatment WC - Nurse 2 - General Ulcer CM Notes Start: 08/03/19 14:26 Freq: Status: Active Protocol: Activity Type Activity Date Activity User E-Sign Co-Sign Detail Recorded Client Recorded Date Recorded By Document 08/03/19 14:55 AN [id number] 08/03/19 15:01 AN Document 08/10/19 10:40 AN [id number] 08/10/19 10:45 AN Document 08/17/19 09:35 AN [email or web address] 08/17/19 09:41 AN 08/03/19 08/10/19 08/17/19 14:55 10:40 09:35 Wound Center Nurse 2 2-right lateral dorsal foot -Time 14:56 10:44 09:38 -Correct Patient Yes Yes Yes -Correct Side, Site, Position Yes Yes Yes -Correct Procedure Yes Yes Yes -Procedure Performed Yes Yes Yes -Type of Procedure Debridement Debridement Debridement -Clinical Debridement Subcutaneous Subcutaneous Subcutaneous -Post Debridement Size (cm) - Length 7.1 6.6 5.1 -Post Debridement Size (cm) - Width 1.5 1.3 0.5 -Post Debridement Size (cm) - Depth 0.1 0.1 0.1 -Total Square Cm 10.65 8.58 2.55 -Wound/Ulcer Outcome Not Healed Not Healed Not Healed -Ulcer Cleansing Rinsed/ Rinsed/ Not Cleansed Irrigated with Irrigated with Saline Saline -Foul Odor after Cleansing No No -Bioengineered Tissue Yes No Yes -Type of bioengineered Tissue EPIFIX EPIFIX EPIFIX -Bleeding Controlled with Pressure Pressure -Offloading Yes Yes -Type of Offloading Camwalker -Treatment Response Procedure Procedure Procedure Tolerated Well Tolerated Well Tolerated Well 1-right medial dorsal foot -Time 14:59 10:44 09:38 -Correct Patient Yes Yes Yes -Correct Side, Site, Position Yes Yes Yes -Correct Procedure Yes Yes Yes -Procedure Performed Yes Yes Yes -Type of Procedure Debridement Debridement Debridement -Clinical Debridement Subcutaneous Subcutaneous Subcutaneous -Post Debridement Size (cm) - Length 4.6 4.5 3.9 -Post Debridement Size (cm) - Width 2.4 2.3 2.1 -Post Debridement Size (cm) - Depth 0.1 0.1 0.1 -Total Square Cm 11.04 10.35 8.19 -Wound/Ulcer Outcome Not Healed Not Healed Not Healed -Ulcer Cleansing Rinsed/ Not Cleansed Irrigated with Saline -Foul Odor after Cleansing No No -Bioengineered Tissue No Yes Yes -Type of bioengineered Tissue EPIFIX EPIFIX EPIFIX -Bleeding Controlled with Pressure Pressure -Offloading Yes Yes -Type of Offloading Camwalker -Treatment Response Procedure Procedure Procedure Tolerated Well Tolerated Well Tolerated Well Pain Scale: 0-10 Numeric Is Patient Pain Free? Yes Yes Yes Wound debrided: dorsal foot (medial) Laterality: Right Wound Grade/Stage: grade 3 Type of Debridement: Excisional debridement Anesthesia Used: 5% Lidocaine Gel Depth: in the subcutaneous layer Percentage of wound debrided: 100 Instrument Used: #15 blade Tissue Removed: fibrous, devitalized subcutaneous, biofilm, slough Severity: Fat Layer Exposed Amount of bleeding with debridement: Mild Bleeding Controlled with: Pressure Patient tolerated procedure well - Additional Wound Wound debrided: dorsal foot (lateral) Laterality: Right Wound Grade/Stage: grade 3 Type of Debridement: Excisional debridement Anesthesia Used: 5% Lidocaine Gel Depth: in the subcutaneous layer Percentage of wound debrided: 100 Instrument Used: #15 blade Tissue Removed: fibrous, devitalized subcutaneous, biofilm, slough Severity: Fat Layer Exposed Amount of bleeding with debridement: Mild Bleeding Controlled with: Pressure Patient tolerated procedure: Patient tolerated procedure well Assessment/Plan Active Problems Type 2 diabetes mellitus with foot ulcer (Chronic) Type 2 diabetes mellitus with foot ulcer (Acute) Ulcer of right foot with fat layer exposed (Chronic) Assessment: Ulcer anterior medial and lateral right ankle/foot with resolved infection and continued exposed extensor tendons. Uncontrolled diabetes with neuropathy. Delayed healing. Malnutrition Plan: I reviewed and discussed his case. I reviewed his diagnostic data. He does not appear to have arterial disease and no intervention plan at this time. His venous Doppler results are reviewed and he does not have DVT. Additional work-up with reflux exam will be considered in the future pending continued improvement. Excisional subcutaneous debridement was performed as noted in the clinical panel. He is reassured no signs of infection are noted in his prior work-up and intervention is noted. Pressure was applied to maintain hemostasis. Verbal consent was obtained for application of advanced wound healing product, epi-fix. This was applied according standard protocol was further secured in place with a wound veil and Steri-Strips. He tolerated this well. A secondary dressing including a jaziel wound VAC was applied. This is medically necessary for limb salvage. He has adequate perfusion expected to allow healing and he does not smoke. The indications, benefits, and anticipated healing time and management were discussed. He was amendable to proceed. He was advised to keep this clean and intact until follow-up in the next week. To continue CAM Walker use. He was fitted for this recently and is doing well. He was reminded he is not permitted to drive with his boot in place. I also recommend nutritional supplementation including Robin. He is not able to cover the cost due to lack of insurance coverage and I recommended Glucerna as an alternative. I also recommend a nutrition referral to optimize healing and for better diabetic control. He is amendable to attend. His edema is also controlled with compression sleeve and periodic elevation throughout the day. To continue work with his primary care physician for glucose management; his elevated hemoglobin A1c is noted. We also discussed etiology and treatment options for gabapentin and met next use for neuropathy management. A prescription for metanx was provided previously and he was advised on proper use. He started this medication. He was advised to follow-up with his primary care physician to consider reinitiation of gabapentin or similar prescription. To return to the wound healing center 1 week or call sooner if he has any questions or concerns. I answered all his questions.
[2019-08-24 09:19] VITALS: BP 155/94; PULSE 103; RESP 18; TEMP 36.3; BMI 37.6
--- NOTE | 2019-08-24 11:40 | PN.PCM_ITS ---
(1) Ulcer of right foot with fat layer exposed Status: Chronic Current Visit: Yes Code(s): L97.512 - Non-pressure chronic ulcer of other part of right foot with fat layer exposed (2) Type 2 diabetes mellitus with foot ulcer Status: Chronic Current Visit: Yes Code(s): E11.621 - Type 2 diabetes mellitus with foot ulcer; L97.509 - Non-pressure chronic ulcer of other part of unspecified foot with unspecified severity (3) Malnutrition Status: Suspected Current Visit: Yes Code(s): E46 - Unspecified protein- calorie malnutrition Type of Wound Date of Service: 08/24/19 Chief Complaint: Right ankle/foot ulcers History of Wound: This 54-year-old male with uncontrolled diabetes presents today for comprehensive wound healing plan for the right lower extremity. He denies current fever, chill, nausea, vomiting, loss of appetite. He has two main ulcers to his anterior foot and ankle that has exposed tendon. He has been wearing the cam walker boot to immobilize this to prevent tendon gliding. Kept his wound VAC placed this past week. He denies odor or redness. Progress of Wound: Improving - Physical Exam Vital Signs Temp Pulse Resp BP 97.3 F L 103 H 18 155/94 H 08/24/19 09:19 08/24/19 09:19 08/24/19 09:19 08/24/19 09:19 General: Alert, Oriented x3, Cooperative, No apparent distress Extremities: No cyanosis, Capillary Refill Less than 3 Seconds, No Calf Tenderness - Negative Vlad and Davalos sign, Diminished Peripheral Pulses, Edema, - - No pain with self manipulation Skin: Ulcer/ Wound - No purulence, erythema, streaking, odor, infection. Peripheral since he had some atrophic and there is no other tendon Wound Measurements and Assessment WC - Nurse 1 - General Ulcer Measurement Start: 08/03/19 14:26 Freq: Status: Active Protocol: Activity Type Activity Date Activity User E-Sign Co-Sign Detail Recorded Client Recorded Date Recorded By Document 08/24/19 09:19 DL [id number] 08/24/19 09:25 DL 08/24/19 09:19 Wound Center Nurse 1 [Ulcer Assessment] 2-right lateral dorsal foot -Current Size (cm) - Length 2 -Current Size (cm) - Width 0.6 -Current Size (cm) - Depth 0.1 -Total Square Cm 1.2 -Photo Taken No -Exudate Amt Small -Exudate Type Serosanguineous -Wound Margin Distinct, Outline Attached -Granulation Amt Small (1-33%) -Granulation Quality Red -Necrosis Amt None Present (0 %) -Structure Exposed N/A -Texture (Araceli-wound Skin Appearance) Scarring -Moisture (Araceli-wound Skin Appearance No Abnormality ) -Color (Araceli-wound Skin Appearance) No Abnormality -Temperature (Araceli-wound Skin No Abnormality Appearance) (Pt Warm) -Tenderness on Palpation (Araceli-wound No Skin Appearance) -Ulcer Cleansing Wound Cleanser -Anesthetic Used 4% Lidocaine Solution 1-right medial dorsal foot -Current Size (cm) - Length 3.8 -Current Size (cm) - Width 2.4 -Current Size (cm) - Depth 0.1 -Total Square Cm 9.12 -Photo Taken No -Exudate Amt Small -Exudate Type Serosanguineous -Wound Margin Distinct, Outline Attached -Granulation Amt Medium (34-66%) -Granulation Quality Red -Necrosis Amt Medium (34-66%) -Necrotic Tissue Type Adherent Slough -Texture (Araceli-wound Skin Appearance) Scarring -Moisture (Araceli-wound Skin Appearance Maceration ) -Color (Araceli-wound Skin Appearance) Rubor -Temperature (Araceli-wound Skin No Abnormality Appearance) (Pt Warm) -Tenderness on Palpation (Araceli-wound No Skin Appearance) -Ulcer Cleansing Wound Cleanser -Foul Odor after Cleansing No -Anesthetic Used 4% Lidocaine Solution WC - Nurse 2 - General Ulcer CM Notes Start: 08/03/19 14:26 Freq: Status: Active Protocol: Activity Type Activity Date Activity User E-Sign Co-Sign Detail Recorded Client Recorded Date Recorded By Document 08/24/19 09:45 AN [id number] 08/24/19 09:47 AN 08/24/19 09:45 Wound Center Nurse 2 [Procedure/Treatment] 2-right lateral dorsal foot -Time 09:46 -Correct Patient Yes -Correct Side, Site, Position Yes -Correct Procedure Yes -Procedure Performed Yes -Type of Procedure Debridement -Clinical Debridement Subcutaneous -Post Debridement Size (cm) - Length 2.1 -Post Debridement Size (cm) - Width 0.7 -Post Debridement Size (cm) - Depth 0.1 -Total Square Cm 1.47 -Wound/Ulcer Outcome Not Healed -Type of bioengineered Tissue EPIFIX -Bleeding Controlled with Pressure -Offloading No -Type of Offloading Camwalker -Treatment Response Procedure Tolerated Well 1-right medial dorsal foot -Time 09:47 -Correct Patient Yes -Correct Side, Site, Position Yes -Correct Procedure Yes -Procedure Performed Yes -Type of Procedure Debridement -Clinical Debridement Subcutaneous -Post Debridement Size (cm) - Length 3.9 -Post Debridement Size (cm) - Width 2.5 -Post Debridement Size (cm) - Depth 0.1 -Total Square Cm 9.75 -Wound/Ulcer Outcome Not Healed -Type of bioengineered Tissue EPIFIX -Bleeding Controlled with Pressure -Offloading Yes -Type of Offloading Camwalker -Treatment Response Procedure Tolerated Well [See Physician Procedure note for Specifics] Pain Scale: 0-10 Numeric [Pain] -Is Patient Pain Free? Yes Musculoskeletal: No Tenderness to Palpation of Joints or Extremities, Muscle Wasting Neurological: - - Lack of normal epicritic sensation light touch is consistent with neuropathy status Psych/Mental Status: Normal Affect, Appropriate Debridement Note Post-Debridement Measurements/Treatment WC - Nurse 2 - General Ulcer CM Notes Start: 08/03/19 14:26 Freq: Status: Active Protocol: Activity Type Activity Date Activity User E-Sign Co-Sign Detail Recorded Client Recorded Date Recorded By Document 08/03/19 14:55 AN [id number] 08/03/19 15:01 AN Document 08/10/19 10:40 AN [id number] 08/10/19 10:45 AN Document 08/17/19 09:35 AN [id number] 08/17/19 09:41 AN Document 08/24/19 09:45 AN [id number] 08/24/19 09:47 AN 08/03/19 08/10/19 08/17/19 14:55 10:40 09:35 Wound Center Nurse 2 2-right lateral dorsal foot -Time 14:56 10:44 09:38 -Correct Patient Yes Yes Yes -Correct Side, Site, Position Yes Yes Yes -Correct Procedure Yes Yes Yes -Procedure Performed Yes Yes Yes -Type of Procedure Debridement Debridement Debridement -Clinical Debridement Subcutaneous Subcutaneous Subcutaneous -Post Debridement Size (cm) - Length 7.1 6.6 5.1 -Post Debridement Size (cm) - Width 1.5 1.3 0.5 -Post Debridement Size (cm) - Depth 0.1 0.1 0.1 -Total Square Cm 10.65 8.58 2.55 -Wound/Ulcer Outcome Not Healed Not Healed Not Healed -Ulcer Cleansing Rinsed/ Rinsed/ Not Cleansed Irrigated with Irrigated with Saline Saline -Foul Odor after Cleansing No No -Bioengineered Tissue Yes No Yes -Type of bioengineered Tissue EPIFIX EPIFIX EPIFIX -Bleeding Controlled with Pressure Pressure -Offloading Yes Yes -Type of Offloading Camwalker -Treatment Response Procedure Procedure Procedure Tolerated Well Tolerated Well Tolerated Well 1-right medial dorsal foot -Time 14:59 10:44 09:38 -Correct Patient Yes Yes Yes -Correct Side, Site, Position Yes Yes Yes -Correct Procedure Yes Yes Yes -Procedure Performed Yes Yes Yes -Type of Procedure Debridement Debridement Debridement -Clinical Debridement Subcutaneous Subcutaneous Subcutaneous -Post Debridement Size (cm) - Length 4.6 4.5 3.9 -Post Debridement Size (cm) - Width 2.4 2.3 2.1 -Post Debridement Size (cm) - Depth 0.1 0.1 0.1 -Total Square Cm 11.04 10.35 8.19 -Wound/Ulcer Outcome Not Healed Not Healed Not Healed -Ulcer Cleansing Rinsed/ Not Cleansed Irrigated with Saline -Foul Odor after Cleansing No No -Bioengineered Tissue No Yes Yes -Type of bioengineered Tissue EPIFIX EPIFIX EPIFIX -Bleeding Controlled with Pressure Pressure -Offloading Yes Yes -Type of Offloading Camwalker -Treatment Response Procedure Procedure Procedure Tolerated Well Tolerated Well Tolerated Well Pain Scale: 0-10 Numeric Is Patient Pain Free? Yes Yes Yes 08/24/19 09:45 Wound Center Nurse 2 2-right lateral dorsal foot -Time 09:46 -Correct Patient Yes -Correct Side, Site, Position Yes -Correct Procedure Yes -Procedure Performed Yes -Type of Procedure Debridement -Clinical Debridement Subcutaneous -Post Debridement Size (cm) - Length 2.1 -Post Debridement Size (cm) - Width 0.7 -Post Debridement Size (cm) - Depth 0.1 -Total Square Cm 1.47 -Wound/Ulcer Outcome Not Healed -Ulcer Cleansing -Foul Odor after Cleansing -Bioengineered Tissue -Type of bioengineered Tissue EPIFIX -Bleeding Controlled with Pressure -Offloading No -Type of Offloading Camwalker -Treatment Response Procedure Tolerated Well 1-right medial dorsal foot -Time 09:47 -Correct Patient Yes -Correct Side, Site, Position Yes -Correct Procedure Yes -Procedure Performed Yes -Type of Procedure Debridement -Clinical Debridement Subcutaneous -Post Debridement Size (cm) - Length 3.9 -Post Debridement Size (cm) - Width 2.5 -Post Debridement Size (cm) - Depth 0.1 -Total Square Cm 9.75 -Wound/Ulcer Outcome Not Healed -Ulcer Cleansing -Foul Odor after Cleansing -Bioengineered Tissue -Type of bioengineered Tissue EPIFIX -Bleeding Controlled with Pressure -Offloading Yes -Type of Offloading Camwalker -Treatment Response Procedure Tolerated Well Pain Scale: 0-10 Numeric Is Patient Pain Free? Yes Wound debrided: dorsal foot (medial) Laterality: Right Wound Grade/Stage: grade 3 Type of Debridement: Excisional debridement Anesthesia Used: 5% Lidocaine Gel Depth: in the subcutaneous layer Percentage of wound debrided: 100 Instrument Used: #15 blade Tissue Removed: fibrous, devitalized subcutaneous, biofilm, slough Severity: Fat Layer Exposed Amount of bleeding with debridement: Mild Bleeding Controlled with: Pressure Patient tolerated procedure well - Additional Wound Wound debrided: dorsal foot (lateral) Laterality: Right Wound Grade/Stage: grade 3 Type of Debridement: Excisional debridement Anesthesia Used: 5% Lidocaine Gel Depth: in the subcutaneous layer Percentage of wound debrided: 100 Instrument Used: #15 blade Tissue Removed: fibrous, devitalized subcutaneous, biofilm, slough Severity: Fat Layer Exposed Amount of bleeding with debridement: Mild Bleeding Controlled with: Pressure Patient tolerated procedure: Patient tolerated procedure well Assessment/Plan Active Problems Type 2 diabetes mellitus with foot ulcer (Chronic) Type 2 diabetes mellitus with foot ulcer (Acute) Ulcer of right foot with fat layer exposed (Chronic) Assessment: Ulcer anterior medial and lateral right ankle/foot with resolved infection and continued exposed extensor tendons. Uncontrolled diabetes with neuropathy. Delayed healing. Malnutrition Plan: I reviewed and discussed his case. I reviewed his diagnostic data. He does not appear to have arterial disease and no intervention plan at this time. His venous Doppler results are reviewed and he does not have DVT. Additional work-up with reflux exam will be considered in the future pending continued improvement. Excisional subcutaneous debridement was performed as noted in the clinical panel. He is reassured no signs of infection are noted in his prior work-up and intervention is noted. Pressure was applied to maintain hemostasis. Verbal consent was obtained for application of advanced wound healing product, epi-fix. This was applied according standard protocol was further secured in place with a wound veil and Steri-Strips. He tolerated this well. A secondary dressing including a jaziel wound VAC was applied. This is medically necessary for limb salvage. He has adequate perfusion expected to allow healing and he does not smoke. The indications, benefits, and anticipated healing time and management were discussed. He was amendable to proceed. He was advised to keep this clean and intact until follow-up in the next week. It is noted he had prior infectious tenosynovitis which would classify him as a grade 3 ulcer. This is already been medically treated and he no longer has exposed tendon or infection. He is doing well since he has resumed advanced wound healing product application. He understands if his status negatively progresses and he has confirmation of recurrent grade 3 ulcer, hyperbaric oxygen therapy will be considered. To continue CAM Walker use. He was fitted for this recently and is doing well. He was reminded he is not permitted to drive with his boot in place. I also recommend nutritional supplementation including Robin. He is not able to cover the cost due to lack of insurance coverage and I recommended Glucerna as an alternative. I also recommend a nutrition referral to optimize healing and for better diabetic control. He is amendable to attend. His edema is also controlled with compression sleeve and periodic elevation throughout the day. To continue work with his primary care physician for glucose management; his elevated hemoglobin A1c is noted. We also discussed etiology and treatment options for gabapentin and met next use for neuropathy management. A prescription for metanx was provided previously and he was advised on proper use. He started this medication. He was advised to follow-up with his primary care physician to consider reinitiation of gabapentin or similar prescription. To return to the wound healing center 1 week or call sooner if he has any questions or concerns. I answered all his questions.
[2019-08-31 10:18] VITALS: BP 157/92; PULSE 90; RESP 18; TEMP 36.2; BMI 37.6
--- NOTE | 2019-08-31 12:02 | PCM.WC.PN ---
(1) Ulcer of right foot with fat layer exposed Status: Chronic Code(s): L97.512 - Non-pressure chronic ulcer of other part of right foot with fat layer exposed (2) Type 2 diabetes mellitus with foot ulcer Status: Chronic Code(s): E11.621 - Type 2 diabetes mellitus with foot ulcer; L97.509 - Non-pressure chronic ulcer of other part of unspecified foot with unspecified severity (3) Malnutrition Status: Suspected Code(s): E46 - Unspecified protein-calorie malnutrition Type of Wound Date of Service: 08/31/19 Chief Complaint: Right ankle/foot ulcers History of Wound: This 54-year-old male with uncontrolled diabetes presents today for comprehensive wound healing plan for the right lower extremity. He denies current fever, chill, nausea, vomiting, loss of appetite. He has two main ulcers to his anterior foot and ankle that has exposed tendon. He has been wearing the cam walker boot to immobilize this to prevent tendon gliding. Kept his wound VAC placed this past week. He denies odor or redness. He would like to return to work if permitted. He relates he is able to wear a cam walker and also some job tasks. Progress of Wound: Improving - Physical Exam Vital Signs Temp Pulse Resp BP 97.1 F L 90 18 157/92 H 08/31/19 10:18 08/31/19 10:18 08/31/19 10:18 08/31/19 10:18 General: Alert, Oriented x3, Cooperative HEENT: Atraumatic Extremities: No cyanosis, Capillary Refill Less than 3 Seconds, No Calf Tenderness - Negative Vlad and Davalos sign right, Diminished Peripheral Pulses, Edema - Mild Skin: Ulcer/ Wound - No purulence, erythema, streaking, odor, infection. Significant peripheral epithelialization is noted in the ulcer and has a granular base. There is no deep tissue exposure Wound Measurements and Assessment WC - Nurse 1 - General Ulcer Measurement Start: 08/03/19 14:26 Freq: Status: Active Protocol: Activity Type Activity Date Activity User E-Sign Co-Sign Detail Recorded Client Recorded Date Recorded By Document 08/31/19 10:18 MW [id number] 08/31/19 10:20 MW 08/31/19 10:18 Wound Center Nurse 1 [Ulcer Assessment] 2-right lateral dorsal foot -Combined with other wound No -Current Size (cm) - Length 3.0 -Current Size (cm) - Width 0.5 -Current Size (cm) - Depth 0.1 -Total Square Cm 1.50 -Photo Taken No -Epithelialization Small 1-33% -Tunneling No -Undermining/Tunneling No -Circular Undermining No -Exudate Amt Large -Exudate Type Serosanguineous -Wound Margin Flat & Intact -Granulation Amt Large (67-100%) -Granulation Quality [place] -Slough/Fibrin Yes -Necrosis Amt Small (1-33%) -Necrotic Tissue Type Adherent Slough -Structure Exposed N/A -Texture (Araceli-wound Skin Appearance) Assessed, Localized Edema ,Scarring -Moisture (Araceli-wound Skin Appearance No Abnormality, ) Assessed -Color (Araceli-wound Skin Appearance) Assessed, Erythema -Temperature (Araceli-wound Skin No Abnormality Appearance) (Pt Warm) -Tenderness on Palpation (Araceli-wound No Skin Appearance) -Ulcer Cleansing soap and water -Foul Odor after Cleansing No -Anesthetic Used 4% Lidocaine Solution 1-right medial dorsal foot -Combined with other wound No -Current Size (cm) - Length 3.0 -Current Size (cm) - Width 1.5 -Current Size (cm) - Depth 0.1 -Total Square Cm 4.50 -Photo Taken No -Epithelialization Small 1-33% -Tunneling No -Undermining/Tunneling No -Circular Undermining No -Exudate Amt Large -Exudate Type Serosanguineous -Wound Margin Flat & Intact -Granulation Amt Large (67-100%) -Granulation Quality [place] -Slough/Fibrin Yes -Necrosis Amt Small (1-33%) -Necrotic Tissue Type Adherent Slough -Structure Exposed N/A -Texture (Araceli-wound Skin Appearance) Assessed, Localized Edema ,Scarring -Moisture (Araceli-wound Skin Appearance No Abnormality, ) Assessed -Color (Araceli-wound Skin Appearance) No Abnormality, Assessed -Temperature (Araceli-wound Skin No Abnormality Appearance) (Pt Warm) -Tenderness on Palpation (Araceli-wound Yes Skin Appearance) -Ulcer Cleansing soap and water -Foul Odor after Cleansing No -Anesthetic Used 4% Lidocaine Solution [Edema Assessment] -Lower Limb Edema Present Yes -Right Calf (cm) 47.0 -Right Ankle (cm) 26.9 WC - Nurse 2 - General Ulcer CM Notes Start: 08/03/19 14:26 Freq: Status: Active Protocol: Activity Type Activity Date Activity User E-Sign Co-Sign Detail Recorded Client Recorded Date Recorded By Document 08/31/19 10:44 AN [id number] 08/31/19 10:46 AN 08/31/19 10:44 Wound Center Nurse 2 [Procedure/Treatment] 2-right lateral dorsal foot -Time 10:45 -Correct Patient Yes -Correct Side, Site, Position Yes -Correct Procedure Yes -Procedure Performed Yes -Type of Procedure Debridement -Clinical Debridement Subcutaneous -Post Debridement Size (cm) - Length 3.1 -Post Debridement Size (cm) - Width 0.6 -Post Debridement Size (cm) - Depth 0.1 -Total Square Cm 1.86 -Wound/Ulcer Outcome Not Healed -Ulcer Cleansing Rinsed/ Irrigated with Saline -Foul Odor after Cleansing No -Bioengineered Tissue Yes -Type of bioengineered Tissue EPIFIX -Bleeding Controlled with Pressure -Offloading Yes -Type of Offloading Surgical Shoe -Treatment Response Procedure Tolerated Well 1-right medial dorsal foot -Time 10:45 -Correct Patient Yes -Correct Side, Site, Position Yes -Correct Procedure Yes -Procedure Performed Yes -Type of Procedure Debridement -Clinical Debridement Subcutaneous -Post Debridement Size (cm) - Length 3.1 -Post Debridement Size (cm) - Width 1.6 -Post Debridement Size (cm) - Depth 0.1 -Total Square Cm 4.96 -Wound/Ulcer Outcome Not Healed -Ulcer Cleansing Rinsed/ Irrigated with Saline -Foul Odor after Cleansing No -Bioengineered Tissue Yes -Type of bioengineered Tissue EPIFIX -Bleeding Controlled with Pressure -Type of Offloading Surgical Shoe -Treatment Response Procedure Tolerated Well [See Physician Procedure note for Specifics] Pain Scale: 0-10 Numeric [Pain] -Is Patient Pain Free? Yes Musculoskeletal: No Tenderness to Palpation of Joints or Extremities, Muscle Wasting Neurological: - - Lack of normal epicritic sensation light touch Psych/Mental Status: Normal Affect, Appropriate Debridement Note Post-Debridement Measurements/Treatment WC - Nurse 2 - General Ulcer CM Notes Start: 08/03/19 14:26 Freq: Status: Active Protocol: Activity Type Activity Date Activity User E-Sign Co-Sign Detail Recorded Client Recorded Date Recorded By Document 08/03/19 14:55 AN [id number] 08/03/19 15:01 AN Document 08/10/19 10:40 AN [id number] 08/10/19 10:45 AN Document 08/17/19 09:35 AN [id number] 08/17/19 09:41 AN Document 08/24/19 09:45 AN [id number] 08/24/19 09:47 AN Document 08/31/19 10:44 AN [id number] 08/31/19 10:46 AN 08/03/19 08/10/19 08/17/19 14:55 10:40 09:35 Wound Center Nurse 2 2-right lateral dorsal foot -Time 14:56 10:44 09:38 -Correct Patient Yes Yes Yes -Correct Side, Site, Position Yes Yes Yes -Correct Procedure Yes Yes Yes -Procedure Performed Yes Yes Yes -Type of Procedure Debridement Debridement Debridement -Clinical Debridement Subcutaneous Subcutaneous Subcutaneous -Post Debridement Size (cm) - Length 7.1 6.6 5.1 -Post Debridement Size (cm) - Width 1.5 1.3 0.5 -Post Debridement Size (cm) - Depth 0.1 0.1 0.1 -Total Square Cm 10.65 8.58 2.55 -Wound/Ulcer Outcome Not Healed Not Healed Not Healed -Ulcer Cleansing Rinsed/ Rinsed/ Not Cleansed Irrigated with Irrigated with Saline Saline -Foul Odor after Cleansing No No -Bioengineered Tissue Yes No Yes -Type of bioengineered Tissue EPIFIX EPIFIX EPIFIX -Bleeding Controlled with Pressure Pressure -Offloading Yes Yes -Type of Offloading Camwalker -Treatment Response Procedure Procedure Procedure Tolerated Well Tolerated Well Tolerated Well 1-right medial dorsal foot -Time 14:59 10:44 09:38 -Correct Patient Yes Yes Yes -Correct Side, Site, Position Yes Yes Yes -Correct Procedure Yes Yes Yes -Procedure Performed Yes Yes Yes -Type of Procedure Debridement Debridement Debridement -Clinical Debridement Subcutaneous Subcutaneous Subcutaneous -Post Debridement Size (cm) - Length 4.6 4.5 3.9 -Post Debridement Size (cm) - Width 2.4 2.3 2.1 -Post Debridement Size (cm) - Depth 0.1 0.1 0.1 -Total Square Cm 11.04 10.35 8.19 -Wound/Ulcer Outcome Not Healed Not Healed Not Healed -Ulcer Cleansing Rinsed/ Not Cleansed Irrigated with Saline -Foul Odor after Cleansing No No -Bioengineered Tissue No Yes Yes -Type of bioengineered Tissue EPIFIX EPIFIX EPIFIX -Bleeding Controlled with Pressure Pressure -Offloading Yes Yes -Type of Offloading Camwalker -Treatment Response Procedure Procedure Procedure Tolerated Well Tolerated Well Tolerated Well Pain Scale: 0-10 Numeric Is Patient Pain Free? Yes Yes Yes 08/24/19 08/31/19 09:45 10:44 Wound Center Nurse 2 2-right lateral dorsal foot -Time 09:46 10:45 -Correct Patient Yes Yes -Correct Side, Site, Position Yes Yes -Correct Procedure Yes Yes -Procedure Performed Yes Yes -Type of Procedure Debridement Debridement -Clinical Debridement Subcutaneous Subcutaneous -Post Debridement Size (cm) - Length 2.1 3.1 -Post Debridement Size (cm) - Width 0.7 0.6 -Post Debridement Size (cm) - Depth 0.1 0.1 -Total Square Cm 1.47 1.86 -Wound/Ulcer Outcome Not Healed Not Healed -Ulcer Cleansing Rinsed/ Irrigated with Saline -Foul Odor after Cleansing No -Bioengineered Tissue Yes -Type of bioengineered Tissue EPIFIX EPIFIX -Bleeding Controlled with Pressure Pressure -Offloading No Yes -Type of Offloading Camwalker Surgical Shoe -Treatment Response Procedure Procedure Tolerated Well Tolerated Well 1-right medial dorsal foot -Time 09:47 10:45 -Correct Patient Yes Yes -Correct Side, Site, Position Yes Yes -Correct Procedure Yes Yes -Procedure Performed Yes Yes -Type of Procedure Debridement Debridement -Clinical Debridement Subcutaneous Subcutaneous -Post Debridement Size (cm) - Length 3.9 3.1 -Post Debridement Size (cm) - Width 2.5 1.6 -Post Debridement Size (cm) - Depth 0.1 0.1 -Total Square Cm 9.75 4.96 -Wound/Ulcer Outcome Not Healed Not Healed -Ulcer Cleansing Rinsed/ Irrigated with Saline -Foul Odor after Cleansing No -Bioengineered Tissue Yes -Type of bioengineered Tissue EPIFIX EPIFIX -Bleeding Controlled with Pressure Pressure -Offloading Yes -Type of Offloading Camwalker Surgical Shoe -Treatment Response Procedure Procedure Tolerated Well Tolerated Well Pain Scale: 0-10 Numeric Is Patient Pain Free? Yes Yes Wound debrided: dorsal foot (lateral) Laterality: Right Wound Grade/Stage: grade 3 (previous with infected tenosynovitis which has resolved) Type of Debridement: Excisional debridement Anesthesia Used: 5% Lidocaine Gel Depth: in the subcutaneous layer Percentage of wound debrided: 100 Instrument Used: #15 blade Tissue Removed: fibrous, devitalized subcutaneous, biofilm, slough Severity: Fat Layer Exposed Amount of bleeding with debridement: Mild Bleeding Controlled with: Pressure Patient tolerated procedure well - Additional Wound Wound debrided: dorsal foot (medial) Laterality: Right Wound Grade/Stage: grade 3 Type of Debridement: Excisional debridement Anesthesia Used: 5% Lidocaine Gel Depth: in the subcutaneous layer Percentage of wound debrided: 100 Instrument Used: #15 blade Tissue Removed: fibrous, devitalized subcutaneous, biofilm, slough Severity: Fat Layer Exposed Amount of bleeding with debridement: Mild Bleeding Controlled with: Pressure Patient tolerated procedure: Patient tolerated procedure well Assessment/Plan Assessment: Ulcer anterior medial and lateral right ankle/foot with resolved infection. Uncontrolled diabetes with neuropathy. Delayed healing. Malnutrition Plan: I reviewed and discussed his case. I reviewed his diagnostic data. He does not appear to have arterial disease and no intervention plan at this time. His venous Doppler results are reviewed and he does not have DVT. Additional work-up with reflux exam will be considered in the future pending continued improvement. Excisional subcutaneous debridement was performed as noted in the clinical panel. He was reassured no signs of infection are noted in his prior work-up and intervention is noted. Pressure was applied to maintain hemostasis. Verbal consent was obtained for application of advanced wound healing product, epi-fix. This was applied according standard protocol was further secured in place with a wound veil and Steri-Strips. He tolerated this well. A secondary dressing including a jaziel wound VAC was applied. This is medically necessary for limb salvage. He has adequate perfusion expected to allow healing and he does not smoke. The indications, benefits, and anticipated healing time and management were discussed. He was amendable to proceed. He was advised to keep this clean and intact until follow-up in the next week. It is noted he had prior infectious tenosynovitis which would classify him as a grade 3 ulcer. This is already been medically treated and he no longer has exposed tendon or infection. This is no longer a current diagnosis. He is doing well since he has resumed advanced wound healing product application. He understands if his status negatively progresses and he has confirmation of recurrent grade 3 ulcer, hyperbaric oxygen therapy will be considered. To continue CAM Walker use. He was fitted for this recently and is doing well. He was reminded he is not permitted to drive with his boot in place. I also recommend nutritional supplementation to optimize healing. I also recommend a nutrition referral to optimize healing and for better diabetic control. He is amendable to attend. His edema is also controlled with compression sleeve and periodic elevation throughout the day. To continue work with his primary care physician for glucose management; his elevated hemoglobin A1c is noted (9%; 05/2019). We also discussed etiology and treatment options for gabapentin and met next use for neuropathy management. A prescription for metanx was provided previously and he was advised on proper use. He started this medication. He was advised to follow-up with his primary care physician to consider reinitiation of gabapentin or similar prescription. Serial lab work will be ordered to monitor medical status and continued infection resolution. It is also noted that he is interested in returning to work due to his recent improvement. A work note was provided to allow him to return to work with CAM Walker in place as tolerated. I also offered him a protective toe equipment. To return to the wound healing center 1 week or call sooner if he has any questions or concerns. I answered all his questions.
== END 2019-09-01 23:59 ==
LOC: WC 09:45
PROVIDERS: Family Provider Internal Medicine Endocrinology, Diabetes & Metabolism; PCP Internal Medicine Endocrinology, Diabetes & Metabolism; Visit Provider Podiatrist
DX: E11.622 Type 2 diabetes mellitus with other skin ulcer (principal); L97.312 Non-pressure chronic ulcer of right ankle with fat layer exposed; E11.65 Type 2 diabetes mellitus with hyperglycemia; E11.621 Type 2 diabetes mellitus with foot ulcer; L97.512 Non-pressure chronic ulcer of other part of right foot with fat layer exposed
CPT/HCPCS: 11042; 15275; 97607; Q4186

== ENCOUNTER 2019-09-07 08:38 | Outpatient (RCR) | payer OTHER, SELFPAY ==
[2019-09-02 01:04] VITALS: BP 157/92; PULSE 90; RESP 18; TEMP 36.2
[2019-09-07 10:55] VITALS: BP 164/86; PULSE 103; RESP 18; TEMP 36.9; BMI 37.6
--- NOTE | 2019-09-07 13:30 | PCM.WC.PN ---
(1) Ulcer of right foot with fat layer exposed Status: Chronic Current Visit: Yes Code(s): L97.512 - Non-pressure chronic ulcer of other part of right foot with fat layer exposed (2) Ulcer with necrosis of muscle Status: Resolved Current Visit: Yes (3) Type 2 diabetes mellitus with foot ulcer Status: Chronic Current Visit: Yes Code(s): E11.621 - Type 2 diabetes mellitus with foot ulcer; L97.509 - Non-pressure chronic ulcer of other part of unspecified foot with unspecified severity (4) Edema of right lower extremity Status: Chronic Current Visit: Yes Code(s): R60.0 - Localized edema (5) Type 2 diabetes mellitus with diabetic neuropathy Status: Chronic Current Visit: Yes Code(s): E11.40 - Type 2 diabetes mellitus with diabetic neuropathy, unspecified (6) Delayed wound healing Status: Acute Current Visit: Yes Code(s): T14.8XXD - Other injury of unspecified body region, subsequent encounter (7) Obesity (BMI 30-39.9) Status: Chronic Current Visit: Yes Code(s): E66.9 - Obesity, unspecified (8) Malnutrition Status: Chronic Current Visit: Yes Code(s): E46 - Unspecified protein-calorie malnutrition Type of Wound Date of Service: 09/07/19 Chief Complaint: Right ankle/foot ulcers History of Wound: This 54-year-old male with uncontrolled diabetes presents today for comprehensive wound healing plan for the right lower extremity. He denies current fever, chill, nausea, vomiting, loss of appetite. He has two main ulcers to his anterior foot and ankle that has exposed tendon. He has been wearing the cam walker boot to immobilize this to prevent tendon gliding. Kept his wound VAC placed this past week. He denies odor or redness. Progress of Wound: Improving - Physical Exam Vital Signs Temp Pulse Resp BP 98.4 F 103 H 18 164/86 H 09/07/19 10:55 09/07/19 10:55 09/07/19 10:55 09/07/19 10:55 General: Alert, Oriented x3, Cooperative, No apparent distress Extremities: No cyanosis, Capillary Refill Less than 3 Seconds, No Calf Tenderness - Negative Vlad and Davalos sign bilateral, Diminished Peripheral Pulses, Edema - Decreased right lung Skin: Ulcer/ Wound - No erythema, purulence, odor, or infection. His peripheral skin is hairless and atrophic. The lateral site is fully epithelialized and healed today. There is no longer any exposed tendon or necrosis Wound Measurements and Assessment WC - Nurse 1 - General Ulcer Measurement Start: 09/07/19 10:54 Freq: Status: Active Protocol: Activity Type Activity Date Activity User E-Sign Co-Sign Detail Recorded Client Recorded Date Recorded By Document 09/07/19 10:55 [facility] [id number] 09/07/19 11:07 [facility] 09/07/19 10:55 Wound Center Nurse 1 [Ulcer Assessment] 2-right lateral dorsal foot -Combined with other wound No -Current Size (cm) - Length 3.5 -Current Size (cm) - Width 0.7 -Current Size (cm) - Depth 0.1 -Total Square Cm 2.45 -Photo Taken No -Epithelialization Medium 34-66% -Tunneling No -Undermining/Tunneling No -Circular Undermining No -Exudate Amt Small -Exudate Type Serosanguineous -Wound Margin Flat & Intact -Granulation Amt Medium (34-66%) -Granulation Quality [place] -Slough/Fibrin Yes -Necrosis Amt Small (1-33%) -Necrotic Tissue Type Adherent Slough -Texture (Araceli-wound Skin Appearance) Assessed, Scarring -Moisture (Araceli-wound Skin Appearance Assessed, ) Maceration -Color (Araceli-wound Skin Appearance) Assessed,Palor -Temperature (Araceli-wound Skin No Abnormality Appearance) (Pt Warm) -Tenderness on Palpation (Araceli-wound No Skin Appearance) -Ulcer Cleansing soap and water -Foul Odor after Cleansing No -Anesthetic Used 4% Lidocaine Solution 1-right medial dorsal foot -Combined with other wound No -Current Size (cm) - Length 2.8 -Current Size (cm) - Width 1.5 -Current Size (cm) - Depth 0.1 -Total Square Cm 4.20 -Photo Taken No -Epithelialization Small 1-33% -Tunneling No -Undermining/Tunneling No -Circular Undermining No -Exudate Amt Small -Exudate Type Serosanguineous -Wound Margin Flat & Intact -Granulation Amt Medium (34-66%) -Granulation Quality [place] -Slough/Fibrin Yes -Necrosis Amt Small (1-33%) -Necrotic Tissue Type Adherent Slough -Texture (Araceli-wound Skin Appearance) Assessed, Scarring -Moisture (Araceli-wound Skin Appearance Assessed, ) Maceration -Color (Araceli-wound Skin Appearance) Assessed,Palor -Temperature (Araceli-wound Skin No Abnormality Appearance) (Pt Warm) -Tenderness on Palpation (Araceli-wound No Skin Appearance) -Ulcer Cleansing soap and water -Foul Odor after Cleansing No -Anesthetic Used 4% Lidocaine Solution [Edema Assessment] -Lower Limb Edema Present Yes -Right Calf (cm) 46.5 -Right Ankle (cm) 26.6 WC - Nurse 2 - General Ulcer CM Notes Start: 09/07/19 10:54 Freq: Status: Active Protocol: Activity Type Activity Date Activity User E-Sign Co-Sign Detail Recorded Client Recorded Date Recorded By Document 09/07/19 11:32 [facility] [id number] 09/07/19 11:39 [facility] 09/07/19 11:32 Wound Center Nurse 2 [Procedure/Treatment] 2-right lateral dorsal foot -Time 11:34 -Correct Patient No -Correct Side, Site, Position No -Correct Procedure No -Procedure Performed No -Wound/Ulcer Outcome Not Healed -Bleeding Controlled with Pressure -Offloading Yes -Type of Offloading Camwalker -Treatment Response Procedure Tolerated Well 1-right medial dorsal foot -Time 11:34 -Correct Patient Yes -Correct Side, Site, Position Yes -Correct Procedure Yes -Procedure Performed Yes -Type of Procedure Debridement -Clinical Debridement Subcutaneous -Post Debridement Size (cm) - Length 2.8 -Post Debridement Size (cm) - Width 1.6 -Post Debridement Size (cm) - Depth 0.1 -Total Square Cm 4.48 -Wound/Ulcer Outcome Not Healed -Ulcer Cleansing Rinsed/ Irrigated with Saline -Foul Odor after Cleansing No -Bioengineered Tissue Yes -Type of bioengineered Tissue EPIFIX -Expiration Date 11/02/23 -Product Lot Number [id number] -Percent Used 100 -Bleeding Controlled with Pressure -Offloading Yes -Type of Offloading Camwalker -Treatment Response Procedure Tolerated Well [See Physician Procedure note for Specifics] Pain Scale: 0-10 Numeric [Pain] -Is Patient Pain Free? Yes Musculoskeletal: No Tenderness to Palpation of Joints or Extremities, Muscle Wasting Neurological: - - Lack of epicritic sensation light touch is consistent with neuropathy Psych/Mental Status: Normal Affect, Appropriate Debridement Note Post-Debridement Measurements/Treatment WC - Nurse 2 - General Ulcer CM Notes Start: 09/07/19 10:54 Freq: Status: Active Protocol: Activity Type Activity Date Activity User E-Sign Co-Sign Detail Recorded Client Recorded Date Recorded By Document 09/07/19 11:32 [facility] [id number] 09/07/19 11:39 [facility] 09/07/19 11:32 Wound Center Nurse 2 2-right lateral dorsal foot -Time 11:34 -Correct Patient No -Correct Side, Site, Position No -Correct Procedure No -Procedure Performed No -Wound/Ulcer Outcome Not Healed -Bleeding Controlled with Pressure -Offloading Yes -Type of Offloading Camwalker -Treatment Response Procedure Tolerated Well 1-right medial dorsal foot -Time 11:34 -Correct Patient Yes -Correct Side, Site, Position Yes -Correct Procedure Yes -Procedure Performed Yes -Type of Procedure Debridement -Clinical Debridement Subcutaneous -Post Debridement Size (cm) - Length 2.8 -Post Debridement Size (cm) - Width 1.6 -Post Debridement Size (cm) - Depth 0.1 -Total Square Cm 4.48 -Wound/Ulcer Outcome Not Healed -Ulcer Cleansing Rinsed/ Irrigated with Saline -Foul Odor after Cleansing No -Bioengineered Tissue Yes -Type of bioengineered Tissue EPIFIX -Expiration Date 11/02/23 -Product Lot Number [id number] -Percent Used 100 -Bleeding Controlled with Pressure -Offloading Yes -Type of Offloading Camwalker -Treatment Response Procedure Tolerated Well Pain Scale: 0-10 Numeric Is Patient Pain Free? Yes Wound debrided: dorsal foot medial Laterality: Right Wound Grade/Stage: grade 3 Type of Debridement: Excisional debridement Anesthesia Used: 5% Lidocaine Gel Depth: in the subcutaneous layer Percentage of wound debrided: 100 Instrument Used: #15 blade Tissue Removed: fibrous, devitalized subcutaneous, biofilm, slough Severity: Fat Layer Exposed Amount of bleeding with debridement: Mild Bleeding Controlled with: Pressure Patient tolerated procedure well Assessment/Plan Active Problems Type 2 diabetes mellitus with foot ulcer (Chronic) Delayed wound healing (Acute) Obesity (BMI 30-39.9) (Chronic) Ulcer of right foot with fat layer exposed (Chronic) Malnutrition (Chronic) Edema of right lower extremity (Chronic) Type 2 diabetes mellitus with diabetic neuropathy (Chronic) Assessment: Ulcer anterior medial right ankle/foot with resolved infection (lateral site healed). Uncontrolled diabetes with neuropathy. Delayed healing. Malnutrition Plan: I reviewed and discussed his case. I reviewed his diagnostic data. He does not appear to have arterial disease and no intervention plan at this time. His venous Doppler results are reviewed and he does not have DVT. Additional work-up with reflux exam will be considered in the future pending continued improvement. Excisional subcutaneous debridement was performed as noted in the clinical panel. He was reassured no signs of infection are noted in his prior work-up and intervention is noted. Pressure was applied to maintain hemostasis. Verbal consent was obtained for application of advanced wound healing product, epi-fix. This was applied according standard protocol was further secured in place with a wound veil and Steri-Strips. He tolerated this well. A secondary dressing was applied. He can discontinue his wound VAC at this time due to improvement. He was advised to keep this clean intact and to follow-up next week. This is medically necessary for limb salvage. He has adequate perfusion expected to allow healing and he does not smoke. The indications, benefits, and anticipated healing time and management were discussed. He was amendable to proceed. He was advised to keep this clean and intact until follow-up in the next week. It is noted he had prior infectious tenosynovitis which would classify him as a grade 3 ulcer. This is already been medically treated and he no longer has exposed tendon or infection. This is no longer a current diagnosis. He is doing well since he has resumed advanced wound healing product application. He understands if his status negatively progresses and he has confirmation of recurrent grade 3 ulcer, hyperbaric oxygen therapy will be considered. To continue CAM Walker use. He was fitted for this recently and is doing well. He was reminded he is not permitted to drive with his boot in place. I also recommend nutritional supplementation to optimize healing. I also recommend a nutrition referral to optimize healing and for better diabetic control. He is amendable to attend. An updated referral was provided today and he was encouraged to schedule. His edema is also controlled with compression sleeve and periodic elevation throughout the day. To continue work with his primary care physician for glucose management; his elevated hemoglobin A1c is noted (9%; 05/2019). Updated baseline and inflammatory marker labs were ordered today including CBC, CMP, ESR, and C-reactive protein. We also discussed etiology and treatment options for gabapentin and metanx use for neuropathy management. A prescription for metanx was provided previously and he was advised on proper use. He started this medication. He was advised to follow-up with his primary care physician to consider reinitiation of gabapentin or similar prescription. Serial lab work will be ordered to monitor medical status and continued infection resolution. It is also noted that he is interested in returning to work due to his recent improvement. A work note was provided previously. To return to the wound healing center 1 week or call sooner if he has any questions or concerns. I answered all his questions.
== END 2019-10-01 23:59 ==
LOC: WC 08:38
PROVIDERS: Family Provider Internal Medicine Endocrinology, Diabetes & Metabolism; PCP Internal Medicine Endocrinology, Diabetes & Metabolism; Visit Provider Podiatrist
DX: E11.621 Type 2 diabetes mellitus with foot ulcer (principal); L97.512 Non-pressure chronic ulcer of other part of right foot with fat layer exposed; E11.42 Type 2 diabetes mellitus with diabetic polyneuropathy; R60.0 Localized edema; E66.9 Obesity, unspecified; Z68.37 Body mass index [BMI] 37.0-37.9, adult; Z71.3 Dietary counseling and surveillance; E11.65 Type 2 diabetes mellitus with hyperglycemia
CPT/HCPCS: 15275; Q4186

== ENCOUNTER 2020-04-06 19:25 | Inpatient (IN) | payer OTHER, SELFPAY ==
[2020-04-06] VITALS (9 sets, daily range): BP systolic 117–147; BP diastolic 66–78; PULSE 95–104; RESP 15–21; TEMP 36.1–36.9; O2SAT 95–99; BMI 37.6; BMI 37.8; BMI 37.9
--- NOTE | 2020-04-06 20:04 | EKG12_ITS ---
Test Reason : ABN LABS Blood Pressure : / mmHG Vent. Rate : 099 BPM Atrial Rate : 099 BPM P-R Int : 158 ms QRS Dur : 138 ms QT Int : 374 ms P-R-T Axes : 040 -60 028 degrees QTc Int : 479 ms Normal sinus rhythm Right bundle branch block Left anterior fascicular block Bifascicular block Abnormal ECG Confirmed by RYLAN OWENS, JOVANY ([id number]), book editor MICHELLE BROWNING ([id number]) on 04/09/2020 1:30:16 PM Referred By: /BOY Confirmed By:JOVANY FAGAN MD
--- NOTE | 2020-04-06 20:08 | ED.DCSUM_ITS ---
- ER Visit Summary Date of Service: 04/06/20 Chief Complaint: Abnormal labs History of Present Illness: The patient is a 55 M presenting with abnormal labs. Patient states he went to urgent care on Thursday because he has not been feeling well. He states he works outside and has been feeling weak and dizzy. He denies syncope. He states he has had no appetite. He denies chest pain or shortness of breath. He has had nausea and diarrhea. He denies fever. He has a mild cough. States he has had decreased appetite. 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 This showed a potassium of 7.3. She advised him to come to the ED for further treatment. Physical Examination: Vitals are stable. Patient is afebrile. Alert no acute distress. HEENT exam is unremarkable. Neck is supple. Lungs are clear and equal bilaterally. Heart is regular rate and rhythm. Abdomen is soft mild epigastric tenderness with no guarding or rebound Extremities are unremarkable. Skin is warm and dry. No focal neurologic deficit. Remainder of exam is unremarkable. Emergency Department Course and Treatment: EKG shows sinus rhythm rate of 99 with right bundle branch block, peaked T waves. He was given IV fluids, albuterol, insulin, glucose, calcium. CBC shows hemoglobin 12.1. Chemistries show potassium 7.2, glucose 216, BUN 67, creatinine 1.62. Lipase 984, liver enzymes otherwise normal. Troponin is negative. Chest x-ray shows no acute process. On reexam his abdomen is soft and nontender with no guarding or rebound. He remains hemodynamically stable. Discussed with the hospitalist for admission. Disposition: Admission Impression: Hyperkalemia, acute kidney injury, pancreatitis This note was generated with [employer] dictation software. It may contain incorrect words, spelling, and punctuation that were not noted in review of the chart prior to signing ED Disposition - Plan for ED Patient: Referrals: Rowan Ledezma MD [Primary Care Provider] -
[2020-04-06 20:16] LABS: Absolute Lymphocyte Count 2.69 X10^3/uL (0.83-4.51); Absolute Neutrophil Count 5.8 X10^3/uL (2.0-7.7); Basophil# 0.06 X10^3/uL; Basophil% 0.6 % (0-1); Eosinophil# 0.57 X10^3/uL; Eosinophils% 5.9 % (0-5); Hematocrit 37.9 % (40-54); Hemoglobin 12.1 g/dL (13.0-16.5); Lymphocyte # 2.69 X10^3/ul (4.0); Lymphocyte % 27.8 % (19-41); Mean Corp Hgb Conc 31.9 g/dL (32-36); Mean Corpuscular Hgb 28.4 pg (27.0-32.0); Mean Platelet Vol. 9.1 fl (6.2-12.0); Monocyte# 0.54 X10^3/uL; Monocyte% 5.6 % (0-10); NRBC Flagged by Analyzer 0 % (0-5); Neutrophil # 5.75 X10^3/uL (2.7-7.7); Neutrophil % 59.5 % (47-70); Platelet Count 398 K/mm3 (150-450); RBC Distribution Width CV 15.6 % (11.6-14.6); RBC Distribution Width SD 50.2 fl (35.1-43.9); Red Blood Count 4.26 M/mm3 (4.6-6.2); White Blood Count 9.7 K/mm3 (4.4-11.0)
--- NOTE | 2020-04-06 20:24 | RAD_ITS ---
STUDY: X-RAY CHEST REASON FOR EXAM: Male, 55 years old. high potassium levels. TECHNIQUE: Single AP portable view of the chest. COMPARISON: None. FINDINGS: The lungs are clear and expanded. There is no demonstrated pleural abnormality. Normal size heart. Normal mediastinum and gaurang. Normal visualized pulmonary arteries. Normal visualized aortic arch and descending thoracic aorta. Moderate thoracic spondylosis. Soft tissues and bony structures are otherwise unremarkable. RAD/Chest 1 View (Portable) IMPRESSION: No acute findings. Electronically Signed: Terra Yusuf MD at 20:57 EDT Tel , Service support ,
[2020-04-06] MEDS: Albuterol 2.5 MG/3 ML VIAL.NEB. INHALATION ×2 (20:27)
[2020-04-06 20:49] LABS: ALB/GLOB Ratio 0.8 RATIO (0.9-2.4); AST(SGOT) 22 U/L (15-37); Alanine Aminotransfer ALT/SGPT 30 U/L (16-61); Albumin, Serum 3.5 g/dL (3.2-5.0); Alkaline Phosphatase 77 U/L (45-117); Anion Gap 7 (5-15); BUN 67 mg/dL (7-18); BUN/Creat Ratio 41.4 RATIO (10-20); Calcium,Total 9.4 mg/dL (8.5-10.1); Chloride 115 mmol/L (98-107); Creatinine, Serum 1.62 mg/dL (0.70-1.30); EST Glomerular Filtration Rate 47 mL/min (>60); Est Glom Filt Rate - Afr Amer 57 mL/min (>60); Estimated Creatinine Clearance 53.58 ml/min; Globulin 4.5 g/dL (2.2-4.2); Glucose 216 mg/dL (74-106); Lipase 984 U/L (73-393); Potassium 7.2 mmol/L (3.5-5.1); Sodium Level 139 mmol/L (136-145)
[2020-04-06] MEDS: Dextrose 50%-Water 25 GM/50 ML DISP.SYRIN IV (20:50)
[2020-04-06] MEDS: Calcium Gluconate 1 GM/10 ML Vial IV (20:50)
[2020-04-06] MEDS: Insulin Lispro 5 UNIT in Syringe 0 ML 3 UNIT IV (20:50)
--- NOTE | 2020-04-06 20:58 | PCM.HP.STD ---
Problem List (1) Acute pancreatitis Status: Acute Qualifiers: Pancreatitis type: unspecified pancreatitis type (2) Acute kidney injury Status: Acute (3) Hyperkalemia Status: Acute (4) Hypertension Status: Chronic Qualifiers: Hypertension type: essential hypertension Qualified Code(s): I10 - Essential (primary) hypertension (5) Gout Status: Chronic Qualifiers: Gout site: unspecified site Gout etiology: unspecified cause Chronicity: unspecified Qualified Code(s): M10.9 - Gout, unspecified (6) GERD (gastroesophageal reflux disease) Status: Chronic Qualifiers: Esophagitis presence: esophagitis presence not specified Qualified Code(s): K21.9 - Gastro-esophageal reflux disease without esophagitis (7) Hyperlipidemia Status: Chronic Qualifiers: Hyperlipidemia type: unspecified Qualified Code(s): E78.5 - Hyperlipidemia, unspecified (8) Obesity (BMI 30-39.9) Status: Chronic (9) Type 2 diabetes mellitus with diabetic neuropathy Status: Chronic Qualifiers: Diabetes mellitus exterminator helper insulin use: with exterminator helper use Qualified Code(s): E11.40 - Type 2 diabetes mellitus with diabetic neuropathy, unspecified; Z79.4 - penitentiary (current) use of insulin History of Present Illness Date of Admission: 04/06/20 Chief Complaint: Abnormal labs, K 7.0, Nausea, Abdominal pain, Diarrhea, Dizziness. The patient is a 55 y/o M w/ PMHx: Obesity, GERD, HTN, HLD, Gout, ? SEAN, Chronic normocytic anemia who presents to the [facility] ED on 04/06/20 secondary to history of being evaluated this prior Thursday urgent care secondary to feeling weak with malaise and fatigue as well as dizziness in addition to epigastric discomfort noted as alternating between fullness/dull and sharp, rated 7/10 at its worst in severity with decreased appetite with recent nausea and loose stools (2x/daily) with no marked cough, chest discomfort or shortness of breath nor any fevers with follow-up with his primary care physician who is also his director of plant operations with outpatient blood work with potassium 7.3 with referral to the ED for immediate evaluation. He denies any alteration to sense of taste or smell. He does state that he has been drinking electrolyte solution per his director of plant operations recommendation. He denies EtOH intake. Work-up in the ED included T 97, heart rate 102, BP 147/76, respiratory rate 18, 96% on room air, CBC with WC 9.7, hemoglobin 12.1, platelet 398 with no evidence of left shift, CMP with potassium 7.2, chloride 115, carbon oxide 17, BUN/creatinine 67/1.62, glucose 216, total bilirubin 0.10, AST/ALT 22/30, alk phos 77, troponin less than 0.015, lipase 94, chest x-ray with no acute cardiopulmonary findings, EKG with sinus rhythm with RBBB with peak T waves with no acute evidence of ischemia. In the ED patient ministered normal saline, insulin 5 units IV x1, dextrose 25 g IV x1, calcium gluconate 1 g IV x1 as well as albuterol therapy. Discussed with ED physician and aurelia. Past Medical History Past Medical History (Chronic Problems): Chronic Problems Type 2 diabetes mellitus with foot ulcer (Chronic) Obesity (BMI 30-39.9) (Chronic) Hypertension (Chronic) Gout (Chronic) GERD (gastroesophageal reflux disease) (Chronic) Hyperlipidemia (Chronic) Ulcer of right foot with fat layer exposed (Chronic) Malnutrition (Chronic) Hallux limitus of right foot (Chronic) Edema of right lower extremity (Chronic) Ulcer of right lower extremity with necrosis of muscle (Chronic) Corns and callosities (Chronic) Type 2 diabetes mellitus with diabetic neuropathy (Chronic) Allergies No Known Allergies Allergy (Verified 04/06/20 19:28) Home Medications: Ambulatory Orders Medication Instructions Recorded Allopurinol 300 mg PO DAILY 05/30/19 Cyanocobalamin (Vitamin B-12) 1,000 mcg PO DAILY 05/30/19 [Vitamin B-12] Insulin Glargine/Lixisenatide 70 units SQ DAILY 05/30/19 [Soliqua 100 Unit-33 Mcg/ml Pen] Insulin Lispro [Humalog Kwikpen] 28 unit SQ BID 05/30/19 Lisinopril [Prinivil] 10 mg PO DAILY 05/30/19 Metoprolol Tartrate 25 mg PO DAILY 05/30/19 Omeprazole 40 mg PO DAILY 05/30/19 Pioglitazone [Actos] 30 mg PO DAILY 05/30/19 Pravastatin [Pravachol] 40 mg PO QHS 05/30/19 Amoxicillin/Potassium Clav 1 ea PO BID #28 tab 06/08/19 [Augmentin 875-125 Tablet] Doxycycline 100 mg PO BID #28 cap 06/08/19 Metformin HCl 850 mg PO BID #0 06/08/19 Surgical History: - - Right foot surgery, left arm surgery status post fractures. Psychiatric History: No pertinent psych hx Lives: Alone Smoking Status: Never smoker Tobacco Use: Non-smoker Alcohol: None Drugs: None - *Family History Maternal History Items: Cancer, Diabetes, Stroke, - - Patient notes a maternal family history of stroke, diabetes as well as oral cancer. Paternal History Items: Cancer, Diabetes, - - Patient notes a paternal family history of diabetes and multiple myeloma. Review of Systems Constitutional: Reports: Anorexia, Malaise, Weakness, Fatigue. Denies: Chills, Fever, Weight Change HEENT: Reports: Post Nasal Drip. Denies: Head Aches, Sinus Congestion, Sinus Drainage Cardiovascular: Reports: Light Headedness. Denies: Chest Pain, Chest Pressure, Chest Tightness, Orthopnea, Palpitations, Syncope Respiratory: Denies: Cough, Shortness of Breath, Shortness of breath at rest, Shortness of breath upon exertion, Sputum production, Wheezing Gastrointestinal: Reports: Abdominal Pain, Diarrhea, Nausea, Vomiting Genitourinary: Denies: Dysuria Musculoskeletal: Denies: Joint Pain, Joint Tenderness Skin: Denies: Rash, Wounds Neurological: Denies: Numbness, Tingling, Focal weakness Psychiatric: Denies: Anxiety, Depression, Homicidal Ideations, Suicidal Ideations Hematologic/ Lymphatic: Denies: Easy Bruising, Easy Bleeding VTE Information - Inpt Only VTE Present on Admission: No VTE Mechan Device Prophylaxis: SCD's VTE Pharm Prophylaxis ordered?: Yes Patient Problems: Active and Suspected Problems Acute pancreatitis (Acute) Hyperkalemia (Acute) Subjective: Patient seated upright in ED bed, fatigued appearance, no acute distress, notes more comfortable since initial ED presentation. Objective: Physical Examination: General: awake, alert, oriented x 3 and cooperative, seated upright in the ED bed, no acute distress. Skin: normal color, turgor, no icterus, cyanosis. HEENT: AT/NC, EOMI, PERRLA, moderately dry MM, no carotid bruits or JVD noted; however, thickened neck makes examination difficult. Lungs: CTA bilaterally, moderate effort, moderate decrease BL bases, no rales, ronchi or wheezing. Heart: Regular rate and rhythm; no gallop, rub audible. Abdomen: soft, obese, mild epigastric tenderness, no right upper quadrant discomfort, no obvious distention, mildly decreased bowel sounds, no obvious HSM. Extremities: no cyanosis, clubbing, or edema. Neurological: patient awake, alert, oriented x 3; cognitive function intact; pupils equally reactive to light and accomodation; cranial nerves II-XII grossly normal, moving all 4 extremities, no focal deficits, strength moderately global decrease secondary to acute presentation and complaints. Psychiatric: affect appears fatigued otherwise normal, no acute evidence of depressive or anxiety feelings. - Physical Exam Vitals/I&O's: Vital Signs Temp Pulse Resp BP Pulse Ox 97.0 F L 100 20 H 147/76 H 96 04/06/20 19:26 04/06/20 20:31 04/06/20 20:31 04/06/20 19:26 04/06/20 19:26 Oxygen Delivery Method Room Air Weight: 270 lb Body Mass Index (BMI) 37.6 Laboratory Results 04/06/20 19:55: WBC 9.7, RBC 4.26 L, Hgb 12.1 L, Hct 37.9 L, MCV 89.0, MCH 28.4, MCHC 31.9 L, RDW Std Deviation 50.2 H, RDW Coeff of Yary 15.6 H, Plt Count 398, MPV 9.1, Immature Gran % (Auto) 0.600, Neut % (Auto) 59.5, Lymph % (Auto) 27.8, [place] % (Auto) 5.6, Eos % (Auto) 5.9 H, Baso % (Auto) 0.6, Absolute Neuts (auto) 5.8, Absolute Lymphs (auto) 2.69, Nucleated RBC % 0 04/06/20 19:55: Sodium 139, Potassium 7.2 H*, Chloride 115 H, Carbon Dioxide 17.0 L, Anion Gap 7, BUN 67 H, Creatinine 1.62 H, Estim Creat Clear Calc 53.58, Est GFR (MDRD) Af Amer 57 L, Est GFR (MDRD) Non-Af 47 L, BUN/Creatinine Ratio 41.4 H, Glucose 216 H, Calcium 9.4, Total Bilirubin 0.10 L, AST 22, ALT 30, Alkaline Phosphatase 77, Troponin I < 0.015, Total Protein 8.0, Albumin 3.5, Globulin 4.5 H, Albumin/Globulin Ratio 0.8 L, Lipase 984 H Assessment/Plan All Active Problems Hypergranulation (Acute) Type 2 diabetes mellitus with foot ulcer (Acute) Ulcer with necrosis of muscle (Resolved) Delayed wound healing (Acute) Acute pancreatitis (Acute) Hyperkalemia (Acute) Type 2 diabetes mellitus with other skin ulcer (Acute) Cellulitis of right lower extremity (Resolved) Infection (Acute) Acute kidney injury (Acute) Severe sepsis (Acute) Cellulitis of left lower extremity (Acute) The patient is a 55 y/o M w/ PMHx: Obesity, GERD, HTN, HLD, Gout, ? SEAN, Chronic normocytic anemia who presents to the [facility] ED on 04/06/20 secondary to history of being evaluated this prior Thursday urgent care secondary to feeling weak with malaise and fatigue as well as dizziness in addition to epigastric discomfort noted as alternating between fullness/dull and sharp, rated 7/10 at its worst in severity with decreased appetite with recent nausea and loose stools (2x/daily) with abnormal labs following primary physician assessment (K 7.3). 1. Hyperkalemia, symptomatic: We will admit to the ICU, maintain on close monitoring, trend BMP with ED initiated regimen as noted, administer concurrently Kayexalate, request consultation with nephrology, hold patient lisinopril as may be partially etiology, trend EKG, cycle cardiac enzymes, maintain on fall and aspiration precautions. Will request packaging line attendant consultation per protocol as well as nephrology given level of potassium in case of HD needs if not improving. 2. Acute kidney injury: Secondary to acute presentation with GI losses with concurrent hyperkalemia as noted. Admission BUN/Cr 67/1.62, prior baseline creatinine noted to be 1.1-1.2, will continue to aggressively hydrate, hold nephrotoxic medications and repeat chemistry in AM. If no improvement would plan renal ultrasound assessment. Will obtain FeNa. 3. Acute pancreatitis w/ N/V: Admission lipase 94, admitting nausea, diarrhea and poor appetite possibly also related with #1 and #2, maintain on IVFs, continue NPO status PPI, IV/po pain control, trend lipase, CMP. Will obtain RUQ US, FLP, denies EtOH consumption risk as etiology for pancreatitis. 4. Hypertension: Continue home regimen including metoprolol, holding lisinopril given hyperkalemia as noted, PRN hydralazine. 5. Hyperlipidemia: Continue home statin regimen. 6. Chronic normocytic anemia: Admission hemoglobin 12.1, prior noted 9-10, stable, trend. 7. Diabetes mellitus type II: Hold oral home regimen, continue home insulin regimen at 1/2 dosing while NPO status, NPO status currently and once clinically improving would plan to advance to ADA diet/low potassium, accu checks w/ ISS. 8. ? SEAN: Noted history however patient denies, encourage follow-up. 9. GERD: We will continue home PPI. 10. DVT prophylaxis: SCDs, Lovenox. 11. CODE status: Patient does not have healthcare power of attorney lawyer nor living will set up but discussed that if he was interested case management/social work could help assist in giving him information. Discussed CODE status at length including difference between FULL code, DNR-CCA and DNR-CC status. Following discussions about the differences in these status, requested Full Code. Advanced Care Planning Face to Face Time: 16 minutes. Inpatient E&M: 64480 Init Hosp L3 Procedures: 60775 Advncd Care Plan 30 Min
[2020-04-06] MEDS: Sodium Polystyrene Sulfonate 15 GM/60 ML UDC 30 GM PO (22:04)
[2020-04-06] MEDS: 0.9% Normal Saline 1,000 ML 999 ML IV (22:47)
[2020-04-06] MEDS: Pravastatin 40 MG Tablet PO (22:55)
[2020-04-06 23:13] LABS: Magnesium 2.5 mg/dL (1.6-2.6)
[2020-04-06 23:37] LABS: Anion Gap 6 (5-15); BUN 66 mg/dL (7-18); BUN/Creat Ratio 41.5 RATIO (10-20); Calcium,Total 9.4 mg/dL (8.5-10.1); Chloride 114 mmol/L (98-107); Creatinine, Serum 1.59 mg/dL (0.70-1.30); EST Glomerular Filtration Rate 48 mL/min (>60); Est Glom Filt Rate - Afr Amer 58 mL/min (>60); Estimated Creatinine Clearance 54.59 ml/min; Glucose 267 mg/dL (74-106); Potassium 6.9 mmol/L (3.5-5.1); Sodium Level 138 mmol/L (136-145)
[2020-04-07] VITALS (20 sets, daily range): BP systolic 110–163; BP diastolic 69–89; PULSE 72–90; RESP 12–20; TEMP 36.2–36.8; O2SAT 95–99
[2020-04-07] MEDS: 0.9% Normal Saline 1,000 ML 999 ML IV (00:21)
[2020-04-07] MEDS: Insulin Lispro 100 UNIT/ML INSULN.PEN SC (00:22)
[2020-04-07] MEDS: 0.9% Normal Saline 1,000 ML 150 ML IV (01:26)
[2020-04-07 01:53] LABS: Bacteria 0 SEEN /hpf (None Seen); Color, Urine Yellow (Yellow); Glucose, Dipstick 100 mg/dl (Normal); Ketone-Dipstick Negative (Negative); Leukocyte Esterase-Dipstick Negative /ul (Negative); Mucous, Urine 0 SEEN /hpf (<or=2+); Nitrite-Dipstick Negative (Negative); Occult Blood-Urine Negative /ul (Negative); Protein-Dipstick Negative (Negative); Red Blood Cells-Urine 0 SEEN /hpf (0-5); Specific Gravity, Urine 1.015 (1.002-1.030); Squamous Epithelial Cells - UA 0 SEEN /hpf (0-5); Urine Bilirubin Dipstick Negative (Negative); Urine Clarity Clear (Clear); Urine Urobilinogen Normal (Normal); White Blood Cells 0 SEEN /hpf (0-5)
[2020-04-07 05:13] LABS: Absolute Lymphocyte Count 2.81 X10^3/uL (0.83-4.51); Absolute Neutrophil Count 4.7 X10^3/uL (2.0-7.7); Basophil# 0.02 X10^3/uL; Basophil% 0.2 % (0-1); Eosinophil# 0.44 X10^3/uL; Eosinophils% 5.1 % (0-5); Hematocrit 33.9 % (40-54); Hemoglobin 10.7 g/dL (13.0-16.5); Lymphocyte # 2.81 X10^3/ul (4.0); Lymphocyte % 32.8 % (19-41); Mean Corp Hgb Conc 31.6 g/dL (32-36); Mean Corpuscular Hgb 28.2 pg (27.0-32.0); Mean Corpuscular Volume 89.4 fL (80-94); Mean Platelet Vol. 8.8 fl (6.2-12.0); Monocyte# 0.53 X10^3/uL; Monocyte% 6.2 % (0-10); NRBC Flagged by Analyzer 0 % (0-5); Neutrophil # 4.71 X10^3/uL (2.7-7.7); Neutrophil % 55.1 % (47-70); Platelet Count 329 K/mm3 (150-450); RBC Distribution Width CV 15.4 % (11.6-14.6); RBC Distribution Width SD 50.3 fl (35.1-43.9); Red Blood Count 3.79 M/mm3 (4.6-6.2); White Blood Count 8.6 K/mm3 (4.4-11.0)
[2020-04-07 05:44] LABS: ALB/GLOB Ratio 0.7 RATIO (0.9-2.4); AST(SGOT) 18 U/L (15-37); Alanine Aminotransfer ALT/SGPT 30 U/L (16-61); Albumin, Serum 2.9 g/dL (3.2-5.0); Alkaline Phosphatase 62 U/L (45-117); Anion Gap 6 (5-15); BUN 53 mg/dL (7-18); BUN/Creat Ratio 46.5 RATIO (10-20); Calcium,Total 8.6 mg/dL (8.5-10.1); Chloride 118 mmol/L (98-107); Cholesterol 141 mg/dL (200); Creatinine, Serum 1.14 mg/dL (0.70-1.30); EST Glomerular Filtration Rate 70 mL/min (>60); Est Glom Filt Rate - Afr Amer 85 mL/min (>60); Estimated Creatinine Clearance 76.14 ml/min; Glucose 173 mg/dL (74-106); High Density Lipoprotein 30 mg/dL; Lipase 817 U/L (73-393); Potassium 6.8 mmol/L (3.5-5.1); Protein, Total 6.9 g/dL (6.4-8.2); Sodium Level 142 mmol/L (136-145); Triglycerides 330 mg/dL; Very Low Density Lipoprotein 66 mg/dL (5-40)
--- NOTE | 2020-04-07 05:55 | EKG12_ITS ---
Test Reason : AM EKG Blood Pressure : / mmHG Vent. Rate : 081 BPM Atrial Rate : 081 BPM P-R Int : 166 ms QRS Dur : 148 ms QT Int : 392 ms P-R-T Axes : 050 -36 007 degrees QTc Int : 455 ms Normal sinus rhythm Left axis deviation Right bundle branch block Abnormal ECG Confirmed by RYLAN OWENS, JOVANY ([id number]), content editor STEPHANIE CASTILLO ([id number]) on 04/10/2020 10:20:08 AM Referred By: SAMANTHA Confirmed By:JOVANY FAGAN MD
--- NOTE | 2020-04-07 05:55 | US_ITS ---
STUDY: ABDOMINAL ULTRASOUND - RIGHT UPPER QUADRANT REASON FOR VISIT: Male, 55 years old PANCREATITIS TECHNIQUE: Ultrasound evaluation of the right upper quadrant was performed with real-time and static bowie-scale imaging. TECHNICAL QUALITY: Adequate. COMPARISON: None. FINDINGS: Liver: The liver measures 22.0 cm. There is increased echogenicity consistent with fatty infiltration. The bile ducts are within normal limits. There is hepatic color flow. The direction of portal flow is hepatopetal. There is no demonstrated mass lesion. Gallbladder: Normal distended gallbladder. The gallbladder wall measures 2 mm. There is a negative sonographic Aceves''s sign. There is no pericholecystic fluid. There are no gallstones. Common Bile Duct (C.B.D.): The common bile duct measures 4 mm. Pancreas: Normal size of the head, body and tail of the pancreas. There is normal echogenicity of the pancreas. There is no demonstrated pancreatic mass or cyst. Right Kidney: Normal size of the right kidney. The right kidney measures 13.6 cm. Normal renal cortex. The right cortex measures 2.0 cm. There is no demonstrated renal mass or cyst. There is no right hydronephrosis. US/Gallbladder IMPRESSION: Liver is enlarged with fatty infiltration. No gallstones or biliary dilatation. Electronically Signed: Naseem Romero MD at 8:50 EDT , Service support ,
[2020-04-07] MEDS: Dextrose 50%-Water 25 GM/50 ML DISP.SYRIN IV (06:16)
--- NOTE | 2020-04-07 06:16 | PCM.CON.CC ---
Reason for Consult Date of Consultation: 04/07/20 Reason for Consultation: Hyperkalemia, acute kidney injury, pancreatitis History of Present Illness: The patient is a 55-year-old male, with a history as outlined below, who presented to the emergency department on April 06 with generalized malaise, fatigue, recent abdominal discomfort and diarrhea and hyperkalemia. The patient reports that he works in [employer] and last week during one of the hot days he began to experience some abdominal discomfort and dizziness. He attributed his symptoms initially to the weather. However, he went on to develop worsening malaise transient episodes of emesis and more recently some diarrhea. The patient had some recent blood work completed by his cordwood cutter who then contacted him and advised him to come to the hospital as his potassium was elevated. The patient denies any recent medication changes. On presentation to the emergency department, the patient was noted to be afebrile and hemodynamically stable. He was maintaining appropriate oxygen saturations on room air. Laboratory evaluation revealed no evidence of a leukocytosis. Chemistry profile was notable for a sodium of 139, potassium of 7.2, chloride of 115, bicarbonate of 17 and creatinine of 1.62. Lipase was elevated to 984. Plain film chest x-ray revealed no acute cardiopulmonary process. The patient was subsequently admitted to the medical intensive care unit for further management. Past Medical History Past Medical History (Chronic Problems): Chronic Problems Type 2 diabetes mellitus with foot ulcer (Chronic) Obesity (BMI 30-39.9) (Chronic) Hypertension (Chronic) Gout (Chronic) GERD (gastroesophageal reflux disease) (Chronic) Hyperlipidemia (Chronic) Ulcer of right foot with fat layer exposed (Chronic) Malnutrition (Chronic) Hallux limitus of right foot (Chronic) Edema of right lower extremity (Chronic) Ulcer of right lower extremity with necrosis of muscle (Chronic) Corns and callosities (Chronic) Type 2 diabetes mellitus with diabetic neuropathy (Chronic) Allergies No Known Allergies Allergy (Verified 04/06/20 19:28) Home Medications: Ambulatory Orders Medication Instructions Recorded Allopurinol 300 mg PO DAILY 04/07/20 Aspirin 81 mg PO DAILY 04/07/20 Dulaglutide [Trulicity] 1.5 mg SQ QWEEK 04/07/20 Insulin Glargine,Hum.rec.anlog 20 unit SQ QHS 04/07/20 [Basaglar Kwikpen U-100] Insulin Lispro [Humalog KwikPen] 28 units SQ TID 04/07/20 Levomefolate/B6/B12/Algal Oil 1 ea PO BID 04/07/20 [Metanx Capsule] Lisinopril 20 mg PO DAILY 04/07/20 Mecobalamin [B12 Active] 2,500 mcg PO DAILY 04/07/20 Metformin HCl 850 mg PO BID 04/07/20 Omeprazole [Prilosec] 20 mg PO DAILY 04/07/20 Pravastatin [Pravachol] 40 mg PO DAILY 04/07/20 Surgical History: - - Right foot surgery, left arm surgery status post fractures. Psychiatric History: No pertinent psych hx Lives: Alone Smoking Status: Never smoker Tobacco Use: Non-smoker Alcohol: None Drugs: None - *Family History Maternal History Items: Cancer, Diabetes, Stroke, - - Patient notes a maternal family history of stroke, diabetes as well as oral cancer. Paternal History Items: Cancer, Diabetes, - - Patient notes a paternal family history of diabetes and multiple myeloma. Review of Systems Constitutional: Reports: Malaise, Weakness, Fatigue. Denies: Chills, Fever Eyes: Denies: Blurred vision, Double vision HEENT: Denies: Head Aches, Sinus Congestion, Sinus Drainage Cardiovascular: Reports: Light Headedness. Denies: Chest Pain, Palpitations Respiratory: Denies: Cough, Shortness of Breath Gastrointestinal: Reports: Abdominal Pain, Diarrhea, Nausea, Vomiting Genitourinary: Denies: Dysuria Musculoskeletal: Denies: Joint Pain, Joint Tenderness Skin: Denies: Rash, Wounds Neurological: Denies: Numbness, Tingling, Focal weakness Psychiatric: Denies: Anxiety, Depression, Homicidal Ideations, Suicidal Ideations Hematologic/ Lymphatic: Denies: Easy Bruising, Easy Bleeding Patient Problems: Active and Suspected Problems Acute pancreatitis (Acute) Hyperkalemia (Acute) Objective: The patient's most recent lab work, culture data and imaging studies have all been personally reviewed. - Physical Exam Vitals/I&O's: Vital Signs Temp Pulse Resp BP Pulse Ox 97.3 F L 80 17 118/73 95 04/07/20 00:00 04/07/20 06:00 04/07/20 06:00 04/07/20 06:00 04/07/20 06:00 Oxygen Delivery Method Room Air Weight: 271 lb 9.752 oz Body Mass Index (BMI) 37.8 Intake and Output for Last 24 Hours 04/05/20 04/06/20 04/07/20 23:59 23:59 23:59 Intake Total 1500.05 / 1500.05 1110 / 1110 Output Total 800 / 800 Balance 1500.05 / 1500.05 310 / 310 General: Alert, Oriented x3, Cooperative, No apparent distress HEENT: Atraumatic, PERRLA, Normocephalic Oral: No Gingival or Mucosal Lesions/ Ulcerations Neck: Supple, No Nodes, Trachea Midline Lungs: Normal air movement, No rhonchi, No wheeze, No rales Cardiovascular: Regular rate, Regular Rhythm, Normal S1, Normal S2, No murmurs Abdomen: Bowel Sounds Present, Soft, Non Tender, Obese Extremities: No clubbing, No cyanosis, No edema Skin: No breakdown Musculoskeletal: No Tenderness to Palpation of Joints or Extremities, No Muscle Wasting Lymphatic: No Cervical, Supraclavicular, or Inguinal Adenopathy Neurological: Cranial nerves II-XII grossly intact, Neuro grossly intact Psych/Mental Status: Alert and oriented to time, place, person, mood and affect Labs (Last 48 Hours) 04/06/20 04/06/20 04/06/20 19:55 19:55 22:50 WBC 9.7 RBC 4.26 L Hgb 12.1 L Hct 37.9 L MCV 89.0 MCH 28.4 MCHC 31.9 L RDW Std Deviation 50.2 H RDW Coeff of Yary 15.6 H Plt Count 398 MPV 9.1 Immature Gran % (Auto) 0.600 Neut % (Auto) 59.5 Lymph % (Auto) 27.8 [place] % (Auto) 5.6 Eos % (Auto) 5.9 H Baso % (Auto) 0.6 Absolute Neuts (auto) 5.8 Absolute Lymphs (auto) 2.69 Nucleated RBC % 0 Sodium 139 Potassium 7.2 H* Chloride 115 H Carbon Dioxide 17.0 L Anion Gap 7 BUN 67 H Creatinine 1.62 H Estim Creat Clear Calc 53.58 Est GFR (MDRD) Af Amer 57 L Est GFR (MDRD) Non-Af 47 L BUN/Creatinine Ratio 41.4 H Glucose 216 H Calcium 9.4 Magnesium 2.5 Total Bilirubin 0.10 L AST 22 ALT 30 Alkaline Phosphatase 77 Troponin I < 0.015 Total Protein 8.0 Albumin 3.5 Globulin 4.5 H Albumin/Globulin Ratio 0.8 L Triglycerides Cholesterol LDL Cholesterol VLDL Cholesterol HDL Cholesterol Lipase 984 H Urine Color Urine Clarity Urine pH Ur Specific [place] Urine Protein Urine Glucose (UA) Urine Ketones Urine Occult Blood Urine Nitrite Urine Bilirubin Urine Urobilinogen Ur Leukocyte Esterase Urine RBC Urine WBC Ur Squamous Epith Cells Urine Bacteria Urine Mucus 04/06/20 04/07/20 04/07/20 22:50 01:40 05:00 WBC 8.6 RBC 3.79 L Hgb 10.7 L Hct 33.9 L MCV 89.4 MCH 28.2 MCHC 31.6 L RDW Std Deviation 50.3 H RDW Coeff of Yary 15.4 H Plt Count 329 MPV 8.8 Immature Gran % (Auto) 0.600 Neut % (Auto) 55.1 Lymph % (Auto) 32.8 [place] % (Auto) 6.2 Eos % (Auto) 5.1 H Baso % (Auto) 0.2 Absolute Neuts (auto) 4.7 Absolute Lymphs (auto) 2.81 Nucleated RBC % 0 Sodium 138 Potassium 6.9 H* Chloride 114 H Carbon Dioxide 18.0 L Anion Gap 6 BUN 66 H Creatinine 1.59 H Estim Creat Clear Calc 54.59 Est GFR (MDRD) Af Amer 58 L Est GFR (MDRD) Non-Af 48 L BUN/Creatinine Ratio 41.5 H Glucose 267 H Calcium 9.4 Magnesium Total Bilirubin AST ALT Alkaline Phosphatase Troponin I Total Protein Albumin Globulin Albumin/Globulin Ratio Triglycerides Cholesterol LDL Cholesterol VLDL Cholesterol HDL Cholesterol Lipase Urine Color Yellow Urine Clarity Clear Urine pH 5.0 Ur Specific [place] 1.015 Urine Protein Negative Urine Glucose (UA) 100 H Urine Ketones Negative Urine Occult Blood Negative Urine Nitrite Negative Urine Bilirubin Negative Urine Urobilinogen Normal Ur Leukocyte Esterase Negative Urine RBC 0 SEEN Urine WBC 0 SEEN Ur Squamous Epith Cells 0 SEEN Urine Bacteria 0 SEEN Urine Mucus 0 SEEN 04/07/20 05:00 WBC RBC Hgb Hct MCV MCH MCHC RDW Std Deviation RDW Coeff of Yary Plt Count MPV Immature Gran % (Auto) Neut % (Auto) Lymph % (Auto) [place] % (Auto) Eos % (Auto) Baso % (Auto) Absolute Neuts (auto) Absolute Lymphs (auto) Nucleated RBC % Sodium 142 Potassium 6.8 H* Chloride 118 H Carbon Dioxide 18.0 L Anion Gap 6 BUN 53 H Creatinine 1.14 Estim Creat Clear Calc 76.14 Est GFR (MDRD) Af Amer 85 Est GFR (MDRD) Non-Af 70 BUN/Creatinine Ratio 46.5 H Glucose 173 H Calcium 8.6 Magnesium Total Bilirubin 0.10 L AST 18 ALT 30 Alkaline Phosphatase 62 Troponin I Total Protein 6.9 Albumin 2.9 L Globulin 4.0 Albumin/Globulin Ratio 0.7 L Triglycerides 330 H Cholesterol 141 LDL Cholesterol 45 VLDL Cholesterol 66 H HDL Cholesterol 30 L Lipase 817 H Urine Color Urine Clarity Urine pH Ur Specific [place] Urine Protein Urine Glucose (UA) Urine Ketones Urine Occult Blood Urine Nitrite Urine Bilirubin Urine Urobilinogen Ur Leukocyte Esterase Urine RBC Urine WBC Ur Squamous Epith Cells Urine Bacteria Urine Mucus Clinical Impression(s) from Imaging Studies Chest X-Ray 04/06/20 20:24 IMPRESSION: No acute findings. Electronically Signed: Terra Yusuf MD at 20:57 EDT Tel , Service support , Current Medications Acetaminophen (Tylenol) 650 mg PO Q6H PRN PRN PRN Reason: Pain Score 1-10/Temp > 100.7 F Al Hydroxide/Mg Hydroxide (Mylanta Ii) 30 ml PO Q6H PRN PRN PRN Reason: Gastric Burning Albuterol Sulfate (Ventolin Aerosols) 2.5 mg INHALATION Q2H PRN PRN PRN Reason: SOB/Wheezing Allopurinol (Zyloprim) [address] [facility] Dextrose (D50w Syringe) 0 gm IV X1 PRN; Protocol PRN Reason: Hypoglycemia Enoxaparin Sodium (Lovenox) [address] [facility] Glucagon () 1 mg IM .X1 PRN PRN Reason: Hypoglycemia Guaifenesin (Robitussin) 10 ml PO Q4H PRN PRN PRN Reason: COUGH Hydralazine HCl (Apresoline Iv) 10 mg IV Q4H PRN PRN PRN Reason: SBP > 160 Sodium Chloride () 1,000 mls @ 150 mls/hr IV .Q6H40M [facility] Last Admin: 04/07/20 01:26 Dose: 150 mls/hr Documented by: Pantoprazole Sodium 40 mg/ (Sodium Chloride) 110 mls @ 330 mls/hr IV Q12 [facility] Last Infusion: 04/07/20 00:25 Dose: Infused Documented by: Sodium Chloride () 250 mls @ 15 mls/hr IV .[id number] PRN PRN Reason: Saline Flush Sodium Chloride () 250 mls @ 15 mls/hr IV .[id number] PRN PRN Reason: Additional IVPB Infusion Insulin Glargine (Lantus (Bkc)) [address] [facility] Insulin Human Lispro (Humalog Kwikpen (Bkc)) [address] [facility] Insulin Human Lispro (Humalog Kwikpen (Bkc)) [address] [facility]; Protocol Last Admin: 04/07/20 00:22 Dose: 3 u Documented by: Melatonin (Melatonin) 3 mg PO QHS PRN PRN PRN Reason: INSOMNIA Metoprolol Tartrate (Lopressor (Beta Екатерина)) [address] [facility] Morphine Sulfate () 2 mg IV Q3H PRN PRN PRN Reason: Pain Score 6-10/10 Nitroglycerin (Nitrostat) 0.4 mg SUBLINGUAL Q5M PRN PRN Reason: CARDIAC/CHEST PAIN Ondansetron HCl (Zofran) 4 mg IV Q8H PRN PRN PRN Reason: NAUSEA/VOMITING Oxycodone HCl (Oxyir) 5 mg PO Q4H PRN PRN PRN Reason: Pain Score 4-5/10 Pravastatin Sodium (Pravachol) [address] [facility] Last Admin: 04/06/20 22:55 Dose: 40 mg Documented by: Prochlorperazine Edisylate (Compazine Iv) 5 mg IV Q4H PRN PRN PRN Reason: Breakthrough Nausea/Vomiting Sodium Chloride () 10 - 40 ml IV UD PRN PRN Reason: SALINE FLUSH Throat Lozenges (Cepacol Sore Throat Lozenge) 1 lozenge MUCOUS MEM Q2H PRN PRN PRN Reason: SORE THROAT Assessment/Plan Active and Suspected Problems Acute pancreatitis (Acute) Hyperkalemia (Acute) RECOMMENDATIONS: 1. Continue supplemental IV fluid hydration. 2. Nephrology consultation pending. 3. Continue medical management of hyperkalemia. Order for MiraLAX is also been placed. 4. Attempt clear liquids this morning. 5. Abdominal ultrasound is pending. 6. Encourage incentive spirometer use and mobilize patient as tolerated. 7. The patient is medically stable for transfer out of the intensive care unit. IMPRESSIONS: 1. Hyperkalemia Most likely medication induced. Continue medical management of hyperkalemia as ordered. Nephrology consultation is currently pending. 2. Acute kidney injury Likely prerenal in etiology. Creatinine is improving with volume expansion. Continue to monitor urine output. No current indication for renal replacement therapy. 3. Possible resolving pancreatitis Continue conservative medical management with supplemental IV fluids as ordered. Dietary advancement as tolerated by patient. Abdominal ultrasound is pending to evaluate for the presence of gallstones. 4. Obesity/diabetes mellitus/hypertension/GERD/hyperlipidemia Complicates care, management, recovery and prognosis. Continue to hold lisinopril. Continue Lantus and sliding scale insulin coverage. This note was generated with [employer] dictation software. It may contain incorrect words, spelling, and punctuation that were not noted in checking the note before signing. Inpatient E&M: 16287 Init Hosp L3
[2020-04-07] MEDS: Sodium Polystyrene Sulfonate 15 GM/60 ML UDC 30 GM PO (06:17)
[2020-04-07 08:17] LABS: CPK Total, Creatine Kinase 160 U/L (39-308)
[2020-04-07] MEDS: SODIUM BICARBONATE IV ×3 (08:30→20:50)
[2020-04-07] MEDS: [UNRECOGNIZED DRUG - OTHER] IV ×3 (08:30→20:50)
[2020-04-07] MEDS: Polyethylene Glycol 3350 17 GM PACKET 34 GM PO (08:31)
[2020-04-07 08:43] LABS: Anion Gap 6 (5-15); BUN 48 mg/dL (7-18); BUN/Creat Ratio 38.4 RATIO (10-20); Chloride 116 mmol/L (98-107); Creatinine, Serum 1.25 mg/dL (0.70-1.30); EST Glomerular Filtration Rate 63 mL/min (>60); Est Glom Filt Rate - Afr Amer 77 mL/min (>60); Estimated Creatinine Clearance 69.44 ml/min; Glucose 223 mg/dL (74-106); Potassium 6.6 mmol/L (3.5-5.1); Sodium Level 141 mmol/L (136-145)
[2020-04-07] MEDS: Insulin Lispro 100 UNIT/ML INSULN.PEN 28 UNIT SC (09:10)
[2020-04-07] MEDS: 0.9% Saline Lock 10 ML Syringe IV ×2 (09:13→14:18)
[2020-04-07] MEDS: Allopurinol 300 MG Tablet PO (09:56)
[2020-04-07] MEDS: Enoxaparin 40 MG/0.4 ML Syringe SC (09:56)
[2020-04-07] MEDS: Metoprolol Tartrate 25 MG Tablet PO (09:56)
--- NOTE | 2020-04-07 10:15 | PCM.CONS.R ---
Consultation - Renal 04/07/20 PCP/ Referring MD: Requesting physician: [] Primary care physician: Dr. Rowan Ledezma MD Reason for Consultation:: hyperkalemia, YIMI - History of Present Illness History of Present Illness: The patient is a 55 year old M with DMtype 2, HTN, obesity admitted for abdominal pain with nausea, vomiting, poor appetite past 2 weeks. He was working out in the heat [employer]. Noticed lightheadedness, near syncope with neck pain, shoulder pain, back pain thought due to dehdyration. He went to urgent care 3 days ago and then called his skin care consultant yesterday about his symptoms with labs ordered. He was was instructed to go to ER yesterday for elevated potassium. Potassium elevated at 7.2 improved to 6.6 today with kayexalate but still with no BM. Creatinine improved from 1.62 on amdit to 1.14 yesterday, 1.25 today. Urine output has been good at home. Noticed dark stools. Took 10 ibuprofen a day for muscle aches past 2 weeks. Took pepto bismol for gas, belching. Currently fluid resuscitated with Normal saline with good urine output. He has nonanion gap metabolic acidosis. CPK 160. He is on metformin at homefor diabetes and started on lisinopril within past year. BLood sugars remain elevated. He does not have a PCP, only follows up with endocrine due to no health insurance. Started new [employer] job. - Allergies Allergies: Allergies No Known Allergies Allergy (Verified 04/06/20 19:28) - Current Medications Current Medications: Current Medications Acetaminophen (Tylenol) 650 mg PO Q6H PRN PRN PRN Reason: Pain Score 1-10/Temp > 100.7 F Al Hydroxide/Mg Hydroxide (Mylanta Ii) 30 ml PO Q6H PRN PRN PRN Reason: Gastric Burning Albuterol Sulfate (Ventolin Aerosols) 2.5 mg INHALATION Q2H PRN PRN PRN Reason: SOB/Wheezing Allopurinol (Zyloprim) 300 mg PO DAILY [facility] Last Admin: 04/07/20 09:56 Dose: 300 mg Documented by: Dextrose (D50w Syringe) 0 gm IV X1 PRN; Protocol PRN Reason: Hypoglycemia Enoxaparin Sodium (Lovenox) 40 mg SC DAILY [facility] Last Admin: 04/07/20 09:56 Dose: 40 mg Documented by: Glucagon () 1 mg IM .X1 PRN PRN Reason: Hypoglycemia Guaifenesin (Robitussin) 10 ml PO Q4H PRN PRN PRN Reason: COUGH Hydralazine HCl (Apresoline Iv) 10 mg IV Q4H PRN PRN PRN Reason: SBP > 160 Pantoprazole Sodium 40 mg/ (Sodium Chloride) 110 mls @ 330 mls/hr IV Q12 [facility] Last Admin: 04/07/20 10:00 Dose: 330 mls/hr Documented by: Sodium Chloride () 250 mls @ 15 mls/hr IV .[id number] PRN PRN Reason: Saline Flush Sodium Chloride () 250 mls @ 15 mls/hr IV .[id number] PRN PRN Reason: Additional IVPB Infusion Sodium Bicarbonate 50 meq/ (Sodium Chloride) 1,050 mls @ 150 mls/hr IV .Q7H [facility] Last Admin: 04/07/20 08:30 Dose: 150 mls/hr Documented by: Insulin Glargine (Lantus (Bkc)) 20 units SC DAILY [facility] Last Admin: 04/07/20 09:12 Dose: 20 units Documented by: Insulin Human Lispro (Humalog Kwikpen (Bkc)) 28 unit SC BIDCM [facility] Last Admin: 04/07/20 09:10 Dose: 28 units Documented by: Insulin Human Lispro (Humalog Kwikpen (Bkc)) 0 unit SC Q6 [facility]; Protocol Last Admin: 04/07/20 06:26 Dose: Not Given Documented by: Melatonin (Melatonin) 3 mg PO QHS PRN PRN PRN Reason: INSOMNIA Metoprolol Tartrate (Lopressor (Beta Екатерина)) 25 mg PO DAILY [facility] Last Admin: 04/07/20 09:56 Dose: 25 mg Documented by: Morphine Sulfate () 2 mg IV Q3H PRN PRN PRN Reason: Pain Score 6-10/10 Nitroglycerin (Nitrostat) 0.4 mg SUBLINGUAL Q5M PRN PRN Reason: CARDIAC/CHEST PAIN Ondansetron HCl (Zofran) 4 mg IV Q8H PRN PRN PRN Reason: NAUSEA/VOMITING Oxycodone HCl (Oxyir) 5 mg PO Q4H PRN PRN PRN Reason: Pain Score 4-5/10 Pravastatin Sodium (Pravachol) 40 mg PO QHS [facility] Last Admin: 04/06/20 22:55 Dose: 40 mg Documented by: Prochlorperazine Edisylate (Compazine Iv) 5 mg IV Q4H PRN PRN PRN Reason: Breakthrough Nausea/Vomiting Sodium Chloride () 10 - 40 ml IV UD PRN PRN Reason: SALINE FLUSH Last Admin: 04/07/20 09:13 Dose: 10 ml Documented by: Throat Lozenges (Cepacol Sore Throat Lozenge) 1 lozenge MUCOUS MEM Q2H PRN PRN PRN Reason: SORE THROAT - Past Medical History Past Medical History (Chronic Problems): Chronic Problems Type 2 diabetes mellitus with foot ulcer (Chronic) Obesity (BMI 30-39.9) (Chronic) Hypertension (Chronic) Gout (Chronic) GERD (gastroesophageal reflux disease) (Chronic) Hyperlipidemia (Chronic) Ulcer of right foot with fat layer exposed (Chronic) Malnutrition (Chronic) Hallux limitus of right foot (Chronic) Edema of right lower extremity (Chronic) Ulcer of right lower extremity with necrosis of muscle (Chronic) Corns and callosities (Chronic) Type 2 diabetes mellitus with diabetic neuropathy (Chronic) - Past Surgical History Surgical History: - - Right foot surgery, left arm surgery status post fractures. - Social History Smoking Status: Never smoker Alcohol: None Drugs: None - Family History Maternal History Items: Cancer, Diabetes, Stroke, - - Patient notes a maternal family history of stroke, diabetes as well as oral cancer. Paternal History Items: Cancer, Diabetes, - - Patient notes a paternal family history of diabetes and multiple myeloma. Review of Systems Constitutional: Reports: Anorexia, Malaise, Weakness, - - lightheaded, near syncope. Denies: Chills, Fever Eyes: Denies: Blurred vision HEENT: Reports: Visual Changes - near black out. Denies: Head Aches Cardiovascular: Denies: Chest Pain, Edema Respiratory: Denies: Cough, Shortness of Breath Gastrointestinal: Reports: Abdominal Pain - epigastric, Nausea, Vomiting, - - dark stools, took ibuprofen and pepto bismol for excessive belching Genitourinary: Reports: - - no change in urine output, denied dark brown urine Musculoskeletal: Reports: - - muscle ache in shoulder, neck, back Neurological: Denies: Focal weakness, Tremor, Seizures Psychiatric: Denies: Anxiety, Depression Hematologic/ Lymphatic: Denies: Anemia Patient Problems: Active and Suspected Problems Acute pancreatitis (Acute) Hyperkalemia (Acute) - Physical Exam Vitals/I&O's: Vital Signs Temp Pulse Resp BP Pulse Ox 98.3 F 82 17 136/85 H 99 04/07/20 08:00 04/07/20 09:56 04/07/20 09:00 04/07/20 09:56 04/07/20 09:00 Oxygen Delivery Method Room Air Weight: 123.2 kg Body Mass Index (BMI) 37.8 Intake and Output for Last 24 Hours 04/05/20 04/06/20 04/07/20 23:59 23:59 23:59 Intake Total 1500.05 / 1500.05 2110 / 2110 Output Total 800 / 800 Balance 1500.05 / 1500.05 1310 / 1310 General: Alert, Oriented x3, Cooperative, No apparent distress HEENT: PERRLA, EOMI Oral: Moist Mucosa Neck: Supple Lungs: Clear to auscultation Cardiovascular: Regular rate, No murmurs, No rub noted Abdomen: Bowel Sounds Present, Soft, Non Tender, Non-Distended, Obese Extremities: No edema Skin: No rashes Musculoskeletal: No Muscle Wasting Neurological: Cranial nerves II-XII grossly intact Psych/Mental Status: Normal Affect, Appropriate, Alert and oriented to time, place, person, mood and affect Laboratory Results 04/06/20 19:55: WBC 9.7, RBC 4.26 L, Hgb 12.1 L, Hct 37.9 L, MCV 89.0, MCH 28.4, MCHC 31.9 L, RDW Std Deviation 50.2 H, RDW Coeff of Yary 15.6 H, Plt Count 398, MPV 9.1, Immature Gran % (Auto) 0.600, Neut % (Auto) 59.5, Lymph % (Auto) 27.8, [place] % (Auto) 5.6, Eos % (Auto) 5.9 H, Baso % (Auto) 0.6, Absolute Neuts (auto) 5.8, Absolute Lymphs (auto) 2.69, Nucleated RBC % 0 04/06/20 19:55: Sodium 139, Potassium 7.2 H*, Chloride 115 H, Carbon Dioxide 17.0 L, Anion Gap 7, BUN 67 H, Creatinine 1.62 H, Estim Creat Clear Calc 53.58, Est GFR (MDRD) Af Amer 57 L, Est GFR (MDRD) Non-Af 47 L, BUN/Creatinine Ratio 41.4 H, Glucose 216 H, Calcium 9.4, Total Bilirubin 0.10 L, AST 22, ALT 30, Alkaline Phosphatase 77, Troponin I < 0.015, Total Protein 8.0, Albumin 3.5, Globulin 4.5 H, Albumin/Globulin Ratio 0.8 L, Lipase 984 H 04/06/20 22:50: Magnesium 2.5 04/06/20 22:50: Sodium 138, Potassium 6.9 H*, Chloride 114 H, Carbon Dioxide 18.0 L, Anion Gap 6, BUN 66 H, Creatinine 1.59 H, Estim Creat Clear Calc 54.59, Est GFR (MDRD) Af Amer 58 L, Est GFR (MDRD) Non-Af 48 L, BUN/Creatinine Ratio 41.5 H, Glucose 267 H, Calcium 9.4 04/07/20 01:40: Urine Color Yellow, Urine Clarity Clear, Urine pH 5.0, Ur Specific [place] 1.015, Urine Protein Negative, Urine Glucose (UA) 100 H, Urine Ketones Negative, Urine Occult Blood Negative, Urine Nitrite Negative, Urine Bilirubin Negative, Urine Urobilinogen Normal, Ur Leukocyte Esterase Negative, Urine RBC 0 SEEN, Urine WBC 0 SEEN, Ur Squamous Epith Cells 0 SEEN, Urine Bacteria 0 SEEN, Urine Mucus 0 SEEN 04/07/20 05:00: WBC 8.6, RBC 3.79 L, Hgb 10.7 L, Hct 33.9 L, MCV 89.4, MCH 28.2, MCHC 31.6 L, RDW Std Deviation 50.3 H, RDW Coeff of Yary 15.4 H, Plt Count 329, MPV 8.8, Immature Gran % (Auto) 0.600, Neut % (Auto) 55.1, Lymph % (Auto) 32.8, [place] % (Auto) 6.2, Eos % (Auto) 5.1 H, Baso % (Auto) 0.2, Absolute Neuts (auto) 4.7, Absolute Lymphs (auto) 2.81, Nucleated RBC % 0 04/07/20 05:00: Sodium 142, Potassium 6.8 H*, Chloride 118 H, Carbon Dioxide 18.0 L, Anion Gap 6, BUN 53 H, Creatinine 1.14, Estim Creat Clear Calc 76.14, Est GFR (MDRD) Af Amer 85, Est GFR (MDRD) Non-Af 70, BUN/Creatinine Ratio 46.5 H, Glucose 173 H, Calcium 8.6, Total Bilirubin 0.10 L, AST 18, ALT 30, Alkaline Phosphatase 62, Total Protein 6.9, Albumin 2.9 L, Globulin 4.0, Albumin/Globulin Ratio 0.7 L, Triglycerides 330 H, Cholesterol 141, LDL Cholesterol 45, VLDL Cholesterol 66 H, HDL Cholesterol 30 L, Lipase 817 H 04/07/20 05:00: Total Creatine Kinase 160 04/07/20 08:15: Sodium 141, Potassium 6.6 H*, Chloride 116 H, Carbon Dioxide 19.0 L, Anion Gap 6, BUN 48 H, Creatinine 1.25, Estim Creat Clear Calc 69.44, Est GFR (MDRD) Af Amer 77, Est GFR (MDRD) Non-Af 63, BUN/Creatinine Ratio 38.4 H, Glucose 223 H, Calcium 9.0 Clinical Impression(s) from Imaging Studies Chest X-Ray 04/06/20 20:24 IMPRESSION: No acute findings. Electronically Signed: Terra Yusuf MD at 20:57 EDT Tel , Service support , Gallbladder Ultrasound 04/07/20 05:55 IMPRESSION: Liver is enlarged with fatty infiltration. No gallstones or biliary dilatation. Electronically Signed: Naseem Romero MD at 8:50 EDT , Service support , Current Medications Acetaminophen (Tylenol) 650 mg PO Q6H PRN PRN PRN Reason: Pain Score 1-10/Temp > 100.7 F Al Hydroxide/Mg Hydroxide (Mylanta Ii) 30 ml PO Q6H PRN PRN PRN Reason: Gastric Burning Albuterol Sulfate (Ventolin Aerosols) 2.5 mg INHALATION Q2H PRN PRN PRN Reason: SOB/Wheezing Allopurinol (Zyloprim) 300 mg PO DAILY [facility] Last Admin: 04/07/20 09:56 Dose: 300 mg Documented by: Dextrose (D50w Syringe) 0 gm IV X1 PRN; Protocol PRN Reason: Hypoglycemia Enoxaparin Sodium (Lovenox) 40 mg SC DAILY [facility] Last Admin: 04/07/20 09:56 Dose: 40 mg Documented by: Glucagon () 1 mg IM .X1 PRN PRN Reason: Hypoglycemia Guaifenesin (Robitussin) 10 ml PO Q4H PRN PRN PRN Reason: COUGH Hydralazine HCl (Apresoline Iv) 10 mg IV Q4H PRN PRN PRN Reason: SBP > 160 Pantoprazole Sodium 40 mg/ (Sodium Chloride) 110 mls @ 330 mls/hr IV Q12 [facility] Last Admin: 04/07/20 10:00 Dose: 330 mls/hr Documented by: Sodium Chloride () 250 mls @ 15 mls/hr IV .[id number] PRN PRN Reason: Saline Flush Sodium Chloride () 250 mls @ 15 mls/hr IV .[id number] PRN PRN Reason: Additional IVPB Infusion Sodium Bicarbonate 50 meq/ (Sodium Chloride) 1,050 mls @ 150 mls/hr IV .Q7H [facility] Last Admin: 04/07/20 08:30 Dose: 150 mls/hr Documented by: Insulin Glargine (Lantus (Bkc)) 20 units SC DAILY [facility] Last Admin: 04/07/20 09:12 Dose: 20 units Documented by: Insulin Human Lispro (Humalog Kwikpen (Bkc)) 28 unit SC BIDCM [facility] Last Admin: 04/07/20 09:10 Dose: 28 units Documented by: Insulin Human Lispro (Humalog Kwikpen (Bkc)) 0 unit SC Q6 [facility]; Protocol Last Admin: 04/07/20 06:26 Dose: Not Given Documented by: Melatonin (Melatonin) 3 mg PO QHS PRN PRN PRN Reason: INSOMNIA Metoprolol Tartrate (Lopressor (Beta Екатерина)) 25 mg PO DAILY [facility] Last Admin: 04/07/20 09:56 Dose: 25 mg Documented by: Morphine Sulfate () 2 mg IV Q3H PRN PRN PRN Reason: Pain Score 6-10/10 Nitroglycerin (Nitrostat) 0.4 mg SUBLINGUAL Q5M PRN PRN Reason: CARDIAC/CHEST PAIN Ondansetron HCl (Zofran) 4 mg IV Q8H PRN PRN PRN Reason: NAUSEA/VOMITING Oxycodone HCl (Oxyir) 5 mg PO Q4H PRN PRN PRN Reason: Pain Score 4-5/10 Pravastatin Sodium (Pravachol) 40 mg PO QHS [facility] Last Admin: 04/06/20 22:55 Dose: 40 mg Documented by: Prochlorperazine Edisylate (Compazine Iv) 5 mg IV Q4H PRN PRN PRN Reason: Breakthrough Nausea/Vomiting Sodium Chloride () 10 - 40 ml IV UD PRN PRN Reason: SALINE FLUSH Last Admin: 04/07/20 09:13 Dose: 10 ml Documented by: Throat Lozenges (Cepacol Sore Throat Lozenge) 1 lozenge MUCOUS MEM Q2H PRN PRN PRN Reason: SORE THROAT Assessment/Plan All Active Problems Hypergranulation (Acute) Type 2 diabetes mellitus with foot ulcer (Acute) Ulcer with necrosis of muscle (Resolved) Delayed wound healing (Acute) Acute pancreatitis (Acute) Hyperkalemia (Acute) Type 2 diabetes mellitus with other skin ulcer (Acute) Cellulitis of right lower extremity (Resolved) Infection (Acute) Acute kidney injury (Acute) Severe sepsis (Acute) Cellulitis of left lower extremity (Acute) 1. YIMI due to dehydration, NSAID use, acute pancreatitis. Creatinine improved from 1.66 to 1.2. Baseline creatinine 1.1. Avoid NSAID use in the future. 2. Hyperkalemia due to NSAID use, lisinopril. Kayexalate with frequent monitoring of potassium 3. NAG metabolic acidosis. Start bicarb drip 4. Acute pancreatitis, NPO, continue iv hydration 5. DM2 elevated sugars, primary service mgmt. Agree with holding metformin. 6. obesity 7. Generalized malaise, muscle aches, weakness. Check CPK for rhabdo. Suspect due to hyperkalemia
--- NOTE | 2020-04-07 10:16 | CASEMGMT ---
SW met w/pt in room in regard to self pay status, and to complete the assessment. PCP: Dr. Ledezma Specialists: Dr. Lind Insurance: None, pt just started a new job 30 days ago, and states he thinks insurance will start after 90 days of employment Pharmacy: [facility] [place] LW/POA: Pt does not have LW/POA, not interested in completing these documents at this time. LNOK: Pt has two brothers Living arrangements: Pt lives home alone, fully independent with ADL's, utilizes no DME Transportation: No transportation issues Plan: Home SW spoke w/pt in room, his plan at discharge is to return home at discharge, no needs anticipated. SW provided financial resources to pt including prescription assistance programs, [facility] assist, [employer], [facility], [facility] [employer] and a Medicaid application. Pt states his PCP helps with the insulin through [facility], otherwise pt pays for medications himself. SW/CM remains available should any needs arise. OSMEL Lainez
--- NOTE | 2020-04-07 10:58 | PCM.PN.HOSP ---
Patient Problems: Active and Suspected Problems Acute pancreatitis (Acute) Hyperkalemia (Acute) Reason for Visit: follow up for hyperkalemia Subjective: Patient seen and examined. He had no complaints and felt well. He denied any fever, chills, palpitations or dizziness, nausea vomiting or abdominal pain. He states he did have abdominal pain in the past but that has resolved. Review of symptoms otherwise negative. Patient states he has been drinking a lot of electrolyte fluids because of the warm weather which made him quite uncomfortable while he was outside. Vitals reviewed. He has remained hemodynamically stable. Potassium is 6.6 today and bicarb is 19. Creatinine is trended down to 1.25. Vitals/I&O's: Vital Signs Temp Pulse Resp BP Pulse Ox 98.3 F 82 17 137/83 H 98 04/07/20 08:00 04/07/20 10:00 04/07/20 10:00 04/07/20 10:00 04/07/20 10:00 Oxygen Delivery Method Room Air Weight: 271 lb 9.752 oz Body Mass Index (BMI) 37.8 Intake and Output for Last 24 Hours 04/05/20 04/06/20 04/07/20 23:59 23:59 23:59 Intake Total 1500.05 / 1500.05 2220 / 2220 Output Total 800 / 800 Balance 1500.05 / 1500.05 1420 / 1420 General: Alert, Oriented x3, Cooperative HEENT: Atraumatic, PERRLA, EOMI, Normocephalic Oral: Moist Mucosa Neck: Supple, No JVD, Negative Carotid Bruits Lungs: Clear to auscultation, Normal air movement, No rhonchi, No wheeze Cardiovascular: Regular rate, Regular Rhythm, Normal S1, Normal S2, No murmurs Abdomen: Bowel Sounds Present, Soft, Non Tender, Non-Distended, No Hepato-splenomegaly Extremities: No edema, Capillary Refill Less than 3 Seconds Skin: No rashes, No breakdown Musculoskeletal: No Tenderness to Palpation of Joints or Extremities Neurological: Cranial nerves II-XII grossly intact, Neuro grossly intact, Motor Exam 5/5 strength throughout Psych/Mental Status: Normal Affect, Appropriate, Alert and oriented to time, place, person, mood and affect Laboratory Results 04/06/20 19:55: WBC 9.7, RBC 4.26 L, Hgb 12.1 L, Hct 37.9 L, MCV 89.0, MCH 28.4, MCHC 31.9 L, RDW Std Deviation 50.2 H, RDW Coeff of Yary 15.6 H, Plt Count 398, MPV 9.1, Immature Gran % (Auto) 0.600, Neut % (Auto) 59.5, Lymph % (Auto) 27.8, [place] % (Auto) 5.6, Eos % (Auto) 5.9 H, Baso % (Auto) 0.6, Absolute Neuts (auto) 5.8, Absolute Lymphs (auto) 2.69, Nucleated RBC % 0 04/06/20 19:55: Sodium 139, Potassium 7.2 H*, Chloride 115 H, Carbon Dioxide 17.0 L, Anion Gap 7, BUN 67 H, Creatinine 1.62 H, Estim Creat Clear Calc 53.58, Est GFR (MDRD) Af Amer 57 L, Est GFR (MDRD) Non-Af 47 L, BUN/Creatinine Ratio 41.4 H, Glucose 216 H, Calcium 9.4, Total Bilirubin 0.10 L, AST 22, ALT 30, Alkaline Phosphatase 77, Troponin I < 0.015, Total Protein 8.0, Albumin 3.5, Globulin 4.5 H, Albumin/Globulin Ratio 0.8 L, Lipase 984 H 04/06/20 22:50: Magnesium 2.5 04/06/20 22:50: Sodium 138, Potassium 6.9 H*, Chloride 114 H, Carbon Dioxide 18.0 L, Anion Gap 6, BUN 66 H, Creatinine 1.59 H, Estim Creat Clear Calc 54.59, Est GFR (MDRD) Af Amer 58 L, Est GFR (MDRD) Non-Af 48 L, BUN/Creatinine Ratio 41.5 H, Glucose 267 H, Calcium 9.4 04/07/20 01:40: Urine Color Yellow, Urine Clarity Clear, Urine pH 5.0, Ur Specific [place] 1.015, Urine Protein Negative, Urine Glucose (UA) 100 H, Urine Ketones Negative, Urine Occult Blood Negative, Urine Nitrite Negative, Urine Bilirubin Negative, Urine Urobilinogen Normal, Ur Leukocyte Esterase Negative, Urine RBC 0 SEEN, Urine WBC 0 SEEN, Ur Squamous Epith Cells 0 SEEN, Urine Bacteria 0 SEEN, Urine Mucus 0 SEEN 04/07/20 05:00: WBC 8.6, RBC 3.79 L, Hgb 10.7 L, Hct 33.9 L, MCV 89.4, MCH 28.2, MCHC 31.6 L, RDW Std Deviation 50.3 H, RDW Coeff of Yary 15.4 H, Plt Count 329, MPV 8.8, Immature Gran % (Auto) 0.600, Neut % (Auto) 55.1, Lymph % (Auto) 32.8, [place] % (Auto) 6.2, Eos % (Auto) 5.1 H, Baso % (Auto) 0.2, Absolute Neuts (auto) 4.7, Absolute Lymphs (auto) 2.81, Nucleated RBC % 0 04/07/20 05:00: Sodium 142, Potassium 6.8 H*, Chloride 118 H, Carbon Dioxide 18.0 L, Anion Gap 6, BUN 53 H, Creatinine 1.14, Estim Creat Clear Calc 76.14, Est GFR (MDRD) Af Amer 85, Est GFR (MDRD) Non-Af 70, BUN/Creatinine Ratio 46.5 H, Glucose 173 H, Calcium 8.6, Total Bilirubin 0.10 L, AST 18, ALT 30, Alkaline Phosphatase 62, Total Protein 6.9, Albumin 2.9 L, Globulin 4.0, Albumin/Globulin Ratio 0.7 L, Triglycerides 330 H, Cholesterol 141, LDL Cholesterol 45, VLDL Cholesterol 66 H, HDL Cholesterol 30 L, Lipase 817 H 04/07/20 05:00: Total Creatine Kinase 160 04/07/20 08:15: Sodium 141, Potassium 6.6 H*, Chloride 116 H, Carbon Dioxide 19.0 L, Anion Gap 6, BUN 48 H, Creatinine 1.25, Estim Creat Clear Calc 69.44, Est GFR (MDRD) Af Amer 77, Est GFR (MDRD) Non-Af 63, BUN/Creatinine Ratio 38.4 H, Glucose 223 H, Calcium 9.0 Diagnostic Data Chest X-Ray 04/06/20 20:24 IMPRESSION: No acute findings. Electronically Signed: Terra Yusuf MD at 20:57 EDT Tel , Service support , Gallbladder Ultrasound 04/07/20 05:55 IMPRESSION: Liver is enlarged with fatty infiltration. No gallstones or biliary dilatation. Electronically Signed: Naseem Romero MD at 8:50 EDT , Service support , Current Medications Acetaminophen (Tylenol) 650 mg PO Q6H PRN PRN PRN Reason: Pain Score 1-10/Temp > 100.7 F Al Hydroxide/Mg Hydroxide (Mylanta Ii) 30 ml PO Q6H PRN PRN PRN Reason: Gastric Burning Albuterol Sulfate (Ventolin Aerosols) 2.5 mg INHALATION Q2H PRN PRN PRN Reason: SOB/Wheezing Allopurinol (Zyloprim) 300 mg PO DAILY [facility] Last Admin: 04/07/20 09:56 Dose: 300 mg Documented by: Bisacodyl (Dulcolax) 10 mg PO X1 ONE Stop: 04/07/20 10:51 Dextrose (D50w Syringe) 0 gm IV X1 PRN; Protocol PRN Reason: Hypoglycemia Enoxaparin Sodium (Lovenox) 40 mg SC DAILY [facility] Last Admin: 04/07/20 09:56 Dose: 40 mg Documented by: Glucagon () 1 mg IM .X1 PRN PRN Reason: Hypoglycemia Guaifenesin (Robitussin) 10 ml PO Q4H PRN PRN PRN Reason: COUGH Hydralazine HCl (Apresoline Iv) 10 mg IV Q4H PRN PRN PRN Reason: SBP > 160 Pantoprazole Sodium 40 mg/ (Sodium Chloride) 110 mls @ 330 mls/hr IV Q12 [facility] Last Infusion: 04/07/20 10:25 Dose: Infused Documented by: Sodium Chloride () 250 mls @ 15 mls/hr IV .[id number] PRN PRN Reason: Saline Flush Sodium Chloride () 250 mls @ 15 mls/hr IV .[id number] PRN PRN Reason: Additional IVPB Infusion Sodium Bicarbonate 50 meq/ (Sodium Chloride) 1,050 mls @ 175 mls/hr IV .Q6H [facility] Last Admin: 04/07/20 08:30 Dose: 150 mls/hr Documented by: Insulin Glargine (Lantus (Bkc)) 20 units SC DAILY [facility] Last Admin: 04/07/20 09:12 Dose: 20 units Documented by: Insulin Human Lispro (Humalog Kwikpen (Bkc)) 28 unit SC BIDCM [facility] Last Admin: 04/07/20 09:10 Dose: 28 units Documented by: Insulin Human Lispro (Humalog Kwikpen (Bkc)) 0 unit SC Q6 [facility]; Protocol Last Admin: 04/07/20 06:26 Dose: Not Given Documented by: Melatonin (Melatonin) 3 mg PO QHS PRN PRN PRN Reason: INSOMNIA Metoprolol Tartrate (Lopressor (Beta Екатерина)) 25 mg PO DAILY [facility] Last Admin: 04/07/20 09:56 Dose: 25 mg Documented by: Morphine Sulfate () 2 mg IV Q3H PRN PRN PRN Reason: Pain Score 6-10/10 Nitroglycerin (Nitrostat) 0.4 mg SUBLINGUAL Q5M PRN PRN Reason: CARDIAC/CHEST PAIN Ondansetron HCl (Zofran) 4 mg IV Q8H PRN PRN PRN Reason: NAUSEA/VOMITING Oxycodone HCl (Oxyir) 5 mg PO Q4H PRN PRN PRN Reason: Pain Score 4-5/10 Pravastatin Sodium (Pravachol) 40 mg PO QHS [facility] Last Admin: 04/06/20 22:55 Dose: 40 mg Documented by: Prochlorperazine Edisylate (Compazine Iv) 5 mg IV Q4H PRN PRN PRN Reason: Breakthrough Nausea/Vomiting Sodium Chloride () 10 - 40 ml IV UD PRN PRN Reason: SALINE FLUSH Last Admin: 04/07/20 09:13 Dose: 10 ml Documented by: Throat Lozenges (Cepacol Sore Throat Lozenge) 1 lozenge MUCOUS MEM Q2H PRN PRN PRN Reason: SORE THROAT STROKE Vital Signs/Narrative: Vital Signs Temp Pulse Resp BP BP Pulse Ox 04/07/20 10:00 82 17 137/83 H 98 04/07/20 09:56 82 136/85 H 04/07/20 09:00 80 17 136/83 H 99 04/07/20 08:00 98.3 F 79 16 133/79 H 98 04/07/20 07:00 83 16 163/79 H 99 Medical Necessity - Tobacco Use Smoking Status: Never smoker Tobacco Use: Non-smoker Assessment/Plan All Active Problems Hypergranulation (Acute) Type 2 diabetes mellitus with foot ulcer (Acute) Ulcer with necrosis of muscle (Resolved) Delayed wound healing (Acute) Acute pancreatitis (Acute) Hyperkalemia (Acute) Type 2 diabetes mellitus with other skin ulcer (Acute) Cellulitis of right lower extremity (Resolved) Infection (Acute) Acute kidney injury (Acute) Severe sepsis (Acute) Cellulitis of left lower extremity (Acute) 1. Hyperkalemia Potassium is down to 6.9 today. He did receive another dose of Kayexalate. He is however yet to have a bowel movement surgery given laxative to help him have bowel movements help get out of the potassium. Lisinopril on hold. Nephrology on board 2. YIMI: Resolved. Creatinine is down to 1.29. Continue gentle hydration with IV fluid. 3. Acute pancreatitis: On admission, lipase was 984, and he said he had been having abdominal pain in the past, before this admission, but this had resolved. gallbladder USG showed fatty liver, but no gallstones or biliary dilatation being hydrated wtih IVF; triglycerides were mildly elevated at 330. 4. Hyperlipidemia; on statin 5. Chronic normocytic anemia: Hemoglobin is 10.7. Was 12.1 on admission. Baseline hemoglobin is around 9-10. T he level of 12 may therefore be due to hemoconcentration. will monitor 6. Hypertension: lisinopril on hold. Continue metoprolol. 7. GERD: on PPI 8. Type 2 diabetes mellitus: Lantus 20 units daily. Insulin sliding scale. Accu-Cheks AC at bedtime. DVT prophylaxis; lovenox Inpatient E&M: 98996 [facility] Hosp L3
[2020-04-07] MEDS: Bisacodyl 5 MG Tablet 10 MG PO (11:21)
[2020-04-07 11:31] LABS: Bedside Glucose 127 mg/dL (70-110)
[2020-04-07 14:39] LABS: Anion Gap 6 (5-15); BUN 39 mg/dL (7-18); BUN/Creat Ratio 36.4 RATIO (10-20); Calcium,Total 9.3 mg/dL (8.5-10.1); Chloride 118 mmol/L (98-107); Creatinine, Serum 1.07 mg/dL (0.70-1.30); EST Glomerular Filtration Rate 76 mL/min (>60); Est Glom Filt Rate - Afr Amer 92 mL/min (>60); Estimated Creatinine Clearance 81.13 ml/min; Glucose 57 mg/dL (74-106); Potassium 5.2 mmol/L (3.5-5.1); Sodium Level 145 mmol/L (136-145)
[2020-04-07 17:30] LABS: Bedside Glucose 80 mg/dL (70-110)
[2020-04-07] MEDS: Pravastatin 40 MG Tablet PO (20:51)
[2020-04-07] MEDS: MELATONIN 3 MG TABLET PO (20:58)
[2020-04-07] MEDS: oxyCODONE 5 MG Tablet PO (21:08)
[2020-04-07 21:21] LABS: Urine Sodium 82 mmol/L (Not Establ.)
[2020-04-07 23:36] LABS: Bedside Glucose 93 mg/dL (70-110)
[2020-04-08] VITALS (12 sets, daily range): BP systolic 121–153; BP diastolic 67–83; PULSE 69–88; RESP 16–18; TEMP 36.6–36.9; O2SAT 96–99
[2020-04-08] MEDS: 0.45% Normal Saline 1,000 ML 100 ML IV (05:49)
[2020-04-08 06:06] LABS: Bedside Glucose 94 mg/dL (70-110)
[2020-04-08 06:32] LABS: Absolute Lymphocyte Count 2.49 X10^3/uL (0.83-4.51); Absolute Neutrophil Count 5.6 X10^3/uL (2.0-7.7); Basophil# 0.05 X10^3/uL; Basophil% 0.6 % (0-1); Eosinophil# 0.42 X10^3/uL; Eosinophils% 4.7 % (0-5); Hematocrit 36.2 % (40-54); Hemoglobin 11.2 g/dL (13.0-16.5); Lymphocyte # 2.49 X10^3/ul (4.0); Lymphocyte % 27.6 % (19-41); Mean Corp Hgb Conc 30.9 g/dL (32-36); Mean Corpuscular Hgb 28.1 pg (27.0-32.0); Mean Platelet Vol. 8.7 fl (6.2-12.0); Monocyte# 0.47 X10^3/uL; Monocyte% 5.2 % (0-10); NRBC Flagged by Analyzer 0 % (0-5); Neutrophil # 5.55 X10^3/uL (2.7-7.7); Neutrophil % 61.5 % (47-70); Platelet Count 318 K/mm3 (150-450); RBC Distribution Width CV 15.4 % (11.6-14.6); RBC Distribution Width SD 50.9 fl (35.1-43.9); Red Blood Count 3.98 M/mm3 (4.6-6.2)
[2020-04-08 06:57] LABS: BUN 25 mg/dL (7-18); BUN/Creat Ratio 28.7 RATIO (10-20); Calcium,Total 9.1 mg/dL (8.5-10.1); Chloride 116 mmol/L (98-107); Creatinine, Serum 0.87 mg/dL (0.70-1.30); EST Glomerular Filtration Rate 96 mL/min (>60); Est Glom Filt Rate - Afr Amer 116 mL/min (>60); Estimated Creatinine Clearance 99.77 ml/min; Glucose 108 mg/dL (74-106); Lipase 425 U/L (73-393); Potassium 5.3 mmol/L (3.5-5.1); Sodium Level 144 mmol/L (136-145)
[2020-04-08] MEDS: Allopurinol 300 MG Tablet PO (08:09)
[2020-04-08] MEDS: Sodium Polystyrene Sulfonate 15 GM/60 ML UDC 30 GM PO ×2 (08:09→16:56)
[2020-04-08] MEDS: Metoprolol Tartrate 25 MG Tablet PO (08:09)
--- NOTE | 2020-04-08 08:42 | PN_ITS ---
Patient Problems: Active and Suspected Problems Acute pancreatitis (Acute) Hyperkalemia (Acute) Subjective: The patient was seen and examined at the bedside this morning. Events from the last 24 hours have been reviewed. The patient is currently afebrile, hemodynamically stable and maintaining appropriate oxygen saturations on room air. Potassium level and lipase have improved this morning. Objective: The patient's most recent lab work, culture data and imaging studies have all been personally reviewed. Gallbladder ultrasound only revealed fatty infiltration of the liver without gallstones or biliary dilation. - Physical Exam Vitals/I&O's: Vital Signs Temp Pulse Resp BP Pulse Ox 97.8 F 83 16 134/75 H 97 04/08/20 03:00 04/08/20 08:09 04/08/20 03:00 04/08/20 03:00 04/08/20 07:06 Oxygen Delivery Method Room Air Weight: 274 lb 4.081 oz Body Mass Index (BMI) 37.8 Intake and Output for Last 24 Hours 04/06/20 04/07/20 04/08/20 23:59 23:59 23:59 Intake Total 1500.05 / 1500.05 4793.50 / 4793.50 900 / 900 Output Total 3450 / 3450 900 / 900 Balance 1500.05 / 1500.05 1343.50 / 1343.50 0 / 0 General: Alert, Oriented x3, Cooperative, No apparent distress HEENT: Atraumatic, PERRLA, Normocephalic Oral: No Gingival or Mucosal Lesions/ Ulcerations Neck: Supple, No Nodes, Trachea Midline Lungs: Normal air movement, No rhonchi, No wheeze, No rales Cardiovascular: Regular rate, Regular Rhythm, Normal S1, Normal S2, No murmurs Abdomen: Bowel Sounds Present, Soft, Non Tender, Obese Extremities: No clubbing, No cyanosis, No edema Skin: No breakdown Musculoskeletal: No Tenderness to Palpation of Joints or Extremities, No Muscle Wasting Lymphatic: No Cervical, Supraclavicular, or Inguinal Adenopathy Neurological: Cranial nerves II-XII grossly intact, Neuro grossly intact Psych/Mental Status: Alert and oriented to time, place, person, mood and affect Labs (Last 48 Hours) 04/06/20 04/06/20 04/06/20 19:55 19:55 22:50 WBC 9.7 RBC 4.26 L Hgb 12.1 L Hct 37.9 L MCV 89.0 MCH 28.4 MCHC 31.9 L RDW Std Deviation 50.2 H RDW Coeff of Yary 15.6 H Plt Count 398 MPV 9.1 Immature Gran % (Auto) 0.600 Neut % (Auto) 59.5 Lymph % (Auto) 27.8 [place] % (Auto) 5.6 Eos % (Auto) 5.9 H Baso % (Auto) 0.6 Absolute Neuts (auto) 5.8 Absolute Lymphs (auto) 2.69 Nucleated RBC % 0 Sodium 139 Potassium 7.2 H* Chloride 115 H Carbon Dioxide 17.0 L Anion Gap 7 BUN 67 H Creatinine 1.62 H Estim Creat Clear Calc 53.58 Est GFR (MDRD) Af Amer 57 L Est GFR (MDRD) Non-Af 47 L BUN/Creatinine Ratio 41.4 H Glucose 216 H Calcium 9.4 Phosphorus Magnesium 2.5 Total Bilirubin 0.10 L AST 22 ALT 30 Alkaline Phosphatase 77 Total Creatine Kinase Troponin I < 0.015 Total Protein 8.0 Albumin 3.5 Globulin 4.5 H Albumin/Globulin Ratio 0.8 L Triglycerides Cholesterol LDL Cholesterol VLDL Cholesterol HDL Cholesterol Lipase 984 H Urine Color Urine Clarity Urine pH Ur Specific [place] Urine Protein Urine Glucose (UA) Urine Ketones Urine Occult Blood Urine Nitrite Urine Bilirubin Urine Urobilinogen Ur Leukocyte Esterase Urine RBC Urine WBC Ur Squamous Epith Cells Urine Bacteria Urine Mucus Ur Random Sodium Urine Creatinine POC Glucose 04/06/20 04/07/20 04/07/20 22:50 01:40 05:00 WBC 8.6 RBC 3.79 L Hgb 10.7 L Hct 33.9 L MCV 89.4 MCH 28.2 MCHC 31.6 L RDW Std Deviation 50.3 H RDW Coeff of Yary 15.4 H Plt Count 329 MPV 8.8 Immature Gran % (Auto) 0.600 Neut % (Auto) 55.1 Lymph % (Auto) 32.8 [place] % (Auto) 6.2 Eos % (Auto) 5.1 H Baso % (Auto) 0.2 Absolute Neuts (auto) 4.7 Absolute Lymphs (auto) 2.81 Nucleated RBC % 0 Sodium 138 Potassium 6.9 H* Chloride 114 H Carbon Dioxide 18.0 L Anion Gap 6 BUN 66 H Creatinine 1.59 H Estim Creat Clear Calc 54.59 Est GFR (MDRD) Af Amer 58 L Est GFR (MDRD) Non-Af 48 L BUN/Creatinine Ratio 41.5 H Glucose 267 H Calcium 9.4 Phosphorus Magnesium Total Bilirubin AST ALT Alkaline Phosphatase Total Creatine Kinase Troponin I Total Protein Albumin Globulin Albumin/Globulin Ratio Triglycerides Cholesterol LDL Cholesterol VLDL Cholesterol HDL Cholesterol Lipase Urine Color Yellow Urine Clarity Clear Urine pH 5.0 Ur Specific [place] 1.015 Urine Protein Negative Urine Glucose (UA) 100 H Urine Ketones Negative Urine Occult Blood Negative Urine Nitrite Negative Urine Bilirubin Negative Urine Urobilinogen Normal Ur Leukocyte Esterase Negative Urine RBC 0 SEEN Urine WBC 0 SEEN Ur Squamous Epith Cells 0 SEEN Urine Bacteria 0 SEEN Urine Mucus 0 SEEN Ur Random Sodium Urine Creatinine POC Glucose 04/07/20 04/07/20 04/07/20 05:00 05:00 08:15 WBC RBC Hgb Hct MCV MCH MCHC RDW Std Deviation RDW Coeff of Yary Plt Count MPV Immature Gran % (Auto) Neut % (Auto) Lymph % (Auto) [place] % (Auto) Eos % (Auto) Baso % (Auto) Absolute Neuts (auto) Absolute Lymphs (auto) Nucleated RBC % Sodium 142 141 Potassium 6.8 H* 6.6 H* Chloride 118 H 116 H Carbon Dioxide 18.0 L 19.0 L Anion Gap 6 6 BUN 53 H 48 H Creatinine 1.14 1.25 Estim Creat Clear Calc 76.14 69.44 Est GFR (MDRD) Af Amer 85 77 Est GFR (MDRD) Non-Af 70 63 BUN/Creatinine Ratio 46.5 H 38.4 H Glucose 173 H 223 H Calcium 8.6 9.0 Phosphorus Magnesium Total Bilirubin 0.10 L AST 18 ALT 30 Alkaline Phosphatase 62 Total Creatine Kinase 160 Troponin I Total Protein 6.9 Albumin 2.9 L Globulin 4.0 Albumin/Globulin Ratio 0.7 L Triglycerides 330 H Cholesterol 141 LDL Cholesterol 45 VLDL Cholesterol 66 H HDL Cholesterol 30 L Lipase 817 H Urine Color Urine Clarity Urine pH Ur Specific [place] Urine Protein Urine Glucose (UA) Urine Ketones Urine Occult Blood Urine Nitrite Urine Bilirubin Urine Urobilinogen Ur Leukocyte Esterase Urine RBC Urine WBC Ur Squamous Epith Cells Urine Bacteria Urine Mucus Ur Random Sodium Urine Creatinine POC Glucose 04/07/20 04/07/20 04/07/20 11:25 14:15 17:25 WBC RBC Hgb Hct MCV MCH MCHC RDW Std Deviation RDW Coeff of Yary Plt Count MPV Immature Gran % (Auto) Neut % (Auto) Lymph % (Auto) [place] % (Auto) Eos % (Auto) Baso % (Auto) Absolute Neuts (auto) Absolute Lymphs (auto) Nucleated RBC % Sodium 145 Potassium 5.2 H Chloride 118 H Carbon Dioxide 21.0 Anion Gap 6 BUN 39 H Creatinine 1.07 Estim Creat Clear Calc 81.13 Est GFR (MDRD) Af Amer 92 Est GFR (MDRD) Non-Af 76 BUN/Creatinine Ratio 36.4 H Glucose 57 L Calcium 9.3 Phosphorus Magnesium Total Bilirubin AST ALT Alkaline Phosphatase Total Creatine Kinase Troponin I Total Protein Albumin Globulin Albumin/Globulin Ratio Triglycerides Cholesterol LDL Cholesterol VLDL Cholesterol HDL Cholesterol Lipase Urine Color Urine Clarity Urine pH Ur Specific [place] Urine Protein Urine Glucose (UA) Urine Ketones Urine Occult Blood Urine Nitrite Urine Bilirubin Urine Urobilinogen Ur Leukocyte Esterase Urine RBC Urine WBC Ur Squamous Epith Cells Urine Bacteria Urine Mucus Ur Random Sodium Urine Creatinine POC Glucose 127 H 80 04/07/20 04/07/20 04/07/20 20:00 20:00 23:30 WBC RBC Hgb Hct MCV MCH MCHC RDW Std Deviation RDW Coeff of Yary Plt Count MPV Immature Gran % (Auto) Neut % (Auto) Lymph % (Auto) [place] % (Auto) Eos % (Auto) Baso % (Auto) Absolute Neuts (auto) Absolute Lymphs (auto) Nucleated RBC % Sodium Potassium Chloride Carbon Dioxide Anion Gap BUN Creatinine Estim Creat Clear Calc Est GFR (MDRD) Af Amer Est GFR (MDRD) Non-Af BUN/Creatinine Ratio Glucose Calcium Phosphorus Magnesium Total Bilirubin AST ALT Alkaline Phosphatase Total Creatine Kinase Troponin I Total Protein Albumin Globulin Albumin/Globulin Ratio Triglycerides Cholesterol LDL Cholesterol VLDL Cholesterol HDL Cholesterol Lipase Urine Color Urine Clarity Urine pH Ur Specific [place] Urine Protein Urine Glucose (UA) Urine Ketones Urine Occult Blood Urine Nitrite Urine Bilirubin Urine Urobilinogen Ur Leukocyte Esterase Urine RBC Urine WBC Ur Squamous Epith Cells Urine Bacteria Urine Mucus Ur Random Sodium 82 Urine Creatinine 78.30 POC Glucose 93 04/08/20 04/08/20 04/08/20 05:47 06:06 06:06 WBC 9.0 RBC 3.98 L Hgb 11.2 L Hct 36.2 L MCV 91.0 MCH 28.1 MCHC 30.9 L RDW Std Deviation 50.9 H RDW Coeff of Yary 15.4 H Plt Count 318 MPV 8.7 Immature Gran % (Auto) 0.400 Neut % (Auto) 61.5 Lymph % (Auto) 27.6 [place] % (Auto) 5.2 Eos % (Auto) 4.7 Baso % (Auto) 0.6 Absolute Neuts (auto) 5.6 Absolute Lymphs (auto) 2.49 Nucleated RBC % 0 Sodium 144 Potassium 5.3 H Chloride 116 H Carbon Dioxide 23.0 Anion Gap BUN 25 H Creatinine 0.87 Estim Creat Clear Calc 99.77 Est GFR (MDRD) Af Amer 116 Est GFR (MDRD) Non-Af 96 BUN/Creatinine Ratio 28.7 H Glucose 108 H Calcium 9.1 Phosphorus 3.0 Magnesium Total Bilirubin AST ALT Alkaline Phosphatase Total Creatine Kinase Troponin I Total Protein Albumin 3.0 L Globulin Albumin/Globulin Ratio Triglycerides Cholesterol LDL Cholesterol VLDL Cholesterol HDL Cholesterol Lipase 425 H Urine Color Urine Clarity Urine pH Ur Specific [place] Urine Protein Urine Glucose (UA) Urine Ketones Urine Occult Blood Urine Nitrite Urine Bilirubin Urine Urobilinogen Ur Leukocyte Esterase Urine RBC Urine WBC Ur Squamous Epith Cells Urine Bacteria Urine Mucus Ur Random Sodium Urine Creatinine POC Glucose 94 Clinical Impression(s) from Imaging Studies Chest X-Ray 04/06/20 20:24 IMPRESSION: No acute findings. Electronically Signed: Terra Yusuf MD at 20:57 EDT Tel , Service support , Gallbladder Ultrasound 04/07/20 05:55 IMPRESSION: Liver is enlarged with fatty infiltration. No gallstones or biliary dilatation. Electronically Signed: Naseem Romero MD at 8:50 EDT , Service support , Current Medications Acetaminophen (Tylenol) 650 mg PO Q6H PRN PRN PRN Reason: Pain Score 1-10/Temp > 100.7 F Al Hydroxide/Mg Hydroxide (Mylanta Ii) 30 ml PO Q6H PRN PRN PRN Reason: Gastric Burning Albuterol Sulfate (Ventolin Aerosols) 2.5 mg INHALATION Q2H PRN PRN PRN Reason: SOB/Wheezing Allopurinol (Zyloprim) 300 mg PO DAILY [facility] Last Admin: 04/08/20 08:09 Dose: 300 mg Documented by: Dextrose (D50w Syringe) 0 gm IV X1 PRN; Protocol PRN Reason: Hypoglycemia Enoxaparin Sodium (Lovenox) 40 mg SC DAILY [facility] Last Admin: 04/07/20 09:56 Dose: 40 mg Documented by: Glucagon () 1 mg IM .X1 PRN PRN Reason: Hypoglycemia Guaifenesin (Robitussin) 10 ml PO Q4H PRN PRN PRN Reason: COUGH Hydralazine HCl (Apresoline Iv) 10 mg IV Q4H PRN PRN PRN Reason: SBP > 160 Pantoprazole Sodium 40 mg/ (Sodium Chloride) 110 mls @ 330 mls/hr IV Q12 [facility] Last Infusion: 04/07/20 21:09 Dose: Infused Documented by: Sodium Chloride () 250 mls @ 15 mls/hr IV .[id number] PRN PRN Reason: Saline Flush Last Infusion: 04/07/20 20:52 Dose: 0 mls/hr Documented by: Sodium Chloride () 250 mls @ 15 mls/hr IV .[id number] PRN PRN Reason: Additional IVPB Infusion Sodium Chloride () 1,000 mls @ 100 mls/hr IV .Q10H [facility] Last Admin: 04/08/20 05:49 Dose: 100 mls/hr Documented by: Insulin Glargine (Lantus (Bkc)) 20 units SC DAILY [facility] Last Admin: 04/07/20 09:12 Dose: 20 units Documented by: Insulin Human Lispro (Humalog Kwikpen (Bkc)) 28 unit SC BIDCM [facility] Last Admin: 04/07/20 17:56 Dose: Not Given Documented by: Insulin Human Lispro (Humalog Kwikpen (Bkc)) 0 unit SC Q6 [facility]; Protocol Last Admin: 04/08/20 05:49 Dose: Not Given Documented by: Melatonin (Melatonin) 3 mg PO QHS PRN PRN PRN Reason: INSOMNIA Last Admin: 04/07/20 20:58 Dose: 3 mg Documented by: Metoprolol Tartrate (Lopressor (Beta Екатерина)) 25 mg PO DAILY [facility] Last Admin: 04/08/20 08:09 Dose: 25 mg Documented by: Morphine Sulfate () 2 mg IV Q3H PRN PRN PRN Reason: Pain Score 6-10/10 Nitroglycerin (Nitrostat) 0.4 mg SUBLINGUAL Q5M PRN PRN Reason: CARDIAC/CHEST PAIN Ondansetron HCl (Zofran) 4 mg IV Q8H PRN PRN PRN Reason: NAUSEA/VOMITING Oxycodone HCl (Oxyir) 5 mg PO Q4H PRN PRN PRN Reason: Pain Score 4-5/10 Last Admin: 04/07/20 21:08 Dose: 5 mg Documented by: Pravastatin Sodium (Pravachol) 40 mg PO QHS [facility] Last Admin: 04/07/20 20:51 Dose: 40 mg Documented by: Prochlorperazine Edisylate (Compazine Iv) 5 mg IV Q4H PRN PRN PRN Reason: Breakthrough Nausea/Vomiting Sodium Chloride () 10 - 40 ml IV UD PRN PRN Reason: SALINE FLUSH Last Admin: 04/07/20 14:18 Dose: 10 ml Documented by: Throat Lozenges (Cepacol Sore Throat Lozenge) 1 lozenge MUCOUS MEM Q2H PRN PRN PRN Reason: SORE THROAT Medical Necessity - Tobacco Use Smoking Status: Never smoker Tobacco Use: Non-smoker Assessment/Plan All Active Problems Hypergranulation (Acute) Type 2 diabetes mellitus with foot ulcer (Acute) Ulcer with necrosis of muscle (Resolved) Delayed wound healing (Acute) Acute pancreatitis (Acute) Hyperkalemia (Acute) Type 2 diabetes mellitus with other skin ulcer (Acute) Cellulitis of right lower extremity (Resolved) Infection (Acute) Acute kidney injury (Acute) Severe sepsis (Acute) Cellulitis of left lower extremity (Acute) RECOMMENDATIONS: 1. Continue medical management of hyperkalemia. 2. Encourage incentive spirometer use and mobilize patient as tolerated. 3. Continue supplemental IV fluids. 4. Dietary advancement as tolerated. 5. Given the patient's lack of further ICU or pulmonary needs, will sign off. Please call with any additional questions. IMPRESSIONS: 1. Hyperkalemia Improved. Most likely medication induced. Continue medical management of hyperkalemia as ordered. Nephrology is following to assist with medical management. 2. Acute kidney injury Improved. Likely prerenal in etiology. Creatinine is improving with volume expansion. Continue to monitor urine output. No current indication for renal replacement therapy. 3. Possible resolving pancreatitis Continue conservative medical management with supplemental IV fluids as ordered. Dietary advancement as tolerated by patient. Abdominal ultrasound revealed fatty infiltration of the liver without gallstones or biliary dilation. 4. Obesity/diabetes mellitus/hypertension/GERD/hyperlipidemia Complicates care, management, recovery and prognosis. Continue to hold lisino pril. Continue Lantus and sliding scale insulin coverage. This note was generated with [employer] dictation software. It may contain incorrect words, spelling, and punctuation that were not noted in checking the note before signing. Inpatient E&M: 92278 Subs Hosp L2
[2020-04-08] MEDS: Insulin Lispro 100 UNIT/ML INSULN.PEN 28 UNIT SC ×2 (09:55→17:02)
[2020-04-08] MEDS: Enoxaparin 40 MG/0.4 ML Syringe SC (09:56)
[2020-04-08 10:06] LABS: Bedside Glucose 188 mg/dL (70-110)
--- NOTE | 2020-04-08 12:12 | PN_ITS ---
Patient Problems: Active and Suspected Problems Acute pancreatitis (Acute) Hyperkalemia (Acute) Subjective: Patient seen and examined. He had no complaints today. Review of signs otherwise negative. Potassium is 5.3 today. Vitals/I&O's: Vital Signs Temp Pulse Resp BP Pulse Ox 98.0 F 83 18 153/83 H 99 04/08/20 08:47 04/08/20 08:47 04/08/20 08:47 04/08/20 08:47 04/08/20 08:47 Oxygen Delivery Method Room Air Weight: 274 lb 4.081 oz Body Mass Index (BMI) 37.8 Intake and Output for Last 24 Hours 04/06/20 04/07/20 04/08/20 23:59 23:59 23:59 Intake Total 1500.05 / 1500.05 4793.50 / 4793.50 900 / 900 Output Total 3450 / 3450 900 / 900 Balance 1500.05 / 1500.05 1343.50 / 1343.50 0 / 0 General: Alert, Oriented x3, Cooperative HEENT: Atraumatic, PERRLA, EOMI, Normocephalic Oral: Moist Mucosa Neck: Supple, No JVD, Negative Carotid Bruits Lungs: Clear to auscultation, Normal air movement, No rhonchi, No wheeze Cardiovascular: Regular rate, Regular Rhythm, Normal S1, Normal S2, No murmurs Abdomen: Bowel Sounds Present, Soft, Non Tender, Non-Distended, No Hepato- splenomegaly Extremities: No edema, Capillary Refill Less than 3 Seconds Skin: No rashes, No breakdown Musculoskeletal: No Tenderness to Palpation of Joints or Extremities Neurological: Cranial nerves II-XII grossly intact, Neuro grossly intact, Motor Exam 5/5 strength throughout Psych/Mental Status: Normal Affect, Appropriate, Alert and oriented to time, place, person, mood and affect Laboratory Results 04/07/20 14:15: Sodium 145, Potassium 5.2 H, Chloride 118 H, Carbon Dioxide 21.0, Anion Gap 6, BUN 39 H, Creatinine 1.07, Estim Creat Clear Calc 81.13, Est GFR (MDRD) Af Amer 92, Est GFR (MDRD) Non-Af 76, BUN/Creatinine Ratio 36.4 H, Glucose 57 L, Calcium 9.3 04/07/20 17:25: POC Glucose 80 04/07/20 20:00: Urine Creatinine 78.30 04/07/20 20:00: Ur Random Sodium 82 04/07/20 23:30: POC Glucose 93 04/08/20 05:47: POC Glucose 94 04/08/20 06:06: Sodium 144, Potassium 5.3 H, Chloride 116 H, Carbon Dioxide 23.0, BUN 25 H, Creatinine 0.87, Estim Creat Clear Calc 99.77, Est GFR (MDRD) Af Amer 116, Est GFR (MDRD) Non-Af 96, BUN/Creatinine Ratio 28.7 H, Glucose 108 H, Calcium 9.1, Phosphorus 3.0, Albumin 3.0 L, Lipase 425 H 04/08/20 06:06: WBC 9.0, RBC 3.98 L, Hgb 11.2 L, Hct 36.2 L, MCV 91.0, MCH 28.1, MCHC 30.9 L, RDW Std Deviation 50.9 H, RDW Coeff of Yary 15.4 H, Plt Count 318, M PV 8.7, Immature Gran % (Auto) 0.400, Neut % (Auto) 61.5, Lymph % (Auto) 27.6, Rice % (Auto) 5.2, Eos % (Auto) 4.7, Baso % (Auto) 0.6, Absolute Neuts (auto) 5.6, Absolute Lymphs (auto) 2.49, Nucleated RBC % 0 04/08/20 09:53: POC Glucose 188 H Diagnostic Data Chest X-Ray 04/06/20 20:24 IMPRESSION: No acute findings. Electronically Signed: Terra Yusuf MD at 20:57 EDT Tel , Service support , Gallbladder Ultrasound 04/07/20 05:55 IMPRESSION: Liver is enlarged with fatty infiltration. No gallstones or biliary dilatation. Electronically Signed: Naseem Romero MD at 8:50 EDT , Service support , Current Medications Acetaminophen (Tylenol) 650 mg PO Q6H PRN PRN PRN Reason: Pain Score 1-10/Temp > 100.7 F Al Hydroxide/Mg Hydroxide (Mylanta Ii) 30 ml PO Q6H PRN PRN PRN Reason: Gastric Burning Albuterol Sulfate (Ventolin Aerosols) 2.5 mg INHALATION Q2H PRN PRN PRN Reason: SOB/Wheezing Allopurinol (Zyloprim) 300 mg PO DAILY [facility] Last Admin: 04/08/20 08:09 Dose: 300 mg Documented by: Dextrose (D50w Syringe) 0 gm IV X1 PRN; Protocol PRN Reason: Hypoglycemia Enoxaparin Sodium (Lovenox) 40 mg SC DAILY [facility] Last Admin: 04/08/20 09:56 Dose: 40 mg Documented by: Glucagon () 1 mg IM .X1 PRN PRN Reason: Hypoglycemia Guaifenesin (Robitussin) 10 ml PO Q4H PRN PRN PRN Reason: COUGH Hydralazine HCl (Apresoline Iv) 10 mg IV Q4H PRN PRN PRN Reason: SBP > 160 Pantoprazole Sodium 40 mg/ (Sodium Chloride) 110 mls @ 330 mls/hr IV Q12 [facility] Last Admin: 04/08/20 09:56 Dose: 330 mls/hr Documented by: Sodium Chloride () 250 mls @ 15 mls/hr IV .[id number] PRN PRN Reason: Saline Flush Last Infusion: 04/07/20 20:52 Dose: 0 mls/hr Documented by: Sodium Chloride () 250 mls @ 15 mls/hr IV .[id number] PRN PRN Reason: Additional IVPB Infusion Sodium Chloride () 1,000 mls @ 100 mls/hr IV .Q10H [facility] Last Admin: 04/08/20 05:49 Dose: 100 mls/hr Documented by: Insulin Glargine (Lantus (Bkc)) 20 units SC DAILY [facility] Last Admin: 04/08/20 09:55 Dose: 20 units Documented by: Insulin Human Lispro (Humalog Kwikpen (Bkc)) 28 unit SC BIDCM [facility] Last Admin: 04/08/20 09:55 Dose: 28 units Documented by: Insulin Human Lispro (Humalog Kwikpen (Bkc)) 0 unit SC Q6 [facility]; Protocol Last Admin: 04/08/20 05:49 Dose: Not Given Documented by: Melatonin (Melatonin) 3 mg PO QHS PRN PRN PRN Reason: INSOMNIA Last Admin: 04/07/20 20:58 Dose: 3 mg Documented by: Metoprolol Tartrate (Lopressor (Beta Екатерина)) 25 mg PO DAILY [facility] Last Admin: 04/08/20 08:09 Dose: 25 mg Documented by: Morphine Sulfate () 2 mg IV Q3H PRN PRN PRN Reason: Pain Score 6-10/10 Nitroglycerin (Nitrostat) 0.4 mg SUBLINGUAL Q5M PRN PRN Reason: CARDIAC/CHEST PAIN Ondansetron HCl (Zofran) 4 mg IV Q8H PRN PRN PRN Reason: NAUSEA/VOMITING Oxycodone HCl (Oxyir) 5 mg PO Q4H PRN PRN PRN Reason: Pain Score 4-5/10 Last Admin: 04/07/20 21:08 Dose: 5 mg Documented by: Pravastatin Sodium (Pravachol) 40 mg PO QHS [facility] Last Admin: 04/07/20 20:51 Dose: 40 mg Documented by: Prochlorperazine Edisylate (Compazine Iv) 5 mg IV Q4H PRN PRN PRN Reason: Breakthrough Nausea/Vomiting Sodium Chloride () 10 - 40 ml IV UD PRN PRN Reason: SALINE FLUSH Last Admin: 04/07/20 14:18 Dose: 10 ml Documented by: Throat Lozenges (Cepacol Sore Throat Lozenge) 1 lozenge MUCOUS MEM Q2H PRN PRN PRN Reason: SORE THROAT STROKE Vital Signs/Narrative: Vital Signs Temp Pulse Resp BP Pulse Ox 04/08/20 08:47 98.0 F 83 18 153/83 H 99 Medical Necessity - Tobacco Use Smoking Status: Never smoker Tobacco Use: Non-smoker Assessment/Plan All Active Problems Hypergranulation (Acute) Type 2 diabetes mellitus with foot ulcer (Acute) Ulcer with necrosis of muscle (Resolved) Delayed wound healing (Acute) Acute pancreatitis (Acute) Hyperkalemia (Acute) Type 2 diabetes mellitus with other skin ulcer (Acute) Cellulitis of right lower extremity (Resolved) Infection (Acute) Acute kidney injury (Acute) Severe sepsis (Acute) Cellulitis of left lower extremity (Acute) 1. Hyperkalemia * Potassium is down to 5.3 * Will give another dose of Kayexalate. * Lisinopril on hold. * Nephrology on board * 2. YIMI: Resolved. Creatinine is down to 0.87. will DC IVF. 3. ?Acute pancreatitis: * On admission, lipase was 984, and he said he had been having abdominal pain in the past, before this admission, but this had resolved. * gallbladder USG showed fatty liver, but no gallstones or biliary dilatation * I am not really convinced that patient had acute pancreatitis, as he had no abdominal pain whatsoever, though lipase was elevated. I suspect this may havae happened before admission, as he complained of abdominal pain before admission. * to put on 2 gram low sodium diet. * 4. Hyperlipidemia; on statin 5. Chronic normocytic anemia: * Hb is 11.2 today. * * 6. Hypertension: lisinopril on hold. Continue metoprolol. 7. GERD: on PPI 8. Type 2 diabetes mellitus: Lantus 20 units daily. Insulin sliding scale. Accu-Cheks AC at bedtime. DVT prophylaxis; lovenox Disposition: For likely DC home tomorrow if potassium has normalised. Inpatient E&M: 00744 Subs Hosp L2
[2020-04-08] MEDS: Insulin Lispro 100 UNIT/ML INSULN.PEN SC (12:19)
[2020-04-08 12:41] LABS: Bedside Glucose 161 mg/dL (70-110)
--- NOTE | 2020-04-08 14:28 | PN.RENAL_ITS ---
Patient Problems: Active and Suspected Problems Acute pancreatitis (Acute) Hyperkalemia (Acute) Subjective: transferred to PCU. Tolerated regular diet Renal fxn, potassium stable. No nausea, vomiting - Physical Exam Vitals/I&O's: Vital Signs Temp Pulse Resp BP Pulse Ox 98.0 F 83 18 153/83 H 99 04/08/20 08:47 04/08/20 08:47 04/08/20 08:47 04/08/20 08:47 04/08/20 08:47 Oxygen Delivery Method Room Air Weight: 124.4 kg Body Mass Index (BMI) 37.8 Intake and Output for Last 24 Hours 04/06/20 04/07/20 04/08/20 23:59 23:59 23:59 Intake Total 1500.05 / 1500.05 4793.50 / 4793.50 1760 / 1760 Output Total 3450 / 3450 1300 / 1300 Balance 1500.05 / 1500.05 1343.50 / 1343.50 460 / 460 General: Alert, Oriented x3, Cooperative Abdomen: Bowel Sounds Present, Soft, Non Tender Extremities: No edema Laboratory Results 04/07/20 14:15: Sodium 145, Potassium 5.2 H, Chloride 118 H, Carbon Dioxide 21.0, Anion Gap 6, BUN 39 H, Creatinine 1.07, Estim Creat Clear Calc 81.13, Est GFR (MDRD) Af Amer 92, Est GFR (MDRD) Non-Af 76, BUN/Creatinine Ratio 36.4 H, Glucose 57 L, Calcium 9.3 04/07/20 17:25: POC Glucose 80 04/07/20 20:00: Urine Creatinine 78.30 04/07/20 20:00: Ur Random Sodium 82 04/07/20 23:30: POC Glucose 93 04/08/20 05:47: POC Glucose 94 04/08/20 06:06: Sodium 144, Potassium 5.3 H, Chloride 116 H, Carbon Dioxide 23.0, BUN 25 H, Creatinine 0.87, Estim Creat Clear Calc 99.77, Est GFR (MDRD) Af Amer 116, Est GFR (MDRD) Non-Af 96, BUN/Creatinine Ratio 28.7 H, Glucose 108 H, Calcium 9.1, Phosphorus 3.0, Albumin 3.0 L, Lipase 425 H 04/08/20 06:06: WBC 9.0, RBC 3.98 L, Hgb 11.2 L, Hct 36.2 L, MCV 91.0, MCH 28.1, MCHC 30.9 L, RDW Std Deviation 50.9 H, RDW Coeff of Yary 15.4 H, Plt Count 318, MPV 8.7, Immature Gran % (Auto) 0.400, Neut % (Auto) 61.5, Lymph % (Auto) 27.6, Sharp % (Auto) 5.2, Eos % (Auto) 4.7, Baso % (Auto) 0.6, Absolute Neuts (auto) 5.6, Absolute Lymphs (auto) 2.49, Nucleated RBC % 0 04/08/20 09:53: POC Glucose 188 H 04/08/20 12:18: POC Glucose 161 H Current Medications Acetaminophen (Tylenol) 650 mg PO Q6H PRN PRN PRN Reason: Pain Score 1-10/Temp > 100.7 F Al Hydroxide/Mg Hydroxide (Mylanta Ii) 30 ml PO Q6H PRN PRN PRN Reason: Gastric Burning Albuterol Sulfate (Ventolin Aerosols) 2.5 mg INHALATION Q2H PRN PRN PRN Reason: SOB/Wheezing Allopurinol (Zyloprim) 300 mg PO DAILY [facility] Last Admin: 04/08/20 08:09 Dose: 300 mg Documented by: Dextrose (D50w Syringe) 0 gm IV X1 PRN; Protocol PRN Reason: Hypoglycemia Enoxaparin Sodium (Lovenox) 40 mg SC DAILY [facility] Last Admin: 04/08/20 09:56 Dose: 40 mg Documented by: Glucagon () 1 mg IM .X1 PRN PRN Reason: Hypoglycemia Guaifenesin (Robitussin) 10 ml PO Q4H PRN PRN PRN Reason: COUGH Hydralazine HCl (Apresoline Iv) 10 mg IV Q4H PRN PRN PRN Reason: SBP > 160 Pantoprazole Sodium 40 mg/ (Sodium Chloride) 110 mls @ 330 mls/hr IV Q12 [facility] Last Infusion: 04/08/20 10:16 Dose: Infused Documented by: Sodium Chloride () 250 mls @ 15 mls/hr IV .[id number] PRN PRN Reason: Saline Flush Last Infusion: 04/07/20 20:52 Dose: 0 mls/hr Documented by: Sodium Chloride () 250 mls @ 15 mls/hr IV .[id number] PRN PRN Reason: Additional IVPB Infusion Sodium Chloride () 1,000 mls @ 100 mls/hr IV .Q10H [facility] Last Admin: 04/08/20 05:49 Dose: 100 mls/hr Documented by: Insulin Glargine (Lantus (Bkc)) 20 units SC DAILY [facility] Last Admin: 04/08/20 09:55 Dose: 20 units Documented by: Insulin Human Lispro (Humalog Kwikpen ([facility])) 28 unit SC BIDCM [facility] Last Admin: 04/08/20 09:55 Dose: 28 units Documented by: Insulin Human Lispro (Humalog Kwikpen ([facility])) 0 unit SC Q6 [facility]; Protocol Last Admin: 04/08/20 12:19 Dose: 1 u Documented by: Melatonin (Melatonin) 3 mg PO QHS PRN PRN PRN Reason: INSOMNIA Last Admin: 04/07/20 20:58 Dose: 3 mg Documented by: Metoprolol Tartrate (Lopressor (Beta Екатерина)) 25 mg PO DAILY [facility] Last Admin: 04/08/20 08:09 Dose: 25 mg Documented by: Morphine Sulfate () 2 mg IV Q3H PRN PRN PRN Reason: Pain Score 6-10/10 Nitroglycerin (Nitrostat) 0.4 mg SUBLINGUAL Q5M PRN PRN Reason: CARDIAC/CHEST PAIN Ondansetron HCl (Zofran) 4 mg IV Q8H PRN PRN PRN Reason: NAUSEA/VOMITING Oxycodone HCl (Oxyir) 5 mg PO Q4H PRN PRN PRN Reason: Pain Score 4-5/10 Last Admin: 04/07/20 21:08 Dose: 5 mg Documented by: Pravastatin Sodium (Pravachol) 40 mg PO QHS [facility] Last Admin: 04/07/20 20:51 Dose: 40 mg Documented by: Prochlorperazine Edisylate (Compazine Iv) 5 mg IV Q4H PRN PRN PRN Reason: Breakthrough Nausea/Vomiting Sodium Chloride () 10 - 40 ml IV UD PRN PRN Reason: SALINE FLUSH Last Admin: 04/07/20 14:18 Dose: 10 ml Documented by: Throat Lozenges (Cepacol Sore Throat Lozenge) 1 lozenge MUCOUS MEM Q2H PRN PRN PRN Reason: SORE THROAT Medical Necessity - Tobacco Use Smoking Status: Never smoker Tobacco Use: Non-smoker Assessment/Plan All Active Problems Hypergranulation (Acute) Type 2 diabetes mellitus with foot ulcer (Acute) Ulcer with necrosis of muscle (Resolved) Delayed wound healing (Acute) Acute pancreatitis (Acute) Hyperkalemia (Acute) Type 2 diabetes mellitus with other skin ulcer (Acute) Cellulitis of right lower extremity (Resolved) Infection (Acute) Acute kidney injury (Acute) Severe sepsis (Acute) Cellulitis of left lower extremity (Acute) 1. YIMI due to dehydration, NSAID use, acute pancreatitis. Creatinine improved to 0.87. Avoid NSAID use in the future. 2. Hyperkalemia due to NSAID use, lisinopril. K improved to 5.2. Hold ACEI for now and on discharge. 3. NAG metabolic acidosis. resolved 4. Acute pancreatitis, tolerated diet 5. DM2 elevated sugars, primary service mgmt. ok to resume metformin.
[2020-04-08] MEDS: Bisacodyl 5 MG Tablet 10 MG PO (16:56)
[2020-04-08 17:10] LABS: Bedside Glucose 96 mg/dL (70-110)
[2020-04-08] MEDS: Pravastatin 40 MG Tablet PO (22:18)
[2020-04-08] MEDS: 0.9% Saline Lock 10 ML Syringe IV (22:18)
[2020-04-08 22:25] LABS: Bedside Glucose 59 mg/dL (70-110)
--- NOTE | 2020-04-08 22:25 | NURSING ---
pt bg 59. pt is asymptomatic. apple juice per pt request given.
[2020-04-08 22:46] LABS: Bedside Glucose 75 mg/dL (70-110)
[2020-04-08] MEDS: MELATONIN 3 MG TABLET PO (23:25)
[2020-04-09 02:10] VITALS: BP 131/79; PULSE 79; RESP 18; TEMP 36.5; O2SAT 95
[2020-04-09 02:31] LABS: Bedside Glucose 74 mg/dL (70-110)
[2020-04-09 03:29] VITALS: PULSE 81
[2020-04-09 05:20] LABS: Absolute Neutrophil Count 5.9 X10^3/uL (2.0-7.7); Basophil# 0.04 X10^3/uL; Basophil% 0.4 % (0-1); Eosinophil# 0.38 X10^3/uL; Hemoglobin 11.7 g/dL (13.0-16.5); Lymphocyte % 28.1 % (19-41); Mean Corp Hgb Conc 30.8 g/dL (32-36); Mean Corpuscular Volume 90.9 fL (80-94); Monocyte# 0.53 X10^3/uL; Monocyte% 5.5 % (0-10); NRBC Flagged by Analyzer 0 % (0-5); Neutrophil # 5.86 X10^3/uL (2.7-7.7); Neutrophil % 61.1 % (47-70); Platelet Count 326 K/mm3 (150-450); RBC Distribution Width CV 15.1 % (11.6-14.6); Red Blood Count 4.18 M/mm3 (4.6-6.2); White Blood Count 9.6 K/mm3 (4.4-11.0)
[2020-04-09 05:34] LABS: Anion Gap 6 (5-15); BUN 18 mg/dL (7-18); BUN/Creat Ratio 18.7 RATIO (10-20); Chloride 110 mmol/L (98-107); Creatinine, Serum 0.96 mg/dL (0.70-1.30); EST Glomerular Filtration Rate 86 mL/min (>60); Est Glom Filt Rate - Afr Amer 103 mL/min (>60); Estimated Creatinine Clearance 90.42 ml/min; Glucose 112 mg/dL (74-106); Potassium 4.5 mmol/L (3.5-5.1); Sodium Level 140 mmol/L (136-145)
[2020-04-09 07:24] VITALS: PULSE 86
[2020-04-09 08:08] VITALS: BP 150/86; PULSE 88; RESP 16; TEMP 36.7; O2SAT 96
[2020-04-09 09:11] LABS: Bedside Glucose 149 mg/dL (70-110)
--- NOTE | 2020-04-09 11:20 | DCINST_ITS ---
- Discharge Diagnoses Current Active Problems: Current Active and Chronic Problems Acute pancreatitis (Acute) Hyperkalemia (Acute) Hypertension (Chronic) Gout (Chronic) GERD (gastroesophageal reflux disease) (Chronic) Hyperlipidemia (Chronic) You will use the following diet at home:: Calorie/Carbohydrate Controlled (s pecify 1200, 1400, etc) - 1800 alisia Your food should be the consistency of: Regular Your liquids should be the consistency of: Regular/Thin Discharge Activity: Return to Normal Activity Weight Bearing Status: Full weight bearing Additional Instructions: avoid Ibuprofen and Alleve use- may use Tylenol for pain Allergies/Adverse Reactions: Allergies No Known Allergies Allergy (Verified 04/06/20 19:28) Medications to take at Discharge Allopurinol 300 mg PO DAILY 04/07/20 Aspirin 81 mg PO DAILY 04/07/20 Insulin Glargine,Hum.rec.anlog [Basaglar Kwikpen U-100] 20 unit SQ QHS 04/07/20 Insulin Lispro [Humalog KwikPen] 28 units SQ TID 04/07/20 Levomefolate/B6/B12/Algal Oil [Metanx Capsule] 1 ea PO BID 04/07/20 Mecobalamin [B12 Active] 2,500 mcg PO DAILY 04/07/20 Metformin HCl 850 mg PO BID 04/07/20 Omeprazole [Prilosec] 20 mg PO DAILY 04/07/20 Pravastatin [Pravachol] 40 mg PO DAILY 04/07/20 Acetaminophen [Tylenol Tablet] 650 mg PO Q6H PRN PRN tablet 04/09/20 Allopurinol [Zyloprim] 300 mg PO DAILY tablet 04/09/20 Amlodipine [Norvasc] 5 mg PO DAILY #30 tab 04/09/20 Insulin Glargine [Lantus SoloStar Pen] 20 units SC DAILY pen 04/09/20 Insulin Lispro [Humalog KwikPen] 28 unit SC BIDCM insuln.pen 04/09/20 The following prescriptions were given: Amlodipine [Norvasc] 5 mg PO DAILY #30 tab Transmission Status: Pending to [id number] Primary Care Physician: Rowan Ledezma MD [Primary Care Provider] - Please follow up with your Primary Care Physician in: in 2 weeks Test Results: Test results from this visit will be discussed in further detail at your follow- up appointment, if applicable.
--- NOTE | 2020-04-09 11:58 | PHA.DC.MC ---
Pharmacy Service has performed discharge medication reconciliation and counseling for this patient. The patient's discharge medication list was reviewed for discrepancies and discrepancies were resolved. The patient was counseled on the following discharge medications and changes in medications for homegoing were reviewed. 1. AMLODIPINE The Reason for Use, instructions for use, and potential side effects were reviewed for all new medications. The patient's questions regarding all of their medications were answered. The patient was able to verbally demonstrate an understanding of their discharge medications. Home Medications Aspirin 81 mg PO DAILY 04/07/20 Insulin Glargine,Hum.rec.anlog [Basaglar Kwikpen U-100] 20 unit SQ QHS 04/07/20 Insulin Lispro [Humalog KwikPen] 28 units SQ TID 04/07/20 Levomefolate/B6/B12/Algal Oil [Metanx Capsule] 1 ea PO BID 04/07/20 Mecobalamin [B12 Active] 2,500 mcg PO DAILY 04/07/20 Metformin HCl 850 mg PO BID 04/07/20 Omeprazole [Prilosec] 20 mg PO DAILY 04/07/20 Pravastatin [Pravachol] 40 mg PO DAILY 04/07/20 Acetaminophen [Tylenol Tablet] 650 mg PO Q6H PRN PRN tab 04/09/20 Allopurinol [Zyloprim] 300 mg PO DAILY tab 04/09/20 Amlodipine [Norvasc] 5 mg PO DAILY #30 tab 04/09/20
[2020-04-09] MEDS: Insulin Lispro 100 UNIT/ML INSULN.PEN SC (12:16)
[2020-04-09] MEDS: Allopurinol 300 MG Tablet PO (12:17)
[2020-04-09 12:18] VITALS: PULSE 95
[2020-04-09] MEDS: Metoprolol Tartrate 25 MG Tablet PO (12:18)
[2020-04-09] MEDS: Enoxaparin 40 MG/0.4 ML Syringe SC (12:19)
[2020-04-09] MEDS: 0.9% Saline Lock 10 ML Syringe IV (12:25)
[2020-04-09 12:56] LABS: Bedside Glucose 195 mg/dL (70-110)
--- NOTE | 2020-04-10 12:51 | CASEMGMT ---
JEREMIAH DC PHONE CALL DC DATE: 04/09/2020 DC DISPOSITION: Home DC DIAGNOSIS: pancreatitis LACE/STRATA: 09/04 F/U APPTS MADE PRIOR TO DC: office to call and schedule with pt Attempted call to pt's home. No answer and no message machine with name identifier. Marco ARRINGTONN RN ACM
--- NOTE | 2020-04-10 19:12 | DS.PCM_ITS ---
Discharge Date and Diagnosis Date of Admission: 04/06/20 Date of Discharge: 04/09/20 - Primary Discharge Diagnosis Acute Problems: #1 hyperkalemia-probably secondary to use of lisinopril #2 acute kidney injury #3 acute pancreatitis probably secondary to Trulicity #4 hyperlipidemia #5 type 2 diabetes #6 essential hypertension - Secondary Discharge Diagnosis Chronic Problems: Chronic Problems Type 2 diabetes mellitus with foot ulcer (Chronic) Obesity (BMI 30-39.9) (Chronic) Hypertension (Chronic) Gout (Chronic) GERD (gastroesophageal reflux disease) (Chronic) Hyperlipidemia (Chronic) Ulcer of right foot with fat layer exposed (Chronic) Malnutrition (Chronic) Hallux limitus of right foot (Chronic) Edema of right lower extremity (Chronic) Ulcer of right lower extremity with necrosis of muscle (Chronic) Corns and callosities (Chronic) Type 2 diabetes mellitus with diabetic neuropathy (Chronic) Hospital Course and Treatment Operations: None, - - Date of Procedure: 06/06/19 Pre-Operative Diagnosis: Diabetic foot ulcer plantar right 1st toe down to flexor tendon, abscess right foot/ankle Post-Operative Diagnosis: Same Surgery/Procedure Performed:: Incision, drainage and debridement right foot/ankle down to tendon mold press operator: None Type of Anesthesia:: General Specimen's removed: Deep culture right foot/ankle sent to microbiology for further evaluation Procedures: None Summary of Care Provided: The patient is a 55 year old M at [facility] with a chief complaint of having abnormal outside labs drawn, he went to an urgent care facility 48 hours before because he had not been feeling well, he had complaints of abdominal pain and nausea. Labs work was drawn showed a potassium of 7.3 and he was advised to come to the ER for evaluation. EKG in the emergency room showed a normal sinus rhythm of 99 with a right bundle branch block, potassium was 7.2, glucose was 216, BUN was 67, creatinine was 162, lipase was 984. Chest x-ray showed no acute process. Patient was admitted to ICU for hyperkalemia and acute pancreatitis, he received Kayexalate, he received fluids due to acute kidney injury. She had an ultrasound of his abdomen which showed evidence of fatty liver but no evidence of any ductal dilatation. There is no evidence of any gallstones. Patient improved during his hospital stay he was seen in consultation by nephrology who felt that the patient's potassium was elevated due to the patient taking nonsteroidal anti-inflammatory meds. Patient improved during his hospital stay. On 04/09/2020, patient was seen and examined: On examination he appeared in good health and spirits. Vital signs as documented. Skin warm and dry and without overt rashes. Neck without JVD, neck was supple, trachea midline, thyroid was normal. Lungs clear bilaterally, normal air movement was noted. Heart exam notable for regular rhythm, normal sounds and absence of murmurs, rubs or gallops. Abdomen unremarkable and without evidence of organomegaly, masses, or abdominal aortic enlargement. Bowel sounds are present, abdomen is not distended. Extremities nonedematous, no cyanosis was noted, no clubbing was noted. Neuro: Cranial nerves II through XII are grossly intact, no focal motor deficits were noted, sensation to light touch and pinprick intact, motor exam 5/5 throughout. Psych: Patient is alert and oriented x3, he does not appear anxious or depressed, he does not appear agitated. Patient was discharged home in stable condition, I talked with his income tax manager by phone concerning his medication changes when he was discharged. - Physical Exam Vitals/I&O's: Vital Signs Temp Pulse Resp BP Pulse Ox 98.1 F 95 16 150/86 H 96 04/09/20 08:08 04/09/20 12:18 04/09/20 08:08 04/09/20 08:08 04/09/20 08:08 Oxygen Delivery Method Room Air Weight: 125.1 kg Body Mass Index (BMI) 37.8 Intake and Output for Last 24 Hours 04/08/20 04/09/20 04/10/20 23:59 23:59 23:59 Intake Total 3530 / 4090 1030 / 1030 Output Total 2150 / 2750 600 / 600 Balance 1380 / 1340 430 / 430 Discharge Activity: Return to Normal Activity Weight Bearing Status: Full weight bearing Home Medications: Medications to take at Discharge Aspirin 81 mg PO DAILY 04/07/20 Insulin Glargine,Hum.rec.anlog [Basaglar Kwikpen U-100] 20 unit SQ QHS 04/07/20 Insulin Lispro [Humalog KwikPen] 28 units SQ TID 04/07/20 Levomefolate/B6/B12/Algal Oil [Metanx Capsule] 1 ea PO BID 04/07/20 Mecobalamin [B12 Active] 2,500 mcg PO DAILY 04/07/20 Metformin HCl 850 mg PO BID 04/07/20 Omeprazole [Prilosec] 20 mg PO DAILY 04/07/20 Pravastatin [Pravachol] 40 mg PO DAILY 04/07/20 Acetaminophen [Tylenol Tablet] 650 mg PO Q6H PRN PRN tab 04/09/20 Allopurinol [Zyloprim] 300 mg PO DAILY tab 04/09/20 Amlodipine [Norvasc] 5 mg PO DAILY #30 tab 04/09/20 Following Prescrptions Were Given to Patient: Amlodipine [Norvasc] 5 mg PO DAILY #30 tab Transmission Status: Received by [id number] Primary Care Physician: Rowan Ledezma MD [Primary Care Provider] - Please follow up with your Primary Care Physician in: in 2 weeks Please Follow Up With: Rowan Ledezma MD Disposition: Home Minutes spent on discharge:: 31 Patient Condition:: Stable Medical Necessity - Tobacco Use Smoking Status: Never smoker Tobacco Use: Non-smoker Meaningful Use Info Meaningful Use Diagnoses (Choose all that apply): None applicable Inpatient E&M: [id number] Disch Hosp
--- NOTE | 2020-04-11 12:42 | CASEMGMT ---
Social Work Follow up phone call: Date of discharge: 04/09/20 reason for followup call: self pay, resources and medicaid dhaval given during stay duration of call: 2 minutes Outcome of call: Voicemail left with pt providing SW name and number should he have questions regarding financial resources or medicaid application assistance. SARA Kellogg
== END 2020-04-09 14:22 | disposition home or self-care (01) | DRG 640 ==
LOC: ED 21:07 → ICU 21:25 → PCU 04-09 07:18
PROVIDERS: Internal Medicine Nephrology; Student in an Organized Health Care Education/Training Program; Admitting Provider Family Medicine; Emergency Provider Emergency Medicine; PCP Internal Medicine Endocrinology, Diabetes & Metabolism; Visit Provider Internal Medicine
DX: E87.5 Hyperkalemia (principal); K85.90 Acute pancreatitis without necrosis or infection, unspecified; N17.9 Acute kidney failure, unspecified; E46 Unspecified protein-calorie malnutrition; E78.5 Hyperlipidemia, unspecified; E86.0 Dehydration; Z66 Do not resuscitate; L97.512 Non-pressure chronic ulcer of other part of right foot with fat layer exposed; L84 Corns and callosities; E11.621 Type 2 diabetes mellitus with foot ulcer; I10 Essential (primary) hypertension; T46.4X5A Adverse effect of angiotensin-converting-enzyme inhibitors, initial encounter; T39.395A Adverse effect of other nonsteroidal anti-inflammatory drugs [NSAID], initial encounter; E87.2 Acidosis; K76.0 Fatty (change of) liver, not elsewhere classified; K21.9 Gastro-esophageal reflux disease without esophagitis; E11.40 Type 2 diabetes mellitus with diabetic neuropathy, unspecified; D64.9 Anemia, unspecified; E66.9 Obesity, unspecified; M1A.9XX0 Chronic gout, unspecified, without tophus (tophi); G47.33 Obstructive sleep apnea (adult) (pediatric); Z79.4 Long term (current) use of insulin; Z68.37 Body mass index [BMI] 37.0-37.9, adult; Z79.82 Long term (current) use of aspirin; Z80.7 Family history of other malignant neoplasms of lymphoid, hematopoietic and related tissues; Z80.8 Family history of malignant neoplasm of other organs or systems; Z82.3 Family history of stroke; Z83.3 Family history of diabetes mellitus
CPT/HCPCS: 36415; 71045; 76705; 80048; 80053; 80061; 80069; 81001; 82550; 82570; 82962; 83690; 83735; 84132; 84300; 84484; 85025; 93005; 94640; 99251; 99285; J7030; J7050; A4216; G0463; J0610

== ENCOUNTER → 2021-03-12 | Outpatient (CLI) | payer SELFPAY ==
[2020-04-06 22:15] VITALS: BMI 37.8
[2021-03-12 19:37] LABS: M R Staph aureus DNA By PCR Negative (Negative); Probe Check PASS; Staph aureus DNA By PCR NEGATIVE (Negative)
== END | disposition home or self-care (01) ==
PROVIDERS: PCP Internal Medicine Endocrinology, Diabetes & Metabolism; Visit Provider Podiatrist Foot & Ankle Surgery
DX: L03.031 Cellulitis of right toe (principal)
CPT/HCPCS: 87070; 87077; 87186; 87205; 87640

== ENCOUNTER 2023-03-13 18:06 | Emergency (ER) | payer OTHER, SELFPAY ==
[2023-03-13 18:07] VITALS: BP 158/89; PULSE 104; RESP 18; TEMP 36.4; O2SAT 96; BMI 43.4
--- NOTE | 2023-03-13 18:26 | EKG12_ITS ---
Test Reason : DYSRHYTHMIA Blood Pressure : / mmHG Vent. Rate : 090 BPM Atrial Rate : 090 BPM P-R Int : 152 ms QRS Dur : 158 ms QT Int : 410 ms P-R-T Axes : 023 -42 005 degrees QTc Int : 501 ms Normal sinus rhythm Left axis deviation Right bundle branch block Abnormal ECG Confirmed by RYLAN OWENS, JOVANY ([id number]), scientific publications editor MICHELLE BROWNING ([id number]) on 03/16/2023 11:34:18 AM Referred By: EMIL Confirmed By:JOVANY FAGAN MD
--- NOTE | 2023-03-13 18:28 | EX.ED.DYSGE1 ---
HPI History of Present Illness Chief Complaint: Dizziness Informant: patient Onset/Context/Timing Context: Sudden Onset Timing: Intermittent Current Severity: Gone Maximum Severity: Mild Narrative Narrative: 58-year-old male history of diabetes, hypertension and renal insufficiency. 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 He denies any headache. He denies any head trauma. He denies any weakness or numbness. No visual change. He denies any trouble walking or with his speech. He denies any chest pain or significant shortness of breath. The symptoms have resolved. Today got laid off from his job and he said he just felt flushed all over but he thinks that was just from the trauma being told he was laid off. Currently denies any symptoms. He has never had a stroke or any cardiac event. He has not had a primary care physician for years. Prior similar symptoms: No Recent Illness/Hospitalization: No PFSH PFSH Medical History Acute kidney injury Acute pancreatitis Anemia Cellulitis of left lower extremity Cellulitis of right lower extremity Corns and callosities Delayed wound healing Diabetic nephropathy Edema of right lower extremity Elevated lipase GERD (gastroesophageal reflux disease) Gout Hallux limitus of right foot Hypergranulation Hyperkalemia Hyperlipidemia Hypertension Infection Malnutrition Microalbuminuria Non compliance w medication regimen Obesity (BMI 30-39.9) Severe sepsis Type 2 diabetes mellitus with diabetic neuropathy Type 2 diabetes mellitus with foot ulcer Type 2 diabetes mellitus with other skin ulcer Ulcer of right foot with fat layer exposed Ulcer of right lower extremity with necrosis of muscle Ulcer with necrosis of muscle Vitamin D deficiency Home Medications omeprazole 20 mg capsule,delayed release 20 mg PO DAILY reflux 04/07/20 [History Last Taken 04/06/20 08:00] acetaminophen 325 mg tablet 650 mg PO Q6H PRN PRN Pain Score 1-10/Temp > 100.7 F 04/09/20 [Rx Last Taken Unknown] allopurinol 300 mg tablet 300 mg PO DAILY 04/09/20 [Rx Last Taken Unknown] amlodipine 10 mg tablet 10 mg PO DAILY 01/20/23 [History Last Taken Unknown] cholecalciferol (vitamin D3) 1,250 mcg (50,000 unit) capsule 1,250 mcg PO .QOWEEK 01/20/23 [History Last Taken Unknown] fenofibrate 160 mg tablet 160 mg PO DAILY 01/20/23 [History Last Taken Unknown] gabapentin 300 mg capsule 300 mg PO BID 01/20/23 [History Last Taken Unknown] insulin glargine 100 unit/mL (3 mL) subcutaneous pen 40 unit subcut QHS diabetes 01/20/23 [History Last Taken Unknown] insulin regular hum U-500 conc 500 unit/mL(3 mL) subcut pen (Humulin R U-500 (Conc) Insulin Kwikpen) 85 unit subcut .QTIDAC 01/20/23 [History Last Taken Unknown] metformin 500 mg tablet 1,000 mg PO DAILY 01/20/23 [History Last Taken Unknown] hydrochlorothiazide 25 mg tablet 25 mg PO DAILY #90 tabs 01/21/23 [Rx Last Taken Unknown] rosuvastatin 40 mg tablet (Crestor) 40 mg PO DAILY #90 tabs 01/21/23 [Rx Last Taken Unknown] metoprolol tartrate 100 mg tablet 100 mg PO .COMPLEX #2 tabs 03/02/23 [Rx Last Taken Unknown] Allergy/AdvReac Type Severity Reaction Status Date / Time fenoprofen [From [place]] Allergy Intermediate Itching Verified 03/13/23 18:07 Family History Mother CVA (cerebral vascular accident) Cancer Hypertension Grandmother CVA (cerebral vascular accident) Cancer Father Diabetes Grandfather Diabetes Surgical History History of incision and drainage (~11/12/18) S/P amputation of lesser toe Social History Smoking Status: Never smoker alcohol intake: never substance use type: does not use caffeine: Yes ROS ROS ED ROS Narrative Denies any recent illness. No headache. No chest pain. No nausea, vomiting or diarrhea. No fever or chills. No dysuria. Review of Systems ROS Unobtainable: Denies due to encephalopathy Constitutional Constitutional ED: Denies chills or fever(s) Eyes Eyes: Denies blurry vision ENT ENT ED: Denies ear pain Cardiovascular Cardiovascular: Denies chest pain Respiratory/Chest Respiratory/Chest: Denies cough or dyspnea Gastrointestinal Gastrointestinal: Denies abdominal pain Genitourinary Genitourinary ED: Denies dysuria or hematuria Musculoskeletal Musculoskeletal: Denies arthralgias or back pain Integumentary Denies abscess or Abrasions Neurologic Neurologic: Denies headache(s) Psychiatric Psychiatric: Denies anxiety Endocrine Endocrinology: Denies cold intolerance Hematologic/Lymphatic Hematologic/Lymphatic: Reports none Allergic/Immunologic Allergic/Immunologic ED: Denies mouth swelling or tongue swelling EXAM Physical Exam Narrative Exam Narrative: Well-appearing 58-year-old male. Vital signs are stable afebrile. He does not look septic toxic or in distress. H EENT exam unremarkable atraumatic. Pupils round reactive light. Extra motions are intact. No facial droop. Normal speech. Neck nontender no lymphadenopathy. Lungs clear to auscultation bilaterally. Heart regular rhythm no murmur. Abdomen soft, obese, nontender, nondistended, normal bowel sounds without peritoneal signs. Moving all 4 extremities. Normal motor strength. 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 Dorsi plantarflexion intact. Back nontender. Neurologically he is awake and alert. Answer questions following commands. He has chronic neuropathies in his feet. He has normal motor strength and range of motion in both upper and lower extremities. Normal fingertip to nose. Const Vital Signs: 03/13/23 18:07 03/13/23 18:06 Temperature 97.5 F L Temperature Source Temporal Pulse Rate 104 H Respiratory Rate 18 Respiratory Effort Normal Non-Labored Respiratory Pattern Normal Blood Pressure 158/89 H Blood Pressure Mean 112 Pulse Ox 96 Oxygen Delivery Method Room Air Positive well nourished, well developed and obese; Negative for cachectic, contractures or unkempt General Appearance ED: well developed and NAD; Negative for unkempt, cachectic, contractures, cyanotic, diaphoretic or pallor Nutritional Appearance: obese; Negative for cachectic HEENT Reports moist mucous membranes; Denies dry mucous membranes Negative for trauma or tenderness Mouth ED: No dry mucous membranes Mouth: No dry mucous membranes Eyes PERRL and EOMs intact bilaterally General Eye ED: Negative for pale conjunctiva, scleral icterus or other Neck no lymphadenopathy, supple and no JVD General: Negative for tenderness Lymph Lymphatic: Negative for other Chest Wall inspection of chest normal and palpation of chest normal Chest: Negative for other Resp normal respiratory effort and clear to auscultation bilaterally Effort and Inspection: Negative for retractions Auscultation: Negative for rales, rhonchi, wheezes or diminished lung sounds Cardio regular rate, regular rhythm, S1 normal heart sound, S2 normal heart sound and no murmurs Rhythm: Negative for abnormal rhythm GI normal to inspection, nondistended, normoactive bowel sounds, non-tender, non-distended and no masses Inspection: Negative for abdominal distention Auscultation: normoactive bowel sounds Palpation: soft; Negative for tender or guarding Back/Spine no CVA tenderness General Back: Negative for CVA tenderness Cervical Spine: Negative for cervical spine tenderness Thoracic Spine / Upper Back: Negative for thoracic spinal tenderness Lumbar Spine / Lower Back: Negative for lumbar spinal tenderness Extremity normal to inspection General Extremety ED: Negative for edema or tenderness General Extremity: Negative for edema Neuro oriented x3 and CN's II-XII intact bilaterally Neuro Narrative: Lower EXTR the neuropathy is chronic. Bilateral. 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 He denies chest pain or shortness of breath. Today he is symptom-free. He got flushed today after he was laid off of work. He thinks that was just anxiety. His exam is benign. Due to his age, body habitus and chronic medical conditions I am doing screening labs and a CT of his brain. Currently there is no signs of stroke or mini stroke. Other than bilateral lower extremity diabetic neuropathy he has had a normal neurologic exam. Repeat exam patient is doing well. He is sitting upright in bed. He has no complaints. His exam is unremarkable and unchanged from his prior exam. He and I discussed his test results. Will be discharged home with outpatient follow-up. He was instructed to watch his blood sugars closely. He should have labs in the next several weeks to recheck his kidney function. Follow-up with a local primary care physician. History & Record Review Discussion w/independent historian: Patient Additional record(s) reviewed:: Prior inpatient record, Prior outpatient record, Prior ED visit and Prior labs Lab Data Attestation: I reviewed the patient's lab results. Lab results narrative: CBC shows a white count 11.4. H&H 11.4 and 39. Platelets 380. Patient has a baseline anemia. This is consistent with his prior labs. Chemistries show a gap of 11. BUN and creatinine of 28 1.63. Compared to prior labs his past creatinine was 1.1. That was around 3 years ago. Glucose is elevated to 76 he is a known diabetic. Liver enzymes are unremarkable. Troponin is normal at 15. Labs: Laboratory Results - last 24 hr 03/13/23 03/13/23 18:40 18:40 WBC 11.4 H RBC 4.81 Hgb 11.4 L Hct 39.0 L MCV 81.1 MCH 23.7 L MCHC 29.2 L RDW Std Deviation 48.6 H RDW Coeff of Yary 16.5 H Plt Count 380 MPV 9.2 Immature Gran % (Auto) 0.600 Neut % (Auto) 71.8 H Lymph % (Auto) 16.2 L [place] % (Auto) 7.0 Eos % (Auto) 4.0 Baso % (Auto) 0.4 Absolute Neuts (auto) 8.2 H Absolute Lymphs (auto) 1.84 Nucleated RBC % 0 Sodium 138 Potassium 3.9 Chloride 100 Carbon Dioxide 27.0 Anion Gap 11 BUN 28 H Creatinine 1.63 H Estim Creat Clear Calc 51.33 Est GFR (MDRD) Af Amer 56 L Est GFR (MDRD) Non-Af 46 L BUN/Creatinine Ratio 17.2 Glucose 276 H Calcium 9.5 Total Bilirubin 0.20 AST 27 ALT 28 Alkaline Phosphatase 74 Troponin I High Sens 15 Total Protein 7.4 Albumin 3.2 Globulin 4.2 Albumin/Globulin Ratio 0.8 L Radiography Chest X-Ray - ED: 1 View, Read by ED Physician, Heart, Lungs, Mediastinum, Bony Structures, No Acute Disease and Chronic Changes Diagnostic Testing: Clinical Impression(s) from Imaging Studies Chest X-Ray 03/13/23 19:00 IMPRESSION: No radiographic evidence of acute cardiopulmonary disease. Electronically Signed: Farhan Thomas DO at 19:19 EDT , Brain CT 03/13/23 19:20 IMPRESSION: Normal unenhanced CT scan of the brain. Electronically Signed: Farhan DO William at 19:38 EDT , Chest x-ray, portable, single view interpreted both by myself the radiologist shows no acute abnormality. Borderline cardiomegaly. No infiltrates no effusions. Rhythm Strip Rhythm Strip: Sinus Rhythm Rate: 90 Ectopy: None EKG Initial EKG: Attestation: I personally reviewed and interpreted this EKG as follows: Interpretation: Sinus Rhythm and No Acute Injury Pattern Comments: Normal sinus rhythm rate of 90. No acute signs of DE or ischemia. Right bundle branch block. Prior EKG tracings: not available for review Discharge Plan Triage Chief Complaint: Dizziness ED Provider: Domingo Pederson Dx/Rx/DC Orders Clinical Impression: Dizziness of unknown etiology, Hyperglycemia due to diabetes mellitus, Renal insufficiency Instructions: ED Dizziness, Uncertain Cause Prescriptions: No Action amlodipine 10 mg tablet 10 mg PO DAILY fenofibrate 160 mg tablet 160 mg PO DAILY gabapentin 300 mg capsule 300 mg PO BID cholecalciferol (vitamin D3) 1,250 mcg (50,000 unit) capsule 1,250 mcg PO .QOWEEK metformin 500 mg tablet 1,000 mg PO DAILY Humulin R U-500 (Conc) Kwikpen 500 unit/mL (3 mL) insulin pen 85 unit subcut .QTIDAC hydrochlorothiazide 25 mg tablet 25 mg PO DAILY Qty: 90 3RF rosuvastatin [Crestor] 40 mg tablet 40 mg PO DAILY Qty: 90 3RF omeprazole 20 MG capsule 20 mg PO DAILY acetaminophen 325 MG tablet 650 mg PO Q6H PRN PRN (Reason: Pain Score 1-10/Temp > 100.7 F) 0RF allopurinol 300 MG tablet 300 mg PO DAILY 0RF insulin glargine 100 unit/mL (3 mL) insulin pen 40 unit subcut QHS metoprolol tartrate 100 mg tablet 100 mg PO .COMPLEX Qty: 2 1RF Rx Instructions: 100 mg orally Take 1 tablet 1 hour before cardiac CTA, may need to repeat X 1; Primary Care Provider: Rowan Ledezma Referrals: Ashutosh Ocasio MD [Med Staff - Upholstery Cutter] - As soon as possible Rowan Ledezma MD [Primary Care Provider] - Activity Restrictions/Additional Instructions: Your CAT scan and labs are basically unremarkable other than your blood sugar was elevated to 76. Watch her blood sugars closely. Also your kidney function your creatinine was 1.63. That may also be due to your diabetes and your high blood pressure. Follow-up with a local primary care physician. You should have your kidney function rechecked in a month or so. I do not have a specific cause for your episodes of dizziness. Disposition Disposition: Home, Self Care
[2023-03-13 18:51] LABS: Absolute Lymphocyte Count 1.84 X10^3/uL (0.83-4.51); Absolute Neutrophil Count 8.2 X10^3/uL (2.0-7.7); Basophil# 0.05 X10^3/uL; Basophil% 0.4 % (0-1); Eosinophil# 0.46 X10^3/uL; Hemoglobin 11.4 g/dL (13.0-16.5); Lymphocyte # 1.84 X10^3/ul (0.83-4.51); Lymphocyte % 16.2 % (19-41); Mean Corp Hgb Conc 29.2 g/dL (32-36); Mean Corpuscular Hgb 23.7 pg (27.0-32.0); Mean Corpuscular Volume 81.1 fL (80-94); Mean Platelet Vol. 9.2 fl (6.2-12.0); NRBC Flagged by Analyzer 0 % (0-5); Neutrophil # 8.16 X10^3/uL (2.7-7.7); Neutrophil % 71.8 % (47-70); Platelet Count 380 K/mm3 (150-450); RBC Distribution Width CV 16.5 % (11.6-14.6); RBC Distribution Width SD 48.6 fl (35.1-43.9); Red Blood Count 4.81 M/mm3 (4.6-6.2); White Blood Count 11.4 K/mm3 (4.4-11.0)
--- NOTE | 2023-03-13 19:00 | RAD_ITS ---
INDICATION: dizziness EXAMINATION/TECHNIQUE: X-RAY - XR Chest 1 View COMPARISON: April 06, 2020 FINDINGS: LINES/DEVICES: None. LUNGS: No consolidation, edema or effusion. No pneumothorax. MEDIASTINUM AND CARDIOVASCULAR STRUCTURES: Cardiac silhouette not enlarged. Central airways and mediastinal contour are unremarkable. BONES AND SOFT TISSUES: Degenerative vertebral changes. RAD/Chest 1 View (Portable) IMPRESSION: No radiographic evidence of acute cardiopulmonary disease. Electronically Signed: Farhan Thomas DO at 19:19 EDT ,
--- NOTE | 2023-03-13 19:20 | CT_ITS ---
STUDY: CT BRAIN WITHOUT CONTRAST REASON FOR EXAM: Male, 58 years old. Dizziness RADIATION DOSAGE (If Supplied By Facility): CTDIvol = ( 44.99 ) mGy, DLP = ( 846.73 ) mGycm TECHNIQUE: Transaxial CT imaging of the brain was performed without administration of intravenous contrast material. Individualized dose optimization techniques were used for this CT. COMPARISON: No relevant priors. FINDINGS: Normal soft tissue structures. Normal calvarium. Normal size ventricles and extra-axial spaces for the patient''s age. Normal white matter tracts of the cerebral hemispheres. Normal basal ganglia and thalami. Normal brainstem. Normal cerebellum. There is no intracranial hemorrhage. There are no findings of an acute ischemic infarction. Normal visualized paranasal sinuses. CT/Brain/Head without Contrast IMPRESSION: Normal unenhanced CT scan of the brain. Electronically Signed: Farhan Thomas DO at 19:38 EDT ,
[2023-03-13 19:22] LABS: ALB/GLOB Ratio 0.8 RATIO (0.9-2.4); AST(SGOT) 27 U/L (15-37); Alanine Aminotransfer ALT/SGPT 28 U/L (16-61); Albumin, Serum 3.2 g/dL (3.2-5.0); Alkaline Phosphatase 74 U/L (45-117); Anion Gap 11 (5-15); BUN 28 mg/dL (7-18); BUN/Creat Ratio 17.2 RATIO (10-20); Calcium,Total 9.5 mg/dL (8.5-10.1); Chloride 100 mmol/L (98-107); Creatinine, Serum 1.63 mg/dL (0.70-1.30); EST Glomerular Filtration Rate 46 mL/min (>60); Est Glom Filt Rate - Afr Amer 56 mL/min (>60); Estimated Creatinine Clearance 51.33 ml/min; Globulin 4.2 g/dL (2.2-4.2); Glucose 276 mg/dL (74-106); Potassium 3.9 mmol/L (3.5-5.1); Protein, Total 7.4 g/dL (6.4-8.2); Sodium Level 138 mmol/L (136-145); Troponin-I HS 15 pg/mL (3.0-78.0)
[2023-03-13 19:48] VITALS: PULSE 93; RESP 17; O2SAT 95
== END 2023-03-13 20:00 | disposition home or self-care (01) ==
PROVIDERS: Emergency Provider Emergency Medicine; PCP Internal Medicine Endocrinology, Diabetes & Metabolism; Visit Provider Emergency Medicine
DX: R42 Dizziness and giddiness (principal); E11.65 Type 2 diabetes mellitus with hyperglycemia; N28.9 Disorder of kidney and ureter, unspecified; E66.9 Obesity, unspecified
CPT/HCPCS: 70450; 71045; 80053; 84484; 85025; 93005; 99283; A4216

== ENCOUNTER → 2023-03-25 | Outpatient (CLI) | payer SELFPAY ==
--- NOTE | 2023-03-25 14:00 | CT_ITS ---
INDICATION: CAD EXAMINATION: CT CHEST WITHOUT CONTRAST - CT Chest W/O Contrast Injection TECHNIQUE: Helically acquired images were obtained of the chest. A radiation dose optimization technique was used for this scan. IV Contrast dosage and agent: None. COMPARISON: Chest radiograph March 13, 2023. FINDINGS: LUNGS, PLEURA AND LARGE AIRWAYS: Lung apices are excluded from the study. No airspace consolidation, effusion, pulmonary mass or pneumothorax in the study [id number]. Minimal subsegmental atelectasis in the dependent lungs. . HEART AND PERICARDIUM: Heart size is normal. No pericardial effusion. Trace calcified atherosclerosis at the origin the right coronary artery and posterior mitral annulus. VESSELS: Minimal aortic atherosclerosis without ectasia. MEDIASTINUM AND COSMO: No mediastinal or hilar adenopathy. Small calcified left hilar and prevascular lymph nodes are present. Esophagus is unremarkable. No hiatal hernia. UPPER ABDOMEN: Calcified splenic sequela of prior granulomatous disease.. BONES: No suspicious lytic or blastic abnormality. CT/Limited Chest CT Cardiac Only IMPRESSION: Thoracic and abdominal sequela of prior granulomatous disease. Mild aortic and coronary atherosclerosis. Electronically Signed: Balbir Driscoll MD at 8:02 EDT ,
--- NOTE | 2023-03-25 17:33 | CA.SCORE ---
Calcium Scoring Date of Study:: 03/25/23 Indications Indications: Coronary artery disease Coronary Calcium Scoring: High-resolution Computed Tomographic imaging of the chest was performed on [03/25/23 ], with particular attention paid to the coronary arteries. Images from the examination were analyzed for the presence and extent of coronary artery calcification , using coronary calcium quantification software. The patient tolerated the procedure well and there were no complications. The results of the coronary calcification analysis are provided below. Findings Coronary Artery Left Main (LM): 0 Left Anterior Descending (LAD): 0 Left Circumflex (LCX): 0 Right Coronary Artery (RCA): 0 Total Agatston Score: 0 Percentile Rankin Calcium Scoring Interpretation: Different methods to categorize the overall amount of coronary plaque. Overall amount CAC SIS Visual of coronary plaque P1 Mild -100 <2 1-2 vessels with mild amount of plaque P2 Moderate 101-300 3-4 1-2 vessels with moderate amount, 3 vessels with mild amount of plaque P3 Severe 301-999 5-7 3 vessels with moderate amount, 1 vessel with severe amount of plaque P4 Extensive >1000 >8 2-3 vessels with severe amount of plaque Conclusion: No significant atherosclerotic plaquing noted.
== END | disposition home or self-care (01) ==
PROVIDERS: PCP Internal Medicine Endocrinology, Diabetes & Metabolism; Referring Provider Internal Medicine Cardiovascular Disease; Visit Provider Internal Medicine Cardiovascular Disease
DX: I25.10 Atherosclerotic heart disease of native coronary artery without angina pectoris (principal); I10 Essential (primary) hypertension; E78.5 Hyperlipidemia, unspecified
CPT/HCPCS: 75571; 76380

== ENCOUNTER 2023-04-19 23:18 | Emergency (ER) | payer OTHER, SELFPAY | END 2023-04-19 23:20 | disposition left against medical advice (07) | LOC: ED 23:24 | PROVIDERS: PCP Internal Medicine Endocrinology, Diabetes & Metabolism | DX: Z53.21 Procedure and treatment not carried out due to patient leaving prior to being seen by health care provider (principal) ==

== ENCOUNTER → 2024-02-08 | Outpatient (CLI) | payer SELFPAY ==
[2024-02-08 10:35] LABS: Absolute Lymphocyte Count 1.65 X10^3/uL (0.83-4.51); Absolute Neutrophil Count 6.9 X10^3/uL (2.0-7.7); Basophil# 0.04 X10^3/uL; Basophil% 0.4 % (0-1); Eosinophil# 0.24 X10^3/uL; Eosinophils% 2.5 % (0-5); Hematocrit 39.2 % (40-54); Hemoglobin 11.9 g/dL (13.0-16.5); Lymphocyte # 1.65 X10^3/ul (0.83-4.51); Lymphocyte % 17.4 % (19-41); Mean Corp Hgb Conc 30.4 g/dL (32-36); Mean Corpuscular Volume 85.8 fL (80-94); Mean Platelet Vol. 9.5 fl (6.2-12.0); Monocyte# 0.64 X10^3/uL; Monocyte% 6.7 % (0-10); NRBC Flagged by Analyzer 0 % (0-5); Neutrophil # 6.88 X10^3/uL (2.7-7.7); Neutrophil % 72.6 % (47-70); Platelet Count 412 K/mm3 (150-450); RBC Distribution Width CV 15.7 % (11.6-14.6); RBC Distribution Width SD 48.7 fl (35.1-43.9); Red Blood Count 4.57 M/mm3 (4.6-6.2); White Blood Count 9.5 K/mm3 (4.4-11.0)
[2024-02-08 10:52] LABS: Hemoglobin A1c 10.5 % (3.8-5.6)
[2024-02-08 10:58] LABS: Microalbumin,Random Urine 25.5 mg/L (NO RANGE EST.)
[2024-02-08 11:03] LABS: Vitamin B12 259 pg/mL (211-911); Vitamin D,25 Hydroxy 27.4 ng/mL
[2024-02-08 11:19] LABS: ALB/GLOB Ratio 0.8 RATIO (0.9-2.4); AST(SGOT) 29 U/L (15-37); Alanine Aminotransfer ALT/SGPT 24 U/L (16-61); Albumin, Serum 3.3 g/dL (3.2-5.0); Alkaline Phosphatase 81 U/L (45-117); Anion Gap 8 (5-15); BUN 35 mg/dL (7-18); BUN/Creat Ratio 25.2 RATIO (10-20); Calcium,Total 8.8 mg/dL (8.5-10.1); Chloride 105 mmol/L (98-107); Cholesterol 132 mg/dL (200); Creatinine, Serum 1.39 mg/dL (0.70-1.30); EST Glomerular Filtration Rate 55 mL/min (>60); Est Glom Filt Rate - Afr Amer 67 mL/min (>60); Globulin 3.9 g/dL (2.2-4.2); Glucose 205 mg/dL (74-106); High Density Lipoprotein 41 mg/dL; PSA,Total - Annual Screen 0.63 ng/mL (0.00-4.00); Potassium 4.7 mmol/L (3.5-5.1); Protein, Total 7.2 g/dL (6.4-8.2); Sodium Level 139 mmol/L (136-145); Thyroid Stim Hormone (TSH) 2.25 uIU/mL (0.358-3.74); Triglycerides 233 mg/dL; Uric Acid 5.5 mg/dL (3.5-7.2); Very Low Density Lipoprotein 47 mg/dL (5-40)
[2024-02-10 10:18] LABS: Iron 43 ug/dL (65-175); Iron Binding Capacity,Total 431 ug/dL (250-450)
== END | disposition home or self-care (01) ==
LOC: LAB 10:03
PROVIDERS: PCP Nurse Practitioner Family; Referring Provider Nurse Practitioner Family; Visit Provider Nurse Practitioner Family
DX: E11.9 Type 2 diabetes mellitus without complications (principal); E56.9 Vitamin deficiency, unspecified; M10.9 Gout, unspecified; D50.9 Iron deficiency anemia, unspecified
CPT/HCPCS: 36415; 80053; 80061; 82043; 82306; 82607; 83036; 83540; 83550; 84153; 84443; 84550; 85025; G0103

== ENCOUNTER → 2024-02-09 | Outpatient (CLI) | payer MEDICAID, SELFPAY ==
--- NOTE | 2024-02-09 10:09 | RAD_ITS ---
EXAM: XR LEFT ANKLE, 2 VIEWS CLINICAL INDICATION: Pain in left ankle and joints of left foot TECHNIQUE: Frontal and lateral views of the left ankle. COMPARISON: No relevant prior studies available. FINDINGS: BONES/JOINTS: Talus appears to be rotated into vertical position and angulated medially. The subtalar joints are not adequately visualized on these views may be fused. Degenerative spurring noted along the dorsal aspect of the navicular. Plantar calcaneal spur noted. SOFT TISSUES: Prominent diffuse soft tissue swelling. No radiopaque foreign body. VASCULATURE: There is periosteal reaction along the distal fibula and lateral malleolus suggestive of periostitis. Does patient have findings of chronic venous stasis? RAD/Ankle 2 Views IMPRESSION: 1. Deformity of the talus which may be related to old trauma. Additional imaging may be required. 2. Periostitis of the distal fibula and lateral malleolus. 3. Prominent diffuse soft tissue swelling. Electronically Signed: Jaspreet Shields MD at 11:44 EDT ,
== END | disposition home or self-care (01) ==
LOC: RAD 10:09
PROVIDERS: PCP Nurse Practitioner Family; Referring Provider Nurse Practitioner Family; Visit Provider Nurse Practitioner Family
DX: M25.572 Pain in left ankle and joints of left foot (principal)
CPT/HCPCS: 73600

== ENCOUNTER 2024-03-22 06:37 | Day surgery (SDC) | payer MEDICAID, SELFPAY ==
[2024-03-22] VITALS (7 sets, daily range): BP systolic 97–169; BP diastolic 65–75; PULSE 79–93; RESP 16–18; TEMP 35.9–37.2; O2SAT 93–97; BMI 44.2
[2024-03-22] MEDS: Lactated Ringers 1,000 ML 15 ML IV (07:17)
[2024-03-22 07:37] LABS: Bedside Glucose 163 mg/dL (74-106)
--- NOTE | 2024-03-22 07:53 | HP.PCM_ITS ---
HPI - General HPI Narrative N NIKKI NAYLOR, is a 59 M who presents for screening colonoscopy. He is never had a colonoscopy in the past. He denies any abdominal pain or family history of colon cancer. [facility] Medical History (Updated 03/18/24 @ 14:04 by Nataliia Crowe) Arthritis Restless legs Difficulty swallowing Non-smoker History of edema History of irregular heartbeat Cardiology follow-up encounter Type 2 diabetes mellitus with Charcot's joint of left foot Vitamin D deficiency Non compliance w medication regimen Microalbuminuria Elevated lipase Diabetic nephropathy Anemia Hyperlipidemia GERD (gastroesophageal reflux disease) Gout Hypertension Hyperkalemia Acute pancreatitis Obesity (BMI 30-39.9) Delayed wound healing Ulcer with necrosis of muscle Hypergranulation Type 2 diabetes mellitus with foot ulcer Type 2 diabetes mellitus with other skin ulcer Corns and callosities Ulcer of right lower extremity with necrosis of muscle Edema of right lower extremity Infection Hallux limitus of right foot Malnutrition Ulcer of right foot with fat layer exposed Cellulitis of right lower extremity Acute kidney injury Cellulitis of left lower extremity Severe sepsis Type 2 diabetes mellitus with diabetic neuropathy Home Medications ?Medication ?Instructions ?Recorded ?Last Taken ?Type omeprazole 20 mg capsule,delayed 20 mg PO DAILY reflux 04/07/20 03/21/24 History release acetaminophen 325 mg tablet 650 mg (2 x 325 mg) PO Q6H PRN PRN 04/09/20 03/21/24 Rx Pain Score 1-10/Temp > 100.7 F allopurinol 300 mg tablet 300 mg PO DAILY 04/09/20 03/21/24 Rx amlodipine 10 mg tablet 10 mg PO DAILY 01/20/23 03/22/24 History fenofibrate 160 mg tablet 160 mg PO DAILY 01/20/23 03/21/24 History gabapentin 300 mg capsule 300 mg PO BID 01/20/23 03/21/24 History insulin glargine 100 unit/mL (3 46 unit subcut QHS diabetes 01/20/23 03/20/24 History mL) subcutaneous pen furosemide 20 mg tablet (Lasix) 20 mg PO DAILY 08/18/23 03/21/24 History hydrochlorothiazide 25 mg tablet 25 mg PO DAILY #90 tabs 01/29/24 03/21/24 Rx rosuvastatin 40 mg tablet (Crestor) 40 mg PO DAILY #90 tabs 01/29/24 Unknown Rx dapagliflozin propanediol 10 mg 10 mg PO DAILY 02/18/24 03/21/24 History tablet (Farxiga) ferrous sulfate 325 mg (65 mg 325 mg PO DAILY 02/18/24 03/17/24 History iron) tablet meloxicam 15 mg tablet 15 mg PO DAILY 02/18/24 03/21/24 History vitamin B complex 1 tab PO DAILY 02/18/24 03/21/24 History cholecalciferol (vitamin D3) 50 100 mcg PO DAILY 03/18/24 03/21/24 History mcg (2,000 unit) capsule (Vitamin D3) insulin regular hum U-500 conc 500 100 unit subcut TIDCM 03/18/24 03/19/24 History unit/mL(3 mL) subcut pen (Humulin R U-500 (Conc) Insulin Kwikpen) chlorpheniramine 4 1 tab PO Q4H 03/22/24 03/22/24 History mg-phenylephrine 10 mg tablet (Suphedrine PE Sinus and Allergy) Allergy/AdvReac Type Severity Reaction Status Date / Time fenoprofen (From [place]) Allergy Intermediate Itching Verified 03/22/24 07:01 Family History Mother CVA (cerebral vascular accident) Cancer Hypertension Grandmother CVA (cerebral vascular accident) Cancer Father Diabetes Grandfather Diabetes Surgical History (Updated 03/18/24 @ 13:51 by Nataliia Crowe) History of surgery on right wrist History of repair of vocal cord History of surgery on arm History of surgical removal of skin lesion History of amputation of great toe History of incision and drainage (~11/12/18) Social History current occupational status: employed Smoking Status: Never smoker alcohol intake: never substance use type: does not use caffeine: Yes Past Medical/Surgical History Planned Operation Planned Operative Procedure/s: COLONOSCOPY Previous Hospitalizations/Surgeries HX Hospitalizations: No Any Problems With Anesthesia: No You/Your Family Experience Fever (Hyperthermia) With Anes: No Cholinesterase deficiency: No Cardiovascular Hx Chest Pain within Last 2 months: No Hx of Irregular Heartbeat and/or Afib: Yes Hx Heart Attack: No Hx Congestive Heart Failure: No Hx Hypertension: Yes Hx Pacemaker: No Hx Cardiac Surgery/Stents/Etc.: No Hx Pain in Legs when Walking/Leg Cramps: No Respiratory Hx Chronic Obstructive Pulmonary Disease (COPD): No Hx Asthma: No Hx Emphysema: No Hx Sleep Apnea: No CPAP: No BIPAP: No Hx Respiratory Tract Infection/Cold (presently): No Do You Snore Loudly (louder than talking or can be heard): No Do You Often Feel Tired/ Fatigued/ Sleepy Dring Daytime?: No Has Anyone Observed You Stop Breathing During Sleep?: No Result (for STOP score): Negative Hx Smoking: No Smoking Status: Never smoker Gastrointestinal Hx Gastrointestinal Bleed: No Hx Ulcer: No Difficulty Chewing/Swallowing: No Hx Unplanned Weight Loss of 20#: No Neurological Hx Seizures: No Hx Multiple Sclerosis: No Hx Parkinson's Disease: No Hx Head/Neck Injury: No Hx Headaches: No Hx Back Injury/Pain: No Does patient have nerve stimulator: No Blood Disorder Hx Hepatitis: No Hx Cirrhosis: No Hx Anemia: No Hx Blood Disorders: No Musculoskeletal Hx Arthritis: No Hx Rheumatoid Arthritis: No Endocrine Hx Diabetes: Yes Thyroid Disease: No Psycho/Social Hx Substance Use: No Hx Alcohol Use: No Hx Anxiety: No Hx Depression: No Hx Dementia: No Miscellaneous Hx Cancer: No Recent Exposure to Contagious Disease: No Allergies fenoprofen (From [place]) Allergy (Intermediate, Verified 03/22/24 07:01) Itching Maternal: Family History Mother CVA (cerebral vascular accident) Cancer Hypertension Grandmother CVA (cerebral vascular accident) Cancer Father Diabetes Grandfather Diabetes Cancer, Diabetes, Stroke and - (Patient notes a maternal family history of stroke, diabetes as well as oral cancer.) Paternal: Family History Mother CVA (cerebral vascular accident) Cancer Hypertension Grandmother CVA (cerebral vascular accident) Cancer Father Diabetes Grandfather Diabetes Cancer, Diabetes and - (Patient notes a paternal family history of diabetes and multiple myeloma.) Discharge Is Pt Admitted From a Half-Way, or a Senior Care: No Who Could Help: FAMILY After D/C, Where Do you Plan to Go: Return Home Vital Signs Vital Signs Vital Signs: 03/22/24 07:03 03/22/24 07:03 Temperature 96.7 F L Temperature Source Temporal Pulse Rate 93 Respiratory Rate 16 Respiratory Pattern Normal Blood Pressure 169/72 H Blood Pressure Mean 104 Blood Pressure Source Monitor Blood Pressure Position Semi-Fowlers Blood Pressure Location Left Arm Pulse Ox 97 Oxygen Delivery Method Room Air Weight Weight: 317 lb 7.45 oz Body Mass Index (BMI) 44.2 Physical Exam Const alert and oriented x3 HEENT normocephalic Eyes PERRL Resp normal respiratory effort and normal air movement Cardio regular rate and regular rhythm GI soft to palpation, non-tender and non-distended Extremity normal to inspection Assessment & Plan Assessment/Plan (1) Encounter for screening for malignant neoplasm of colon: PLAN: I explained endoscopy in detail to the patient. I explained the risks including but not limited to stroke or heart attack with anesthesia, perforation of the GI tract, bleeding, infection. I explained that any of these could necessitate further emergency surgery. The patient understands and all questions were answered sufficiently. The patient wishes to proceed with procedure. Ky Calixto MD Pager: [facility] [address] [place] [address] [address] [place] [address] Office: Surgery Risks - Colonoscopy Risks Include but are not Limited To: Risks include but are not limited to: Bleeding, perforation requiring further surgery, inability to complete colonoscopy requiring barium enema.
--- NOTE | 2024-03-22 08:24 | OP.COLON_ITS ---
Patient Name: Missy Mason Procedure Date: 03/22/2024 7:57 AM Date of : 1965 Age: 59 Procedure: Colonoscopy Indications: Screening for colorectal malignant neoplasm Providers: Ky Calixto MD Referring MD: Jarocho Bass [facility], [employer] Specialist-c Medicines: Propofol per Anesthesia Patient Profile: This is a 59 year old male. Refer to note in patient chart for documentation of history and physical. Last Colonoscopy: none. The patient's first colonoscopy is today. Complications: No immediate complications. Procedure: Pre-Anesthesia Assessment: - Prior to the procedure, a History and Physical was performed, and patient medications and allergies were reviewed. The patient's tolerance of previous anesthesia was also reviewed. The risks and benefits of the procedure and the sedation options and risks were discussed with the patient. All questions were answered, and informed consent was obtained. Prior Anticoagulants: The patient has taken no anticoagulant or antiplatelet agents. After reviewing the risks and benefits, the patient was deemed in satisfactory condition to undergo the procedure. After I obtained informed consent, the scope was passed under direct vision. Throughout the procedure, the patient's blood pressure, pulse, and oxygen saturations were monitored continuously. The Colonoscope was introduced through the anus and advanced to the cecum, identified by appendiceal orifice and ileocecal valve. The colonoscopy was performed without difficulty. The patient tolerated the procedure well. The quality of the bowel preparation was good. The ileocecal valve, appendiceal orifice, and rectum were photographed. Scope In: 8:07:14 AM Scope Withdrawal Time 0 hours 5 minutes 34 seconds Scope Out: 8:19:12 AM Total Procedure Duration Time 0 hours 11 minutes 58 seconds Findings: The entire examined colon appeared normal on direct and retroflexion views. Impression: - The entire examined colon is normal on direct and retroflexion views. - No specimens collected. Recommendation: - Discharge patient to home. - Resume previous diet. - Continue present medications. - Repeat colonoscopy in 10 years for screening purposes. Procedure Code(s): --- Professional --- 71159, Colonoscopy, flexible; diagnostic, including collection of specimen(s) by brushing or washing, when performed (separate procedure) Diagnosis Code(s): --- Professional --- Z12.11, Encounter for screening for malignant neoplasm of colon CPT copyright 2021 [employer]. All rights reserved. The codes documented in this report are preliminary and upon wire stripping machine operator review may be revised to meet current compliance requirements. Ky Calixto MD 03/22/2024 8:24:26 AM This report has been signed electronically. Number of Addenda: 0 Note Initiated On: 03/22/2024 7:57 AM
--- NOTE | 2024-03-22 08:25 | OP.CCLET_ITS ---
03/22/2024 Jarocho Bass [facility], [employer] Reading Teacher-c Re : Colonoscopy procedure for Missy Mason Dear Shelia This procedure was performed on Friday, March 22, 2024. My impressions and recommendations are as follows: Impressions : - The entire examined colon is normal on direct and retroflexion views. - No specimens collected. Recommendations : - Discharge patient to home. - Resume previous diet. - Continue present medications. - Repeat colonoscopy in 10 years for screening purposes. My findings are described in the full procedure note, which is enclosed. If I can be of further assistance, please feel free to contact me at Doctor phone number(s): , Work: . Sincerely, Ky Calixto MD 03/22/2024 8:24:26 AM This report has been signed electronically.
== END 2024-03-22 09:08 | disposition home or self-care (01) ==
LOC: EN 06:37 → AC 06:38
PROVIDERS: PCP Nurse Practitioner Family; Referring Provider Nurse Practitioner Family; Visit Provider Surgery
PROC: 0DJD8ZZ Inspection of Lower Intestinal Tract, Via Natural or Artificial Opening Endoscopic (ICD-10-PCS; CPT 45378; principal; 2024-03-22 07:55)
DX: Z12.11 Encounter for screening for malignant neoplasm of colon (principal); E11.40 Type 2 diabetes mellitus with diabetic neuropathy, unspecified; Z79.4 Long term (current) use of insulin; D64.9 Anemia, unspecified; I10 Essential (primary) hypertension; E78.5 Hyperlipidemia, unspecified; K21.9 Gastro-esophageal reflux disease without esophagitis; Z79.899 Other long term (current) drug therapy
CPT/HCPCS: 45378; 82962; J7120; J2405

== ENCOUNTER → 2024-05-11 | Outpatient (CLI) | payer MEDICAID, SELFPAY ==
[2024-05-11 13:06] LABS: Absolute Lymphocyte Count 1.78 X10^3/uL (0.83-4.51); Basophil# 0.05 X10^3/uL; Basophil% 0.7 % (0-1); Eosinophil# 0.27 X10^3/uL; Hematocrit 43.5 % (40-54); Hemoglobin 13.3 g/dL (13.0-16.5); Lymphocyte # 1.78 X10^3/ul (0.83-4.51); Lymphocyte % 26.5 % (19-41); Mean Corp Hgb Conc 30.6 g/dL (32-36); Mean Corpuscular Hgb 25.3 pg (27.0-32.0); Mean Corpuscular Volume 82.9 fL (80-94); Mean Platelet Vol. 9.7 fl (6.2-12.0); Monocyte# 0.61 X10^3/uL; Monocyte% 9.1 % (0-10); NRBC Flagged by Analyzer 0 % (0-5); Neutrophil # 3.98 X10^3/uL (2.7-7.7); Neutrophil % 59.4 % (47-70); Platelet Count 250 K/mm3 (150-450); RBC Distribution Width CV 16.6 % (11.6-14.6); RBC Distribution Width SD 49.8 fl (35.1-43.9); Red Blood Count 5.25 M/mm3 (4.6-6.2); White Blood Count 6.7 K/mm3 (4.4-11.0)
[2024-05-11 13:32] LABS: ALB/GLOB Ratio 0.8 RATIO (0.9-2.4); AST(SGOT) 41 U/L (15-37); Alanine Aminotransfer ALT/SGPT 28 U/L (16-61); Albumin, Serum 3.5 g/dL (3.2-5.0); Alkaline Phosphatase 94 U/L (45-117); Amylase 28 U/L (25-115); Anion Gap 11 (5-15); BUN 26 mg/dL (7-18); BUN/Creat Ratio 21.5 RATIO (10-20); Calcium,Total 9.4 mg/dL (8.5-10.1); Chloride 107 mmol/L (98-107); Cholesterol 245 mg/dL (200); Creatinine, Serum 1.21 mg/dL (0.70-1.30); EST Glomerular Filtration Rate 65 mL/min (>60); Est Glom Filt Rate - Afr Amer 78 mL/min (>60); Globulin 4.2 g/dL (2.2-4.2); Glucose 111 mg/dL (74-106); High Density Lipoprotein 52 mg/dL; Lipase 27 U/L (13-75); PSA,Total - Annual Screen 0.54 ng/mL (0.00-4.00); Potassium 4.4 mmol/L (3.5-5.1); Protein, Total 7.7 g/dL (6.4-8.2); Sodium Level 138 mmol/L (136-145); Thyroid Stim Hormone (TSH) 2.33 uIU/mL (0.358-3.74); Triglycerides 321 mg/dL; Very Low Density Lipoprotein 64 mg/dL (5-40)
[2024-05-11 13:40] LABS: Microalbumin,Random Urine 23.3 mg/L (NO RANGE EST.)
== END | disposition home or self-care (01) ==
LOC: VSLAB 10:09
PROVIDERS: PCP Nurse Practitioner Family; Referring Provider Nurse Practitioner Family; Visit Provider Nurse Practitioner Family
DX: Z12.5 Encounter for screening for malignant neoplasm of prostate (principal); E11.9 Type 2 diabetes mellitus without complications
CPT/HCPCS: 36415; 80053; 80061; 82043; 82150; 83690; 84153; 84443; 85025; G0103

== ENCOUNTER → 2024-06-20 | Outpatient (CLI) | payer MEDICAID, SELFPAY ==
--- NOTE | 2024-06-20 08:47 | US_ITS ---
STUDY: ULTRASOUND BREAST - RIGHT REASON FOR EXAM: Male, 59 years old. 2 month history of right retroareolar tenderness. TECHNIQUE: Axial and longitudinal images of the RIGHT breast were performed with a high resolution ultrasound transducer. # OF IMAGES: 21 COMPARISON: Comparison is made with prior mammogram done earlier today. FINDINGS: RIGHT Breast: The retroareolar region was examined with ultrasound. There is evidence of fibroglandular tissue suggestive of gynecomastia. US/Breast Limited Unilateral IMPRESSION: Findings suggestive of gynecomastia. ASSESSMENT CATEGORY: BIRADS Category 2: Benign. A letter regarding these results will be sent to the patient by the facility within 30 days. Electronically Signed: Cheko Benton MD at 11:18 EDT ,
--- NOTE | 2024-06-20 08:47 | BI_ITS ---
MAMMOGRAPHY - BILATERAL DIAGNOSTIC REASON FOR EXAM: Male, 59 years old. 2 month history of right retroareolar pain. History of weight gain. PERTINENT HISTORY: Non-contributory. TECHNIQUE: Digital bilateral breast shama (3D mammographic acquisition) in the CC and MLO projections. 2-D mediolateral oblique (MLO) and craniocaudad (CC) views of both breasts were obtained. CAD: Full Field Digital Mammography with Computer Added Detection was performed. COMPARISON: None. Baseline examination. FINDINGS: Breast Composition: Asymmetry of breast tissue with more breast tissue is seen in the retroareolar region of the right breast as compared to the left side. Correlation with ultrasound is recommended. There are no dominant masses or suspicious calcifications. No other significant abnormalities are identified. BI/DIAG MAMM W/CAD, BILAT IMPRESSION: Asymmetrical tissue in the retroareolar region of the right breast as compared to the right side. Correlation with ultrasound is recommended. ASSESSMENT CATEGORY: BIRADS Category 0: Incomplete. Need additional imaging evaluation. A letter regarding these results will be sent to the patient by the facility within 30 days. Approximately 10% of breast cancers are not detected by mammography. A normal mammogram should not delay biopsy of a clinically suspicious abnormality. Electronically Signed: Cheko Benton MD at 9:40 EDT ,
== END | disposition home or self-care (01) ==
LOC: OPBI 08:45
PROVIDERS: PCP Nurse Practitioner Family; Referring Provider Nurse Practitioner Family; Visit Provider Nurse Practitioner Family
DX: N63.10 Unspecified lump in the right breast, unspecified quadrant (principal)
CPT/HCPCS: 76642; 77062; 77066; G0279

== ENCOUNTER → 2024-08-11 | Outpatient (CLI) | payer MEDICAID, SELFPAY ==
[2024-08-11 12:48] LABS: Absolute Lymphocyte Count 1.51 X10^3/uL (0.83-4.51); Absolute Neutrophil Count 5.2 X10^3/uL (2.0-7.7); Basophil# 0.07 X10^3/uL; Basophil% 0.9 % (0-1); Eosinophil# 0.31 X10^3/uL; Hematocrit 47.3 % (40-54); Hemoglobin 14.5 g/dL (13.0-16.5); Lymphocyte # 1.51 X10^3/ul (0.83-4.51); Lymphocyte % 19.6 % (19-41); Mean Corp Hgb Conc 30.7 g/dL (32-36); Mean Corpuscular Volume 84.9 fL (80-94); Mean Platelet Vol. 9.8 fl (6.2-12.0); Monocyte# 0.62 X10^3/uL; NRBC Flagged by Analyzer 0 % (0-5); Neutrophil # 5.16 X10^3/uL (2.7-7.7); Platelet Count 293 K/mm3 (150-450); RBC Distribution Width CV 16.5 % (11.6-14.6); RBC Distribution Width SD 49.9 fl (35.1-43.9); Red Blood Count 5.57 M/mm3 (4.6-6.2); White Blood Count 7.7 K/mm3 (4.4-11.0)
[2024-08-11 13:06] LABS: Vitamin B12 318 pg/mL (211-911)
[2024-08-11 13:26] LABS: AST(SGOT) 36 U/L (15-37); Alanine Aminotransfer ALT/SGPT 29 U/L (16-61); Albumin, Serum 3.9 g/dL (3.2-5.0); Alkaline Phosphatase 78 U/L (45-117); Amylase 30 U/L (25-115); Anion Gap 8 (5-15); BUN 40 mg/dL (7-18); BUN/Creat Ratio 24.8 RATIO (10-20); Calcium,Total 10.2 mg/dL (8.5-10.1); Chloride 102 mmol/L (98-107); Creatinine, Serum 1.61 mg/dL (0.70-1.30); EST Glomerular Filtration Rate 47 mL/min (>60); Est Glom Filt Rate - Afr Amer 56 mL/min (>60); Glucose 217 mg/dL (74-106); Lipase 40 U/L (13-75); Potassium 4.2 mmol/L (3.5-5.1); Protein, Total 7.9 g/dL (6.4-8.2); Sodium Level 139 mmol/L (136-145)
== END | disposition home or self-care (01) ==
LOC: VSLAB 09:03
PROVIDERS: PCP Nurse Practitioner Family; Visit Provider Nurse Practitioner Family
DX: E11.9 Type 2 diabetes mellitus without complications (principal); E56.9 Vitamin deficiency, unspecified
CPT/HCPCS: 36415; 80053; 82150; 82306; 82607; 83690; 85025

== ENCOUNTER → 2024-09-20 | Outpatient (CLI) | payer MEDICAID, SELFPAY ==
[2024-09-20 12:18] LABS: Erythrocyte Sedimentation Rate 29 mm/hr (0-20)
[2024-09-20 12:24] LABS: Absolute Lymphocyte Count 2.11 X10^3/uL (0.83-4.51); Absolute Neutrophil Count 4.9 X10^3/uL (2.0-7.7); Basophil# 0.05 X10^3/uL; Basophil% 0.6 % (0-1); Eosinophils% 3.7 % (0-5); Hematocrit 42.9 % (40-54); Hemoglobin 13.2 g/dL (13.0-16.5); Lymphocyte # 2.11 X10^3/ul (0.83-4.51); Lymphocyte % 25.9 % (19-41); Mean Corp Hgb Conc 30.8 g/dL (32-36); Mean Corpuscular Hgb 26.3 pg (27.0-32.0); Mean Corpuscular Volume 85.6 fL (80-94); Monocyte# 0.73 X10^3/uL; NRBC Flagged by Analyzer 0 % (0-5); Neutrophil # 4.92 X10^3/uL (2.7-7.7); Neutrophil % 60.3 % (47-70); Platelet Count 343 K/mm3 (150-450); RBC Distribution Width CV 15.9 % (11.6-14.6); RBC Distribution Width SD 49.4 fl (35.1-43.9); Red Blood Count 5.01 M/mm3 (4.6-6.2); White Blood Count 8.2 K/mm3 (4.4-11.0)
[2024-09-20 12:39] LABS: CRP 8.47 mg/L (0.0-3.0)
== END | disposition home or self-care (01) ==
LOC: LAB 11:34
PROVIDERS: PCP Nurse Practitioner Family
DX: L97.522 Non-pressure chronic ulcer of other part of left foot with fat layer exposed (principal); L03.116 Cellulitis of left lower limb
CPT/HCPCS: 36415; 85025; 85652; 86140

== ENCOUNTER → 2024-11-17 | Outpatient (CLI) | payer MEDICAID, SELFPAY ==
[2024-11-17 12:59] LABS: Absolute Lymphocyte Count 2.38 X10^3/uL (0.83-4.51); Basophil# 0.07 X10^3/uL; Basophil% 0.7 % (0-1); Eosinophils% 2.1 % (0-5); Hematocrit 43.9 % (40-54); Hemoglobin 13.6 g/dL (13.0-16.5); Lymphocyte # 2.38 X10^3/ul (0.83-4.51); Lymphocyte % 25.1 % (19-41); Mean Corpuscular Hgb 26.7 pg (27.0-32.0); Mean Corpuscular Volume 86.1 fL (80-94); Mean Platelet Vol. 9.6 fl (6.2-12.0); Monocyte# 0.78 X10^3/uL; Monocyte% 8.2 % (0-10); NRBC Flagged by Analyzer 0 % (0-5); Neutrophil % 63.4 % (47-70); Platelet Count 415 K/mm3 (150-450); RBC Distribution Width CV 15.8 % (11.6-14.6); RBC Distribution Width SD 49.1 fl (35.1-43.9); White Blood Count 9.5 K/mm3 (4.4-11.0)
[2024-11-17 13:22] LABS: ALB/GLOB Ratio 0.8 RATIO (0.9-2.4); AST(SGOT) 29 U/L (15-37); Alanine Aminotransfer ALT/SGPT 23 U/L (16-61); Albumin, Serum 3.5 g/dL (3.2-5.0); Alkaline Phosphatase 67 U/L (45-117); Amylase 30 U/L (25-115); Anion Gap 9 (5-15); BUN 36 mg/dL (7-18); BUN/Creat Ratio 19.9 RATIO (10-20); Calcium,Total 10.3 mg/dL (8.5-10.1); Chloride 104 mmol/L (98-107); Cholesterol 162 mg/dL (200); Creatinine, Serum 1.81 mg/dL (0.70-1.30); EST Glomerular Filtration Rate 41 mL/min (>60); Est Glom Filt Rate - Afr Amer 49 mL/min (>60); Globulin 4.2 g/dL (2.2-4.2); Glucose 113 mg/dL (74-106); High Density Lipoprotein 45 mg/dL; Lipase 29 U/L (13-75); Potassium 4.6 mmol/L (3.5-5.1); Protein, Total 7.7 g/dL (6.4-8.2); Sodium Level 136 mmol/L (136-145); Triglycerides 370 mg/dL; Very Low Density Lipoprotein 74 mg/dL (5-40)
[2024-11-17 13:29] LABS: Microalbumin,Random Urine 10.4 mg/L (NO RANGE EST.)
== END | disposition home or self-care (01) ==
LOC: VSLAB 09:49
PROVIDERS: PCP Nurse Practitioner Family; Visit Provider Nurse Practitioner Family
DX: E11.9 Type 2 diabetes mellitus without complications (principal)
CPT/HCPCS: 36415; 80053; 80061; 82043; 82150; 83690; 84443; 85025

== ENCOUNTER → 2024-11-29 | Outpatient (CLI) | payer MEDICAID, SELFPAY ==
[2024-11-29 18:53] LABS: Anion Gap 7 (5-15); BUN 32 mg/dL (7-18); BUN/Creat Ratio 22.2 RATIO (10-20); Calcium,Total 10.4 mg/dL (8.5-10.1); Chloride 106 mmol/L (98-107); Creatinine, Serum 1.44 mg/dL (0.70-1.30); EST Glomerular Filtration Rate 53 mL/min (>60); Est Glom Filt Rate - Afr Amer 64 mL/min (>60); Glucose 187 mg/dL (74-106); Potassium 4.7 mmol/L (3.5-5.1); Sodium Level 139 mmol/L (136-145); T4 Free Direct 0.81 ng/dL (0.76-1.46); T4 Total, Thyroxin 8.9 ug/dL (4.5-12.1)
== END | disposition home or self-care (01) ==
PROVIDERS: PCP Nurse Practitioner Family
DX: R94.6 Abnormal results of thyroid function studies (principal); I10 Essential (primary) hypertension
CPT/HCPCS: 36415; 80048; 84436; 84439; 84443

== ENCOUNTER → 2024-12-08 | Outpatient (CLI) | payer MEDICAID, SELFPAY ==
--- NOTE | 2024-12-08 11:27 | RAD_ITS ---
PROCEDURE: FOOT MIN 3 VIEWS REASON FOR EXAM: Diabetic; wound; bone collapse. TECHNIQUE: 3 view(s) of the left foot COMPARISON: None. FINDINGS: LEFT FOOT: 1st phalangeal amputation. Diffuse erosive changes throughout the mid and hindfoot compatible with Charcot arthropathy. Diffuse soft tissue swelling throughout the foot. No evidence of acute fracture or dislocation. RAD/Foot min 3 Views IMPRESSION: Charcot arthropathy. Diffuse soft tissue swelling. Reading Location: [id number]
[2024-12-08 15:01] LABS: Hemoglobin A1c 6.8 % (3.8-5.6)
[2024-12-09 05:07] LABS: Prealbumin 30 mg/dL (10-36)
== END | disposition home or self-care (01) ==
LOC: LAB 11:17
PROVIDERS: PCP Nurse Practitioner Family; Referring Provider Surgery Plastic and Reconstructive Surgery; Visit Provider Surgery Plastic and Reconstructive Surgery
DX: E11.610 Type 2 diabetes mellitus with diabetic neuropathic arthropathy (principal)
CPT/HCPCS: 36415; 73630; 83036; 84134